=== PATIENT | male | born 1970 | race Caucasian/White ===

== ENCOUNTER 2018-10-06 03:15 | Emergency (ER) | payer OTHER, SELFPAY ==
[2018-10-06 03:18] VITALS: BP 167/98; PULSE 95; RESP 18; TEMP 37.1; O2SAT 95; BMI 34.9
[2018-10-06] MEDS: oxyCODONE 5 MG Tablet 10 MG PO (03:30)
--- NOTE | 2018-10-06 03:39 | RAD_ITS ---
STUDY: X-RAY - LEFT SHOULDER REASON FOR EXAM: Male, 48 years old. Left shoulder pain TECHNIQUE: 5 view(s) of the shoulder. COMPARISON: None. 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 There is hypertrophic osteoarthrosis of the acromioclavicular joint with inferior osseous spur formation. Normal acromion. Normal humeral head and visualized proximal humerus. The soft tissue structures are unremarkable. Normal visualized pulmonary apex. 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 Electronically Signed: Misael Ortiz MD at 4:02 EST Tel , Service support ,
--- NOTE | 2018-10-06 04:21 | ED.VISSUMM ---
- ER Visit Summary Date of Service: 10/06/18 Chief Complaint: Left shoulder pain History of Present Illness: The patient is a 48 M presenting for evaluation secondary to left shoulder pain. 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 Patient reports that over the course of the last 1-2 days he has had a onset of worsening left shoulder pain. 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 He denies that there was specific injury associated with this, but states that the pain has been progressively getting worse. Pain is worse with palpation and movement and has been nonrelenting despite massage and taking Excedrin. He denies any fevers night sweats or unintended weight loss. He denies any injections, recent surgeries, or history of IV drug abuse. Review of systems otherwise negative. Physical Examination: Vital signs are notable for mild hypertension 167/98 patient's afebrile. Well-nourished male visibly uncomfortable but otherwise not physiologic distress. Left upper extremity exam shows diffuse tenderness to palpation around the entirety of the patient's shoulder joint without specific localization. There is no joint effusion noted, no overlying erythema or warmth to palpation. Patient has very limited range of motion secondary to pain. Normal distal sensation normal distal pulses. Normal range of motion of the elbow wrist and hand. Test Results: Left shoulder x-ray shows severe degenerative arthrosis of the shoulder Emergency Department Course and Treatment: Patient presented with left shoulder pain. Patient was given oxycodone for pain in the emergency department. X-rays obtained showed severe degeneration of the glenohumeral joint. Patient does not have fevers, does not have risk factors for infectious arthritis I do not believe that arthrocentesis is indicated. I did offer the patient a joint injection, and he declined. Patient's degenerative joint of his shoulder is bad enough that I do believe that ultimately it will require operative repair. Patient had his right shoulder performed by Dr. Oneil Steel in the past, he wishes to follow-up with him for further orthopedic workup and treatment. Patient will be sent home with Naprosyn to be taken regularly and Percocet to be taken for breakthrough pain. Disposition: Discharge Impression: 1. Severe left shoulder arthrosis This note was generated with [employer] dictation software. It may contain incorrect words, spelling, and punctuation that were not noted in review of the chart prior to signing ED Disposition - Plan for ED Patient: Disposition: Home or Assisted Living Diagnosis: Arthrosis of left shoulder Instructions: ED Shoulder Pain [facility] Prescriptions: Oxycodone HCl/Acetaminophen [Percocet 5/325] 1 tab PO Q6H PRN PRN 3 Days #12 tab PRN Reason: Pain Naproxen [Naprosyn] 500 mg PO BID PRN #20 tab Referrals: Oneil Steel MD [STAFF PHYSICIAN] - As soon as possible
--- NOTE | 2018-10-06 04:25 | ED.DCSUM_ITS ---
- ER Visit Summary Date of Service: 10/06/18 Chief Complaint: Left shoulder pain History of Present Illness: The patient is a 48 M presenting for evaluation secondary to left shoulder pain. 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 Patient reports that over the course of the last 1-2 days he has had a onset of worsening left shoulder pain. 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 He denies that there was specific injury associated with this, but states that the pain has been prog ressively getting worse. Pain is worse with palpation and movement and has been nonrelenting despite massage and taking Excedrin. He denies any fevers night sweats or unintended weight loss. He denies any injections, recent surgeries, or history of IV drug abuse. Review of systems otherwise negative. Physical Examination: Vital signs are notable for mild hypertension 167/98 patient's afebrile. Well-nourished male visibly uncomfortable but otherwise not physiologic distress. Left upper extremity exam shows diffuse tenderness to palpation around the entirety of the patient's shoulder joint without specific localization. There is no joint effusion noted, no overlying erythema or warmth to palpation. Patient has very limited range of motion secondary to pain. Nor mal distal sensation normal distal pulses. Normal range of motion of the elbow wrist and hand. Test Results: Left shoulder x-ray shows severe degenerative arthrosis of the shoulder Emergency Department Course and Treatment: Patient presented with left shoulder pain. Patient was given oxycodone for pain in the emergency department. X-rays obtained showed severe degeneration of the glenohumeral joint. Patient does not have fevers, does not have risk factors for infectious arthritis I do not believe that arthrocentesis is indicated. I did offer the patient a joint injection, and he declined. Patient's degenerative joint of his shoulder is bad enough that I do believe that ultimately it will require operative repair. Patient had his right shoulder performed by Dr. Oneil Steel in the past, he wishes to follow-up with him for further orthopedic workup and treatment. Patient will be sent home with Naprosyn to be taken regularly and Percocet to be taken for breakthrough pain. Disposition: Discharge Impression: 1. Severe left shoulder arthrosis This note was generated with [employer] dictation software. It may contain incorrect words, spelling, and punctuation that were not noted in review of the chart prior to signing ED Disposition - Plan for ED Patient: Disposition: Home or Assisted Living Diagnosis: Arthrosis of left shoulder Instructions: ED Shoulder Pain [facility] Prescriptions: Oxycodone HCl/Acetaminophen [Percocet 5/325] 1 tab PO Q6H PRN PRN 3 Days #12 tab PRN Reason: Pain Naproxen [Naprosyn] 500 mg PO BID PRN #20 tab Referrals: Oneil Steel MD [STAFF PHYSICIAN] - As soon as possible
[2018-10-06 04:34] VITALS: RESP 16
== END 2018-10-06 04:35 | disposition home or self-care (01) ==
PROVIDERS: Emergency Provider Emergency Medicine
DX: M19.012 Primary osteoarthritis, left shoulder (principal)
CPT/HCPCS: 73030; 99283

== ENCOUNTER 2018-12-16 18:43 | Emergency (ER) | payer OTHER, SELFPAY ==
[2018-12-16 18:44] VITALS: BP 146/99; PULSE 131; RESP 20; TEMP 36.8; O2SAT 98; BMI 34.7
--- NOTE | 2018-12-16 18:53 | EKG12_ITS ---
Test Reason : CP Blood Pressure : / mmHG Vent. Rate : 148 BPM Atrial Rate : 148 BPM P-R Int : 130 ms QRS Dur : 096 ms QT Int : 266 ms P-R-T Axes : 049 025 -21 degrees QTc Int : 417 ms Sinus tachycardia Septal infarct , age undetermined Abnormal ECG Confirmed by KHADAR DEXTER, JONATHAN ([id number]), proposal editor SHEREEN ELISE ([id number]) on 12/20/2018 9:00:15 AM Referred By: KELLEE Confirmed By:JONATHAN RUBALCAVA MD
[2018-12-16] MEDS: LORazepam 2 MG/ML Syringe IV ×2 (19:04→20:32)
[2018-12-16 19:46] VITALS: BP 129/69; PULSE 115; RESP 18; O2SAT 96
[2018-12-16 20:23] VITALS: BP 119/79; PULSE 111; RESP 18; O2SAT 98
[2018-12-16 20:43] LABS: Absolute Lymphocyte Count 3.44 X10^3/ul (0.83-4.51); Absolute Neutrophil Count 5.1 X10^3/uL (2.0-7.7); Basophil# 0.05 X10^3/uL; Basophil% 0.5 % (0-1); Eosinophil# 0.11 X10^3/uL; Eosinophils% 1.2 % (0-5); Hematocrit 46.9 % (40-54); Hemoglobin 16.4 g/dl (13.0-16.5); Lymphocyte # 3.44 X10^3/ul (4.0); Lymphocyte % 36.5 % (19-41); Mean Corpuscular Hgb 30.5 pg (27.0-32.0); Mean Corpuscular Volume 87.2 fL (80-94); Mean Platelet Vol. 9.9 fl (6.2-12.0); Monocyte# 0.68 X10^3/uL; Monocyte% 7.2 % (0-10); Neutrophil # 5.11 X10^3/uL (2.7-7.7); Neutrophil % 54.3 % (47-70); POSITIVE COUNT NO; POSITIVE DIFFERENTIAL NO; POSITIVE MORPHOLOGY NO; Platelet Count 259 K/mm3 (150-450); RBC Distribution Width CV 12.6 % (11.6-14.6); RBC Distribution Width SD 40.1 fl (35.1-43.9); Red Blood Count 5.38 M/mm3 (4.6-6.2); White Blood Count 9.4 K/mm3 (4.4-11.0)
[2018-12-16 20:48] LABS: Anion Gap 9 (5-15); BUN 15 mg/dL (7-18); BUN/Creat Ratio 10.6 RATIO (10-20); Calcium,Total 8.8 mg/dL (8.5-10.1); Chloride 105 mmol/L (98-107); Creatinine, Serum 1.41 mg/dL (0.70-1.30); EST Glomerular Filtration Rate 57 mL/min (>60); Est Glom Filt Rate - Afr Amer 69 mL/min (>60); Estimated Creatinine Clearance 73.19 ml/min; Glucose 137 mg/dL (74-106); Sodium Level 141 mmol/L (136-145)
--- NOTE | 2018-12-16 20:54 | ED.VIS.GEN ---
History of Present Illness Chief Complaint: Chest Pain Informant: Patient Onset: Today Context: Sudden Onset Timing: Continuous Quality: Rapid heart rate Location: Chest Current Severity: Moderate Maximum Severity: Moderate Worsened by: Patient smoked dab 1 hour prior to onset. Relieved by: Nothing Associated Symptoms: Palpitations and feeling anxious Narrative: Patient is a 48-year-old male who has history of H fibrillation. He smoked today which apparently is a form of marijuana. He states 1 hour after smoking dab he developed rapid heartbeat. He denies headache. Denies visual, ocular auditory symptoms. He denies shortness of breath. He denies pleuritic pain. Denies upper or lower cavity pain. He denies GI symptoms. He is on no anticoagulant. Prior similar symptoms: No Recent Illness/Hospitalization: No - Past Medical History (1) No significant past medical history Status: Acute Past Medical History - Allergies and Home Meds Allergies/Adverse Reactions: Allergies No Known Allergies Allergy (Verified 10/06/18 03:17) Primary Care Physician: Care Physician,No Primary [Primary Care Provider] - Past Medical History: None Surgical History: noncontributory Lives: Spouse/ Significant Other Smoking Status: Former smoker Drugs: - - Patient admitted use of dab and anabolic steroids Review of Systems General: Denies: Chills, Fever, Malaise, Subjective, Sweats Eyes: Denies: Visual changes - bilaterally, Blurred Vision - bilaterally ENT: Denies: Bilateral ear pain, Rhinorrhea, Sore throat Cardiovascular: Reports: Chest pain, Palpitations Respiratory: Reports: Dyspnea. Denies: Cough, Sputum, Dyspnea on exertion, Orthopnea, Paroxysmal nocturnal dyspnea Musculoskeletal: Denies: Myalgias, Arthralgias, Neck pain, Back pain, Extremity Pain Neurological: Denies: Headache, Weakness, Parasthesia, Numbness Hematologic: Denies: Easy bruising, Easy bleeding Allergy: Denies: Uticaria, Swelling of the mouth Physical Exam Vital Signs/Narrative: Vital Signs Temp Pulse Resp BP Pulse Ox 12/16/18 20:23 111 H 18 119/79 98 12/16/18 19:46 115 H 18 129/69 H 96 12/16/18 18:44 98.2 F 131 H 20 H 146/99 H 98 Inital Vital Signs reviewed: Yes General: Well nourished, Well developed, No Acute Distress Head: Normocephalic, Atraumatic Eyes: Perrl, EOMI. Negative for: Pale conjunctiva, Scleral icterus, - ENT: Moist mucous membranes, No rhinorrhea, TM's clear Neck: Supple, Nontender, No lymphadenopathy, No JVD Cardiovascular: Regular rate, Regular rhythm, No murmurs, Normal S1, Normal S2, Tachycardia Respiratory: No distress, CTA bilaterally, Chest nontender Abdomen: Soft, Nontender, Nondistended, Normal bowel sounds Back: Nontender, Normal Inspection Extremities: Nontender, No edema, - - There is no asymmetry, swelling, discoloration, leg vein distention, palpable cords or tenderness along the distribution of the deep venous system. Skin: Normal color, No rash Neurological: Alert, Oriented x3, Cranial nerves II-XII grossly intact, Normal Strength, Normal Sensation, Normal DTR Psychological: Normal affect, Normal Mood Diagnostic/Tx/Re-eval Laboratory Results 12/16/18 12/16/18 12/16/18 18:41 18:41 20:54 WBC 9.4 RBC 5.38 Hgb 16.4 Hct 46.9 MCV 87.2 MCH 30.5 MCHC 35.0 RDW 12.6 RDW Differential 40.1 Plt Count 259 MPV 9.9 Immature Gran % (Auto) 0.300 Neut % (Auto) 54.3 Lymph % (Auto) 36.5 [place] % (Auto) 7.2 Eos % (Auto) 1.2 Baso % (Auto) 0.5 Absolute Neuts (auto) 5.1 Absolute Lymphs (auto) 3.44 Total Counted Not Reportable Sodium 141 Potassium 4.0 Chloride 105 Carbon Dioxide 27.0 Anion Gap 9 BUN 15 Creatinine 1.41 H Estim Creat Clear Calc 73.19 Est GFR (MDRD) Af Amer 69 Est GFR (MDRD) Non-Af 57 L BUN/Creatinine Ratio 10.6 Glucose 137 H Calcium 8.8 Urine Opiates Screen NEGATIVE Urine Methadone Screen NEGATIVE Ur Barbiturates Screen NEGATIVE Ur Phencyclidine Scrn NEGATIVE Ur Amphetamines Screen NEGATIVE U Methamphetamin-MDMA NEGATIVE U Benzodiazepines Scrn NEGATIVE Urine Cocaine Screen NEGATIVE U Cannabinoids Screen POSITIVE H Ur Drug Screen Comment - Rhythm Strip Rhythm Strip: Sinus Rhythm Rate: 130 Ectopy: None - EKG Initial EKG Interpretation: Sinus Tachycardia - Ventricular rate is 148. MD interval, QT duration and axis are normal. QRS duration is 96 ms. There is decreased anterior force. There is no acute ischemic changes noted. - Medical Decision Making Since patient is tachycardic after smoking dab he was administered 2 mg Ativan. I was informed by sniffing another he became agitated and having hallucinations. Blood work was added. A urine tox screen was added as well. He received an additional 2 mg of Ativan. Patient was reassessed at 2200. He is lying comfortably on the examination cart. He is no longer tachycardic. He states he feels markedly better after the second dose of Ativan. He will be discharged home. ED Disposition - Plan for ED Patient: Disposition: Home or Assisted Living Diagnosis: Sinus tachycardia by electrocardiogram, Illicit drug use, Paranoia Instructions: ED Drug Abuse General Referrals: Care Physician,No Primary [Primary Care Provider] - Vaibhav Cruz MD [STAFF PHYSICIAN] - As Needed Additional Instructions: Since she do not have a primary care physician you were referred to Dr. Vaibhav Cruz for follow-up
[2018-12-16 21:27] LABS: Amphetamine Urine VISTA NEGATIVE (<1000 ng/mL); Barbiturate Urine VISTA NEGATIVE (< 200 ng/mL); Benzodiazepine Urine VISTA NEGATIVE (< 200 ng/mL); Cocaine Urine VISTA NEGATIVE (< 300 ng/mL); Ecstacy Urine VISTA NEGATIVE (< 500 ng/mL); Methadone Urine VISTA NEGATIVE (< 300 ng/mL); PCP Urine VISTA NEGATIVE (< 25 ng/mL); THC Urine VISTA POSITIVE (< 50 ng/mL); Vista UDS pH Range 5
[2018-12-16 22:31] VITALS: BP 159/98; PULSE 112; RESP 16; O2SAT 98
== END 2018-12-16 22:32 | disposition home or self-care (01) ==
PROVIDERS: Emergency Provider Emergency Medicine
DX: R00.0 Tachycardia, unspecified (principal); F19.10 Other psychoactive substance abuse, uncomplicated; F22 Delusional disorders; Z87.891 Personal history of nicotine dependence
CPT/HCPCS: 80048; 80307; 85025; 93005; 96374; 96376; 99284; A4216

== ENCOUNTER 2019-03-21 19:24 | Emergency (ER) | payer OTHER, SELFPAY ==
[2019-03-21 19:28] VITALS: BP 122/83; PULSE 89; RESP 16; TEMP 36.9; O2SAT 92; BMI 34.9
--- NOTE | 2019-03-21 19:52 | CT_ITS ---
STUDY: CT CERVICAL SPINE WITHOUT CONTRAST REASON FOR EXAM: Male, 49 years old. Trauma RADIATION DOSAGE (If Supplied By Facility): CTDIvol = ( 25.94 ) mGy, DLP = ( 607.50 ) mGycm TECHNIQUE: High resolution transaxial imaging was performed without contrast material. Sagittal and coronal images were reconstructed. Individualized dose optimization techniques were used for this CT. COMPARISON: None FINDINGS: Normal craniovertebral junction. Normal anterior atlantoaxial articulation. Normal odontoid process. Normal cervical lordosis. Normal vertebral bodies and posterior osseous elements. C2-3: Normal endplates. Normal disc height and tiny right paracentral disc protrusion. Normal central canal and intervertebral neuroforamina. C3-4: Mild endplate spurring.. Normal disc height and tiny right paracentral disc protrusion. Mild narrowing of the central canal. Mild left neuroforaminal stenosis and moderate to severe narrowing on the right secondary to bony hypertrophy C4-5: Mild endplate spurring.. Normal disc height and morphology. Normal central canal and intervertebral neuroforamina. C5-6: Narrowed disc space and minor endplate spurring. No focal disc protrusion.. Normal central canal and intervertebral neuroforamina. C6-7: Normal endplates. Normal disc height and morphology. Normal central canal and intervertebral neuroforamina. C7-T1: Normal endplates. Normal disc height and morphology. Normal central canal and intervertebral neuroforamina. Normal visualized soft tissue structures. CT/Spine Cervical without Contras IMPRESSION: No evidence for acute fracture or subluxation Mild spondylosis most pronounced at C3-4.. Other findings as above Electronically Signed: David Jimenez MD at 20:57 EDT , Service support ,
--- NOTE | 2019-03-21 19:52 | EKG12_ITS ---
Test Reason : SYNCOPE Blood Pressure : / mmHG Vent. Rate : 086 BPM Atrial Rate : 086 BPM P-R Int : 152 ms QRS Dur : 100 ms QT Int : 370 ms P-R-T Axes : 040 013 005 degrees QTc Int : 442 ms Normal sinus rhythm Normal ECG Confirmed by KHADAR DEXTER, JONATHAN ([id number]), index editor NORMAN RHOADES ([id number]) on 03/26/2019 12:17:42 PM Referred By: ALEXANDRU Confirmed By:JONATHAN RUBALCAVA MD
--- NOTE | 2019-03-21 19:52 | CT_ITS ---
STUDY: CT BRAIN WITHOUT CONTRAST REASON FOR EXAM: Male, 49 years old. Syncope RADIATION DOSAGE (If Supplied By Facility): CTDIvol = ( 44.99 ) mGy, DLP = ( 812.98 ) mGycm TECHNIQUE: Transaxial CT imaging of the brain was performed without administration of intravenous contrast material. Individualized dose optimization techniques were used for this CT. COMPARISON: No relevant priors. FINDINGS: Normal soft tissue structures. Normal calvarium. Normal size ventricles and extra-axial spaces for the patient's age. Normal white matter tracts of the cerebral hemispheres. Normal basal ganglia and thalami. Normal brainstem. Normal cerebellum. There is a very small hyperattenuated density in the inferior right frontal lobe best visualized on axial images 22 and 23 of axial imaging sequence 2. suggesting small hemorrhagic contusion.. There are no findings of an acute ischemic infarction. Minor mucosal thickening in left ethmoid sinus Small mucous retention cyst in right maxillary sinus CT/Brain/Head without Contrast IMPRESSION: Question small hemorrhagic contusion in the inferior right frontal lobe. Recommend clinical correlation and follow-up Electronically Signed: David Jimenez MD at 20:53 EDT , Service support ,
--- NOTE | 2019-03-21 19:55 | ED.VISSUMM ---
- ER Visit Summary Date of Service: 03/21/19 Chief Complaint: Syncope History of Present Illness: The patient is a 49 M who presents after a syncopal episode. This happened suddenly when he was at work. He was walking. He felt hot and lightheaded. He said he was drinking plenty of fluids today. He woke up on the floor. No seizure or shaking activity. No history of seizures or shaking. He had a history of A. fib in the past after smoking drugs. He required synchronized cardioversion. He did not feel that way today. He denies any substance use today. He sustained a laceration to the back of his head. He complains of head and neck pain. Denies any other pain. Denies any history of other heart problems, PE, aortic disease, bleeding, abdominal pain, GI symptoms. Denies any focal weakness or numbness. Tetanus is up-to-date. Physical Examination: Afebrile and vital signs unremarkable. Head shows a 5 cm occipital laceration, linear, full-thickness. Neck is diffusely tender. Heart regular. Lungs clear. Abdomen soft. Extremities atraumatic. Good strength and sensation. Good pulses. Test Results: EKG, labs, chest x-ray, CT brain, CT C-spine pending. Emergency Department Course and Treatment: Patient was monitored. Treated with fentanyl for pain. EKG showed sinus rhythm at a rate of 86. CBC, BMP, troponin unremarkable. Imaging showed left thyromegaly, mild spondylosis C3 on 4, and a questionable inferior right frontal lobe hemorrhagic contusion. Patient will need monitoring at a trauma center. I contacted Dr. Etienne who accepted the patient to [facility]. Ambulance was 5 minutes away. I did not want to delay transport, so his laceration was not repaired at this facility. Treatment Plan: As above Disposition: Transfer Impression: 1. Syncope 2. Right frontal lobe hemorrhagic contusion 3. Left thyromegaly 4. Scalp laceration This note was generated with [employer] dictation software. It may contain incorrect words, spelling, and punctuation that were not noted in review of the chart prior to signing ED Disposition - Plan for ED Patient: Referrals: Care Physician,No Primary [Primary Care Provider] -
--- NOTE | 2019-03-21 20:10 | RAD_ITS ---
STUDY: X-RAY CHEST REASON FOR EXAM: Male, 49 years old. Syncope TECHNIQUE: AP COMPARISON: None. FINDINGS: Diminished inspiratory effort is seen however the lungs are clear There is no demonstrated pleural abnormality. Normal size heart. Normal mediastinum and ganesh. Normal visualized pulmonary arteries. Normal visualized aortic arch and descending thoracic aorta. Dorsal spine demonstrates moderate spondylosis. Normal visualized ribs, clavicles, and shoulders. Tracheal deviation towards the right raising question of left thyromegaly. There is no demonstrated abnormality of the visualized soft tissue structures of the upper abdomen. RAD/Chest 1 View (Portable) IMPRESSION: No acute cardiopulmonary pathology. Cannot exclude left thyromegaly. Clinical correlation recommended Electronically Signed: David Jimenez MD at 20:24 EDT , Service support ,
[2019-03-21] MEDS: 0.9% Normal Saline 1,000 ML 1000 ML IV (20:25)
[2019-03-21] MEDS: fentaNYL 100 MCG/2 ML Ampul 50 MCG IV (20:25)
[2019-03-21 20:32] LABS: Absolute Lymphocyte Count 1.99 X10^3/uL (0.83-4.51); Absolute Neutrophil Count 5.7 X10^3/uL (2.0-7.7); Basophil# 0.06 X10^3/uL; Basophil% 0.7 % (0-1); Eosinophil# 0.05 X10^3/uL; Eosinophils% 0.6 % (0-5); Hematocrit 43.1 % (40-54); Hemoglobin 15.3 g/dL (13.0-16.5); Lymphocyte # 1.99 X10^3/ul (4.0); Lymphocyte % 23.5 % (19-41); Mean Corp Hgb Conc 35.5 g/dL (32-36); Mean Corpuscular Hgb 30.6 pg (27.0-32.0); Mean Corpuscular Volume 86.2 fL (80-94); Mean Platelet Vol. 9.3 fl (6.2-12.0); Monocyte# 0.66 X10^3/uL; Monocyte% 7.8 % (0-10); NRBC Flagged by Analyzer 0 % (0-5); Neutrophil # 5.68 X10^3/uL (2.7-7.7); Neutrophil % 66.9 % (47-70); Platelet Count 267 K/mm3 (150-450); RBC Distribution Width CV 12.4 % (11.6-14.6); RBC Distribution Width SD 38.7 fl (35.1-43.9); White Blood Count 8.5 K/mm3 (4.4-11.0)
[2019-03-21 20:50] LABS: Anion Gap 12 (5-15); BUN 25 mg/dL (7-18); BUN/Creat Ratio 18.2 RATIO (10-20); Calcium,Total 8.9 mg/dL (8.5-10.1); Chloride 105 mmol/L (98-107); Creatinine, Serum 1.37 mg/dL (0.70-1.30); EST Glomerular Filtration Rate 59 mL/min (>60); Est Glom Filt Rate - Afr Amer 71 mL/min (>60); Estimated Creatinine Clearance 74.52 ml/min; Glucose 101 mg/dL (74-106); Potassium 3.8 mmol/L (3.5-5.1); Sodium Level 140 mmol/L (136-145)
[2019-03-21 21:00] VITALS: BP 134/87; BP 143/94; BP 156/119; PULSE 106; PULSE 87; PULSE 90
[2019-03-21] MEDS: Morphine 4 MG/ML Syringe IV (21:16)
[2019-03-21 21:53] VITALS: BP 160/100; PULSE 84; RESP 12; O2SAT 100
[2019-03-21 21:55] LABS: International Normalized Ratio 1.1; Prothrombin Time (Protime)PT. 13.6 SECONDS (11.7-14.9)
[2019-03-21 21:56] LABS: Partial Thromboplast Time 26.4 Seconds (24.1-36.2)
[2019-03-21 22:29] VITALS: BP 160/100; PULSE 88; RESP 15; TEMP 36.1; O2SAT 95
== END 2019-03-21 22:25 | disposition short-term general hospital (02) ==
LOC: ED 19:59
PROVIDERS: Emergency Provider Emergency Medicine
DX: R55 Syncope and collapse (principal); S01.01XA Laceration without foreign body of scalp, initial encounter; W18.30XA Fall on same level, unspecified, initial encounter; Y93.01 Activity, walking, marching and hiking; Y92.89 Other specified places as the place of occurrence of the external cause; Y99.0 Civilian activity done for income or pay; E01.0 Iodine-deficiency related diffuse (endemic) goiter; M47.812 Spondylosis without myelopathy or radiculopathy, cervical region; I48.91 Unspecified atrial fibrillation; Z87.891 Personal history of nicotine dependence
CPT/HCPCS: 70450; 71045; 72125; 80048; 84484; 85025; 85610; 85730; 93005; 96361; 96374; 96375; 99285; J7030; A4216

== ENCOUNTER 2019-03-26 12:13 | Emergency (ER) | payer OTHER, SELFPAY ==
[2019-03-26 12:14] VITALS: BP 174/103; PULSE 68; RESP 16; TEMP 36.7; O2SAT 97; BMI 34.2
--- NOTE | 2019-03-26 12:20 | CT_ITS ---
STUDY: CT BRAIN WITHOUT CONTRAST REASON FOR EXAM: Male, 49 years old. Dizziness, headache RADIATION DOSAGE (If Supplied By Facility): CTDIvol = ( 44.99 ) mGy, DLP = ( 846.73 ) mGycm TECHNIQUE: Transaxial CT imaging of the brain was performed without administration of intravenous contrast material. Individualized dose optimization techniques were used for this CT. COMPARISON: No relevant priors. FINDINGS: Left posterior scalp laceration without skull fracture. Normal size ventricles and extra-axial spaces for the patient's age. Normal white matter tracts of the cerebral hemispheres. Normal basal ganglia and thalami. Normal brainstem. Normal cerebellum. There is no intracranial hemorrhage. There are no findings of an acute ischemic infarction. Normal visualized paranasal sinuses. CT/Brain/Head without Contrast IMPRESSION: No acute intracranial abnormalities Electronically Signed: Wally Eubanks MD at 12:43 EDT , Service support ,
--- NOTE | 2019-03-26 12:22 | ED.DCSUM_ITS ---
History of Present Illness Chief Complaint: Head Injury Narrative: 49-year-old male presents with headache. He suffered a head injury last week at work. He was evaluated here and transferred to [facility] for intracranial bleed. He was evaluated by neurosurgery and observed overnight. He was discharged home when his repeat CT was unchanged. He has been having headaches and nausea since then. He attempted to return to work today and his headache became much worse and he had nausea so he is concerned that the bleeding could have expanded. He denies any new injury or other complaints. Current severity is mild. No relieving or exacerbating factors. Past Medical History - Allergies and Home Meds Allergies/Adverse Reactions: Allergies tramadol Allergy (Verified 03/26/19 12:20) Hives Primary Care Physician: Care Physician,No Primary [Primary Care Provider] - Prior records reviewed: Yes Surgical History: noncontributory Smoking Status: Never smoker Review of Systems General: Denies: Chills, Fever, Sweats Eyes: Denies: Visual changes - bilaterally, Diplopia ENT: Denies: Rhinorrhea, Sore throat Cardiovascular: Denies: Chest pain, Palpitations Respiratory: Denies: Dyspnea, Cough, Dyspnea on exertion Gastrointestinal: Reports: Nausea. Denies: Abdominal pain, Vomiting, Diarrhea, Melena, Hematochezia Genitourinary: Denies: Dysuria, Hematuria, Frequency Musculoskeletal: Denies: Back pain, Extremity Pain Skin: Denies: Rash, Wounds Neurological: Reports: Headache. Denies: Weakness, Parasthesia, Numbness Psych: Denies: Anxiety Hematologic: Denies: Easy bruising, Easy bleeding Physical Exam Vital Signs/Narrative: Vital Signs Temp Pulse Resp BP Pulse Ox 03/26/19 12:14 98.1 F 68 16 174/103 H 97 General: Well nourished, Well developed, No Acute Distress Head: Normocephalic, Atraumatic Eyes: Perrl, EOMI ENT: Moist mucous membranes, No rhinorrhea Neck: Supple, Nontender Cardiovascular: Regular rate, Regular rhythm, No murmurs Respiratory: No distress, CTA bilaterally, Chest nontender Abdomen: Soft, Nontender, Nondistended, Normal bowel sounds Back: Nontender, Normal Inspection Extremities: Nontender, No edema Skin: Normal color, No rash, - - 3 shen in his posterior scalp laceration. Intact. No evidence of infection. Neurological: Alert, Oriented x3, Cranial nerves II-XII grossly intact, Normal Strength, Normal Sensation Psychological: Normal affect, Normal Mood Diagnostic/Tx/Re-eval - Medical Decision Making His repeat CT is negative. Pain resolved with 1 dose of pain medication here. He looks well. I feel he can safely be discharged. He did not file Worker's Comp. apparently on his initial visit and he has to file it today. I filled out a Freud for him and [facility] ED Disposition - Plan for ED Patient: Disposition: Home or Assisted Living Diagnosis: Concussion with loss of consciousness <= 30 min Instructions: CONCUSSION, No Wake Up [facility]] - As soon as possible
[2019-03-26] MEDS: oxyCODONE 5 MG Tablet PO (12:43)
[2019-03-26 14:10] VITALS: BP 124/91; PULSE 62; RESP 16
== END 2019-03-26 14:10 | disposition home or self-care (01) ==
PROVIDERS: Emergency Provider Emergency Medicine
DX: S06.0X1D Concussion with loss of consciousness of 30 minutes or less, subsequent encounter (principal); X58.XXXD Exposure to other specified factors, subsequent encounter; Z88.8 Allergy status to other drugs, medicaments and biological substances
CPT/HCPCS: 70450; 99283; A4216

== ENCOUNTER 2019-09-30 03:54 | Emergency (ER) | payer MEDICAID, SELFPAY ==
[2019-09-30 03:54] VITALS: BP 154/91; PULSE 90; RESP 21; TEMP 36.8; O2SAT 94; BMI 33.0
--- NOTE | 2019-09-30 04:06 | EKG12_ITS ---
Test Reason : CP Blood Pressure : / mmHG Vent. Rate : 092 BPM Atrial Rate : 092 BPM P-R Int : 150 ms QRS Dur : 100 ms QT Int : 362 ms P-R-T Axes : 061 029 -10 degrees QTc Int : 447 ms Sinus rhythm with occasional Premature ventricular complexes Otherwise normal ECG Confirmed by KHADAR DEXTER, JONATHAN ([id number]), sound editor NORMAN RHOADES ([id number]) on 10/01/2019 12:32:27 PM Referred By: David Lewis Confirmed By:JONATHAN RUBALCAVA MD
[2019-09-30 04:09] VITALS: O2SAT 94
--- NOTE | 2019-09-30 04:09 | ED.DCSUM_ITS ---
- ER Visit Summary Date of Service: 09/30/19 Chief Complaint: Chest pain History of Present Illness: The patient is a 49 M who presents with chest pain that began suddenly tonight. Patient describes the pain as a heaviness but sharp. Patient states pain is over the left chest. Patient states nothing make s it better or worse. Patient admits to some shortness of breath and palpitations with the pain. Patient also admits to some lightheadedness. Patient denies any nausea or vomiting. Patient denies any diaphoresis. Patient is a recovering alcoholic and went on a drinking binge yesterday. Patient denies any cardiac or PE risk factors. Physical Examination: Vital signs are stable. Patient is afebrile. Patient is in no acute distress. Oral mucosa is pink and moist. Neck is supple. Trachea is midline. There is no JVD noted. Heart was regular rate and rhythm. Lungs are clear and equal bilaterally. There is mild reproducible tenderness over the left anterior chest wall. Abdomen is soft. Bowel sounds are normal. There is no tenderness. There is no rebound or guarding noted. Skin is warm dry. Cranial nerves II through XII are intact. There are no focal motor or sensory deficits noted. Extremities are intact. There is no calf tenderness or edema. Test Results: EKG shows normal sinus rhythm with occasional PVC with a rate of 92. There are no acute ST or T wave changes. CBC, basic metabolic profile, troponin were obtained were all within normal limits. Portable chest x-ray was obtained. There is no acute cardiopulmonary process. This was interpreted by the radiologist and reviewed by myself. Emergency Department Course and Treatment: Patient was given aspirin here. Patient was also given a dose of Ativan here. Patient felt better on reevaluation. Patient was instructed to follow-up with his primary care physician for further evaluation and management of his chest pain and anxiety. Patient understood and was agreeable with the plan. All questions were answered. Disposition: Discharge home Impression: Chest pain This note was generated with [employer] dictation software. It may contain incorrect words, spelling, and punctuation that were not noted in review of the chart prior to signing ED Disposition - Plan for ED Patient: Disposition: Home or Assisted Living Diagnosis: Chest pain Instructions: CHEST PAIN, Uncertain Cause Referrals: David Lewis MD [Primary Care Provider] - 5-7 Days
--- NOTE | 2019-09-30 04:10 | RAD_ITS ---
STUDY: X-RAY CHEST REASON FOR EXAM: Male, 49 years old with chest pain and palpitations. TECHNIQUE: Single AP portable view of the chest. COMPARISON: March 21, 2019. FINDINGS: Cardiac monitoring leads are present. The lungs are hyperexpanded with perihilar interstitial thickening. There is no demonstrated pleural abnormality. Normal size heart. Normal mediastinum and ganesh. There is prominence of the pulmonary hilar arteries without peripheral pulmonary vascular congestion. There is atherosclerotic calcification of the aortic arch with tortuosity. There are diffuse degenerative changes of the visualized thoracic spine. The patient appears to have partial right-sided clavicular resection. There are degenerative changes of the left shoulder. There is no demonstrated abnormality of the visualized soft tissue structures of the upper abdomen. RAD/Chest 1 View (Portable) IMPRESSION: No radiographic evidence of acute cardiopulmonary disease. Electronically Signed: Carmen Steel MD at 5:20 EST , Service support ,
[2019-09-30 04:17] LABS: Absolute Neutrophil Count 3.4 X10^3/uL (2.0-7.7); Basophil# 0.04 X10^3/uL; Basophil% 0.7 % (0-1); Eosinophil# 0.05 X10^3/uL; Eosinophils% 0.8 % (0-5); Hematocrit 43.9 % (40-54); Hemoglobin 14.9 g/dL (13.0-16.5); Lymphocyte % 32.7 % (19-41); Mean Corp Hgb Conc 33.9 g/dL (32-36); Mean Corpuscular Hgb 29.9 pg (27.0-32.0); Mean Platelet Vol. 9.2 fl (6.2-12.0); Monocyte# 0.64 X10^3/uL; Monocyte% 10.5 % (0-10); NRBC Flagged by Analyzer 0 % (0-5); Neutrophil # 3.36 X10^3/uL (2.7-7.7); Platelet Count 247 K/mm3 (150-450); RBC Distribution Width CV 12.2 % (11.6-14.6); Red Blood Count 4.99 M/mm3 (4.6-6.2); White Blood Count 6.1 K/mm3 (4.4-11.0)
[2019-09-30] MEDS: Aspirin 81 MG TAB.CHEW 324 MG PO (04:21)
[2019-09-30 04:39] LABS: Anion Gap 3 (5-15); BUN 14 mg/dL (7-18); BUN/Creat Ratio 13.5 RATIO (10-20); Calcium,Total 8.9 mg/dL (8.5-10.1); Chloride 110 mmol/L (98-107); Creatinine, Serum 1.04 mg/dL (0.70-1.30); EST Glomerular Filtration Rate 81 mL/min (>60); Est Glom Filt Rate - Afr Amer 98 mL/min (>60); Estimated Creatinine Clearance 98.17 ml/min; Glucose 92 mg/dL (74-106); Sodium Level 143 mmol/L (136-145)
[2019-09-30] MEDS: LORazepam 2 MG/ML Syringe 0.5 MG IV (04:45)
[2019-09-30 05:34] VITALS: BP 154/80; PULSE 80; RESP 16; O2SAT 94
== END 2019-09-30 05:34 | disposition home or self-care (01) ==
PROVIDERS: Emergency Provider Emergency Medicine; PCP Family Medicine; Referring Provider Family Medicine
DX: R07.9 Chest pain, unspecified (principal); F10.21 Alcohol dependence, in remission; R06.00 Dyspnea, unspecified; R51 Headache; I48.91 Unspecified atrial fibrillation; Y90.9 Presence of alcohol in blood, level not specified
CPT/HCPCS: 71045; 80048; 84484; 85025; 93005; 96374; 99285; A4216

== ENCOUNTER 2020-01-28 10:55 | Emergency (ER) | payer MEDICAID, SELFPAY ==
[2020-01-28 10:57] VITALS: BP 153/109; PULSE 78; RESP 12; TEMP 35.3; O2SAT 96; BMI 34.8
--- NOTE | 2020-01-28 11:09 | ED.VIS.GEN ---
History of Present Illness Chief Complaint: Upper Extremity Injury Informant: Patient Onset: Today Current Severity: Moderate Maximum Severity: Severe Narrative: Patient presents with right shoulder pain. He was holding weights braced across his chest and doing squats. He had sudden right shoulder pain and felt a pop. He is right-hand dominant. He reports some intermittent tingling in his right hand. He has had prior right shoulder surgery 20 years ago. Past Medical History - Allergies and Home Meds Allergies/Adverse Reactions: Allergies No Known Allergies Allergy (Verified 01/28/20 10:57) Primary Care Physician: David Lewis MD [Primary Care Provider] - Past Medical History: None Surgical History: noncontributory, - - Right shoulder repair 20 years ago Lives: Spouse/ Significant Other Smoking Status: Former smoker Review of Systems General: Denies: Chills, Fever Eyes: Denies: Visual changes - bilaterally ENT: Denies: Bilateral ear pain Cardiovascular: Denies: Chest pain Respiratory: Denies: Dyspnea, Cough Gastrointestinal: Denies: Abdominal pain Musculoskeletal: Reports: Extremity Pain Skin: Denies: Rash, Wounds Neurological: Reports: Parasthesia Hematologic: Denies: Easy bruising, Easy bleeding Allergy: Denies: Uticaria Physical Exam Vital Signs/Narrative: Vital Signs Temp Pulse Resp BP Pulse Ox 01/28/20 10:57 95.6 F L 78 12 153/109 H 96 Inital Vital Signs reviewed: Yes General: Well nourished, Well developed Head: Normocephalic ENT: Moist mucous membranes Neck: Supple Cardiovascular: Regular rate, Regular rhythm Respiratory: No distress, CTA bilaterally Abdomen: Soft, Nontender Extremities: - - Diffuse tenderness throughout the right shoulder and proximal humerus. Limited range of motion secondary to pain. Strong distal pulses. Neurological: Alert, Oriented x3 Psychological: Normal affect Diagnostic/Tx/Re-eval Right shoulder x-rays per my review reveal no acute bony abnormality. - Medical Decision Making Patient was given [place] for pain. Patient's x-ray is still not formally read by radiology. We have waited an hour and a half and it has been assigned to 3 different radiologist with no read. I discussed what my interpretation is with the patient. He will be treated with a sling and pain medication. He will follow-up with orthopedics if not improving. I will continue to check for the final read on x-ray and if any significant abnormalities are noted he will be called. He is comfortable with this plan. ED Disposition - Plan for ED Patient: Disposition: Home or Assisted Living Diagnosis: Sprain of right shoulder Instructions: ED Shoulder Sprain Prescriptions: Hydrocodone Bitart/Apap 5-325 [[place] 5MG-325MG] 1 tablet PO Q6H PRN PRN 3 Days #10 tablet PRN Reason: Pain Transmission Status: Sent to [facility] Referrals: Oneil Steel MD [STAFF PHYSICIAN] - 5-7 Days
[2020-01-28] MEDS: HYDROcodone Bitartrate/Apap 5/325 Tablet PO (11:12)
--- NOTE | 2020-01-28 11:34 | RAD_ITS ---
STUDY: X-RAY - RIGHT SHOULDER REASON FOR EXAM: Male, 49 years old. Pain. Trauma. TECHNIQUE: 4 view(s) of the shoulder. COMPARISON: None. FINDINGS: There is no evidence of fracture or dislocation. There are advanced degenerative changes noted. There are no radiodense foreign bodies. RAD/Shoulder min 2 Views IMPRESSION: No fracture or dislocation in the right shoulder. Advanced degenerative change. Electronically Signed: Elijah Brooke, at 13:55 EDT Tel , Service support ,
[2020-01-28 13:34] VITALS: BP 148/99; PULSE 90; RESP 14; O2SAT 99
== END 2020-01-28 13:38 | disposition home or self-care (01) ==
PROVIDERS: Emergency Provider Emergency Medicine; PCP Family Medicine
DX: S43.401A Unspecified sprain of right shoulder joint, initial encounter (principal); X50.3XXA Overexertion from repetitive movements, initial encounter; Y93.B3 Activity, free weights; Y92.9 Unspecified place or not applicable; Y99.9 Unspecified external cause status; Z87.891 Personal history of nicotine dependence
CPT/HCPCS: 73030; 99283

== ENCOUNTER 2021-01-11 19:54 | Emergency (ER) | payer MEDICAID, SELFPAY ==
[2021-01-11 19:55] VITALS: BP 128/83; PULSE 79; RESP 15; TEMP 36.6; O2SAT 98; BMI 35.2
--- NOTE | 2021-01-11 20:23 | EX.ED.DYSGE1 ---
HPI History of Present Illness Chief Complaint: Rash Informant: patient Narrative Narrative: 50-year-old male presenting with rash. Patient states he was unaware of the rash until his noticed it today. He is not sure how long he has had the rash. He denies itching or pain. He has rash to both armpits. He also noticed a wound on his right upper thigh 5 days ago. He has tried to squeeze it but has had no pus drainage. Denies fever. Denies other complaints. PFSH PFS Medical History Former smoker Meniscus degeneration Home Medications clindamycin HCl 300 mg PO 4X/DAY #80 capsule 01/11/21 [Rx Last Taken Unknown] Allergy/AdvReac Type Severity Reaction Status Date / Time No Known Allergies Allergy Verified 01/11/21 19:55 Social History Smoking Status: Former smoker ROS ROS ED Constitutional Constitutional ED: Denies fever(s) Eyes Eyes: Denies change in vision ENT ENT ED: Denies rhinorrhea or sore throat Cardiovascular Cardiovascular: Denies chest pain or palpitations Respiratory/Chest Respiratory/Chest: Denies cough or dyspnea Gastrointestinal Gastrointestinal: Denies abdominal pain, diarrhea, nausea or vomiting Genitourinary Genitourinary ED: Denies dysuria Musculoskeletal Musculoskeletal: Denies myalgias Integumentary Reports rash Neurologic Neurologic: Denies headache(s) EXAM Physical Exam Const Vital Signs: 01/11/21 19:55 Temperature 97.8 F Temperature Source Temporal Pulse Rate 79 Respiratory Rate 15 Blood Pressure 128/83 H Blood Pressure Mean 98 Pulse Ox 98 Oxygen Delivery Method Room Air Positive well nourished and well developed General Appearance ED: well developed HEENT Reports normocephalic and head/scalp atraumatic Eyes PERRL and EOMs intact bilaterally Neck supple General: Negative for tenderness Chest Wall inspection of chest normal Resp normal respiratory effort and clear to auscultation bilaterally Cardio regular rate and regular rhythm no CVA tenderness Extremity normal to inspection Neuro oriented x3 Sensorium / Orientation: alert Psych mental status grossly normal Skin Skin Narrative: Rash bilateral axilla consistent with folliculitis. No fluctuance. 2cm lesion right upper thigh with no drainage or fluctuance. No surrounding erythema. MDM MDM MDM Narrative Medical decision making narrative: Patient was given clindamycin and a prescription for clindamycin. He is advised to follow-up with his primary care physician. Advised return to ED for worsening complaints. Discharge Plan Triage Chief Complaint: Rash ED Provider: Lizzeth Griffin Dx/Rx/DC Orders Clinical Impression: Folliculitis Instructions: ED Folliculitis Prescriptions: New clindamycin HCl 150 MG capsule 300 mg PO 4X/DAY Qty: 80 RF: 0 Primary Care Provider: David Lewis Referrals: David Lewis MD [Primary Care Provider] - Disposition Disposition: Home, self care
[2021-01-11] MEDS: Clindamycin HCl 150 MG Capsule 300 MG PO (20:46)
[2021-01-11 20:49] VITALS: BP 120/72; PULSE 88; RESP 15; O2SAT 98
== END 2021-01-11 20:50 | disposition home or self-care (01) ==
LOC: ED 20:38
PROVIDERS: Emergency Provider Emergency Medicine; PCP Family Medicine
DX: L73.9 Follicular disorder, unspecified (principal); Z87.891 Personal history of nicotine dependence
CPT/HCPCS: 99282

== ENCOUNTER 2021-01-14 23:45 | Emergency (ER) | payer MEDICAID, SELFPAY ==
[2021-01-14 23:45] VITALS: BP 144/86; PULSE 72; RESP 16; TEMP 36.4; O2SAT 95; BMI 34.2
--- NOTE | 2021-01-15 00:18 | EX.ED.DYSGE1 ---
HPI History of Present Illness Chief Complaint: Rash Informant: patient Onset/Context/Timing Onset: Days Quality: Red spots with small blisters and ulcers Location: Bilateral inguinal area and bilateral axillae Current Severity: Mild Associated Symptoms Associated Symptoms: none Narrative Narrative: Patient has been taking clindamycin with no improvement. No other associated symptoms. Prior similar symptoms: No PFSH PFSH Medical History Former smoker Meniscus degeneration no medical history Home Medications clindamycin HCl 300 mg PO 4X/DAY #80 capsule 01/11/21 [Rx Last Taken Unknown] Allergy/AdvReac Type Severity Reaction Status Date / Time No Known Allergies Allergy Verified 01/14/21 23:47 Social History Smoking Status: Former smoker ROS ROS ED Constitutional Constitutional ED: Denies chills or fever(s) Eyes Eyes: Denies change in vision ENT ENT ED: Denies ear pain Cardiovascular Cardiovascular: Denies chest pain Respiratory/Chest Respiratory/Chest: Denies dyspnea Gastrointestinal Gastrointestinal: Denies abdominal pain Genitourinary Genitourinary ED: Denies dysuria Musculoskeletal Musculoskeletal: Denies myalgias Integumentary Reports rash; Denies abscess or Abrasions Neurologic Neurologic: Denies headache(s) Psychiatric Psychiatric: Denies depression Endocrine Endocrinology: Denies polyuria Allergic/Immunologic Allergic/Immunologic ED: Denies urticaria EXAM Physical Exam Narrative Exam Narrative: Vital signs reviewed. Alert and oriented. No acute distress. Sitting and moving comfortably. No respiratory distress. Heart regular rate. Skin exam shows a follicular pattern of erythematous, blanching spots to his bilateral axillae and bilateral inguinal region. There are some small areas of ulceration. Eyes and mucous membranes unremarkable. Const Vital Signs: 01/14/21 23:45 01/15/21 00:26 Temperature 97.6 F L Temperature Source Temporal Pulse Rate 72 72 Respiratory Rate 16 16 Blood Pressure 144/86 H 144/86 H Blood Pressure Mean 105 Pulse Ox 95 95 Oxygen Delivery Method Room Air MDM MDM MDM Narrative Medical decision making narrative: Patient has what appears to be a folliculitis. There is no sign of cellulitis. I believe the clindamycin will help prevent cellulitis. Patient was given instructions on topical care to help these heal. No shaving. No harsh soaps or detergents or chemicals. Keep the area clean and dry. Return for any new or worsening issues. Discharge Plan Triage Chief Complaint: Rash ED Provider: Ortega Kumar Dx/Rx/DC Orders Clinical Impression: Folliculitis Instructions: ED Folliculitis Prescriptions: No Action clindamycin HCl 150 MG capsule 300 mg PO 4X/DAY Qty: 80 RF: 0 Primary Care Provider: David Lewis Referrals: David Lewis MD [Primary Care Provider] - 3-5 Days Disposition Disposition: Home, self care Discharge Date/Time: 01/15/21 00:27
[2021-01-15 00:26] VITALS: BP 144/86; PULSE 72; RESP 16; O2SAT 95
== END 2021-01-15 00:27 | disposition home or self-care (01) ==
PROVIDERS: Emergency Provider Emergency Medicine; PCP Family Medicine
DX: L73.9 Follicular disorder, unspecified (principal); Z87.891 Personal history of nicotine dependence
CPT/HCPCS: 99282

== ENCOUNTER 2021-04-25 18:30 | Emergency (ER) | payer OTHER, MEDICAID, SELFPAY ==
[2021-04-25 18:31] VITALS: BP 163/96; PULSE 84; RESP 18; TEMP 36.4; O2SAT 96; BMI 33.3
--- NOTE | 2021-04-25 19:24 | EX.ED.DYSGE1 ---
HPI History of Present Illness Chief Complaint: Allergic Reaction Informant: patient Onset/Context/Timing Onset: Days Context: Gradual Onset Timing: Continuous Quality: Hives Location: Bilateral shoulder/chest area Worsened by: Nothing Relieved by: Nothing Narrative Narrative: Patient presents with hives over his chest and shoulder areas bilaterally. Patient states he was stung 1 week ago by bees. Patient states that the areas where he was stung have not developed hives over the last couple days. Patient states the areas are pruritic. Patient denies any discharge or drainage. Patient denies any fevers or chills. Patient denies any shortness of breath. Patient denies any other urticaria. Patient denies any difficulty swallowing. [facility] Medical History Former smoker Meniscus degeneration Home Medications clindamycin HCl 300 mg PO 4X/DAY #80 capsule 01/11/21 [Rx Last Taken Unknown] hydrocortisone 1 applic TOPICAL BID PRN #20 g 04/25/21 [Rx Last Taken Unknown] Allergy/AdvReac Type Severity Reaction Status Date / Time No Known Allergies Allergy Verified 04/25/21 18:31 Social History Smoking Status: Former smoker ROS ROS ED Constitutional Constitutional ED: Denies chills or fever(s) Eyes Eyes: Denies blurry vision or change in vision ENT ENT ED: Denies rhinorrhea or sore throat Cardiovascular Cardiovascular: Denies chest pain or palpitations Respiratory/Chest Respiratory/Chest: Denies cough or dyspnea Gastrointestinal Gastrointestinal: Denies nausea or vomiting Genitourinary Genitourinary ED: Denies dysuria or hematuria Musculoskeletal Musculoskeletal: Denies back pain or neck pain Integumentary Denies abscess or rash Neurologic Neurologic: Denies headache(s) or weakness Allergic/Immunologic Allergic/Immunologic ED: Reports urticaria; Denies mouth swelling EXAM Physical Exam Const Vital Signs: 04/25/21 18:31 Temperature 97.6 F L Temperature Source Temporal Pulse Rate 84 Respiratory Rate 18 Blood Pressure 163/96 H Blood Pressure Mean 118 Pulse Ox 96 Oxygen Delivery Method Room Air Positive well nourished and well developed General Appearance ED: well developed HEENT Reports moist mucous membranes HEENT Narrative: Oral pharynx is clear. Airway is patent. Neck supple and no JVD Resp normal respiratory effort and clear to auscultation bilaterally Cardio regular rate and regular rhythm GI normal to inspection, nondistended, normoactive bowel sounds and non-tender Palpation: soft Neuro oriented x3, CN's II-XII intact bilaterally and no sensory deficits noted Sensorium / Orientation: alert Motor Exam: strength 5/5 throughout Psych mental status grossly normal MDM MDM MDM Narrative Medical decision making narrative: This appears to be a delayed local reaction to the bee stings. Patient was given a prescription for hydrocortisone cream. Patient was instructed to follow-up with his primary care physician in 5 to 7 days. Patient understood and was agreeable with the plan. All questions were answered. Discharge Plan Triage Chief Complaint: Allergic Reaction ED Provider: Devin Rodriguez Dx/Rx/DC Orders Clinical Impression: Local reaction to hymenoptera sting Instructions: ED Insect Sting, Local Reaction Prescriptions: New hydrocortisone 2.5 % cream 1 applic topical BID PRN (Reason: rash) Qty: 20 RF: 0 No Action clindamycin HCl 150 MG capsule 300 mg PO 4X/DAY Qty: 80 RF: 0 Primary Care Provider: David Lewis Referrals: David Lewis MD [Primary Care Provider] - 5-7 Days Disposition Disposition: Home, Self Care
== END 2021-04-25 19:45 | disposition home or self-care (01) ==
PROVIDERS: Emergency Provider Emergency Medicine; PCP Family Medicine
DX: T78.40XA Allergy, unspecified, initial encounter (principal); Z87.891 Personal history of nicotine dependence
CPT/HCPCS: 99282

== ENCOUNTER 2021-06-05 18:43 | Emergency (ER) | payer OTHER, MEDICAID, SELFPAY ==
[2021-06-05 18:45] VITALS: BP 125/84; PULSE 84; RESP 16; TEMP 36.3; O2SAT 97; BMI 32.8
--- NOTE | 2021-06-05 20:13 | EX.ED.DYSGE1 ---
HPI History of Present Illness Chief Complaint: Allergic Reaction Informant: patient and spouse/S.O. Onset/Context/Timing Onset: Today Context: Sudden Onset Timing: Continuous Current Severity: Mild Maximum Severity: Mild Narrative Narrative: Bee sting dorsum of left hand today. Mild swelling. No other symptoms. This occurred this morning. He denies any trouble breathing nor any swelling of the lips or tongue. Prior similar symptoms: Yes Recent Illness/Hospitalization: No PFSH PFSH Medical History Former smoker Meniscus degeneration Home Medications NK 06/05/21 [History Last Taken Unknown] Allergy/AdvReac Type Severity Reaction Status Date / Time No Known Allergies Allergy Verified 06/05/21 18:44 Social History Smoking Status: Former smoker ROS ROS ED ROS Narrative Local swelling dorsum of left hand only. Review of Systems ROS Unobtainable: Denies due to encephalopathy Constitutional Constitutional ED: Denies chills or fever(s) Eyes Eyes: Denies change in vision ENT ENT ED: Denies ear pain Cardiovascular Cardiovascular: Denies chest pain Respiratory/Chest Respiratory/Chest: Denies cough or dyspnea Gastrointestinal Gastrointestinal: Denies abdominal pain or nausea Genitourinary Genitourinary ED: Denies dysuria Musculoskeletal Musculoskeletal: Denies myalgias Neurologic Neurologic: Denies headache(s) Psychiatric Psychiatric: Denies depression Endocrine Endocrinology: Denies polyuria Allergic/Immunologic Allergic/Immunologic ED: Denies urticaria EXAM Physical Exam Narrative Exam Narrative: 51-year-old male no acute distress vital signs stable afebrile. Dorsum of his left hand mildly swollen. He had a ring on his ring finger which he easily removed. There is no signs of infection. No lymphangitic streaking. Otherwise exam normal. Const Vital Signs: 06/05/21 18:45 Temperature 97.3 F L Temperature Source Temporal Pulse Rate 84 Respiratory Rate 16 Blood Pressure 125/84 H Blood Pressure Mean 97 Pulse Ox 97 Oxygen Delivery Method Room Air Positive well nourished and well developed; Negative for obese, cachectic, contractures or unkempt General Appearance ED: well developed and NAD; Negative for unkempt, cachectic or contractures Nutritional Appearance: Negative for cachectic or obese HEENT Reports moist mucous membranes Negative for trauma or tenderness Eyes PERRL and EOMs intact bilaterally Neck no lymphadenopathy and supple Chest Wall inspection of chest normal and palpation of chest normal Resp normal respiratory effort and clear to auscultation bilaterally Cardio regular rate, regular rhythm, S1 normal heart sound, S2 normal heart sound and no murmurs GI normal to inspection, nondistended, normoactive bowel sounds, non-tender and non-distended Auscultation: normoactive bowel sounds Palpation: soft Extremity Extremity Narrative: Dorsum left hand mildly swollen. Full range of motion. No cellulitis. No lymphangitic streaking. No stinger at this time. Neurovascularly intact. General Extremety ED: Yes edema General Extremity: edema Neuro oriented x3 and CN's II-XII intact bilaterally Sensorium / Orientation: alert; Negative for orientation impaired, lethargic or stuporous Motor Exam: strength 5/5 throughout Psych mental status grossly normal Appearance: Negative for unkempt Skin No no rashes or lesions noted and no wounds Skin Narrative: Localized allergic reaction dorsum left. Rashes: rashes noted MDM MDM MDM Narrative Medical decision making narrative: Patient with swelling on dorsum of the left hand secondary to bee sting earlier today. Will be discharged home. Motrin here. Ice and elevate. Motrin Benadryl as needed. Follow-up if not improving or return. Discharge Plan Triage Chief Complaint: Allergic Reaction ED Provider: Jj Negrete Dx/Rx/DC Orders Clinical Impression: Local reaction to hymenoptera sting Instructions: ED Insect Sting, Local Reaction Prescriptions: No Action NK RF: 0 Primary Care Provider: David Lewis Referrals: David Lewis MD [Primary Care Provider] - 1 Week if not improving Activity Restrictions/Additional Instructions: Very important ice and elevate your left hand to decrease pain and swelling. Motrin to decrease pain and swelling. Benadryl also for allergic reaction. This should progressively improve as long as you are icing and elevating it over the next several days. Follow-up if not. Disposition Disposition: Home, Self Care
[2021-06-05] MEDS: Ibuprofen 600 MG Tablet PO (20:23)
== END 2021-06-05 20:25 | disposition home or self-care (01) ==
LOC: ED 20:21
PROVIDERS: Emergency Provider Emergency Medicine; PCP Family Medicine
DX: T78.40XA Allergy, unspecified, initial encounter (principal); Z87.891 Personal history of nicotine dependence
CPT/HCPCS: 99283

== ENCOUNTER 2021-06-18 07:31 | Emergency (ER) | payer OTHER, MEDICAID, SELFPAY ==
[2021-06-18 07:32] VITALS: BP 153/90; PULSE 78; RESP 16; TEMP 36.7; O2SAT 96; BMI 33.0
--- NOTE | 2021-06-18 07:41 | ED.RN ---
Pt. was doing squats this moring at gym and knee gave out. Hx. of meniscus repair and fx. femur.
--- NOTE | 2021-06-18 07:51 | EDS_ITS ---
HPI History of Present Illness Chief Complaint: Lower Extremity Injury Narrative Narrative: Patient presents complaining of left knee pain he indicates he has been having clicking in the left knee for months with movement today he was lifting weights squatting when he felt pain in the left knee prior surgery related to microfracture of the proximal femur meniscus repair by [place] orthopedic physician no direct trauma no other complaints nonvaccinated from Covid tested recently negative no other complaints PFS PFS Medical History (Updated 06/18/21 @ 09:[address] Shaista Thorne MD) Former smoker Meniscus degeneration Home Medications hydrocodone-acetaminophen 1 tab PO Q4H PRN PRN 3 Days #10 tablet 06/18/21 [Rx Last Taken Unknown] naproxen [Naprosyn] 500 mg PO BID #20 tab 06/18/21 [Rx Last Taken Unknown] Allergy/AdvReac Type Severity Reaction Status Date / Time No Known Allergies Allergy Verified 06/18/21 07:34 Social History Smoking Status: Former smoker ROS ROS ED Constitutional Constitutional ED: Reports subjective, sweats and other; Denies chills, fever(s) or weight loss Eyes Eyes: Denies blurry vision or change in vision ENT ENT ED: Denies ear pain Cardiovascular Cardiovascular: Denies chest pain or palpitations Respiratory/Chest Respiratory/Chest: Denies dyspnea Gastrointestinal Gastrointestinal: Denies abdominal pain, nausea or vomiting Genitourinary Genitourinary ED: Denies dysuria or hematuria Musculoskeletal Musculoskeletal: Reports other Details: Left knee pain while lifting weights history of clicking in that knee for months history of prior surgery years ago ; Denies arthralgias or myalgias Integumentary Reports rash; Denies abscess Neurologic Neurologic: Denies weakness Psychiatric Psychiatric: Denies anxiety or depression Endocrine Endocrinology: Denies polydipsia or polyuria Allergic/Immunologic Allergic/Immunologic ED: Denies urticaria EXAM Physical Exam Const Vital Signs: 06/18/21 07:32 Temperature 98.0 F Temperature Source Temporal Pulse Rate 78 Respiratory Rate 16 Blood Pressure 153/90 H Blood Pressure Mean 111 Pulse Ox 96 Oxygen Delivery Method Room Air Positive well developed General Appearance ED: well developed HEENT Reports normocephalic Negative for trauma Eyes EOMs intact bilaterally Neck supple Chest Wall inspection of chest normal Resp normal respiratory effort GI non-tender and non-distended Back/Spine Back/Spine Narrative: unremarkable Extremity Extremity Narrative: Left knee there is diffuse generalized pain there is no instability patella is in good position decreased range of motion to flexion extension tib-fib ankle foot unremarkable neurovascular function normal the rest of the joints and his exam unremarkable Neuro oriented x3 and CN's II-XII intact bilaterally Sensorium / Orientation: alert Psych mental status grossly normal Skin no rashes or lesions noted MDM MDM MDM Narrative Medical decision making narrative: Given all of the above his prior history of requiring surgery for that knee the mechanism the clicking the discomfort certainly the possibility of bony versus soft tissue versus internal derangement the knee x-rays obtained Toradol for pain X-ray was obtained and shows DJD nothing acute explained above the patient explained the concept of chronic condition related to prior injury and surgery with an acute process resulting internal derangement of the knee he has a knee sleeve that he can wear crutches Naprosyn Gardner as a rescue medicine to follow- up with his orthopedic surgeons and return for change in symptoms Radiography Diagnostic Testing: Clinical Impression(s) from Imaging Studies Knee X-Ray 06/18/21 08:00 IMPRESSION: Degenerative arthrosis. Electronically Signed: Juan Willis MD at 8:24 EDT , Service support , Discharge Plan Triage Chief Complaint: Lower Extremity Injury ED Provider: Shaista Thorne Dx/Rx/DC Orders Instructions: ED Knee Pain of Uncertain Cause Prescriptions: New naproxen [Naprosyn] 500 mg tablet 500 mg PO BID Qty: 20 RF: 0 hydrocodone-acetaminophen 5-325 mg tablet 1 tab PO Q4H PRN PRN (Reason: Pain) 3 Days Qty: 10 RF: 0 Primary Care Provider: David Lewis Referrals: David Lewis MD [Primary Care Provider] -
[2021-06-18] MEDS: Ketorolac 60 MG/2 ML Vial IM (07:54)
--- NOTE | 2021-06-18 08:00 | RAD_ITS ---
STUDY: X-RAY - LEFT KNEE REASON FOR EXAM: Male, 51 years old. Pain TECHNIQUE: 2 view(s) of the knee. COMPARISON: Comparison is made with prior study dated 01/02/2013. FINDINGS: Degenerative spur formation along the medial femoral condyle. Degenerative spur formation along the medial tibial plateau. Normal proximal tibiofibular articulation. There is severe degenerative arthrosis of the medial femorotibial compartment with severe joint space narrowing. Normal lateral femorotibial compartment. There is severe degenerative arthrosis of the patellofemoral articulation. The soft tissue structures are unremarkable. RAD/Knee 1 or 2 Views IMPRESSION: Degenerative arthrosis. Electronically Signed: Juan Willis MD at 8:24 EDT , Service support ,
[2021-06-18 09:23] VITALS: RESP 14
== END 2021-06-18 09:24 | disposition home or self-care (01) ==
PROVIDERS: Emergency Provider Emergency Medicine; PCP Family Medicine
DX: S89.92XA Unspecified injury of left lower leg, initial encounter (principal); X50.0XXA Overexertion from strenuous movement or load, initial encounter; Y93.B3 Activity, free weights; Y92.89 Other specified places as the place of occurrence of the external cause; Y99.8 Other external cause status; M17.12 Unilateral primary osteoarthritis, left knee; Z87.891 Personal history of nicotine dependence
CPT/HCPCS: 73560; 96372; 99283

== ENCOUNTER → 2021-07-14 10:18 | Outpatient (CLI) | payer OTHER, MEDICAID, SELFPAY ==
--- NOTE | 2021-07-14 10:35 | MRI_ITS ---
STUDY: MRI LEFT KNEE REASON FOR EXAM: Lateral left knee pain for 3 months, pinching and catching, medial meniscal surgery in 2012. TECHNIQUE: Standardized fat and water weighted pulse sequences were obtained in all 3 orthogonal planes. COMPARISON: Radiographs 06/18/2021 and MRI images 01/10/2013. FINDINGS: There is a partial medial meniscectomy. There is a horizontal band of signal in the posterior horn of the medial meniscus extending to the inferior articular surface/free margin tracking fluid (T2 sagittal images 7-10) consistent with recurrent medial meniscal tear. There is arthrosis of the medial femorotibial compartment with marginal osteophytes and chondral loss (T2 sagittal image 8). There is subchondral bone edema of the medial femoral condyle and tibial plateau (T2 sagittal images 7, 8), a stress phenomenon. Normal medial collateral ligamentous complex (MCL). Normal distal semimembranosus, gracilis and semitendinosus tendons. Normal lateral meniscus. Normal hyaline cartilage of the lateral femorotibial compartment. There are marginal osteophytes of the lateral femorotibial compartment. Normal lateral femoral condyle and tibial plateau. Normal proximal tibiofibular articulation. Normal lateral collateral (fibular) ligament. Normal popliteus tendon. Normal biceps femoris tendon. Normal anterior cruciate ligament (ACL). Normal posterior cruciate ligament (PCL). Normal congruent patellofemoral articulation. There is arthrosis of the patellofemoral compartment with marginal osteophytes and chondral thinning (T2 sagittal image 17). Normal medial and lateral patellar retinaculum. Normal visualized quadriceps tendon. Normal patellar tendon. There is mild postoperative scarring in Hoffa''s fat pad. There is a minimal volume of fluid in the knee joint. There is mild edema in the anterior subcutis adipose space. There is mild cystic change of the proximal tibia at the insertion site of the posterior cruciate ligament. MRI/Lower Ext Joint Only (Routine) IMPRESSION: Partial medial meniscectomy with recurrent medial meniscal tear. Arthrosis of the medial femorotibial and patellofemoral compartments. Electronically Signed: Stephon Sevilla MD at 12:28 EST Tel , Service support ,
== END ==
PROVIDERS: PCP Family Medicine; Referring Provider Physician Assistant; Visit Provider Physician Assistant
DX: M23.92 Unspecified internal derangement of left knee (principal); S89.92XA Unspecified injury of left lower leg, initial encounter
CPT/HCPCS: 73721

== ENCOUNTER 2022-06-26 21:44 | Emergency (ER) | payer MEDICAID, SELFPAY ==
[2022-06-26 21:44] VITALS: BP 152/87; PULSE 82; RESP 18; TEMP 36.6; O2SAT 87; BMI 32.4
--- NOTE | 2022-06-26 21:45 | EKG12_ITS ---
Test Reason : CP Blood Pressure : / mmHG Vent. Rate : 077 BPM Atrial Rate : 077 BPM P-R Int : 156 ms QRS Dur : 104 ms QT Int : 384 ms P-R-T Axes : 046 017 001 degrees QTc Int : 434 ms Normal sinus rhythm Septal infarct , age undetermined Abnormal ECG Confirmed by KHADAR DEXTER, JONATHAN ([id number]), associate entertainment editor TREVON JENKINS ([id number]) on 06/28/2022 9:48:56 AM Referred By: TL Confirmed By:JONATHAN RUBALCAVA MD
--- NOTE | 2022-06-26 22:18 | EX.ED.DYSGE1 ---
HPI History of Present Illness Chief Complaint: Chest Pain Narrative Narrative: Patient is a 52-year-old male with past medical history of osteoarthritis and vaping/smoking. He states over the past 3 days he has noticed that when he rests at night he has left-sided chest discomfort. He states that there is no nausea vomiting shortness of breath or diaphoresis associated with this. He states that the pain is not severe enough where he cannot fall asleep. He states that during the day if he goes to the gym or even did yard work today there is no chest pain noted during this time. He states however that as he has had the discomfort 3 nights in a row with tonight being the most severe in nature he presents for evaluation [facility] Medical History Former smoker Meniscus degeneration Home Medications methocarbamol 500 mg tablet 1,000 mg PO 4X/DAY PRN PRN muscle pain / spasm #56 tabs 06/27/22 [Rx Last Taken Unknown] Allergy/AdvReac Type Severity Reaction Status Date / Time No Known Allergies Allergy Verified 06/26/22 21:47 Family History Other No family history of disorders Social History household members: spouse housing: house Smoking Status: Former smoker what type of physical activity do you participate in: weight training frequency: daily do you feel safe at home: Yes ROS ROS ED Constitutional Constitutional ED: Denies chills or fever(s) ENT ENT ED: Denies sore throat Cardiovascular Cardiovascular: Reports chest pain; Denies palpitations or racing heartbeat Respiratory/Chest Respiratory/Chest: Denies cough or dyspnea Gastrointestinal Gastrointestinal: Denies abdominal pain, diarrhea, nausea or vomiting Genitourinary Genitourinary ED: Denies dysuria Musculoskeletal Musculoskeletal: Denies back pain or myalgias Integumentary Denies rash Neurologic Neurologic: Denies headache(s) Hematologic/Lymphatic Hematologic/Lymphatic: Denies easy bleeding or easy bruising EXAM Physical Exam Const Vital Signs: 06/26/22 21:44 06/26/22 21:48 06/26/22 22:44 Temperature 98 F Temperature Source Oral Pulse Rate 82 85 Respiratory Rate 18 16 Respiratory Effort Normal Blood Pressure 152/87 H 137/85 H Blood Pressure Mean 108 102 Pulse Ox 87 98 Oxygen Delivery Method Room Air Room Air 06/26/22 23:00 06/27/22 00:00 Temperature Temperature Source Pulse Rate 84 64 Respiratory Rate 19 H 18 Respiratory Effort Blood Pressure 130/80 H Blood Pressure Mean 96 Pulse Ox 97 98 Oxygen Delivery Method Room Air Room Air Positive well nourished and well developed General Appearance ED: well developed Eyes PERRL and EOMs intact bilaterally Neck supple Chest Wall Chest Narrative: There is reproducible left anterior chest wall pain on palpation in the intercostal space of ribs 4-6 the patient states is the same pain he has been experiencing. No bony deformity or crepitance noted Resp normal respiratory effort and clear to auscultation bilaterally Cardio regular rate and regular rhythm Rate: other Other Details: Radial pulses are plus 2 out of 4 bilaterally are equal and symmetric Carotid pulses are equal and symmetric as well GI normal to inspection, nondistended, normoactive bowel sounds, non-tender and non-distended GI Narrative: No voluntary guarding or rigidity no pulsatile mass Auscultation: normoactive bowel sounds Palpation: soft Extremity normal to inspection Extremity Narrative: No asymmetric edema no pitting edema negative Homans' sign bilaterally Neuro oriented x3, CN's II-XII intact bilaterally and no sensory deficits noted Sensorium / Orientation: alert Psych mental status grossly normal Skin no rashes or lesions noted MDM MDM MDM Narrative Medical decision making narrative: Patient presented to the ER and in no acute distress and he is low risk for acute coronary syndrome. However because of his recurrent chest discomfort a basic cardiac work-up was obtained. EKG is sinus rhythm and his initial and delta troponin are normal at 6. There was reproducible chest pain on exam and he was given Toradol and Norflex and reported resolution of his pain. Therefore at this time as he is low risk for cardiovascular disease and has had no elevation to his troponins he is otherwise safe for discharge Lab Data Attestation: I reviewed the patient's lab results. Labs: Laboratory Results - last 24 hr 06/26/22 06/26/22 06/26/22 21:53 21:53 23:46 WBC 7.6 RBC 4.82 Hgb 14.3 Hct 42.3 MCV 87.8 MCH 29.7 MCHC 33.8 RDW Std Deviation 39.8 RDW Coeff of Christiane 12.4 Plt Count 240 MPV 9.9 Immature Gran % (Auto) 0.400 Neut % (Auto) 61.1 Lymph % (Auto) 25.8 [place] % (Auto) 10.1 H Eos % (Auto) 1.8 Baso % (Auto) 0.8 Absolute Neuts (auto) 4.6 Absolute Lymphs (auto) 1.96 Nucleated RBC % 0 Sodium 144 Potassium 3.8 Chloride 108 H Carbon Dioxide 30.0 Anion Gap 6 BUN 31 H Creatinine 1.24 Estim Creat Clear Calc 77.36 Est GFR (MDRD) Af Amer 79 Est GFR (MDRD) Non-Af 65 BUN/Creatinine Ratio 25.0 H Glucose 96 Calcium 9.3 Magnesium 2.3 Troponin I High Sens 6 6 Radiography Diagnostic Testing: Clinical Impression(s) from Imaging Studies Chest X-Ray 06/26/22 22:33 IMPRESSION: 1. No radiographic evidence of acute cardiopulmonary disease. 2. Chronic osseous findings as above. Electronically Signed: Drake Howell DO at 23:03 EDT , 2 view chest x-ray as interpreted by the emergency medicine physician reveals no acute infiltrate pneumothorax or pleural effusion Discharge Plan Triage Chief Complaint: Chest Pain ED Provider: Noman Hernandez Dx/Rx/DC Orders Clinical Impression: Acute nonspecific chest pain with low risk of coronary artery disease, Osteoarthritis of left knee Instructions: ED Chest Pain, Noncardiac Prescriptions: New methocarbamol 500 mg tablet 1,000 mg PO 4X/DAY PRN PRN (Reason: muscle pain / spasm) Qty: 56 0RF Primary Care Provider: David Lewis Referrals: David Lewis MD [Primary Care Provider] - Activity Restrictions/Additional Instructions: Your work-up today did not show any obvious signs of cardiac dysfunction/disease as a cause of your chest pain. It does appear to be more musculoskeletal in nature and therefore try the prescribed muscle relaxers to see if this helps control symptoms. If you have any further concerns please return for repeat evaluation Disposition Disposition: Home, Self Care
[2022-06-26 22:19] LABS: Absolute Lymphocyte Count 1.96 X10^3/uL (0.83-4.51); Absolute Neutrophil Count 4.6 X10^3/uL (2.0-7.7); Basophil# 0.06 X10^3/uL; Basophil% 0.8 % (0-1); Eosinophil# 0.14 X10^3/uL; Eosinophils% 1.8 % (0-5); Hematocrit 42.3 % (40-54); Hemoglobin 14.3 g/dL (13.0-16.5); Lymphocyte # 1.96 X10^3/ul (0.83-4.51); Lymphocyte % 25.8 % (19-41); Mean Corp Hgb Conc 33.8 g/dL (32-36); Mean Corpuscular Hgb 29.7 pg (27.0-32.0); Mean Corpuscular Volume 87.8 fL (80-94); Mean Platelet Vol. 9.9 fl (6.2-12.0); Monocyte# 0.77 X10^3/uL; Monocyte% 10.1 % (0-10); NRBC Flagged by Analyzer 0 % (0-5); Neutrophil # 4.63 X10^3/uL (2.7-7.7); Neutrophil % 61.1 % (47-70); Platelet Count 240 K/mm3 (150-450); RBC Distribution Width CV 12.4 % (11.6-14.6); RBC Distribution Width SD 39.8 fl (35.1-43.9); Red Blood Count 4.82 M/mm3 (4.6-6.2); White Blood Count 7.6 K/mm3 (4.4-11.0)
[2022-06-26] MEDS: Aspirin 325 MG Tablet PO (22:23)
--- NOTE | 2022-06-26 22:33 | RAD_ITS ---
INDICATION: chest pain EXAMINATION/TECHNIQUE: X-RAY - XR Chest 2 Views COMPARISON: 09/30/2019 chest x-ray FINDINGS: LINES/DEVICES: None. LUNGS: Symmetric normal lung volumes. No airspace opacity or abnormal interstitial pattern. No nodule or mass. No pleural effusion or pneumothorax. MEDIASTINUM AND CARDIOVASCULAR STRUCTURES: Normal size and contour of the cardiomediastinal silhouette. No evidence of pulmonary vascular congestion. BONES AND SOFT TISSUES: Widening right acromioclavicular joint likely postsurgical based on appearance. Advanced degenerative changes bilateral glenohumeral joints. Multilevel degenerative endplate changes thoracic spine. No fracture or vertebral body height loss exemplified. RAD/Chest PA and Lateral IMPRESSION: 1. No radiographic evidence of acute cardiopulmonary disease. 2. Chronic osseous findings as above. Electronically Signed: Drake Howell DO at 23:03 EDT ,
[2022-06-26 22:36] LABS: Anion Gap 6 (5-15); BUN 31 mg/dL (7-18); Calcium,Total 9.3 mg/dL (8.5-10.1); Chloride 108 mmol/L (98-107); Creatinine, Serum 1.24 mg/dL (0.70-1.30); EST Glomerular Filtration Rate 65 mL/min (>60); Est Glom Filt Rate - Afr Amer 79 mL/min (>60); Estimated Creatinine Clearance 77.36 ml/min; Glucose 96 mg/dL (74-106); Magnesium 2.3 mg/dL (1.6-2.6); Potassium 3.8 mmol/L (3.5-5.1); Sodium Level 144 mmol/L (136-145); Troponin-I HS 6 pg/mL (3.0-78.0)
[2022-06-26 22:44] VITALS: BP 137/85; PULSE 85; RESP 16; O2SAT 98
[2022-06-26 23:00] VITALS: BP 130/80; PULSE 84; RESP 19; O2SAT 97
[2022-06-26] MEDS: Ketorolac 30 MG/ML Syringe IV (23:11)
[2022-06-26] MEDS: Orphenadrine 60 MG/2 ML Ampul IV (23:11)
[2022-06-27] VITALS: PULSE 64; RESP 18; O2SAT 98
[2022-06-27 00:32] LABS: Troponin-I HS 6 pg/mL (3.0-78.0)
[2022-06-27 01:08] VITALS: BP 122/74; PULSE 74; RESP 17; O2SAT 97
== END 2022-06-27 01:09 | disposition home or self-care (01) ==
PROVIDERS: Emergency Provider Emergency Medicine; PCP Family Medicine; Visit Provider Emergency Medicine
DX: R07.9 Chest pain, unspecified (principal); Z87.891 Personal history of nicotine dependence; M17.12 Unilateral primary osteoarthritis, left knee
CPT/HCPCS: 71046; 80048; 83735; 84484; 85025; 93005; 96374; 96375; 99284; A4216

== ENCOUNTER 2022-08-23 17:26 | Emergency (ER) | payer MEDICAID, SELFPAY ==
[2022-08-23 17:26] VITALS: BP 156/86; PULSE 82; RESP 16; TEMP 36.6; O2SAT 98; BMI 28.3
--- NOTE | 2022-08-23 17:37 | EKG12_ITS ---
Test Reason : CP Blood Pressure : / mmHG Vent. Rate : 068 BPM Atrial Rate : 068 BPM P-R Int : 158 ms QRS Dur : 100 ms QT Int : 380 ms P-R-T Axes : 057 020 009 degrees QTc Int : 404 ms Normal sinus rhythm Septal infarct , age undetermined Abnormal ECG Confirmed by PARVIZ DEXTER, SANTHOSH ([id number]), editor city TREVON JENKINS ([id number]) on 08/25/2022 10:16:25 AM Referred By: SHEN Confirmed By:SANTHOSH JJ MD
[2022-08-23 17:39] VITALS: BP 140/71; PULSE 72; RESP 15; O2SAT 98
--- NOTE | 2022-08-23 17:50 | RAD_ITS ---
STUDY: X-RAY CHEST REASON FOR EXAM: Male, 52 years old. chest pain TECHNIQUE: XR Chest 1 View COMPARISON: 06.26.22 FINDINGS: Normal visualized aortic arch and descending thoracic aorta. Normal visualized thoracic spine. Normal visualized ribs, clavicles, and shoulders. There is no demonstrated pleural abnormality. Normal size heart. Normal mediastinum and ganesh. Normal visualized pulmonary arteries. There is no demonstrated abnormality of the visualized soft tissue structures of the upper abdomen. RAD/Chest 1 View (Portable) IMPRESSION: There are no acute findings. Electronically Signed: Román Galvan MD at 18:22 EST ,
--- NOTE | 2022-08-23 17:52 | EDS_ITS ---
HPI <JORGE Townsend - Last Filed: 08/23/22 19:20> History of Present Illness Chief Complaint: Chest Pain Narrative Narrative: Patient presents with chest pain and palpitations that he has had for the past few nights. Patient states that while laying in bed he can feel his heart racing at times and it will flutter for a few seconds. He has noticed this the past 3-4 nights. He states last night he felt those same symptoms and then began to have tightness and a sharp pain on the left side of his chest that radiated down to his left arm and into his neck and head. He began to feel a little lightheaded at that time. The symptoms did resolve last night. He states he decided to come in today because he has a history of A. fib and he states that this feels exactly like that to him. He is not currently having chest pain. He states he had A. fib 5 years ago and was ultimately cardioverted and did not have an issue with that again. He is not on any medications for A. fib. He states the A. fib was a result of taking steroids for bodybuilding. He states he does drink 200 to 500 mg of caffeine daily. He denies a history of AL and any family history of AL. He denies HTN and hyperlipidemia. PFS <JORGE Townsend - Last Filed: 08/23/22 19:20> [facility] Medical History (Updated 08/23/22 @ 18:57 by JORGE Townsend) FH: total knee replacement Former smoker Meniscus degeneration Allergy/AdvReac Type Severity Reaction Status Date / Time No Known Allergies Allergy Verified 08/23/22 17:27 Family History Other No family history of disorders Surgical History (Updated 08/23/22 @ 17:39 by Jamila Mckoy) History of hernia repair History of shoulder surgery Social History household members: spouse housing: house Smoking Status: Former smoker what type of physical activity do you participate in: weight training frequency: daily do you feel safe at home: Yes ROS <JORGE Townsend - Last Filed: 08/23/22 19:20> ROS ED Constitutional Constitutional ED: Denies chills, fever(s) or sweats Eyes Eyes: Denies blurry vision, change in vision or diplopia ENT ENT ED: Denies rhinorrhea or sore throat Cardiovascular Cardiovascular: Reports chest pain, palpitations and racing heartbeat Respiratory/Chest Respiratory/Chest: Denies cough, dyspnea or dyspnea on exertion Gastrointestinal Gastrointestinal: Denies abdominal pain, nausea or vomiting Genitourinary Genitourinary ED: Denies dysuria, hematuria or urinary frequency Musculoskeletal Musculoskeletal: Denies back pain or neck pain Integumentary Denies abscess, Abrasions or rash Neurologic Neurologic: Denies headache(s), paresthesias or weakness Psychiatric Psychiatric: Denies anxiety, depression or suicidal ideation EXAM <JORGE Townsend - Last Filed: 08/23/22 19:20> Physical Exam Const Vital Signs: 08/23/22 17:26 08/23/22 17:39 08/23/22 17:39 Temperature 98 F Temperature Source Temporal Pulse Rate 82 72 Respiratory Rate 16 15 Respiratory Effort Normal Blood Pressure 156/86 H 140/71 H Blood Pressure Mean 109 94 Pulse Ox 98 98 Oxygen Delivery Method Room Air 08/23/22 17:38 08/23/22 18:38 08/23/22 19:04 Temperature Temperature Source Pulse Rate 65 63 Respiratory Rate 18 14 Respiratory Effort Blood Pressure 134/84 H 138/79 H Blood Pressure Mean 100 98 Pulse Ox 97 99 Oxygen Delivery Method Room Air 08/23/22 19:13 Temperature Temperature Source Pulse Rate 64 Respiratory Rate 16 Respiratory Effort Blood Pressure 128/79 H Blood Pressure Mean Pulse Ox 98 Oxygen Delivery Method Positive well nourished and well developed General Appearance ED: well developed and NAD HEENT Reports moist mucous membranes normocephalic and atraumatic Eyes PERRL and EOMs intact bilaterally Neck no lymphadenopathy and supple Chest Wall inspection of chest normal and palpation of chest normal Chest: Negative for tenderness Resp normal respiratory effort and clear to auscultation bilaterally Cardio regular rate, regular rhythm and no murmurs GI soft to palpation, non-tender, non-distended and no masses Extremity General Extremety ED: Negative for edema General Extremity: Negative for edema Neuro oriented x3, CN's II-XII intact bilaterally, no sensory deficits noted and gait normal Sensorium / Orientation: awake and alert Motor Exam: strength 5/5 throughout Psych mental status grossly normal Skin no rashes or lesions noted and no wounds <Dr. Jessika Chung MD - Last Filed: 08/23/22 22:46> Physical Exam Const Vital Signs: 08/23/22 17:26 08/23/22 17:39 08/23/22 17:39 Temperature 98 F Temperature Source Temporal Pulse Rate 82 72 Respiratory Rate 16 15 Respiratory Effort Normal Blood Pressure 156/86 H 140/71 H Blood Pressure Mean 109 94 Pulse Ox 98 98 Oxygen Delivery Method Room Air 08/23/22 17:38 08/23/22 18:38 08/23/22 19:04 Temperature Temperature Source Pulse Rate 65 63 Respiratory Rate 18 14 Respiratory Effort Blood Pressure 134/84 H 138/79 H Blood Pressure Mean 100 98 Pulse Ox 97 99 Oxygen Delivery Method Room Air 08/23/22 19:13 Temperature Temperature Source Pulse Rate 64 Respiratory Rate 16 Respiratory Effort Blood Pressure 128/79 H Blood Pressure Mean Pulse Ox 98 Oxygen Delivery Method MDM <JORGE Townsend - Last Filed: 08/23/22 19:20> MDM MDM Narrative Medical decision making narrative: We were unable to detect any irregular rhythm here in the ED. He is not having any chest pain here in the ED. He is nontoxic-appearing and in no acute distress. His vital signs have remained stable. Patient has been advised to follow-up with PCP for a cardiac stress test and Holter monitor. Patient is agreeable with plan. He has also been told to start a daily baby aspirin. I am comfortable with patient discharging home and following up with PCP on this. He has been given return instructions. Lab Data Attestation: I reviewed the patient's lab results. Lab results narrative: CBC unremarkable. Anion gap 3, BUN 24, troponin 6. Labs: Laboratory Results - last 24 hr 08/23/22 08/23/22 17:40 17:40 WBC 8.8 RBC 4.76 Hgb 14.5 Hct 42.7 MCV 89.7 MCH 30.5 MCHC 34.0 RDW Std Deviation 41.5 RDW Coeff of Christiane 12.7 Plt Count 261 MPV 9.4 Immature Gran % (Auto) 0.500 Neut % (Auto) 65.2 Lymph % (Auto) 25.9 [place] % (Auto) 7.6 Eos % (Auto) 0.3 Baso % (Auto) 0.5 Absolute Neuts (auto) 5.8 Absolute Lymphs (auto) 2.29 Nucleated RBC % 0 Sodium 140 Potassium 3.7 Chloride 105 Carbon Dioxide 32.0 Anion Gap 3 L BUN 24 H Creatinine 1.21 Estim Creat Clear Calc 81.62 Est GFR (MDRD) Af Amer 81 Est GFR (MDRD) Non-Af 67 BUN/Creatinine Ratio 19.8 Glucose 93 Calcium 8.8 Troponin I High Sens 6 Radiography Diagnostic Testing: Clinical Impression(s) from Imaging Studies Chest X-Ray 08/23/22 17:50 IMPRESSION: There are no acute findings. Electronically Signed: Román Galvan MD at 18:22 EST , Chest x-ray has been reviewed and I agree with radiologist impressions. This has also been reviewed by attending ED physician. EKG Initial EKG: Comments: 68 bpm. Normal sinus rhythm. No ST elevation. Septal infarct, age undetermined. Previous EKG has been reviewed from 06/26/22 and it is unc hanged also showing septal infarct, age undetermined. This EKG has also been reviewed by attending ED physician. <Dr. Jessika Chung MD - Last Filed: 08/23/22 22:46> [facility] Lab Data Labs: Laboratory Results - last 24 hr 08/23/22 08/23/22 17:40 17:40 WBC 8.8 RBC 4.76 Hgb 14.5 Hct 42.7 MCV 89.7 MCH 30.5 MCHC 34.0 RDW Std Deviation 41.5 RDW Coeff of Christiane 12.7 Plt Count 261 MPV 9.4 Immature Gran % (Auto) 0.500 Neut % (Auto) 65.2 Lymph % (Auto) 25.9 [place] % (Auto) 7.6 Eos % (Auto) 0.3 Baso % (Auto) 0.5 Absolute Neuts (auto) 5.8 Absolute Lymphs (auto) 2.29 Nucleated RBC % 0 Sodium 140 Potassium 3.7 Chloride 105 Carbon Dioxide 32.0 Anion Gap 3 L BUN 24 H Creatinine 1.21 Estim Creat Clear Calc 81.62 Est GFR (MDRD) Af Amer 81 Est GFR (MDRD) Non-Af 67 BUN/Creatinine Ratio 19.8 Glucose 93 Calcium 8.8 Troponin I High Sens 6 Radiography Diagnostic Testing: Clinical Impression(s) from Imaging Studies Chest X-Ray 08/23/22 17:50 IMPRESSION: There are no acute findings. Electronically Signed: Román Galvan MD at 18:22 EST Reading Location ID and State: [facility] / [place] , Service support , Treatment and Re-Evaluation Narrative: Patient seen and evaluated with MART. I personally interviewed and examined the patient. I was involved in all aspects of patient's orders, interpretation of results, and treatment. Patient presents after having episode of chest beating hard and some chest pressure earlier today and last evening. He states last night he had episode where his heart was pounding hard. He did not feel it was skipping beats. After some deep breathing symptoms seem to subside. This afternoon as he was finishing work he noted that his heart was beating slightly fast and had some slight chest pressure. He has a history of atrial fibrillation that was cardioverted several years ago. It was felt that this was secondary to steroid use and he has avoided that. He has not had any further episodes of arrhythmia. Patient sitting upright in bed no acute distress. Head and neck examination unremarkable. Heart is regular rate and rhythm. No murmurs appreciated. Lung sounds are clear. Abdomen is soft and nontender. Neuro exam normal. Patient was placed on chiropractic assistant. I reviewed the alarms and there was no evidence of arrhythmia noted while here. EKG is sinus rhythm with no acute ischemia. Portable chest x-ray per my interpretation reveals no focal i nfiltrate or acute finding. Radiology interpretation is also reviewed. CBC and chemistry studies are unremarkable with a troponin of 6. At this time patient will be discharged home. I did encourage him to return if he has recurrent chest pain as I would like to be able to evaluate him while he is having an episode. I also encouraged him to follow with his primary care physician for potential outpatient stress test if this keeps occurring. If he continues to have episodes of what he feels is an irregular heartbeat, I encouraged him to follow-up with his primary care doctor for a Holter monitor. He voices understanding and agreement. Discharge Plan Triage Chief Complaint: Chest Pain ED Midlevel Provider: Patria Shoemaker ED Provider: Jessika Chung Dx/Rx/DC Orders Clinical Impression: Chest pain, Heart palpitations Instructions: ED Chest Pain, Uncertain Cause Primary Care Provider: David Lewis Referrals: David Lewis MD [Primary Care Provider] - 3-5 Days Activity Restrictions/Additional Instructions: Please follow-up with PCP. You may need a Holter monitor to detect the palpitations you are experiencing. You may also need a stress test to further investigate the chest pain. Please return if symptoms come back. Begin taking a baby aspirin daily. Disposition Disposition: Home, Self Care Discharge Date/Time: 08/23/22 19:13
[2022-08-23 18:10] LABS: Anion Gap 3 (5-15); BUN 24 mg/dL (7-18); BUN/Creat Ratio 19.8 RATIO (10-20); Calcium,Total 8.8 mg/dL (8.5-10.1); Chloride 105 mmol/L (98-107); Creatinine, Serum 1.21 mg/dL (0.70-1.30); EST Glomerular Filtration Rate 67 mL/min (>60); Est Glom Filt Rate - Afr Amer 81 mL/min (>60); Estimated Creatinine Clearance 81.62 ml/min; Glucose 93 mg/dL (74-106); Potassium 3.7 mmol/L (3.5-5.1); Sodium Level 140 mmol/L (136-145); Troponin-I HS 6 pg/mL (3.0-78.0)
[2022-08-23 18:13] LABS: Absolute Lymphocyte Count 2.29 X10^3/uL (0.83-4.51); Absolute Neutrophil Count 5.8 X10^3/uL (2.0-7.7); Basophil# 0.04 X10^3/uL; Basophil% 0.5 % (0-1); Eosinophil# 0.03 X10^3/uL; Eosinophils% 0.3 % (0-5); Hematocrit 42.7 % (40-54); Hemoglobin 14.5 g/dL (13.0-16.5); Lymphocyte # 2.29 X10^3/ul (0.83-4.51); Lymphocyte % 25.9 % (19-41); Mean Corpuscular Hgb 30.5 pg (27.0-32.0); Mean Corpuscular Volume 89.7 fL (80-94); Mean Platelet Vol. 9.4 fl (6.2-12.0); Monocyte# 0.67 X10^3/uL; Monocyte% 7.6 % (0-10); NRBC Flagged by Analyzer 0 % (0-5); Neutrophil # 5.76 X10^3/uL (2.7-7.7); Neutrophil % 65.2 % (47-70); Platelet Count 261 K/mm3 (150-450); RBC Distribution Width CV 12.7 % (11.6-14.6); RBC Distribution Width SD 41.5 fl (35.1-43.9); Red Blood Count 4.76 M/mm3 (4.6-6.2); White Blood Count 8.8 K/mm3 (4.4-11.0)
[2022-08-23 18:38] VITALS: BP 134/84; PULSE 65; RESP 18; O2SAT 97
[2022-08-23 19:04] VITALS: BP 138/79; PULSE 63; RESP 14; O2SAT 99
[2022-08-23 19:13] VITALS: BP 128/79; PULSE 64; RESP 16; O2SAT 98
== END 2022-08-23 19:13 | disposition home or self-care (01) ==
PROVIDERS: Emergency Provider Emergency Medicine; PCP Family Medicine; Visit Provider Emergency Medicine
DX: R07.9 Chest pain, unspecified (principal); I48.91 Unspecified atrial fibrillation; R00.2 Palpitations; Z87.891 Personal history of nicotine dependence
CPT/HCPCS: 71045; 80048; 84484; 85025; 93005; 99284; A4216

== ENCOUNTER 2022-09-06 23:07 | Emergency (ER) | payer MEDICAID, SELFPAY ==
[2022-09-06 23:08] VITALS: BP 152/83; PULSE 82; RESP 16; TEMP 36.8; O2SAT 99; BMI 33.0
--- NOTE | 2022-09-06 23:35 | EKG12_ITS ---
Test Reason : PALPATAIONS Blood Pressure : / mmHG Vent. Rate : 078 BPM Atrial Rate : 078 BPM P-R Int : 164 ms QRS Dur : 100 ms QT Int : 376 ms P-R-T Axes : 057 031 014 degrees QTc Int : 428 ms Normal sinus rhythm Normal ECG Confirmed by PARVIZ DEXTER, SANTHOSH ([id number]), managing editor TREVON JENKINS ([id number]) on 09/08/2022 9:50:27 AM Referred By: Confirmed By:SANTHOSH JJ MD
--- NOTE | 2022-09-07 | RAD_ITS ---
STUDY: X-RAY CHEST REASON FOR EXAM: Male, 52 years old. chest pain TECHNIQUE: Single AP portable view of the chest. COMPARISON: None. FINDINGS: Ill-defined subpleural groundglass opacities are seen in the left lower lobe suggesting early pneumonia. Normal size heart. Normal mediastinum and ganesh. Normal visualized pulmonary arteries. Normal visualized aortic arch and descending thoracic aorta. Normal visualized thoracic spine. Normal visualized ribs, clavicles, and shoulders. There is no demonstrated abnormality of the visualized soft tissue structures of the upper abdomen. RAD/Chest 1 View (Portable) IMPRESSION: Possible early pneumonia in the left lower lobe. Electronically Signed: Misael Ortiz MD at 1:14 EST ,
[2022-09-07 00:14] LABS: Absolute Lymphocyte Count 1.78 X10^3/uL (0.83-4.51); Absolute Neutrophil Count 4.9 X10^3/uL (2.0-7.7); Basophil# 0.04 X10^3/uL; Basophil% 0.5 % (0-1); Eosinophil# 0.13 X10^3/uL; Eosinophils% 1.7 % (0-5); Hematocrit 40.4 % (40-54); Hemoglobin 13.6 g/dL (13.0-16.5); Lymphocyte # 1.78 X10^3/ul (0.83-4.51); Lymphocyte % 23.9 % (19-41); Mean Corp Hgb Conc 33.7 g/dL (32-36); Mean Platelet Vol. 9.4 fl (6.2-12.0); NRBC Flagged by Analyzer 0 % (0-5); Neutrophil # 4.87 X10^3/uL (2.7-7.7); Neutrophil % 65.4 % (47-70); Platelet Count 243 K/mm3 (150-450); RBC Distribution Width CV 12.5 % (11.6-14.6); RBC Distribution Width SD 41.1 fl (35.1-43.9); Red Blood Count 4.54 M/mm3 (4.6-6.2); White Blood Count 7.5 K/mm3 (4.4-11.0)
[2022-09-07 00:16] VITALS: BP 132/82; PULSE 82; RESP 14; O2SAT 93
[2022-09-07 00:33] LABS: Anion Gap 6 (5-15); BUN 32 mg/dL (7-18); BUN/Creat Ratio 30.2 RATIO (10-20); Calcium,Total 8.9 mg/dL (8.5-10.1); Chloride 109 mmol/L (98-107); Creatinine, Serum 1.06 mg/dL (0.70-1.30); EST Glomerular Filtration Rate 78 mL/min (>60); Est Glom Filt Rate - Afr Amer 95 mL/min (>60); Estimated Creatinine Clearance 93.17 ml/min; Glucose 135 mg/dL (74-106); Potassium 3.8 mmol/L (3.5-5.1); Sodium Level 142 mmol/L (136-145); Troponin-I HS (w/2H Reflex) 7 pg/mL (3.0-78.0)
[2022-09-07 01:13] VITALS: BP 131/82; PULSE 73; RESP 14; O2SAT 93
--- NOTE | 2022-09-07 01:39 | ED.VIS.CHEST ---
HPI History of Present Illness Chief Complaint: Palpitations Detail of Chief Complaint: History of A. fib. Informant: patient Onset/Context/Timing Onset: Today and Hours Activity at onset: sudden Timing: Continuous Narrative Narrative: 52-year-old male history of A. fib in 2016 from which she was cardioverted. That was in [place]. He has had no recurrence. He was taken off his medication because it was felt it was not necessary at that time. Says he thinks he went back in A. fib today. And accelerated heart rate at home that awoke him from sleep. Really no chest pain or shortness of breath. No nausea, vomiting or diarrhea. No recent illness. No leg pain or swelling. Prior Similar Symptoms: Yes Recent Illness/Hospitalization: No PE Risk Factors: Negative for Recent Travel/Surgery, Recent Immobilization, Prior DVT or PE, Cancer or OCP + Smoking + >/=35 TAD Risk Factors: Negative for Marfan's Syndrome PFSH PFSH Medical History FH: total knee replacement Former smoker Meniscus degeneration Allergy/AdvReac Type Severity Reaction Status Date / Time No Known Allergies Allergy Verified 09/06/22 23:09 Family History Other No family history of disorders Surgical History History of hernia repair History of shoulder surgery Social History household members: spouse housing: house Smoking Status: Former smoker what type of physical activity do you participate in: weight training frequency: daily do you feel safe at home: Yes ROS ROS ED ROS Narrative Palpitations. Review of Systems ROS Unobtainable: Denies due to encephalopathy Constitutional Constitutional ED: Denies chills or fever(s) Eyes Eyes: Denies none or blurry vision ENT ENT ED: Denies ear pain or rhinorrhea Cardiovascular Cardiovascular: Reports as per HPI, palpitations and racing heartbeat; Denies chest pain Respiratory/Chest Respiratory/Chest: Denies cough or dyspnea Gastrointestinal Gastrointestinal: Denies abdominal pain, constipation, diarrhea, melena or nausea Genitourinary Genitourinary ED: Denies dysuria or hematuria Musculoskeletal Musculoskeletal: Denies arthralgias Integumentary Denies abscess or Abrasions Neurologic Neurologic: Denies headache(s) Psychiatric Psychiatric: Denies anxiety or depression Endocrine Endocrinology: Denies cold intolerance Hematologic/Lymphatic Hematologic/Lymphatic: Denies easy bleeding or easy bruising Allergic/Immunologic Allergic/Immunologic ED: Denies mouth swelling or tongue swelling EXAM Physical Exam Narrative Exam Narrative: 52-year-old male no acute distress vital signs stable afebrile. Heart rate 80. Appears regular. H EENT exam unremarkable. Neck nontender. Lungs clear to auscultation bilaterally. Heart regular rate and rhythm rate about 80 no murmur. Abdomen soft nontender. Moving all 4 extremities. Calves are nontender without edema or cords. Neurologically he is awake and alert with no focal motor deficits. Const Vital Signs: 09/06/22 23:08 09/06/22 23:49 09/07/22 00:12 Temperature 98.2 F Temperature Source Temporal Pulse Rate 82 Respiratory Rate 16 Respiratory Effort Normal Blood Pressure 152/83 H Blood Pressure Mean 106 Pulse Ox 99 Oxygen Delivery Method Room Air Room Air 09/07/22 00:16 09/07/22 01:13 Temperature Temperature Source Pulse Rate 82 73 Respiratory Rate 14 14 Respiratory Effort Blood Pressure 132/82 H 131/82 H Blood Pressure Mean 98 98 Pulse Ox 93 93 Oxygen Delivery Method Room Air Room Air Positive well nourished and well developed; Negative for cachectic, contractures or unkempt General Appearance ED: well developed and NAD; Negative for unkempt, cachectic, contractures or pallor Nutritional Appearance: Negative for cachectic HEENT Reports moist mucous membranes; Denies dry mucous membranes normocephalic and atraumatic; Negative for trauma or tenderness Mouth ED: No dry mucous membranes Mouth: No dry mucous membranes Eyes PERRL and EOMs intact bilaterally General Eye ED: Negative for pale conjunctiva or scleral icterus Neck no lymphadenopathy, supple and no JVD General: Negative for tenderness Chest Wall inspection of chest normal and palpation of chest normal Chest: Negative for tenderness Resp normal respiratory effort and clear to auscultation bilaterally Effort and Inspection: Negative for respiratory distress Auscultation: Negative for rales, rhonchi or wheezes Cardio regular rate, regular rhythm, S1 normal heart sound, S2 normal heart sound and no murmurs Rate: Negative for bradycardia or tachycardic Rhythm: Negative for abnormal rhythm Peripheral Pulses: pulses 2+ throughout GI normal to inspection, nondistended, normoactive bowel sounds, soft to palpation, non-tender, non-distended and no masses Back/Spine no CVA tenderness and no thoracic nor lumbar tenderness General Back: Negative for CVA tenderness Cervical Spine: Negative for cervical spine tenderness Extremity normal to inspection General Extremety ED: Negative for edema, pulses abnormal or tenderness General Extremity: Negative for edema or pulses abnormal Neuro oriented x3 and CN's II-XII intact bilaterally Sensorium / Orientation: awake, alert, oriented to person, oriented to place and oriented to time; Negative for confused, lethargic or stuporous Motor Exam: strength 5/5 throughout Psych mental status grossly normal Appearance: Negative for unkempt Attitude: No agitated Mood & Affect: Negative for depressed, anxious or tearful Skin no rashes or lesions noted and no wounds General Skin Exam: Negative for jaundice or pallor Rashes: No rashes noted Trauma: Negative for abrasion or laceration MDM MDM MDM Narrative Medical decision making narrative: 52-year-old male history of A. fib may or may not have been in A. fib at home tonight but on EKG now on exam he is a sinus rhythm. He will undergo a cardiac work-up. If he remains in normal rhythm he will be discharged to home. Repeat exam patient doing well at 1:46 AM patient is doing well. Sinus rhythm rate 83. Blood pressure 124/80. Clinically looks and feels well. He and I discussed all his test results. He is comfortable being discharged home and follow-up with his primary care provider. Lab Data Attestation: I reviewed the patient's lab results. Lab results narrative: CBC unremarkable white count 7.5. Thank you H&H 13.6 and 40. Chemistries unremarkable gap is 6. BUN 32 creatinine 1. Glucose 135. Troponin 7. Chest x-ray unremarkable. Labs: Laboratory Results - last 24 hr 09/07/22 09/07/22 00:02 00:02 WBC 7.5 RBC 4.54 L Hgb 13.6 Hct 40.4 MCV 89.0 MCH 30.0 MCHC 33.7 RDW Std Deviation 41.1 RDW Coeff of Christiane 12.5 Plt Count 243 MPV 9.4 Immature Gran % (Auto) 0.500 Neut % (Auto) 65.4 Lymph % (Auto) 23.9 [place] % (Auto) 8.0 Eos % (Auto) 1.7 Baso % (Auto) 0.5 Absolute Neuts (auto) 4.9 Absolute Lymphs (auto) 1.78 Nucleated RBC % 0 Sodium 142 Potassium 3.8 Chloride 109 H Carbon Dioxide 27.0 Anion Gap 6 BUN 32 H Creatinine 1.06 Estim Creat Clear Calc 93.17 Est GFR (MDRD) Af Amer 95 Est GFR (MDRD) Non-Af 78 BUN/Creatinine Ratio 30.2 H Glucose 135 H Calcium 8.9 Troponin I High Sens 7 Radiography Chest X-Ray - ED: 1 View, Read by ED Physician, Read by Radiologist, Heart, Lungs, Mediastinum, Bony Structures, No Acute Disease and Chronic Changes Diagnostic Testing: Clinical Impression(s) from Imaging Studies Chest X-Ray 09/07/22 00:00 IMPRESSION: Possible early pneumonia in the left lower lobe. Electronically Signed: Misael Ortiz MD at 1:14 EST Reading Location ID and State: [facility] / [place] Tel , Service support , Chest x-ray, portable, single view interpreted by myself and the radiologist shows no acute abnormality. Radiologist was concerned for possible infiltrate I see what he means but clinically and historically there is no history of or signs of pneumonia. I do not think this is pneumonia. Rhythm Strip Rhythm Strip: Sinus Rhythm Rate: 78 Ectopy: None EKG Initial EKG: Attestation: I personally reviewed and interpreted this EKG as follows: Interpretation: Sinus Rhythm and No Acute Injury Pattern Comments: Normal sinus rhythm rate of 78 no acute signs of RI or ischemia. No A. fib. Unchanged from prior EKG from August 23 about 2 weeks ago. Prior: Unchanged Discharge Plan Triage Chief Complaint: Palpitations ED Provider: Jj Negrete Dx/Rx/DC Orders Clinical Impression: Palpitations, History of atrial fibrillation Instructions: ED Palpitations Primary Care Provider: David Lewis Referrals: David Lewis MD [Primary Care Provider] - 1 Week Activity Restrictions/Additional Instructions: Follow-up with your primary care provider. If need be they can put you on a cardiac cath lab manager. Tonight there is no signs of A. fib. Your EKG, chest x-ray and labs are all look good. Disposition Disposition: Home, Self Care
[2022-09-07 01:53] VITALS: BP 124/80
[2022-09-07 02:11] LABS: Reflex Troponin-HS? (from REC) Y
== END 2022-09-07 01:54 | disposition home or self-care (01) ==
PROVIDERS: Emergency Provider Emergency Medicine; PCP Family Medicine; Visit Provider Emergency Medicine
DX: R00.2 Palpitations (principal); I48.91 Unspecified atrial fibrillation; Z87.891 Personal history of nicotine dependence
CPT/HCPCS: 71045; 80048; 84484; 85025; 93005; 99284; A4216

== ENCOUNTER 2022-11-01 16:19 | Outpatient (RCR) | payer MEDICAID, SELFPAY ==
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
--- NOTE | 2023-03-17 16:58 | HP.PT.NRP ---
Patient Information Patient Information: NAZARIO PANDEY II was seen in my office for initial evaluation on 11/01/22. The following Plan of Care was established for this patient: POC Established Initial Frequency: 2x /Week Initial Duration: 4 Weeks Anticipated Interventions Patient/Client Instruction: Educate patient on: Benefits of Fitness Program Therapeutic Exercise to Include: Strength training, Power training, Balance training, Coordination, Agility training, Body mechanics, Postural training, Flexibilty training, Gait and locomotor training, Neuromotor development, In an aquatic setting, Dynamic Lumbar Stabilization and Scapular Strength/Stabilization For the Purpose of:: To improve muscle performance and motor function Last Seen Last Seen: This patient was last seen in our office . Pertinent comments regarding their Physical therapy will appear below: Discharge this chart- new chart open At this point I will be discontinuing this patient from physical therapy. I would be happy to see this patient again in the future if found appropriate by the physician. Thank you! Rowena Hobson, DPT Balance/Gait/Functional tests Balance/Special Test Scores Lower Extremity Functional Score: 20
== END 2022-11-01 19:00 | disposition home or self-care (01) ==
LOC: PT 16:19
PROVIDERS: PCP Family Medicine; Referring Provider Orthopaedic Surgery; Visit Provider Orthopaedic Surgery
DX: M17.12 Unilateral primary osteoarthritis, left knee (principal)
CPT/HCPCS: 97162

== ENCOUNTER → 2022-11-29 | Outpatient (CLI) | payer MEDICAID, SELFPAY ==
--- NOTE | 2022-11-29 15:55 | CT_ITS ---
EXAM: CT LEFT LOWER EXTREMITY WITHOUT INTRAVENOUS CONTRAST CLINICAL INDICATION: templating for left TKA TECHNIQUE: Helically acquired images were obtained of the left lower extremity without intravenous contrast. 2-D reformats were performed by the technologist. CTDIvol = ( 20.74 ) mGy, DLP = ( 2723.85 ) mGycm This CT exam was performed using one or more of the following dose reduction techniques: automated exposure control, adjustment of the mA and/or kV according to patient size, and/or use of iterative reconstruction technique. This report was created using [employer] report [employer] technology. COMPARISON: None. FINDINGS: BONES/JOINTS: Moderate to severe tricompartmental osteoarthrosis of the knee. Moderate osteoarthrosis of the left hip joint. Moderate suprapatellar joint effusion. Prominent posterior calcaneal enthesophyte. No acute or healing fracture or malalignment. No unusual lytic or sclerotic lesions of bone. No significant tibiotalar joint effusion. SOFT TISSUES: Unremarkable. No soft tissue swelling or gas. No radiopaque foreign body. CT/Extremity Lower without Contra IMPRESSION: Preoperative planning study with note of moderate to severe tricompartmental osteoarthrosis of the knee. Electronically Signed: Noman Kang MD at 1:44 EDT ,
== END | disposition home or self-care (01) ==
PROVIDERS: PCP Family Medicine; Referring Provider Orthopaedic Surgery; Visit Provider Orthopaedic Surgery
DX: M17.12 Unilateral primary osteoarthritis, left knee (principal)
CPT/HCPCS: 73700

== ENCOUNTER 2023-01-11 05:29 | Day surgery (SDC) | payer MEDICAID, SELFPAY ==
[2023-01-05 16:14] LABS: Absolute Lymphocyte Count 1.44 X10^3/uL (0.83-4.51); Absolute Neutrophil Count 4.6 X10^3/uL (2.0-7.7); Basophil# 0.04 X10^3/uL; Basophil% 0.6 % (0-1); Eosinophil# 0.02 X10^3/uL; Eosinophils% 0.3 % (0-5); Hematocrit 46.1 % (40-54); Hemoglobin 15.7 g/dL (13.0-16.5); Lymphocyte # 1.44 X10^3/ul (0.83-4.51); Lymphocyte % 21.8 % (19-41); Mean Corp Hgb Conc 34.1 g/dL (32-36); Mean Corpuscular Hgb 29.6 pg (27.0-32.0); Mean Corpuscular Volume 86.8 fL (80-94); Mean Platelet Vol. 9.8 fl (6.2-12.0); Monocyte% 7.6 % (0-10); NRBC Flagged by Analyzer 0 % (0-5); Neutrophil # 4.59 X10^3/uL (2.7-7.7); Neutrophil % 69.2 % (47-70); Platelet Count 287 K/mm3 (150-450); RBC Distribution Width CV 12.1 % (11.6-14.6); RBC Distribution Width SD 38.8 fl (35.1-43.9); Red Blood Count 5.31 M/mm3 (4.6-6.2); White Blood Count 6.6 K/mm3 (4.4-11.0)
[2023-01-05 16:33] LABS: Magnesium 2.1 mg/dL (1.6-2.6)
[2023-01-05 16:51] LABS: International Normalized Ratio 1.2; Prothrombin Time (Protime)PT. 14.8 SECONDS (11.7-14.9)
[2023-01-05 16:52] LABS: Partial Thromboplast Time 33.6 Seconds (24.1-36.2)
[2023-01-05 16:55] LABS: Hemoglobin A1c 5.1 % (3.8-5.6)
[2023-01-05 19:01] LABS: Anion Gap 12 (5-15); BUN 19 mg/dL (7-18); BUN/Creat Ratio 16.2 RATIO (10-20); Calcium,Total 9.8 mg/dL (8.5-10.1); Chloride 103 mmol/L (98-107); Creatinine, Serum 1.17 mg/dL (0.70-1.30); EST Glomerular Filtration Rate 70 mL/min (>60); Est Glom Filt Rate - Afr Amer 84 mL/min (>60); Glucose 103 mg/dL (74-106); Potassium 4.3 mmol/L (3.5-5.1); Sodium Level 142 mmol/L (136-145)
[2023-01-07 05:07] LABS: Fructosamine 275 umol/L (0-285)
[2023-01-11] VITALS (9 sets, daily range): BP systolic 137–165; BP diastolic 67–91; PULSE 57–85; RESP 16–18; TEMP 36.4–36.8; O2SAT 97–100; BMI 32.8
[2023-01-11] MEDS: Lactated Ringers 1,000 ML 125 ML IV ×2 (06:08→11:45)
[2023-01-11] MEDS: Magnesium 1 GM over 15 mins IV (06:08)
[2023-01-11] MEDS: Scopolamine 1mg/72hr Patch 1 PATCH TD (06:09)
[2023-01-11] MEDS: Gabapentin 600 MG Tablet PO (06:09)
[2023-01-11] MEDS: Celecoxib 200 MG Capsule 400 MG PO (06:10)
[2023-01-11] MEDS: Acetaminophen 500 MG Tablet 1000 MG PO ×2 (06:10→14:13)
[2023-01-11 06:45] LABS: Bedside Glucose 89 mg/dL (74-106)
--- NOTE | 2023-01-11 07:21 | HP.PCM_ITS ---
History and Physical Date of Admission: 01/11/23 [facility] [place] [address] OFFICE VISIT Date of Service:? 12/29/22 MR#: [id number] Acct: [id number] Name:DOUG ROSE II Rep #: [id number] : 1970 ? ? Provider: Dr. Nils Gutiérrez, DO Age/Sex:? 52/M ? ? Location: [facility] [place] Status: Signed Intake Vital Signs ? 09/06/2322:08 Height 6 ft 1 in Intake Visit Reasons:?LEFT KNEE Chief Complaint: left knee Accompanied by: Self Is patient in pain?: Yes Allergies No Known Allergies Allergy (Verified 09/15/22 15:21) Medications NK? 09/15/22 [History Confirmed 12/29/22] PFSH Medical History? FH: total knee replacement Former smoker Meniscus degeneration Surgical History? History of hernia repair History of shoulder surgery Family History? Other No family history of disorders Social History? household members:? spouse housing:? house Smoking Status:? Former smoker what type of physical activity do you participate in:? weight training frequency:? daily do you feel safe at home:? Yes HPI LEFT KNEE Details: Parts of this documentation were recorded by a scribe, this documentation accurately reflects the service provided and the decisions made by me, Dr. Nils Gutiérrez, DO 12/29/22 0995. DOUG PANDEY is a 52 year old M here today for his preoperative appointment for his left total knee arthroplasty.? He is doing about the same and continues to suffer with chronic severe left knee pain.? He was denied for iovera. Ortho Exam General General: Yes no acute distress Neurologic: Yes alert and Yes oriented x3 Psychologic: Yes reasonable and appropriate Right Knee Patella Translation: 1 Left Knee Skin/Wound: Yes CDI, No ecchymosis, No erythema and No swelling Homans Sign: No Knee ROM: No ROM-Extension -20 to 0 (lacking 12) and No ROM-Flexion 0-140 (68) Examination: Yes Lat jt line tenderness, Yes Crepitus and No Illiotibial band tenderness Stability: NML: Anterior Drawer, NML: Posterior Drawer, NML: Valgus 0, NML: Valgus 30, NML: Varus 0 and NML: Varus 30 Patella Translation: 1 Head: Normocephalic Atraumatic Chest: symmetrical rise, non-labored breathing, no audible wheeze Abdomen: no guarding, non-rigid Supplemental Info 09/15/2022 x-ray left knee: Advanced knee arthrosis medial compartment femoral, moderate patellofemoral 07/14/2021 MRI left knee: Status post partial medial meniscectomy there is a horizontal band of signal in the posterior horn of the medial meniscus consisten t with recurrent medial meniscus tear there is arthrosis of the medial compartment with significant chondral loss, lateral compartment does have marginal osteophytes, patellofemoral compartment with arthrosis marginal osteophytes and chondral thinning mild edema in the anterior adipose subcutaneous tissue with cystic change in the proximal tibia 06/18/2021 x-ray left knee 2 views only AP lateral Moderately severe medial joint space narrowing with osteophytes osteophytes in the lateral and patellofemoral compartment Coding Level of Care Code Off vis,est,level 3 Diagnoses Osteoarthritis of left knee? M17.12 Assessment and Plan Assessment and Plan (1) Osteoarthritis of left knee: ?Status:?Acute Plan Patient edcuated that he does have OA of the left knee and he does have pain and stiffness from this. Encouraged to work on ROM as much as possible prior to surgery. He has tried conservative care and is ready to have his knee replacement Risks, benefits and alternatives of surgery reviewed including but not limited t o bleeding, infection, nerve, artery and/or tissue damage, fracture, VTE, mechanical feel of the knee, continued pain, stiffness and expected post- operative course. Doug has been using kratom and is instructed to wean off of it as soon as possible and he should not take this postoperatively in conjunction with his pain medication. Follow up 2 weeks postop or sooner if pain, swelling, numbness or associated symptoms, or concerns develop.? All questions answered. Patient in agreement of plan. 12/29/22 1556 <Electronically signed by Nils Gutiérrez DO> Date Nils Gutiérrez DO Cosigner Signature: Date (if applicable) ? CC: ? ~I have examined the patient and the H&P has been reviewed. There are no clinical changes since date of exam.
--- NOTE | 2023-01-11 07:30 | KNEE_PTH ---
PATIENT: NAZARIO PANDEY II [place] [facility] [place][id number] AGE/SX: 52/M ROOM: RE01/11/[address]: Dr. Nils Gutiérrez DO : 1970 BED: DIS: 01/11/2023 SPEC #: [id number] RECD: 01/11/23 13:17 STATUS: JONELLE REQ #: [id number] JOHN: 01/11/23 07:[address]: Nils Gutiérrez DEPT: SURGICAL PATHOLOGY RECD BY: Roxanne Rangel ENTERED: 01/11/23 13:48 SP TYPE: TOTAL KNEE OTHR DR: Dr. David Lewis MD Tissues: Knee, NOS Procedures: Decalcification bone/plaque Surgery Specimen Level IV HEADER OPERATION: ERAS, total knee replacement robotic arm assist PRE-OP DIAGNOSIS: Osteoarthritis of left knee TISSUE SUBMITTED: Debrided bone and tissue left knee MICROSCOPIC DIAGNOSIS Bone and tissue, left knee, total knee replacement/resection: Pieces of bone with degenerative osteoarthritic changes. Fibroadipose tissue, fibroconnective tissue, reactive synovial tissue with chronic inflammation. MECHE:amna 01/14/2023 MICROSCOPIC DESCRIPTION Slides are reviewed. GROSS DESCRIPTION Received is one container designated debrided tissue and bone knee. The specimen consists of multiple fragments of mauricio-yellow bone measuring in aggregate 12.0 x 11.0 x 4.0 cm. Also in the specimen container are multiple fragments of yellow-white soft tissue measuring in aggregate 7.0 x 6.0 x 3.0 cm. A number of bony fragments contain articular surfaces consistent with tibial plateau and femoral condyle and displaying prominent osteophyte formation, eburnation and bone erosion. Certified Nurse Practitioner sections are submitted in two cassettes as follows: 1 - soft tissue, 2 - bone after decalcification. / MECHE:amna 01/11/2023 TC:5 CPT: 18215, 52795
[2023-01-11] MEDS: Cefazolin 2 GM in 0.9% Normal Saline 100 ML IV (07:44)
[2023-01-11] MEDS: TXA 1000mg in NS100 100ml (IVPB at Incision) 660 MG IV (07:44)
[2023-01-11] MEDS: dexAMETHasone 10 MG/ML Vial IV (08:05)
[2023-01-11] MEDS: TXA 1000mg in NS100 100ml (IVPB at Closure) 660 MG IV (08:28)
[2023-01-11] MEDS: Epinephrine (1 mg/ml) 1 MG/ML VIAL (09:52)
[2023-01-11] MEDS: Bupivacaine Mpf 0.5% 30 ML VIAL (09:52)
[2023-01-11] MEDS: 0.9% Normal Saline (Pres. free 10 ML Vial (09:52)
[2023-01-11] MEDS: dexAMETHasone 4 MG/ML Vial (09:52)
--- NOTE | 2023-01-11 10:40 | OP.PCM_ITS ---
Operative Report Date of Procedure: 01/11/23 Preoperative diagnosis: Left knee DJD with flexion contracture 15 degrees varus deformity Postoperative diagnosis: Same Procedure: Left total knee arthroplasty CT guided Robotic Assisted Implant: Kassy triathlon press fit, femoral component size 7, tibial baseplate size 8, asymmetric patella size 40, polyethylene X3 size 9 CS Anesthesia: Spinal with adductor canal block Tourniquet time: 12 minutes at 300 mmHg Complications: None Condition: Stable to PACU Estimated blood loss: 250 cc Indication for procedure: This is a 52-year-old male with long standing degenerative joint disease of the knee who has failed conservative treatment and wished to proceed with elective total knee arthroplasty. He did have a 15 degree flexion contracture measured intraoperatively with the [employer] robotics and a 6 degree varus deformity, risk benefits and alternatives were reviewed including; risk of bleeding, infection, nerve artery and tissue damage, continued pain, postoperative stiffness, venous thromboembolism, need for postoperative rehabilitation, mechanical feel to the knee, and expected postoperative course. The pre- operative CT and templating was performed with component sizing. Procedure: The patient was met in the preoperative holding area. The operative extremity was identified by both patient and physician and was marked. Patient was met by anesthesia. An adductor canal block was placed by anesthesia postoperatively the patient was brought back to the operating room on a wheeled cart and transferred to the operating table in the supine position. Anesthesia was started. A well-padded tourniquet was placed on the operative extremity. The patient was prepped and draped in the usual sterile fashion. A timeout was called to ensure the proper patient procedure and extremity were being contemplated. An esmarch was used to exsanguinate the extremity. The tylor rniquet was inflated. A 10 blade scalpel was used to make a midline incision down through the skin and subcutaneous tissue. Skin retractors placed. Bovie and Aquamantis were used to perform meticulous hemostasis. full-thickness flaps were elevated medial and lateral along the joint capsule. A deep blade scalpel was used to perform a medial parapatellar arthrotomy. The knee was brought to full extension. A bovie was used to release the soft tissues off the most proximal aspect of the medial tibial plateau, a three-quarter inch curved osteotome was also used in this process. The infrapatellar fat pad was excised. The suprapatellar fat pad was excised partially anteriorolateraly and portion the anterioromedial pad was elevated from the femur. At this point our intra- articular femoral array was placed at a 45 degree angle proximal and posterior to the medial epicondyle. femoral checkpoint was placed at this time. Our tibial array was placed greater than 1 hands breath below the incision at a 20 degree angle stab incisions were made with a 15 blade scalpel and pins were placed and attached to the tibial array , tibial checkpoint was placed in the proximal tibial metaphysis. Tourniquet was let down. At this point registration duke were taken throughout the knee . Once the knee was registered we then tensioned the medial and lateral ligaments in extension and 90 degrees of flexion. We then used these numbers to adjust our components within parameters to balance the knee in both flexion and extension once this was done on our monitor we then proceeded with using the robotic arm to make our tibial plateau cut, anterior and posterior chamfer and distal femur cuts. we removed the cut fragments with the use of a bovie and Td, we did use a lamina commercial light fixture assembler to insure we visualized and removed all posterior osteophytes and at this time also used the Aquamantis on the posterior joint capsule. we then trialed and achieved the desired plan with a well-balanced knee. we used the green probe to kenyon the corresponding tibial rotation based on our CT template. Lug holes were drilled in the femur the tibia preparation was completed with the appropriate sized base plate pinned based on previous rotation kenyon. An appropriate sized fin punch was used on the tibia and 4 corner drill was used for the press fit component and the patella was prepared by first using a caliper to ensure sufficient bone stock and a patellar reamer to remove the desired amount of bone. lug holes drilled for an asymmetric poly. We then brought the knee through range of motion with excellent patellar tracking. We thoroughly irrigated the knee. Trial components were removed a posterior capsular injection was preformed with our standard cocktail. In addition the aqua Mantis was also used to aid in hemostasis. Betadine rinse was allowed to sit and washed out completely. Components were press-fit into place. Aricept rinse was then used followed by several more liters of irrigation after it was allowed to sit. The joint capsule was closed with #1 Ethibond [id number] followed by Vicryl in the subcutaneous tissues with shen in the skin. Arrays and checkpoints were removed prior to closure all counts were correct stab incisions were closed with a staple standard dressing in the form of Mepilex AG for the main incision and a small Mepilex over the pin holes. Thigh-high ISABEL hose applied over top of dressing. Patient tolerated the procedure well and was directed to PACU in stable condition . There were no intraoperative complications.
--- NOTE | 2023-01-11 10:42 | DCINST_ITS ---
Discharge Instructions Diet Discharge Diet: No restrictions Dressing / Incision Call your doctor if you observe: Shortness of breath and Chest pain Additional Dressing/Incision Instructions:: Ice and elevate lower extremities 2 weeks while not ambulating. Ambulation is encouraged. Weight bearing as tolerated. Use assistive devise for stability. Encourage FULL knee extension and flexion 1 time EVERY time you get up and down and MULTIPLE times per day. Do not perform resistant exercises, focus on range of motion. no showering 72 hours after surgery. Begin showering postop day #3. Remove the dressing prior to shower and gently wash with warm water and antibacterial soap then pat dry and place abdominal pad (or plain gauze) and ISABEL hose over top. This is to be done daily. Do not submerge for 3 weeks. If not showering daily after the init ial 72 hours then you must clean incision and change dressing daily. Do not allow animals near the incision area. Keep clean. Follow anti-coagulation recommendations as prescribed. Do not take any NSAIDs while on blood thinner. Do not take any additional narcotic pain medication other than what was prescribed on your surgery day without discussing with physician. Narcotic medication can be addictive. Do not drink alcohol while taking narcotics. Supplement narcotic prescription with acetaminophen 1000 mg 4 times a day. Start physical therapy. If you are not currently scheduled for physical therapy or you are unsure of appointment time please call office [facility] to arrange. Call Dr. Gutiérrez with any concerns. Follow Up Care Please Follow Up With: Nils Gutiérrez DO When: 2 weeks Test Results: Test results from this visit will be discussed in further detail at your follow- up appointment, if applicable. Discharge Plan Admission Primary Reason for Your Visit: Left total knee arthroplasty Attending Provider: Nils Gutiérrez Primary Care Provider: David Lewis Discharge Orders/Prescriptions Prescriptions: New acetaminophen [acetaminophen] 500 mg tablet 1,000 mg PO Q6H PRN Qty: 100 0RF cephalexin [cephalexin] 500 mg capsule 1,000 mg PO Q8 Qty: 4 0RF Rx Instructions: take 2 tabs at 9:00 pm and 2 tabs after 5 am when you wake up Eliquis 2.5 mg tablet 2.5 mg PO BID Qty: 30 0RF Rx Instructions: Begin morning after surgery. oxycodone 5 mg tablet 5 - 10 mg PO Q4H PRN (Reason: pain) 7 Days Qty: 60 0RF Rx Instructions: Only take what is needed. Narcotic pain medication can be addictive. Continued Nucynta ER 100 mg Tablet Extended Release 12 Hr 100 mg PO BID Discontinued aspirin [Aspir-81] 81 mg Tablet,Delayed Release (Dr/Ec) 81 mg PO DAILY Cranium 1 tab PO/SL DAILY Referrals / Follow Up: David Lewis MD [Primary Care Provider] - Disposition Disposition (needs filled in before D/C Order can be placed): Home, Self Care
[2023-01-11] MEDS: Ketorolac 30 MG/ML Syringe IV (11:24)
--- NOTE | 2023-01-11 11:25 | RAD_ITS ---
STUDY: X-RAY - LEFT KNEE REASON FOR EXAM: Male, 52 years old. Post op -- in PACU TECHNIQUE: 2 view(s) of the knee. COMPARISON: Comparison is made with prior study dated December 15, 2022. FINDINGS: Normal visualized distal femur. Normal visualized proximal tibia and fibula. Normal proximal tibiofibular articulation. The patient is status post total knee replacement. There is good alignment. Postoperative soft tissue changes. RAD/Knee 1 or 2 Views IMPRESSION: Status post left total knee replacement. There is good alignment. Postoperative soft tissue changes. Electronically Signed: Juan Willis MD at 14:52 EDT ,
[2023-01-11] MEDS: Cefazolin 1 GM/50 ML BAG IV (12:55)
[2023-01-11] MEDS: oxyCODONE 5 MG Tablet PO (13:16)
[2023-01-11] MEDS: Ondansetron 4 MG/2 ML Vial IV (13:16)
== END 2023-01-11 15:50 | disposition home or self-care (01) ==
LOC: SDC 05:30 → AC 05:30
PROVIDERS: Anesthesiology; PCP Family Medicine; Referring Provider Orthopaedic Surgery; Visit Provider Orthopaedic Surgery
PROC: 0SRD0JZ Replacement of Left Knee Joint with Synthetic Substitute, Open Approach (ICD-10-PCS; CPT 27447; principal; 2023-01-11 07:00)
DX: M17.12 Unilateral primary osteoarthritis, left knee (principal); Z87.891 Personal history of nicotine dependence
CPT/HCPCS: 27447; 01402; 36415; 73560; 80048; 82962; 82985; 83036; 83735; 85025; 85610; 85730; 86850; 86900; 86901; 87081; 88305; 88311; 97162; C1776; J7120; J2405; J3475; J3490

== ENCOUNTER → 2023-01-26 | Outpatient (CLI) | payer MEDICAID, SELFPAY ==
[2023-01-26 13:12] LABS: Amphetamine Urine VISTA NEGATIVE (<1000 ng/mL); Barbiturate Urine VISTA NEGATIVE (< 200 ng/mL); Benzodiazepine Urine VISTA NEGATIVE (< 200 ng/mL); Cocaine Urine VISTA NEGATIVE (< 300 ng/mL); Ecstacy Urine VISTA NEGATIVE (< 500 ng/mL); Methadone Urine VISTA NEGATIVE (< 300 ng/mL); PCP Urine VISTA NEGATIVE (< 25 ng/mL); THC Urine VISTA POSITIVE (< 50 ng/mL); Vista UDS pH Range 5
== END | disposition home or self-care (01) ==
LOC: LAB 11:01
PROVIDERS: PCP Family Medicine; Referring Provider Anesthesiology Pain Medicine; Visit Provider Anesthesiology Pain Medicine
DX: F11.20 Opioid dependence, uncomplicated (principal)
CPT/HCPCS: 80307

== ENCOUNTER 2023-03-09 15:00 | Outpatient (RCR) | payer MEDICAID, SELFPAY ==
--- NOTE | 2023-01-13 11:00 | HP.PTEVAL_ITS ---
Patient's Visit Information NAZARIO PANDEY II is a 52 year old M referred to Physical Therapy by Dr. Nils Gutiérrez DO with a diagnosis of L TKA. Date of Evaluation: 01/13/23 Physical Therapist: Román Bautista, PT, ATC - Visit Plan Frequency: 2-3x /Week Duration: 4-6 Weeks Plan: L LE strengthening, balance and proprio, core strengthening, bike, and HEP - Subjective TKA: 01/11/23. Pt reports he should have had this surgery a long time ago. Pt reports he put this surgery off for a long time and was able to get by just using a brace. Pt reports the pain eventually became so severe he decided to have the surgery. Pt reports he has severe pain still at this time. Pt notes he has sleep difficulty at this time secondary to pain. Pt reports he tries to sleep in bed but its just too uncomfortable. Pt reports tingling and numbness throughout his L LE at this time. Pt has stairs at home but hasnt attempted to use them at this time. Pt reports he has difficulty with car transfers at this time secondary to pain and ROM limitations. 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 8/10 pain at rest, 10/10 at worst. - Pain L TKA Pain Intensity (Out of 10): 8 Pain Intensity Range: 10 - Objective Neuro: B LE sensation is WNL to light touch. Palpation: Pt is sore throughout. Girth at joint line: L knee 45 cm, R knee 43 cm. MMT: L knee 0# throughout. R knee flex= 40, ext= 45 #F. ROM: L knee 0-20-60 degrees, R knee 0-2-117 degrees - Balance/Special Test Scores WOMAC Total Score: 96 WOMAC Percentatge: 0 - Goals Goal 1:: Decrease L knee pain x 50% to aid with sleep Goal Time Frame: 4-6 Weeks Goal 2:: Increase L knee strength x 30#F throughout to aid with RTW without limitation Goal Time Frame: 4-6 Weeks Goal 3:: Increase L knee ROM x 40 degrees to aid with restoring a more normalized gait pattern Goal Time Frame: 4-6 Weeks Goal 4:: I with HEP Goal Time Frame: 4-6 Weeks - Rehabilitation Potential Physical Therapy Diagnosis: L knee pain, weakness, and limited ROM secondary to L TKA Rehabilitation Potential: Good - Anticipated Interventions Patient/Client Instruction: Educate patient on: Condition, Plan of Care For the Purpose of:: To improve self management Therapeutic Exercise to Include: Strength training, Endurance training, Balance training, Flexibilty training, Gait and locomotor training, Passive ROM, Active ROM, Dynamic Lumbar Stabilization For the Purpose of:: To decrease pain, To increase ROM, To improve muscle performance and motor function Cryotherapy (ice pack, ice massage): Yes For the Purpose of:: To decrease pain Thank you for the opportunity to evaluate your patient. For Medicare and Medicare HMO plans, please review the plan of care and approve it. It will need to be FAXED BACK to us at [phone] for Medicare purposes. For Medicare only, by signing this I certify the plan of care. Please let me know if there are questions or concerns regarding this plan of care. Physician Signature: Date:
--- NOTE | 2023-05-24 09:04 | HP.PT.NRP ---
Patient Information Patient Information: NAZARIO PANDEY II was seen in my office for initial evaluation on 01/13/23. The following Plan of Care was established for this patient: POC Established Initial Frequency: 2-3x /Week Initial Duration: 4-6 Weeks Anticipated Interventions Patient/Client Instruction: Educate patient on: Condition and Plan of Care For the Purpose of:: To improve self management Therapeutic Exercise to Include: Strength training, Endurance training, Balance training, Flexibilty training, Gait and locomotor training, Passive ROM, Active ROM and Dynamic Lumbar Stabilization For the Purpose of:: To decrease pain, To increase ROM and To improve muscle performance and motor function Cryotherapy (ice pack, ice massage): Yes For the Purpose of:: To decrease pain Last Seen Last Seen: This patient was last seen in our office . Pertinent comments regarding their Physical therapy will appear below: Patient has not attended PT in over 30 days appropriate to be d/c. At this point I will be discontinuing this patient from physical therapy. I would be happy to see this patient again in the future if found appropriate by the physician. Thank you! Rowena Hobson DPT Balance/Gait/Functional tests Balance/Special Test Scores WOMAC Total Score: 96 WOMAC Percentage: 0
== END 2023-03-09 19:00 | disposition home or self-care (01) ==
LOC: PT 15:00
PROVIDERS: PCP Family Medicine; Referring Provider Orthopaedic Surgery; Visit Provider Orthopaedic Surgery
DX: Z47.1 Aftercare following joint replacement surgery (principal); Z96.652 Presence of left artificial knee joint; M17.12 Unilateral primary osteoarthritis, left knee
CPT/HCPCS: 97110; 97113; 97140; 97161

== ENCOUNTER 2023-06-09 07:15 | Emergency (ER) | payer MEDICAID, SELFPAY ==
[2023-06-09 07:16] VITALS: BP 159/9; PULSE 74; RESP 14; TEMP 36.4; O2SAT 96; BMI 30.5
--- NOTE | 2023-06-09 07:20 | EX.ED.DYSGE1 ---
HPI History of Present Illness Chief Complaint: Anxiety [facility] Medical History Arthritis [facility] Cardiology follow-up encounter Difficulty swallowing FH: total knee replacement History of atrial fibrillation History of cardioversion History of echocardiogram History of pain when walking Hypertension Injury of head and neck Marijuana use Meniscus degeneration Restless legs Substance abuse Vapes nicotine containing substance Wears glasses Home Medications acetaminophen 500 mg tablet 1,000 mg (2 x 500 mg) PO Q6H PRN #100 tabs 01/11/23 [Rx Last Taken Unknown] ibuprofen 600 mg tablet 600 mg PO Q8H PRN 03/04/23 [History Last Taken Unknown] hydroxyzine pamoate 50 mg capsule (Vistaril) 50 mg PO TID PRN anxiety #21 caps 06/09/23 [Rx Last Taken Unknown] Allergy/AdvReac Type Severity Reaction Status Date / Time No Known Allergies Allergy Verified 06/09/23 07:16 Family History Other No family history of disorders Surgical History History of hernia repair History of shoulder surgery Hx of left knee surgery Social History household members: spouse housing: house Smoking Status: Current every day smoker tobacco type: cigarettes and e-cigarettes what type of physical activity do you participate in: weight training frequency: daily do you feel safe at home: Yes EXAM Physical Exam Const Vital Signs: 06/09/23 07:16 Temperature 97.5 F L Temperature Source Temporal Pulse Rate 74 Respiratory Rate 14 Blood Pressure 159/9 H Blood Pressure Mean 59 Pulse Ox 96 Oxygen Delivery Method Room Air MDM MDM MDM Narrative Medical decision making narrative: HISTORY OF PRESENT ILLNESS: 53-year-old male here with concern for anxiety. The patient states for the last 6 to 8 weeks he has been having issues with intermittent anxiety that he describes as panic attacks. States he experiences feeling of needing to get out of his body. States he feels a feeling of impending doom. States his last for several minutes. States then resolved slowly. Notes drinking espresso but denies any other stimulant use. Denies drug use such as cocaine or methamphetamine. States he has a history of alcohol abuse. States he is in treatment and is currently sober. He denies any suicidal ideation, homicidal nation, auditory visual hallucinations. Denies any chest pain, shortness of breath or recent head trauma. REVIEW OF SYSTEMS: Pertinent positives: Anxiety Pertinent negatives: SI, HI, auditory visual hallucinations PHYSICAL EXAM: Nursing triage notes reviewed, Vital signs reviewed Constitutional: please see mdm HENT: MMM Eyes: Pupils equal round and reactive to light, Extraocular muscles intact, no proptosis Neck: No stridor, no JVD, full neck ROM Lungs: No increased work of breathing, no conversational dyspnea, no accessory muscle use, no nasal flaring. No respiratory distress noted. Heart: Regular rate and rhythm, No murmurs, No rubs and No gallops, 2+ distal pulses (radial, femoral, posterior tibial) in all extremities Extremities: No edema Neuro: alert, oriented x3, normal speech, no facial drooping, moves all 4 extremities Skin: No rash or lesions noted Psych: Normal affect, goal-directed thought process, MEDICAL DECISION MAKING: Chief Complaint: Anxiety External records reviewed: Prior ED visit reviewed: Seen in ED in September 2022 for concern for palpitations. Work-up at this time was unremarkable f Factors affecting care: History of A-fib Social determinants of health: Weight lifting History obtained from others: none Consults: none [facility] Narrative: Patient was hemodynamically stable, afebrile, nontoxic-appearing. Patient was not acutely panicked or anxious. He was requesting medicines to take and lieu of following up with a psychiatrist in the next 4 weeks or so. I offered Atarax. He denies any SI, HI or auditory or visual hallucinations. No indication for emergent psychiatric intervention at this time. Patient was given instructions to decrease stimulant use including caffeine. He was instructed to use meditation, journaling, music therapy, art therapy for non pharmacologic interventions. Atarax prescribe for non-narcotic medication treatment. The patient and/or family, caregivers express understanding. The patient and/or family, caregivers agrees with the plan. Shared decision making: I will have a discussion with the patient and or visitors regarding risk/benefits of further testing or admission. They will be made aware of of the risk/benefits inherent in this decision they will be given the opportunity to voice understanding. Total critical care time today provided was at least 0 minutes. This excludes separately billable procedures. Critical care time (if documented) is secondary to the patient having high probability of clinically significant/life threatening deterioration in the patient's condition which required my urgent intervention. Impression: 1. Anxiety 2. History of EtOH abuse Dispo: discharge Discharge Plan Triage Chief Complaint: Anxiety ED Provider: Norm Ochoa Dx/Rx/DC Orders Instructions: ED Panic Attack Prescriptions: New hydroxyzine pamoate [Vistaril] 50 mg capsule 50 mg PO TID PRN (Reason: anxiety) Qty: 21 0RF No Action ibuprofen 600 mg tablet 600 mg PO Q8H PRN acetaminophen [acetaminophen] 500 mg tablet 1,000 mg PO Q6H PRN Qty: 100 0RF Stand Alone Forms: ED Work / School Excuse Primary Care Provider: David Lewis Referrals: David Lewis MD [Primary Care Provider] - Activity Restrictions/Additional Instructions: Thank you for trusting us with your care today! Please take Tylenol (2 pills, 650 mg), ibuprofen (2 pills, 400 mg) every 6 hours as needed for pain and fever control. Please practice art therapy, music therapy, journaling, mediation. Please take Atarax as needed for anxiety. Please decreased stimulant or other outside psychoactive substance use. Please return to the emergency department if your symptoms change or worsen. Please follow with your primary care physician for further outpatient evaluation and management. Disposition Disposition: Home, Self Care Discharge Date/Time: 06/09/23 08:23
== END 2023-06-09 08:23 | disposition home or self-care (01) ==
PROVIDERS: Emergency Provider Emergency Medicine; PCP Family Medicine; Visit Provider Emergency Medicine
DX: F41.9 Anxiety disorder, unspecified (principal); I10 Essential (primary) hypertension; F17.210 Nicotine dependence, cigarettes, uncomplicated
CPT/HCPCS: 99282

== ENCOUNTER → 2023-10-05 | Outpatient (CLI) | payer MEDICAID, SELFPAY ==
--- NOTE | 2023-10-05 17:53 | CT_ITS ---
CT RIGHT LOWER EXTREMITY WITH 3-D IMAGING CLINICAL INDICATION: Templating for right TKA TECHNIQUE: Axial CT images of the right lower extremity (including right hip, right knee, and right ankle) was performed without IV contrast material. Coronal and sagittal reformats were provided. RADIATION DOSAGE (If Supplied By Facility): CTDIvol = ( 18.78 ) mGy, DLP = ( 1225.50 ) mGycm COMPARISON: Right knee radiographs dated 04/15/2023. FINDINGS: Bones: There is mild degenerative arthrosis of the right hip joint with subchondral cyst formation in the superolateral aspect of the right acetabulum. There is tricompartment degenerative arthrosis, with joint space narrowing and marginal osteophyte formation, most pronounced in the medial femorotibial compartment. There is a tiny posterior calcaneal tuberosity spur. Osseous structures are intact without evidence of fracture or dislocation. No lytic or blastic osseous masses. Soft Tissues: There is a small right knee joint effusion. The deep soft tissue structures are unremarkable. There are mild atherosclerotic calcifications. The superficial soft tissues are unremarkable without evidence of edema, hematoma, or foreign body. CT/Extremity Lower without Contra IMPRESSION: Tricompartment degenerative arthrosis, most pronounced in the medial femorotibial compartment. Small right knee joint effusion. Electronically Signed: Andre Etienne MD at 9:30 EST Reading Location ID and State: [address] [place] [address] , Service support ,
--- OUTSIDE RECORDS SUMMARY | 2023-10-05 18:07 | XMS RPT_ITS | CCD ---
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 for Bipolar disorder on 05/24 and recommended f/u with psychiatry for symptoms. He supposedly had appointment with psychiatry and counseling with Ruthy Vang in about 2 weeks at that time. Today, patient states that he missed his appointment with psychiatry and has not rescheduled a follow up. Has been taking the atarax at night for panic symtpoms which is working well for him. Requesting refill today. Denies SI/HI. Past medical history, appointments, medications, allergies reviewed. Previous Medical History PAST MEDICAL HISTORY Diagnosis Date Atrial fibrillation (HCC) single episode of a fib while living in [place]. s/p cardioversion Bipolar disorder (HCC) Eczema [employer] History of alcohol abuse History of COVID-19 History of marijuana use History of tobacco use Hyperlipidemia Hypertension Primary osteoarthritis of left knee PTSD (post-traumatic stress disorder) RLS (restless legs syndrome) Syncope 03/2019 Previous Surgical History PAST SURGICAL HISTORY Procedure Laterality Date CARDIOVERSION 2017 a fib PAST SURGICAL HISTORY OF 01/2013 Left knee repair PAST SURGICAL HISTORY OF 1999 Right Shoulder PAST SURGICAL HISTORY OF 1995 Hernia repair Family History FAMILY HISTORY Problem Relation Age of Onset No Known Problems Sister Alcohol/Drug Brother No Known Problems Maternal Grandmother No Known Problems Maternal Grandfather No Known Problems Paternal Grandmother No Known Problems Paternal Grandfather No Known Problems Son No Known Problems Son No Known Problems Son Patient Allergies ALLERGIES Allergen Reactions Seroquel [Quetiapin* Intolerance drowsiness Tramadol Hives, Other: See Comments Didn't feel well Current Medications Current Outpatient Medications on File Prior to Visit Medication Sig whey protein conc-amino acid 24 gram-120 kcal/30 gram powd Take 30 g by mouth twice daily. Patient takes whey protein shakes 2 times daily aspirin 81 mg chewable tablet Take 81 mg by mouth. cyanocobalamin (VITAMIN B-12) 100 mcg tab Take 500 mcg by mouth once daily. Zinc 50 mg tab Take 50 mg by mouth once daily. cholecalciferol (VITAMIN D3) 5,000 unit tab Take 5,000 Units by mouth once daily. creatine, bulk, 100 % powd 5 g. therapeutic multivitamin tablet Take 1 tablet by mouth once daily. rOPINIRole (REQUIP) 0.25 mg tablet Take 1 tablet by mouth at bedtime as needed. (Patient not taking: Reported on 05/24/2023) Current Facility-Administered Medications on File Prior to Visit Medication perflutren lipid microspheres 1.3 mL in NaCl (PF) 0.9% 10 mL injection (DEFINITY) sodium chloride 0.9 % (flush) 10 mL (BD POSIFLUSH) Social History Social History Tobacco Use Smoking status: Former Packs/day: 0.50 Years: 10.00 Additional pack years: 0.00 Total pack years: 5.00 Types: Cigarettes Quit date: 05/13/2014 Years since quittin.1 Smokeless tobacco: Former Types: Chew Vaping Use Vaping Use: Some days Substances: Nicotine, 5 mg Devices: Pre-filled or refillable cartridge Substance Use Topics Alcohol use: Not Currently Alcohol/week: 30.0 standard drinks of alcohol Types: 12 Cans of Beer (12oz) per week Drug use: Not Currently Types: Marijuana Review of Symptoms REVIEW OF SYSTEMS See HPI EXAM: BP 114/76 Pulse 74 Resp 16 Wt 104.8 kg (231 lb) SpO2 95% BMI 30.48 kg/m? General Appearance: Well appearing, alert, in no acute distress, well-hydrated, well nourished.. PSYCH: Posture and motor behavior: normal posture and motor behavior Dress, grooming, personal hygiene: normal dress and grooming Facial expression: smiling Speech: normal speech Mood: anxious Coherency and relevance of thought: normal thought processes Memory: normal memory Health Maintenance List Hepatitis B Vaccine(1 of 3 - 3-dose series) due on 1971 Covid-19 Vaccine(1) Never done Colorectal Cancer Screening Never done Shingrix Vaccine(1 of 2) Never done Influenza Vaccine(1) Never done Annual PCP Team Chronic Disease Visit due on 05/24/2024 BP Controlled (<130/80) due on 05/24/2024 Diabetes Screening due on 03/03/2026 Lipid Screening due on 02/17/2027 DTaP,Tdap,Td Vaccine(2 - Td or Tdap) due on 02/13/2032 Depression Assessment Completed Hepatitis C Screening Discontinued HIV Screening Discontinued ASSESSMENT/PLAN: 1. KERI (generalized anxiety disorder) - ICD9: 300.02, ICD10: F41.1 (primary diag (more content not included)... [facility] 07-01-2023 History of Presen t illness Narrative Chief Complaint Patient presents with: ER F/U Refill Request HPI Nazario Suazo II is a 53 year old male who presents here today for Above Complaints.. Patient evaluated at [facility] ED on 06/09 with worsening symptoms for about 6-8 weeks prior. Given rx for atarax 50 mg and advised to keep f/u with his psychiatrist in 4 weeks. I evaluated him for Bipolar disorder on 05/24 and recommended f/u with psychiatry for symptoms. He supposedly had appointment with psychiatry and counseling with Ruthy Vang in about 2 weeks at that time. Today, patient states that he missed his appointment with psychiatry and has not rescheduled a follow up. Has been taking the atarax at night for panic symtpoms which is working well for him. Requesting refill today. Denies SI/HI. Past medical history, appointments, medications, allergies reviewed. Previous Medical History PAST MEDICAL HISTORY Diagnosis Date Atrial fibrillation (HCC) single episode of a fib while living in [place]. s/p cardioversion Bipolar disorder (HCC) Eczema [employer] History of alcohol abuse History of COVID-19 History of marijuana use History of tobacco use Hyperlipidemia Hypertension Primary osteoarthritis of left knee PTSD (post-traumatic stress disorder) RLS (restless legs syndrome) Syncope 03/2019 Previous Surgical History PAST SURGICAL HISTORY Procedure Laterality Date CARDIOVERSION 2016 a fib PAST SURGICAL HISTORY OF 01/2013 Left knee repair PAST SURGICAL HISTORY OF 1999 Right Shoulder PAST SURGICAL HISTORY OF 1995 Hernia repair Family History FAMILY HISTORY Problem Relation Age of Onset No Known Problems Sister Alcohol/Drug Brother No Known Problems Maternal Grandmother No Known Problems Maternal Grandfather No Known Problems Paternal Grandmother No Known Problems Paternal Grandfather No Known Problems Son No Known Problems Son No Known Problems Son Patient Allergies ALLERGIES Allergen Reactions Seroquel [Quetiapin* Intolerance drowsiness Tramadol Hives, Other: See Comments Didn't feel well Current Medications Current Outpatient Medications on File Prior to Visit Medication Sig whey protein conc-amino acid 24 gram-120 kcal/30 gram powd Take 30 g by mouth twice daily. Patient takes whey protein shakes 2 times daily aspirin 81 mg chewable tablet Take 81 mg by mouth. cyanocobalamin (VITAMIN B-12) 100 mcg tab Take 500 mcg by mouth once daily. Zinc 50 mg tab Take 50 mg by mouth once daily. cholecalciferol (VITAMIN D3) 5,000 unit tab Take 5,000 Units by mouth once daily. creatine, bulk, 100 % powd 5 g. therapeutic multivitamin tablet Take 1 tablet by mouth once daily. rOPINIRole (REQUIP) 0.25 mg tablet Take 1 tablet by mouth at bedtime as needed. (Patient not taking: Reported on 05/24/2023) Current Facility-Administered Medications on File Prior to Visit Medication perflutren lipid microspheres 1.3 mL in NaCl (PF) 0.9% 10 mL injection (DEFINITY) sodium chloride 0.9 % (flush) 10 mL (BD POSIFLUSH) Social History Social History Tobacco Use Smoking status: Former Packs/day: 0.50 Years: 10.00 Additional pack years: 0.00 Total pack years: 5.00 Types: Cigarettes Quit date: 05/13/2014 Years since quittin.1 Smokeless tobacco: Former Types: Chew Vaping Use Vaping Use: Some days Substances: Nicotine, 5 mg Devices: Pre-filled or refillable cartridge Substance Use Topics Alcohol use: Not Currently Alcohol/week: 30.0 standard drinks of alcohol Types: 12 Cans of Beer (12oz) per week Drug use: Not Currently Types: Marijuana Review of Symptoms REVIEW OF SYSTEMS See HPI EXAM: BP 114/76 Pulse 74 Resp 16 Wt 104.8 kg (231 lb) SpO2 95% BMI 30.48 kg/m General Appearance: Well appearing, alert, in no acute distress, well-hydrated, well nourished.. PSYCH: Posture and motor behavior: normal posture and motor behavior Dress, grooming, personal hygiene: normal dress and grooming Facial expression: smiling Speech: normal speech Mood: anxious Coherency and relevance of thought: normal thought processes Memory: normal memory Health Maintenance List Hepatitis B Vaccine(1 of 3 - 3-dose series) due on 1971 Covid-19 Vaccine(1) Never done Colorectal Cancer Screening Never done Shingrix Vaccine(1 of 2) Never done Influenza Vaccine(1) Never done Annual PCP Team Chronic Disease Visit due on 05/24/2024 BP Controlled (<130/80) due on 05/24/2024 Diabetes Screening due on 03/03/2026 Lipid Screening due on 02/17/2027 DTaP,Tdap,Td Vaccine(2 - Td or Tdap) due on 02/13/2032 Depression Assessment Completed Hepatitis C Screening Discontinued HIV Screening Discontinued ASSESSMENT/PLAN: 1. KERI (generalized anxiety disorder) - ICD9: 300.02, ICD10: F41.1 (primary diagnosis) May continue to use vistaril PRN for panic symptoms. Refer back to psychiatry for history of bipolar disorder. Discussed need for mood stabilizer and further workup. Red flags for re-assessment reviewed with patient in detail. - CONSULT TO [facility] 2. Panic disorder - ICD9: 300.01, ICD10: F41.0 See above. - HYDROXYZINE PAMOATE 50 MG CAPSULE - CONSULT TO [facility] 3. Bipolar disorder, current episode mixed, moderate (HCC) - ICD9: 296.62, ICD10: F31.62 See above. Denies SI/HI. Contracted for safety. - CONSULT TO [facility] 4. PTSD (post-traumatic stress disorder) - ICD9: 309.81, ICD10: F43.10 See above. - CONSULT TO [facility] Katerina Lewis MD documented in this encounter [facility] 06-21-2023 Miscellaneous Notes Patient's , Rosa was calling to re-schedule colonoscopy. would like a call back at [phone]. Jewels Hamilton LPN documented in this encounter [facility] 05-24-2023 Note HNO ID: [id number] Author: Katerina Lewis MD Service: ? Author Type: Physician Type: Progress Notes Filed: 05/25/2023 2:40 PM Note Text: Chief Complaint Patient presents with: Weight Problem: concerned with rapid weight loss. Patient has been trying to lose weight. Anxiety: Has upcoming appt with psych. HPI Nazario Suazo II is a 53 year old male who presents here today for Above Complaints.. Patient states that he is here because his is concerned he is losing weight too quickly. He is actively trying to lose weight with intermittent fasting and portion control. Down 2 lbs in 3 months. Has follow up appointment with psychiatry and counseling with Ruthy Vang in about 2 weeks for history of bipolar disorder and uncontrolled anxiety. Symptoms have been worse over the last 4-5 weeks. 05/24/2023 1932 Last Filed Value PHQ-9 Little interest or pleasure in doing things Several days Several days Feeling down, depressed, or hopeless Several days Several days Trouble falling or staying asleep, or sleeping too much Not at all Not at all Feeling tired or having little energy Not at all Not at all Poor appetite or overeating Nearly every day Nearly every day Feeling bad about yourself - or that you are a failure or have let yourself or your family down -- Not at allFeeling bad about yourself - or that you are a failure or have let yourself or your family down. Not at all. Patient-Reported. Data is from another encounter. Last Filed Value Trouble concentrating on things, such as reading the newspaper or watching television Several days Several days Moving or speaking so slowly that other people could have noticed. Or the opposite - being so fidgety or restless that you have been moving around a lot more than usual Not at all Not at all Thoughts that you would be better off , or of hurting yourself in some way Not at all Not at all If you checked off any problems, how difficult have these problems made it for you to do your work, take care of things at home, or get along with other people? -- Very difficultIf you checked off any problems, how difficult have these problems made it for you to do your work, take care of things at home, or get along with other people?. Very difficult. Patient-Reported. Data is from another encounter. Last Filed Value PHQ-9 score -- -- PHQ-9 Score -- 10PHQ-9 Score. 10. Data is from another encounter. Last Filed Value PHQ-2 score 2 2 PHQ-2 Score 2 2 05/24/2023 193 Last Filed Value KERI-7 - over the last 2 weeks... Feeling nervous, anxious, or on edge Several days Several days Not being able to stop or control worrying Several days Several days Worrying too much about different things Several days Several days Trouble relaxing Not at all Not at all Being so restless that it is hard to sit still Nearly Everyday Nearly Everyday Becoming easily annoyed or irritable Nearly Everyday Nearly Everyday Feeling afraid, as if something awful might happen Nearly Everyday Nearly Everyday How difficult to do work, care for home, get along with people Somewhat difficult Somewhat difficult KERI-2 Total Score 2 2 KERI-7 Total Score 12 12 KERI-7 Score 12 12 Past medical history, appointments, medications, allergies reviewed. Previous Medical History PAST MEDICAL HISTORY Diagnosis Date Atrial fibrillation (HCC) single episode of a fib while living in [place]. s/p cardioversion Bipolar disorder (HCC) Eczema [employer] History of alcohol abuse History of COVID-19 History of marijuana use History of tobacco use Hyperlipidemia Hypertension Primary osteoarthritis of left knee PTSD (post-traumatic stress disorder) RLS (restless legs syndrome) Syncope 03/2019 Previous Surgical History PAST SURGICAL HISTORY Procedure Laterality Date CARDIOVERSION 2017 a fib PAST SURGICAL HISTORY OF 01/2013 Left knee repair PAST SURGICAL HISTORY OF 1999 Right Shoulder PAST SURGICAL HISTORY OF 1995 Hernia repair Family History FAMILY HISTORY Problem Relation Age of Onset No Known Problems Sister Alcohol/Drug Brother No Known Problems Maternal Grandmother No Known Problems Maternal Grandfather No Known Problems Paternal Grandmother No Known Problems Paternal Grandfather No Known Problems Son No Known Problems Son No Known Problems Son Patient Allergies ALLERGIES Allergen Reactions Seroquel [Quetiapin* Intolerance drowsiness Tramadol Hives, Other: See Comments Didn't feel well Current Medications Current Outpatient Medications on File Prior to Visit Medication Sig whey protein conc-amino acid 24 gram-120 kcal/30 gram powd Take 30 g by mouth twice daily. Patient takes whey protein shakes 2 times daily aspirin 81 mg chewable tablet Take 81 mg by mouth. cyanocobalamin (VITAMIN B-12) 100 mcg tab Take 500 mcg by mouth once daily. Zinc 50 mg tab Take 50 mg by mouth once daily. cholec (more content not included)... [facility] 05-24-2023 History of Presen t illness Narrative Chief Complaint Patient presents with: Weight Problem: concerned with rapid weight loss. Patient has been trying to lose weight. Anxiety: Has upcoming appt with psych. HPI Nazario Suazo II is a 53 year old male who presents here today for Above Complaints.. Patient states that he is here because his is concerned he is losing weight too quickly. He is actively trying to lose weight with intermittent fasting and portion control. Down 2 lbs in 3 months. Has follow up appointment with psychiatry and counseling with Ruthy Vang in about 2 weeks for history of bipolar disorder and uncontrolled anxiety. Symptoms have been worse over the last 4-5 weeks. 05/24/20231931 Last Filed Value PHQ-9 Little interest or pleasure in doing things Several days Several days Feeling down, depressed, or hopeless Several days Several days Trouble falling or staying asleep, or sleeping too much Not at all Not at all Feeling tired or having little energy Not at all Not at all Poor appetite or overeating Nearly every day Nearly every day Feeling bad about yourself - or that you are a failure or have let yourself or your family down -- Not at allFeeling bad about yourself - or that you are a failure or have let yourself or your family down. Not at all. Patient-Reported. Data is from another encounter. Last Filed Value Trouble concentrating on things, such as reading the newspaper or watching television Several days Several days Moving or speaking so slowly that other people could have noticed. Or the opposite - being so fidgety or restless that you have been moving around a lot more than usual Not at all Not at all Thoughts that you would be better off , or of hurting yourself in some way Not at all Not at all If you checked off any problems, how difficult have these problems made it for you to do your work, take care of things at home, or get along with other people? -- Very difficultIf you checked off any problems, how difficult have these problems made it for you to do your work, take care of things at home, or get along with other people?. Very difficult. Patient-Reported. Data is from another encounter. Last Filed Value PHQ-9 score -- -- PHQ-9 Score -- 10PHQ-9 Score. 10. Data is from another encounter. Last Filed Value PHQ-2 score 2 2 PHQ-2 Score 2 2 05/24/2023 1933 Last Filed Value KERI-7 - over the last 2 weeks... Feeling nervous, anxious, or on edge Several days Several days Not being able to stop or control worrying Several days Several days Worrying too much about different things Several days Several days Trouble relaxing Not at all Not at all Being so restless that it is hard to sit still Nearly Everyday Nearly Everyday Becoming easily annoyed or irritable Nearly Everyday Nearly Everyday Feeling afraid, as if something awful might happen Nearly Everyday Nearly Everyday How difficult to do work, care for home, get along with people Somewhat difficult Somewhat difficult KERI-2 Total Score 2 2 KERI-7 Total Score 12 12 KERI-7 Score 12 12 Past medical history, appointments, medications, allergies reviewed. Previous Medical History PAST MEDICAL HISTORY Diagnosis Date Atrial fibrillation (HCC) single episode of a fib while living in [place]. s/p cardioversion Bipolar disorder (HCC) Eczema [employer] History of alcohol abuse History of COVID-19 History of marijuana use History of tobacco use Hyperlipidemia Hypertension Primary osteoarthritis of left knee PTSD (post-traumatic stress disorder) RLS (restless legs syndrome) Syncope 03/2019 Previous Surgical History PAST SURGICAL HISTORY Procedure Laterality Date CARDIOVERSION 2016 a fib PAST SURGICAL HISTORY OF 01/2013 Left knee repair PAST SURGICAL HISTORY OF 1999 Right Shoulder PAST SURGICAL HISTORY OF 1995 Hernia repair Family History FAMILY HISTORY Problem Relation Age of Onset No Known Problems Sister Alcohol/Drug Brother No Known Problems Maternal Grandmother No Known Problems Maternal Grandfather No Known Problems Paternal Grandmother No Known Problems Paternal Grandfather No Known Problems Son No Known Problems Son No Known Problems Son Patient Allergies ALLERGIES Allergen Reactions Seroquel [Quetiapin* Intolerance drowsiness Tramadol Hives, Other: See Comments Didn't feel well Current Medications Current Outpatient Medications on File Prior to Visit Medication Sig whey protein conc-amino acid 24 gram-120 kcal/30 gram powd Take 30 g by mouth twice daily. Patient takes whey protein shakes 2 times daily aspirin 81 mg chewable tablet Take 81 mg by mouth. cyanocobalamin (VITAMIN B-12) 100 mcg tab Take 500 mcg by mouth once daily. Zinc 50 mg tab Take 50 mg by mouth once daily. cholecalciferol (VITAMIN D3) 5,000 unit tab Take 5,000 Units by mouth once daily. creatine, bulk, 100 % powd 5 g. therapeutic multivitamin tablet Take 1 tablet by mouth once daily. rOPINIRole (REQUIP) 0.25 mg tablet Take 1 tablet by mouth at bedtime as needed. (Patient not taking: Reported on 05/24/2023) vtmstgu-qcdo-kbzuc-oreg-capryl 100 mg-150 mg- 50 mg-150 mg cap Take 500 mg by mouth every morning. (Patient not taking: Reported on 05/24/2023) Current Facility-Administered Medications on File Prior to Visit Medication perflutren lipid microspheres 1.3 mL in NaCl (PF) 0.9% 10 mL injection (DEFINITY) sodium chloride 0.9 % (flush) 10 mL (BD POSIFLUSH) Social History Social History Tobacco Use Smoking status: Former Packs/day: 0.50 Years: 10.00 Additional pack years: 0.00 Total pack years: 5.00 Types: Cigarettes Quit date: 05/13/2014 Years since quittin.0 Smokeless tobacco: Former Types: Chew Vaping Use Vaping Use: Some days Substances: Nicotine, 5 mg Devices: Pre-filled or refillable cartridge Substance Use Topics Alcohol use: Not Currently Alcohol/week: 30.0 standard drinks of alcohol Types: 12 Cans of Beer (12oz) per week Drug use: Not Currently Types: Marijuana Review of Symptoms REVIEW OF SYSTEMS See HPI EXAM: BP 114/74 Pulse (!) 59 Resp 16 Wt 106.1 kg (234 lb) SpO2 96% BMI 30.87 kg/m General Appearance: Well appearing, alert, in no acute distress, well-hydrated, well nourished.. Skin: Skin color, texture, turgor normal, no suspicious rashes or lesions. Lungs: Lungs clear to auscultation. No wheezing, rhonchi, rales.. Heart: RRR without murmur, gallop, or rubs. No ectopy. PSYCH: Posture and motor behavior: normal posture and motor behavior Dress, grooming, personal hygiene: normal dress and grooming Facial expression: good eye contact Speech: normal speech Mood: cheerful Coherency and relevance of thought: normal thought processes Memory: normal memory Health Maintenance List Hepatitis B Vaccine(1 of 3 - 3-dose series) due on 1970 Covid-19 Vaccine(1) Never done Colorectal Cancer Screening Never done Shingrix Vaccine(1 of 2) Never done Influenza Vaccine(1) due on 05/06/2023 Annual PCP Team Chronic Disease Visit due on 02/25/2024 BP Controlled (<130/80) due on 02/25/2024 Diabetes Screening due on 03/03/2026 Lipid Screening due on 02/17/2027 DTaP,Tdap,Td Vaccine(2 - Td or Tdap) due on 02/13/2032 Depression Assessment Completed Hepatitis C Screening Discontinued HIV Screening Discontinued Data reviewed Component Latest Ref Rng & Units 03/03/2023 Protein, Total 6.3 - 8.0 g/dL 6.6 Albumin 3.9 - 4.9 g/dL 4.4 Calcium 8.5 - 10.2 mg/dL 9.4 Bilirubin, Total 0.2 - 1.3 mg/dL 0.3 Alkaline Phosphatase 38 - 113 U/L 66 AST 14 - 40 U/L 35 ALT 10 - 54 U/L 42 Glucose 74 - 99 mg/dL 99 BUN 9 - 24 mg/dL 17 Creatinine 0.73 - 1.22 mg/dL 1.07 Sodium 136 - 144 mmol/L 145 (H) Potassium 3.7 - 5.1 mmol/L 4.9 Chloride 97 - 105 mmol/L 107 (H) CO2 22 - 30 mmol/L 28 Anion Gap 9 - 18 mmol/L 10 eGFR >=60 mL/min/1.73m 84 Iron 41 - 186 ug/dL 54 TIBC 232 - 386 ug/dL 286 Transferrin Saturation 15.0 - 57.0 % 18.9 Ferritin 30.3 - 565.7 ng/mL 148.0 TSH 0.270 - 4.200 mIU/L 1.540 Vitamin D 25 Hydroxy 31.0 - 80.0 ng/mL 48.6 ASSESSMENT/PLAN: 1. Bipolar disorder, current episode mixed, moderate (HCC) - ICD9: 296.62, ICD10: F31.62 (primary diagnosis) Uncontrolled and has follow up with psychiatry in 2 weeks. Discussed that I would not start him on SSRI or SNRI today as it may trigger manic episodes. Needs to see psych for mood stabilizer. Contracted for safety. Red flags for re-assessment reviewed with patient in detail. 2. PTSD (post-traumatic stress disorder) - ICD9: 309.81, ICD10: F43.10 See above. 3. KERI (generalized anxiety disorder) - ICD9: 300.02, ICD10: F41.1 See above. 4. Weight loss - ICD9: 783.21, ICD10: R63.4 Patient intentionally trying to lose weight. Discussed 2 lbs over last 3 months is not rapid weight loss. Discussed healthy diet and exercise for BMI >30. I spent a total of 30 minutes on the date of the service which included preparing to see the patient, [id number] patient care, completing clinical documentation, obtaining and/or reviewing separately obtained history, performing a medically appropriate examination, counseling and educating the patient/family/caregiver, ordering medications, tests, or procedures, and communicating results to the patient/family/caregiver. Katerina Lewis MD documented in this encounter [facility] 03-09-2023 Miscellaneous Notes Patient notified of results. Nunu Fuchs LPN Message left for patient to return call for results or review results via [employer] message. ----- Message from Katerina Lewis MD sent at 03/04/2023 8:03 AM EDT ----- Normal labs. No change to regimen. documented in this encounter [facility] 03-04-2023 Note HNO ID: [id number] Author: IRVIN Mendez Service: ? Author Type: Therapist Type: Progress Notes Filed: 03/04/2023 8:22 AM Note Text: Behavioral Health Social Work Progress Note Patient identified for [facility] from: PCP Reason for referral: [facility] Behavioral Health Resources: Psychiatry med management [facility] encounter type: SendHubhart Message Attempts to Outreach: 3 attempts Referral made: Psychiatry - External, Psychiatry - Internal Psychiatry-Internal referral type: Medication Management Psychiatry-External referral type: Medication Management Reason for external referral: Wait times at [facility] too long, Patient choice Final Disposition: Resources given Patient Discharged?: Yes therapist sent patient [employer] follow up message offering assistance with linkage to behavioral health services. IRVIN Mendez-S March 04, 2023 [facility] 02-25-2023 Miscellaneous Notes Behavioral Health Social Work Progress Note Patient identified for [facility] from: PCP Reason for referral: [facility] Behavioral Health Resources: Psychiatry med management [facility] encounter type: Telephone Encounter Attempts to Outreach: 1 attempt Referral made: Psychiatry - External Psychiatry-External referral type: Medication Management Patient Discharged?: No Phone call placed today that went to [facility]. Left my contact information and brief nature of call. Initial outreach also completed via [employer] sending list of in network providers with insurance. IRVIN Mendez-Fide February 25, 2023 documented in this encounter [facility] 02-24-2023 Note HNO ID: [id number] Author: Katerina Lewis MD Service: ? Author Type: Physician Type: Progress Notes Filed: 02/25/2023 9:00 AM Note Text: Chief Complaint Patient presents with: mental health concerns: Was on ADHD meds at one time restless leg syndrome: Keeping patient awake at night HPI Nazario Suazo II is a 52 year old male who presents here today for Above Complaints.. Patient with history of bipolar disorder who is here today with complaint of trouble focusing for the last 6-12 months. States that he was on ritalin in the past for ADHD. Not following up with counseling or psychiatry at this time. Has not been diagnosed with or treated for anxiety in the past. Denies SI/HI. Cannot tell me when the last time he had a manic episode was. Under more stress in the last 6 months with changing jobs and making less money. 02/24/2023 1604 Last Filed Value KERI-7 - over the last 2 weeks... Feeling nervous, anxious, or on edge Nearly EverydayFeeling nervous, anxious, or on edge. Nearly Everyday. Patient-Reported. Taken on 02/24/23 1604 Nearly EverydayFeeling nervous, anxious, or on edge. Nearly Everyday. Patient-Reported. Last Filed Value Not being able to stop or control worrying Nearly EverydayNot being able to stop or control worrying. Nearly Everyday. Patient-Reported. Taken on 02/24/23 1604 Nearly EverydayNot being able to stop or control worrying. Nearly Everyday. Patient-Reported. Last Filed Value Worrying too much about different things Nearly EverydayWorrying too much about different things. Nearly Everyday. Patient-Reported. Taken on 02/24/23 1604 Nearly EverydayWorrying too much about different things. Nearly Everyday. Patient-Reported. Last Filed Value Trouble relaxing Nearly EverydayTrouble relaxing. Nearly Everyday. Patient-Reported. Taken on 02/24/23 1604 Nearly EverydayTrouble relaxing. Nearly Everyday. Patient-Reported. Last Filed Value Being so restless that it is hard to sit still Nearly EverydayBeing so restless that it is hard to sit still. Nearly Everyday. Patient-Reported. Taken on 02/24/23 1604 Nearly EverydayBeing so restless that it is hard to sit still. Nearly Everyday. Patient-Reported. Last Filed Value Becoming easily annoyed or irritable Several daysBecoming easily annoyed or irritable. Several days. Patient-Reported. Taken on 02/24/23 1604 Several daysBecoming easily annoyed or irritable. Several days. Patient-Reported. Last Filed Value Feeling afraid, as if something awful might happen Not at allFeeling afraid, as if something awful might happen. Not at all. Patient-Reported. Taken on 02/24/23 1604 Not at allFeeling afraid, as if something awful might happen. Not at all. Patient-Reported. Last Filed Value How difficult to do work, care for home, get along with people Extremely difficultHow difficult to do work, care for home, get along with people. Extremely difficult. Patient-Reported. Taken on 02/24/23 1604 Extremely difficultHow difficult to do work, care for home, get along with people. Extremely difficult. Patient-Reported. Last Filed Value KERI-2 Total Score 6 6 KERI-7 Total Score 16 16 KERI-7 Score 16 16 02/24/2023 1600 Last Filed Value PHQ-9 Little interest or pleasure in doing things Several daysLittle interest or pleasure in doing things. Several days. Patient-Reported. Taken on 02/24/23 1600 Several daysLittle interest or pleasure in doing things. Several days. Patient-Reported. Last Filed Value Feeling down, depressed, or hopeless Not at allFeeling down, depressed, or hopeless. Not at all. Patient-Reported. Taken on 02/24/23 1600 Not at allFeeling down, depressed, or hopeless. Not at all. Patient-Reported. Last Filed Value Trouble falling or staying asleep, or sleeping too much More than half the daysTrouble falling or staying asleep, or sleeping too much. More than half the days. Patient-Reported. Taken on 02/24/23 1600 More than half the daysTrouble falling or staying asleep, or sleeping too much. More than half the days. Patient-Reported. Last Filed Value Feeling tired or having little energy Several daysFeeling tired or having little energy. Several days. Patient-Reported. Taken on 02/24/23 1600 Several daysFeeling tired or having little energy. Several days. Patient-Reported. Last Filed Value Poor appetite or overeating Not at allPoor appetite or overeating. Not at all. Patient-Reported. Taken on 02/24/23 1600 Not at allPoor appetite or overeating. Not at all. Patient-Reported. Last Filed Value Feeling bad about yourself - or that you are a failure or have let yourself or your family down Not at allFeeling bad about yourself - or that you are a failure or have let yourself or your family down. Not at all. Patient-Reported. Taken on 02/24/23 1600 Not at allFeeling bad about yourself - or that you are a failure or have let yourself or your family down. Not at all. Patient-Reported. Last Filed Value Troubl (more content not included)... [facility] 02-24-2023 History of Presen t illness Narrative Chief Complaint Patient presents with: mental health concerns: Was on ADHD meds at one time restless leg syndrome: Keeping patient awake at night HPI Nazario Suazo II is a 52 year old male who presents here today for Above Complaints.. Patient with history of bipolar disorder who is here today with complaint of trouble focusing for the last 6-12 months. States that he was on ritalin in the past for ADHD. Not following up with counseling or psychiatry at this time. Has not been diagnosed with or treated for anxiety in the past. Denies SI/HI. Cannot tell me when the last time he had a manic episode was. Under more stress in the last 6 months with changing jobs and making less money. 02/24/2023 1604 Last Filed Value KERI-7 - over the last 2 weeks... Feeling nervous, anxious, or on edge Nearly EverydayFeeling nervous, anxious, or on edge. Nearly Everyday. Patient-Reported. Taken on 02/24/23 1604 Nearly EverydayFeeling nervous, anxious, or on edge. Nearly Everyday. Patient-Reported. Last Filed Value Not being able to stop or control worrying Nearly EverydayNot being able to stop or control worrying. Nearly Everyday. Patient-Reported. Taken on 02/24/23 1604 Nearly EverydayNot being able to stop or control worrying. Nearly Everyday. Patient-Reported. Last Filed Value Worrying too much about different things Nearly EverydayWorrying too much about different things. Nearly Everyday. Patient-Reported. Taken on 02/24/23 1604 Nearly EverydayWorrying too much about different things. Nearly Everyday. Patient-Reported. Last Filed Value Trouble relaxing Nearly EverydayTrouble relaxing. Nearly Everyday. Patient-Reported. Taken on 02/24/23 1604 Nearly EverydayTrouble relaxing. Nearly Everyday. Patient-Reported. Last Filed Value Being so restless that it is hard to sit still Nearly EverydayBeing so restless that it is hard to sit still. Nearly Everyday. Patient-Reported. Taken on 02/24/23 1604 Nearly EverydayBeing so restless that it is hard to sit still. Nearly Everyday. Patient-Reported. Last Filed Value Becoming easily annoyed or irritable Several daysBecoming easily annoyed or irritable. Several days. Patient-Reported. Taken on 02/24/23 1604 Several daysBecoming easily annoyed or irritable. Several days. Patient-Reported. Last Filed Value Feeling afraid, as if something awful might happen Not at allFeeling afraid, as if something awful might happen. Not at all. Patient-Reported. Taken on 02/24/23 1604 Not at allFeeling afraid, as if something awful might happen. Not at all. Patient-Reported. Last Filed Value How difficult to do work, care for home, get along with people Extremely difficultHow difficult to do work, care for home, get along with people. Extremely difficult. Patient-Reported. Taken on 02/24/23 1604 Extremely difficultHow difficult to do work, care for home, get along with people. Extremely difficult. Patient-Reported. Last Filed Value KERI-2 Total Score 6 6 KERI-7 Total Score 16 16 KERI-7 Score 16 16 02/24/2023 1600 Last Filed Value PHQ-9 Little interest or pleasure in doing things Several daysLittle interest or pleasure in doing things. Several days. Patient-Reported. Taken on 02/24/23 1600 Several daysLittle interest or pleasure in doing things. Several days. Patient-Reported. Last Filed Value Feeling down, depressed, or hopeless Not at allFeeling down, depressed, or hopeless. Not at all. Patient-Reported. Taken on 02/24/23 1600 Not at allFeeling down, depressed, or hopeless. Not at all. Patient-Reported. Last Filed Value Trouble falling or staying asleep, or sleeping too much More than half the daysTrouble falling or staying asleep, or sleeping too much. More than half the days. Patient-Reported. Taken on 02/24/23 1600 More than half the daysTrouble falling or staying asleep, or sleeping too much. More than half the days. Patient-Reported. Last Filed Value Feeling tired or having little energy Several daysFeeling tired or having little energy. Several days. Patient-Reported. Taken on 02/24/23 1600 Several daysFeeling tired or having little energy. Several days. Patient-Reported. Last Filed Value Poor appetite or overeating Not at allPoor appetite or overeating. Not at all. Patient-Reported. Taken on 02/24/23 1600 Not at allPoor appetite or overeating. Not at all. Patient-Reported. Last Filed Value Feeling bad about yourself - or that you are a failure or have let yourself or your family down Not at allFeeling bad about yourself - or that you are a failure or have let yourself or your family down. Not at all. Patient-Reported. Taken on 02/24/23 1600 Not at allFeeling bad about yourself - or that you are a failure or have let yourself or your family down. Not at all. Patient-Reported. Last Filed Value Trouble concentrating on things, such as reading the newspaper or watching television Nearly every dayTrouble concentrating on things, such as reading the newspaper or watching television. Nearly every day. Patient-Reported. Taken on 02/24/23 1600 Nearly every dayTrouble concentrating on things, such as reading the newspaper or watching television. Nearly every day. Patient-Reported. Last Filed Value Moving or speaking so slowly that other people could have noticed. Or the opposite - being so fidgety or restless that you have been moving around a lot more than usual Nearly every dayMoving or speaking so slowly that other people could have noticed. Or the opposite - being so fidgety or restless that you have been moving around a lot more than usual. Nearly every day. Patient-Reported. Taken on 02/24/23 1600 Nearly every dayMoving or speaking so slowly that other people could have noticed. Or the opposite - being so fidgety or restless that you have been moving around a lot more than usual. Nearly every day. Patient-Reported. Last Filed Value Thoughts that you would be better off , or of hurting yourself in some way Not at allThoughts that you would be better off , or of hurting yourself in some way. Not at all. Patient-Reported. Taken on 02/24/23 1600 Not at allThoughts that you would be better off , or of hurting yourself in some way. Not at all. Patient-Reported. Last Filed Value If you checked off any problems, how difficult have these problems made it for you to do your work, take care of things at home, or get along with other people? Very difficultIf you checked off any problems, how difficult have these problems made it for you to do your work, take care of things at home, or get along with other people?. Very difficult. Patient-Reported. Taken on 02/24/23 1600 Very difficultIf you checked off any problems, how difficult have these problems made it for you to do your work, take care of things at home, or get along with other people?. Very difficult. Patient-Reported. Last Filed Value PHQ-9 score 10 10 PHQ-9 Score 10 10 PHQ-2 score 1 1 PHQ-2 Score 1 1 Also notes uncontrolled RLS causing trouble sleeping. Occurs during the day and at night. Occasionally improved with walking. Past medical history, appointments, medications, allergies reviewed. Previous Medical History PAST MEDICAL HISTORY Diagnosis Date Atrial fibrillation (HCC) single episode of a fib while living in [place]. s/p cardioversion Bipolar disorder (HCC) Eczema [employer] History of alcohol abuse History of COVID-19 History of marijuana use History of tobacco use Hyperlipidemia Hypertension Primary osteoarthritis of left knee PTSD (post-traumatic stress disorder) RLS (restless legs syndrome) Syncope 03/2019 Previous Surgical History PAST SURGICAL HISTORY Procedure Laterality Date CARDIOVERSION 2016 a fib PAST SURGICAL HISTORY OF 01/2013 Left knee repair PAST SURGICAL HISTORY OF 1999 Right Shoulder PAST SURGICAL HISTORY OF 1995 Hernia repair Family History FAMILY HISTORY Problem Relation Age of Onset No Known Problems Sister Alcohol/Drug Brother No Known Problems Maternal Grandmother No Known Problems Maternal Grandfather No Known Problems Paternal Grandmother No Known Problems Paternal Grandfather No Known Problems Son No Known Problems Son No Known Problems Son Patient Allergies ALLERGIES Allergen Reactions Seroquel [Quetiapin* Intolerance drowsiness Tramadol Hives, Other: See Comments Didn't feel well Current Medications Current Outpatient Medications on File Prior to Visit Medication Sig yrwsljt-tjnf-hmeol-oreg-capryl 100 mg-150 mg- 50 mg-150 mg cap Take 500 mg by mouth every morning. whey protein conc-amino acid 24 gram-120 kcal/30 gram powd Take 30 g by mouth twice daily. Patient takes whey protein shakes 2 times daily aspirin 81 mg chewable tablet Take 81 mg by mouth. cyanocobalamin (VITAMIN B-12) 100 mcg tab Take 500 mcg by mouth once daily. Zinc 50 mg tab Take 50 mg by mouth once daily. cholecalciferol (VITAMIN D3) 5,000 unit tab Take 5,000 Units by mouth once daily. creatine, bulk, 100 % powd 5 g. therapeutic multivitamin tablet Take 1 tablet by mouth once daily. Current Facility-Administered Medications on File Prior to Visit Medication perflutren lipid microspheres 1.3 mL in NaCl (PF) 0.9% 10 mL injection (DEFINITY) sodium chloride 0.9 % (flush) 10 mL (BD POSIFLUSH) Social History Social History Tobacco Use Smoking status: Former Packs/day: 0.50 Years: 10.00 Pack years: 5.00 Types: Cigarettes Quit date: 05/13/2014 Years since quittin.7 Smokeless tobacco: Former Types: Chew Vaping Use Vaping Use: Some days Substances: Nicotine, 5 mg Devices: Pre-filled or refillable cartridge Substance Use Topics Alcohol use: Not Currently Alcohol/week: 30.0 standard drinks Types: 12 Cans of Beer (12oz) per week Drug use: Not Currently Types: Marijuana Review of Symptoms REVIEW OF SYSTEMS See HPI EXAM: BP 128/74 Pulse 93 Resp 16 SpO2 98% General Appearance: Well appearing, alert, in no acute distress, well-hydrated, well nourished.. Skin: Skin color, texture, turgor normal, no suspicious rashes or lesions. Neurologic: Gait normal. Reflexes normal and symmetric. Sensation grossly intact.. PSYCH: Posture and motor behavior: normal posture and motor behavior Dress, grooming, personal hygiene: normal dress and grooming Facial expression: good eye contact Speech: normal speech Mood: anxious Coherency and relevance of thought: normal thought processes Memory: normal memory Health Maintenance List HEPATITIS B(1 of 3 - 3-dose series) due on 1970 COVID-19 VACCINE(1) Never done COLORECTAL CANCER SCREENING Never done SHINGRIX VACCINE(1 of 2) Never done INFLUENZA(Season Ended) due on 05/06/2023 ANNUAL PCP TEAM CHRONIC DISEASE VISIT due on 01/08/2024 BP CONTROLLED (<130/80) due on 01/08/2024 DIABETES SCREEN due on 02/17/2025 LIPID SCREEN due on 02/17/2027 DTAP,TDAP,TD(2 - Td or Tdap) due on 02/13/2032 DEPRESSION ASSESSMENT Completed HEPATITIS C SCREENING Discontinued HIV SCREENING Discontinued ASSESSMENT/PLAN: 1. Bipolar affective disorder, currently depressed, moderate (HCC) - ICD9: 296.52, ICD10: F31.32 (primary diagnosis) Worsening depression and new anxiety without manic episodes. Discussed need to be treated with mood stabilizer and SSRI/SNRI. Will refer to psychiatry to initiate treatment and discuss difficulty concentrating due to anxiety/depression vs ADHD. With history of alcohol and drug abuse, I would be hesitant to prescribe rx with abuse potential. Contracted for safety. Red flags for re-assessment reviewed with patient in detail. - CONSULT TO [facility] - TSH BLD - VITAMIN D 25 HYDROXY - COMP METABOLIC PANEL 2. KERI (generalized anxiety disorder) - ICD9: 300.02, ICD10: F41.1 See above - CONSULT TO [facility] - TSH BLD - VITAMIN D 25 HYDROXY - COMP METABOLIC PANEL 3. Difficulty concentrating - ICD9: 799.51, ICD10: R41.840 See above. 4. RLS (restless legs syndrome) - ICD9: 333.94, ICD10: G25.81 Check labs. Start requip nightly and will titrate up as needed. Call in 1 week with update. - IRON + TIBC - FERRITIN BLD - ROPINIROLE 0.25 MG TABLET Katerina Lewis MD documented in this encounter [facility] 02-15-2023 Miscellaneous Notes Patient returned call and given provider's message below. Patient agreeable to recommendations and will call insurance to find out what DME company to use and let pcp know. Message left for patient to call office back for update. Nunu Fuchs LPN Please call patient and let him know his home sleep study shows a diagnosis or at least mild obstructive sleep apnea. Recommends AutoPap device. If interested in trying I need name of DME company to send to. Will have him follow-up with sleep medicine- order placed, please assist in scheduling. Dinesh Nagel APRN.LYNNETTE documented in this encounter [facility] 02-09-2023 Note HNO ID: [id number] Author: Trevon Iqbal PA-C Service: ? Author Type: Physician Speech Pathologist Type: Progress Notes Filed: 02/16/2023 3:10 PM Note Text: HISTORY AND PHYSICAL Nazario Estefani Suazo II 1970 REFERRING PHYSICIAN: Self CHIEF COMPLAINT: Consult (colonoscopy) HPI: The patient is a 52 year old male referred for endoscopy. Nazario notes no colon complaints. Patient denies any change in bowel habits, weight changes, blood in stools, black tarry stools or abdominal pain. Denies family history of colon issues. The patient notes no upper GI complaints. Nazario has not undergone prior endoscopy. Patient reports history of alcohol use-in recovery, and also notes marijuana use. Denies chest pain, shortness of breath or recent hospitalizations. Denies problems with sedation in the past/ PAST MEDICAL HISTORY Diagnosis Date Atrial fibrillation (HCC) single episode of a fib while living in [place]. s/p cardioversion Bipolar disorder (HCC) Eczema [employer] History of alcohol abuse History of COVID-19 History of marijuana use History of tobacco use Hyperlipidemia Hypertension Primary osteoarthritis of left knee PTSD (post-traumatic stress disorder) RLS (restless legs syndrome) Syncope 03/2019 PAST SURGICAL HISTORY Procedure Laterality Date CARDIOVERSION 2017 a fib PAST SURGICAL HISTORY OF 01/2013 Left knee repair PAST SURGICAL HISTORY OF 1999 Right Shoulder PAST SURGICAL HISTORY OF 1995 Hernia repair Current Outpatient Medications Medication Sig akhhyeo-bbbf-qxkew-oreg-capryl 100 mg-150 mg- 50 mg-150 mg cap Take 500 mg by mouth every morning. whey protein conc-amino acid 24 gram-120 kcal/30 gram powd Take 30 g by mouth twice daily. Patient takes whey protein shakes 2 times daily aspirin 81 mg chewable tablet Take 81 mg by mouth. cyanocobalamin (VITAMIN B-12) 100 mcg tab Take 500 mcg by mouth once daily. Zinc 50 mg tab Take 50 mg by mouth once daily. cholecalciferol (VITAMIN D3) 5,000 unit tab Take 5,000 Units by mouth once daily. creatine, bulk, 100 % powd 5 g. therapeutic multivitamin tablet Take 1 tablet by mouth once daily. NUCYNTA ER 100 mg tab ER 12 hr Take 100 mg by mouth every 12 hours. albuterol HFA (PROAIR HFA) 90 mcg/actuation inhaler Inhale 2 Puffs as instructed every 6 hours as needed. Current Facility-Administered Medications Medication Dose Route Frequency perflutren lipid microspheres 1.3 mL in NaCl (PF) 0.9% 10 mL injection (DEFINITY) INTRAVENOUS DIRECTED PRN sodium chloride 0.9 % (flush) 10 mL (BD POSIFLUSH) 10 mL INTRAVENOUS DIRECTED PRN ALLERGIES: Seroquel [Quetiapine] and Tramadol PERSONAL HISTORY: Social History Tobacco Use Smoking status: Former Packs/day: 0.50 Years: 10.00 Pack years: 5.00 Types: Cigarettes Quit date: 05/13/2014 Years since quittin.7 Smokeless tobacco: Former Types: Chew Vaping Use Vaping Use: Some days Substances: Nicotine, 5 mg Devices: Pre-filled or refillable cartridge Substance Use Topics Alcohol use: Not Currently Alcohol/week: 30.0 standard drinks Types: 12 Cans of Beer (12oz) per week Drug use: Not Currently Types: Marijuana FAMILY HISTORY: FAMILY HISTORY Problem Relation Age of Onset No Known Problems Sister Alcohol/Drug Brother No Known Problems Maternal Grandmother No Known Problems Maternal Grandfather No Known Problems Paternal Grandmother No Known Problems Paternal Grandfather No Known Problems Son No Known Problems Son No Known Problems Son REVIEW OF SYMPTOMS: The review of systems data was entered by the nurse and reviewed by me Nursing Notes: Jewels Hamilton LPN 02/09/2023 1:21 PM Signed REVIEW OF SYSTEMS: General: The patient denies fatigue, denies weight loss, denies weight gain, denies feeling hot, and denies feelings of cold. Eyes: The patient denies glaucoma, denies eye injury/surgery, wears glasses or contacts. Ear/Nose/Throat: The patient NOTES allergies, denies hayfever, denies ear infections, and denies bloody noses. Cardiovascular: The patient denies chest pain, NOTES heart disease, NOTES high blood pressure,denies cardiac stent, denies prior heart attack, denies irregular heart beat, NOTES high cholesterol, denies poor circulation, denies heart failure, other cardiac issues, denies claudication, denies cold feet, denies peripheral arterial stent. Respiratory: The patient denies tuberculosis, denies pneumonia, denies frequent cough, denies pulmonary embolism, denies shortness of breath, and denies coughing up blood. Gastrointestinal: The patient denies difficulty swallowing, denies acid reflux, denies ulcers, denies vomiting, denies jaundice/hepatitis, denies gallbladder problems, denies black or tarry stools, denies hemorrhoids, denies bleeding from rectum, denies diverticulitis, denies constipation, denies diarrhea, denies loss of stool control, and NOTES hernias. Kidney/Bladder: The benita (more content not included)... [facility] 02-09-2023 Miscellaneous Notes 03/31/2023 colon lodi documented in this encounter [facility] 02-04-2023 Note HNO ID: [id number] Author: Jada Hercules Service: ? Author Type: ? Type: Progress Notes Filed: 02/04/2023 11:41 AM Note Text: Sleep Study Check-In Documentation Date: February 04, 2023 Name: Nazario Suazo II Comments: HST was returned in working order without all sleep questionnaires Patient was not reached. A voicemail was left with patient to call back to complete questionnaires. Jada Hercules [facility] 02-04-2023 History of Presen t illness Narrative Sleep Study Check-In Documentation Date: February 04, 2023 Name: Nazario Jara Lakeisha TREJO Comments: HST was returned in working order without all sleep questionnaires Patient was not reached. A voicemail was left with patient to call back to complete questionnaires. Jada Hercules Nomad: [id number] Date: 02/01/23 [employer] Mailout Tracking Number: [id number] [employer] Return Tracking Number: [id number] January 12, 2023 Standing PSG Orders signed in the last 90 days None Future PSG Orders signed in the last 90 days Ordered Auth. provider HOME SLEEP APNEA TEST (HSAT) [[id number]] 01/07/23 Dinesh Nagel APRN.BACK UP WORKER Assoc. diagnoses: Apnea spell [R06.81] Q: Indications: A: Obstructive sleep apnea Q: STOP-BANG conditions - Select All That Apply: A: GENDER = male A2: AGE > 50 A3: OBSERVED sleep apnea Q: Current use of supplemental oxygen during sleep period?: A: No All Prior Sleep Studies (past 365 days) Some values may be hidden. Unless noted otherwise, only the newest values recorded on each date are displayed. Sleep Studies HOME SLEEP APNEA TEST (HSAT) Future Expected: Expires: 01/07/24 BMI Readings from Last 2 Encounters: 01/07/23 : 32.26 kg/m 12/29/22 : 32.61 kg/m PAST MEDICAL HISTORY Diagnosis Date Atrial fibrillation (HCC) single episode of a fib while living in [place]. s/p cardioversion Bipolar disorder (HCC) Eczema [employer] History of alcohol abuse History of COVID-19 History of marijuana use History of tobacco use Hyperlipidemia Hypertension Primary osteoarthritis of left knee PTSD (post-traumatic stress disorder) RLS (restless legs syndrome) Syncope 03/2019 The medical record was reviewed to determine if the proposed sleep study conforms to the AASM Practice Parameters for the Indications for Polysomnography and Related Procedures, or if the sleep study is indicated for other reasons. Indications for study: HIMANSHU suspected with comorbid medical or sleep disorders: Significant, persistent cardiac arrhythmias Sleep study to be performed: Home Sleep Apnea Test (HSAT) Special instructions: None-follow laboratory protoc Laura Lee - Sleep Medicine Staff Note: I have read the above protocol, edited as needed, and agree to the plan. Lam Ralph III, PhD 2:08 PM, 01/12/2023 January 12, 2023 An order has been received for Home Sleep Apnea Test (HSAT) from Dr. Dinesh Nagel, kevin B. [facility] Staff. Visit prep complete. Comments :No The sleep study is scheduled for 02/03. Insurance: Payor: [facility] / Plan: [facility] MEDICAID / Product Type: Medicaid / Payer/Plan Subscr Sex Relation Sub. Ins. ID Effective Group Num 1. [facility]* NAZARIO SUAZO II 1970 Male Self [id number] 10/06/22 [facility] [address] Collette Flores documented in this encounter [facility] 02-01-2023 Note HNO ID: [id number] Author: Dyan KEMP Service: ? Author Type: ? Type: Progress Notes Filed: 02/04/2023 11:41 AM Note Text: Nomad: [id number] Date: 02/01/23 [employer] Mailout Tracking Number: [id number] [employer] Return Tracking Number: [id number] [facility] 01-12-2023 Note HNO ID: [id number] Author: Lam Ralph III, PhD Service: ? Author Type: Physician Type: Progress Notes Filed: 02/04/2023 11:41 AM Note Text: January 12, 2023 Standing PSG Orders signed in the last 90 days None Future PSG Orders signed in the last 90 days Ordered Auth. provider HOME SLEEP APNEA TEST (HSAT) [[id number]] 01/07/23 Dinesh Nagel APRN.BACK UP WORKER Assoc. diagnoses: Apnea spell [R06.81] Q: Indications: A: Obstructive sleep apnea Q: STOP-BANG conditions - Select All That Apply: A: GENDER = male A2: AGE > 50 A3: OBSERVED sleep apnea Q: Current use of supplemental oxygen during sleep period?: A: No All Prior Sleep Studies (past 365 days) Some values may be hidden. Unless noted otherwise, only the newest values recorded on each date are displayed. Sleep Studies HOME SLEEP APNEA TEST (HSAT) Future Expected: Expires: 01/07/24 BMI Readings from Last 2 Encounters: 01/07/23 : 32.26 kg/m? 12/29/22 : 32.61 kg/m? PAST MEDICAL HISTORY Diagnosis Date Atrial fibrillation (HCC) single episode of a fib while living in [place]. s/p cardioversion Bipolar disorder (HCC) Eczema [employer] History of alcohol abuse History of COVID-19 History of marijuana use History of tobacco use Hyperlipidemia Hypertension Primary osteoarthritis of left knee PTSD (post-traumatic stress disorder) RLS (restless legs syndrome) Syncope 03/2019 The medical record was reviewed to determine if the proposed sleep study conforms to the AASM Practice Parameters for the Indications for Polysomnography and Related Procedures, or if the sleep study is indicated for other reasons. Indications for study: HIMANSHU suspected with comorbid medical or sleep disorders: Significant, persistent cardiac arrhythmias Sleep study to be performed: Home Sleep Apnea Test (HSAT) Special instructions: None-follow laboratory protoc [facility] - Sleep Medicine Staff Note: I have read the above protocol, edited as needed, and agree to the plan. Lam Ralph III, PhD 2:08 PM, 01/12/2023 [facility] 01-12-2023 Note HNO ID: [id number] Author: Collette Flores Service: ? Author Type: ? Type: Progress Notes Filed: 02/04/2023 11:41 AM Note Text: January 12, 2023 An order has been received for Home Sleep Apnea Test (HSAT) from Jaimes a B. [facility] Staff. Visit prep complete. Comments :No The sleep study is scheduled for 02/03. Insurance: Payor: [facility] MEDICAID / Plan: [facility] MEDICAID / Product Type: Medicaid / Payer/Plan Subscr Sex Relation Sub. Ins. ID Effective Group Num 1. [facility]* NAZARIO SUAZO II 1970 Male Self [id number] [facility]22 [facility] [address] Collette Flores [facility] 01-10-2023 Note HNO ID: [id number] Author: Louis Ley Service: ? Author Type: ? Type: Progress Notes Filed: 01/10/2023 2:08 PM Note Text: TR OPEN ACCESS QUESTIONNAIRE 1. Are you currently having any new or unusual stomach/gastrointestinal issues at this time such as constipation, diarrhea, abdominal pain, rectal bleeding etc?No 2. Do you have any difficulty swallowing? YES 3. Do you have any implanted devices such as a defibrillator, pacemaker, cardiac stents or deep brain stimulator? No 4. Do you take any Blood thinners such as Coumadin, Plavix, Xarelto, Eliquis, Brilinta or any other blood thinner? YES: BABY ASPIRIN 5. Do you have any new or past cardiac (heart) or pulmonary (lung) issues? No 6. Do you currently use any oxygen? No 7. Have you been hospitalized in the past 6 weeks? No 8. Have you had difficulty with anesthesia previously re: Difficult intubation? No Other difficulty or allergic reaction to anesthesia other than post op N/V? No 9. Are you on dialysis? No 10. Do you have any bleeding disorders such as hemophilia or Factor 5? No 11. Are you an Insulin Dependent Diabetic? No [facility] 01-07-2023 Note HNO ID: [id number] Author: Dinesh Nagel APRN.CNP Service: ? Author Type: Nurse Practitioner Type: Progress Notes Filed: 01/07/2023 7:47 AM Note Text: 01/07/2023 Patient presents with: Sleep Apnea: noticing its getting more frequent wants colonoscopy SUBJECTIVE: This is a 52 year old that is here today for Above Complaints. notices he stops breathing in his sleep. Reports actually he woke up gasping before. Does not thinks he snores at night. Denies daytime fatigue. Does have a hx of paroxysmal atrial fib. Wants to get colonoscopy completed. PAST MEDICAL HISTORY Diagnosis Date Atrial fibrillation (HCC) single episode of a fib while living in [place]. s/p cardioversion Bipolar disorder (HCC) Eczema [employer] History of alcohol abuse History of COVID-19 History of marijuana use History of tobacco use Hyperlipidemia Hypertension Primary osteoarthritis of left knee PTSD (post-traumatic stress disorder) RLS (restless legs syndrome) Syncope 03/2019 ALLERGIES Seroquel [Quetiapine] and Tramadol MEDICATIONS Current Outpatient Medications Medication Sig rxoazgw-bwvf-cmivk-oreg-capryl 100 mg-150 mg- 50 mg-150 mg cap Take 500 mg by mouth every morning. whey protein conc-amino acid 24 gram-120 kcal/30 gram powd Take 30 g by mouth twice daily. Patient takes whey protein shakes 2 times daily aspirin 81 mg chewable tablet Take 81 mg by mouth. methocarbamol (ROBAXIN) 500 mg tablet Take by mouth. NUCYNTA ER 50 mg tab ER 12 hr Take 1 tablet by mouth twice daily. (Patient not taking: Reported on 12/29/2022) albuterol HFA (PROAIR HFA) 90 mcg/actuation inhaler Inhale 2 Puffs as instructed every 6 hours as needed. cyanocobalamin (VITAMIN B-12) 100 mcg tab Take 500 mcg by mouth once daily. Zinc 50 mg tab Take 50 mg by mouth once daily. cholecalciferol (VITAMIN D3) 5,000 unit tab Take 5,000 Units by mouth once daily. creatine, bulk, 100 % powd 5 g. therapeutic multivitamin tablet Take 1 tablet by mouth once daily. Current Facility-Administered Medications Medication Dose Route Frequency perflutren lipid microspheres 1.3 mL in NaCl (PF) 0.9% 10 mL injection (DEFINITY) INTRAVENOUS DIRECTED PRN sodium chloride 0.9 % (flush) 10 mL (BD POSIFLUSH) 10 mL INTRAVENOUS DIRECTED PRN Medications and allergies reviewed by this provider. SOCIAL HISTORY Social History Tobacco Use Smoking status: Former Packs/day: 0.50 Years: 10.00 Pack years: 5.00 Types: Cigarettes Quit date: 05/13/2014 Years since quittin.6 Smokeless tobacco: Former Types: Chew Vaping Use Vaping Use: Some days Substances: Nicotine, 5 mg Devices: Pre-filled or refillable cartridge Substance Use Topics Alcohol use: Not Currently Alcohol/week: 30.0 standard drinks Types: 12 Cans of Beer (12oz) per week Drug use: Not Currently Types: Marijuana REVIEW OF SYSTEMS All other reviewed and negative other than HPI. OBJECTIVE: BP 124/80 Pulse 81 Resp 18 Wt 109.4 kg (241 lb 3.2 oz) SpO2 95% BMI 32.26 kg/m? . Vital signs reviewed by this provider. APPEARANCE Well appearing, alert, in no acute distress, well-hydrated, well nourished. EYES conjunctiva and sclera normal. HEART RRR with normal S1 and S2, no murmurs, no gallops, no JVD appreciated LUNG clear to auscultation. No wheezes, rhonchi or rales HEPATITIS B(1 of 3 - 3-dose series) due on 1970 COVID-19 VACCINE(1) Never done BP CONTROLLED (<130/80) Never done COLORECTAL CANCER SCREENING Never done SHINGRIX VACCINE(1 of 2) Never done INFLUENZA(Season Ended) due on 05/06/2023 ANNUAL PCP TEAM CHRONIC DISEASE VISIT due on 12/30/2023 DIABETES SCREEN due on 02/17/2025 LIPID SCREEN due on 02/17/2027 DTAP,TDAP,TD(2 - Td or Tdap) due on 02/13/2032 DEPRESSION ASSESSMENT Completed HEPATITIS C SCREENING Discontinued HIV SCREENING Discontinued ASSESSMENT/PLAN: 1. Apnea spell - ICD9: 786.03, ICD10: R06.81 (primary diagnosis) - HOME SLEEP APNEA TEST (HSAT) 2. Special screening for malignant neoplasms, colon - ICD9: V76.51, ICD10: Z12.11 - COLONOSCOPY SCREENING Dinesh Nagel, LAURA.BACK UP WORKER Prescription instructions reviewed with patient as applicable. Patient advised if symptoms do not improve or if symptoms worsen sooner, to contact their primary care physician. Potential red flag symptoms discussed with the patient. Reviewed appropriate action plan to take if red flag symptoms occur. Patient agreeable to treatment plan. I spent a total of 25 minutes on the date of the service which included preparing to see the patient, pnvz-db-ebhg patient care, completing clinical documentation, obtaining and/or reviewing separately obtained history, performing a medically appropriate examination, counseling and educating the patient/family/caregiver, and ordering medications, tests, or procedures. [facility] 01-07-2023 Instructions Dinesh Nagel APRN.CNP - 01/07/2023 7:26 AM EDT Images from the original note were not included. Bowel Preparation Instructions for: Miralax-Gatorade Preparations IF YOU DO NOT FOLLOW THESE DIRECTIONS, YOUR COLONOSCOPY WILL BE CANCELLED. [place]ino Instructions: Your bowel must be empty so that your doctor can clearly view your colon. Follow all of the instructions in this handout EXACTLY as they are written. Do NOT eat any solid food the ENTIRE day before your colonoscopy. Buy your bowel preparation at least 5 days before your colonoscopy. Four (4) Dulcolax laxative tablets containing 5mg of bisacodyl each (NOT Dulcolax stool softener) One (1) 8.3oz. bottle Miralax (238 grams) or generic equivalent 2 x 32oz. Bottles of Gatorade (NOT RED) Diabetic Patients: Use G2 (Gatorade 2) TRANSPORTATION on the Day of Your Exam A responsible adult MUST be present with you at Check In prior to your colonoscopy and REMAIN in the endoscopy area until you are discharged. You are NOT ALLOWED to drive, take a taxi or bus, or leave the Endoscopy Center ALONE. If you do not have a responsible driver engineer (family member or friend) with you to take you home, your exam cannot be done with sedation and will be cancelled. Please bring a list of all of your current medications, including any Wdau-lyy-Wxkuzwh medications with you. Medications If you take insulin, diabetic medications or blood thinners such as Coumadin (warfarin), Plavix (clopidogrel), Ticlid (ticlopidine hydrochloride), Agrylin (anagrelide), Xarelto (Rivaroxaban), Pradaxa (Dabigatran), Eliquis (Apixaban), and Effient (Prasugrel). You MUST call the doctors who orders those medicines for instructions on altering the dosage before your colonoscopy. All other medications should be taken the day of the exam with a sip of water including ASPIRIN. Five (5) Days Before Your Colonoscopy Do NOT take medicines that stop diarrhea - such as Imodium, Kaopectate, or Pepto Bismol. Do NOT take fiber supplements - such as Metamucil, Citrucel, or Perdiem. Do NOT take products that contain iron - such as multi-vitamins (the label lists what is in the products). Three (3) Days Before Your Colonoscopy Do NOT eat high-fiber foods - such as popcorn, beans, seeds (flax, sunflower, quinoa), multigrain bread, nuts, salad/vegetables, or fresh and dried fruit. 1 Bowel Preparation Instructions for: Miralax-Gatorade Preparations One (1) Day Before Your Colonoscopy Only drink clear liquids the ENTIRE DAY before your colonoscopy. Do NOT eat any solid foods. Drink at least 8 ounces of clear liquids every hour after waking up. The clear liquids you can drink include: Clear Liquid (NO RED LIQUIDS) DO NOT DRINK Gatorade, Pedialyte or Powerade Clear broth or bouillon Coffee or tea (no milk or non-dairy creamer) Carbonated and non-carbonated soft drinks Cristian-Aid or other fruit flavored drinks Strained fruit juices (no pulp) Jell-O, popsicles, hard candy Water Alcohol Milk or non-dairy creamers Noodles or vegetables in soup Juice with pulp Liquid you cannot see through Do not use tobacco/vaping products Mix 1/2 of Miralax bottle (119 grams) in each 32 ounces of Gatorade bottle until dissolved. Keep cool in the refrigerator. DO NOT ADD ICE. The bowel preparation solution will be consumed in two parts. Part 1 5:00 PM - Evening before your colonoscopy Take 4 Dulcolax tablets. 6 PM - Evening before your colonoscopy Drink 32 oz. of the mixed solution. Drink an 8 oz. glass of bowel preparation every 15 minutes for a total of 4 glasses. Fifteen (15) minutes later, drink an 8 oz. glass of of clear liquids every 15 minutes for a total of 2 glasses. You may continue to drink clear liquids till midnight. Part 2 On the day of your colonoscopy you may drink clear liquids up to (three) 3 hours prior to procedure. 4 1/2 hours before your colonoscopy Take another 32 oz. bottle of mixed solution. Drink an 8 oz. glass of bowel prep every 15 minutes for a total of 4 glasses. Fifteen (15) minutes later, drink an 8 oz. glass of clear liquids every 15 minutes for a total of 2 glasses. You may continue to drink clear liquids up to (three) 3 hours before your exam. 2 08/2019 documented in this encounter [facility] 01-07-2023 History of Presen t illness Narrative 01/07/2023 Patient presents with: Sleep Apnea: noticing its getting more frequent wants colonoscopy SUBJECTIVE: This is a 52 year old that is here today for Above Complaints. notices he stops breathing in his sleep. Reports actually he woke up gasping before. Does not thinks he snores at night. Denies daytime fatigue. Does have a hx of paroxysmal atrial fib. Wants to get colonoscopy completed. PAST MEDICAL HISTORY Diagnosis Date Atrial fibrillation (HCC) single episode of a fib while living in [place]. s/p cardioversion Bipolar disorder (HCC) Eczema [employer] History of alcohol abuse History of COVID-19 History of marijuana use History of tobacco use Hyperlipidemia Hypertension Primary osteoarthritis of left knee PTSD (post-traumatic stress disorder) RLS (restless legs syndrome) Syncope 03/2019 ALLERGIES Seroquel [Quetiapine] and Tramadol MEDICATIONS Current Outpatient Medications Medication Sig evtbtki-rrwg-xjuxe-oreg-capryl 100 mg-150 mg- 50 mg-150 mg cap Take 500 mg by mouth every morning. whey protein conc-amino acid 24 gram-120 kcal/30 gram powd Take 30 g by mouth twice daily. Patient takes whey protein shakes 2 times daily aspirin 81 mg chewable tablet Take 81 mg by mouth. methocarbamol (ROBAXIN) 500 mg tablet Take by mouth. NUCYNTA ER 50 mg tab ER 12 hr Take 1 tablet by mouth twice daily. (Patient not taking: Reported on 12/29/2022) albuterol HFA (PROAIR HFA) 90 mcg/actuation inhaler Inhale 2 Puffs as instructed every 6 hours as needed. cyanocobalamin (VITAMIN B-12) 100 mcg tab Take 500 mcg by mouth once daily. Zinc 50 mg tab Take 50 mg by mouth once daily. cholecalciferol (VITAMIN D3) 5,000 unit tab Take 5,000 Units by mouth once daily. creatine, bulk, 100 % powd 5 g. therapeutic multivitamin tablet Take 1 tablet by mouth once daily. Current Facility-Administered Medications Medication Dose Route Frequency perflutren lipid microspheres 1.3 mL in NaCl (PF) 0.9% 10 mL injection (DEFINITY) INTRAVENOUS DIRECTED PRN sodium chloride 0.9 % (flush) 10 mL (BD POSIFLUSH) 10 mL INTRAVENOUS DIRECTED PRN Medications and allergies reviewed by this provider. SOCIAL HISTORY Social History Tobacco Use Smoking status: Former Packs/day: 0.50 Years: 10.00 Pack years: 5.00 Types: Cigarettes Quit date: 05/13/2014 Years since quittin.6 Smokeless tobacco: Former Types: Chew Vaping Use Vaping Use: Some days Substances: Nicotine, 5 mg Devices: Pre-filled or refillable cartridge Substance Use Topics Alcohol use: Not Currently Alcohol/week: 30.0 standard drinks Types: 12 Cans of Beer (12oz) per week Drug use: Not Currently Types: Marijuana REVIEW OF SYSTEMS All other reviewed and negative other than HPI. OBJECTIVE: BP 124/80 Pulse 81 Resp 18 Wt 109.4 kg (241 lb 3.2 oz) SpO2 95% BMI 32.26 kg/m . Vital signs reviewed by this provider. APPEARANCE Well appearing, alert, in no acute distress, well-hydrated, well nourished. EYES conjunctiva and sclera normal. HEART RRR with normal S1 and S2, no murmurs, no gallops, no JVD appreciated LUNG clear to auscultation. No wheezes, rhonchi or rales HEPATITIS B(1 of 3 - 3-dose series) due on 1971 COVID-19 VACCINE(1) Never done BP CONTROLLED (<130/80) Never done COLORECTAL CANCER SCREENING Never done SHINGRIX VACCINE(1 of 2) Never done INFLUENZA(Season Ended) due on 05/06/2023 ANNUAL PCP TEAM CHRONIC DISEASE VISIT due on 12/30/2023 DIABETES SCREEN due on 02/17/2025 LIPID SCREEN due on 02/17/2027 DTAP,TDAP,TD(2 - Td or Tdap) due on 02/13/2032 DEPRESSION ASSESSMENT Completed HEPATITIS C SCREENING Discontinued HIV SCREENING Discontinued ASSESSMENT/PLAN: 1. Apnea spell - ICD9: 786.03, ICD10: R06.81 (primary diagnosis) - HOME SLEEP APNEA TEST (HSAT) 2. Special screening for malignant neoplasms, colon - ICD9: V76.51, ICD10: Z12.11 - COLONOSCOPY SCREENING Dinesh Nagel APRN.CNP Prescription instructions reviewed with patient as applicable. Patient advised if symptoms do not improve or if symptoms worsen sooner, to contact their primary care physician. Potential red flag symptoms discussed with the patient. Reviewed appropriate action plan to take if red flag symptoms occur. Patient agreeable to treatment plan. I spent a total of 25 minutes on the date of the service which included preparing to see the patient, [id number] patient care, completing clinical documentation, obtaining and/or reviewing separately obtained history, performing a medically appropriate examination, counseling and educating the patient/family/caregiver, and ordering medications, tests, or procedures. documented in this encounter [facility] 12-29-2022 Note HNO ID: [id number] Author: Katerina Lewis MD Service: ? Author Type: Physician Type: Progress Notes Filed: 12/30/2022 8:59 AM Note Text: Chief Complaint Patient presents with: Abdominal Pain: Right side abdominal pain for 2 months, now with testicular pain in the left side starting 12/28, patient states he has history of hernia HPI Nazario Suazo II is a 52 year old male who presents here today for Above Complaints.. Patient complaining of pain in his right lower abdomen intermittently over the last 2 months and this morning had a brief dull pain in his left scrotum which has now resolved. Abdominal pain described as pulled muscle when he has to engage his lower abdomen such as doing incline sit ups or going from lying to sitting. Still gets pain when doing weighted sit ups. Denies testicular swelling, erythema, penile discharge/drainage, palpable lump, nausea, vomiting, diarrhea, constipation, hematochezia, melena, fever. Abdominal pain improving. Past medical history, appointments, medications, allergies reviewed. Previous Medical History PAST MEDICAL HISTORY Diagnosis Date Atrial fibrillation (HCC) single episode of a fib while living in [place]. s/p cardioversion Bipolar disorder (HCC) Eczema [employer] History of alcohol abuse History of COVID-19 History of marijuana use History of tobacco use Hyperlipidemia Hypertension Primary osteoarthritis of left knee PTSD (post-traumatic stress disorder) RLS (restless legs syndrome) Syncope 03/2019 Previous Surgical History PAST SURGICAL HISTORY Procedure Laterality Date CARDIOVERSION 2016 a fib PAST SURGICAL HISTORY OF 01/2013 Left knee repair PAST SURGICAL HISTORY OF 1999 Right Shoulder PAST SURGICAL HISTORY OF 1995 Hernia repair Family History FAMILY HISTORY Problem Relation Age of Onset No Known Problems Sister Alcohol/Drug Brother No Known Problems Maternal Grandmother No Known Problems Maternal Grandfather No Known Problems Paternal Grandmother No Known Problems Paternal Grandfather No Known Problems Son No Known Problems Son No Known Problems Son Patient Allergies ALLERGIES Allergen Reactions Seroquel [Quetiapin* Intolerance drowsiness Tramadol Hives, Other: See Comments Didn't feel well Current Medications Current Outpatient Medications on File Prior to Visit Medication Sig doyhbql-xkbj-dukst-oreg-capryl 100 mg-150 mg- 50 mg-150 mg cap Take 500 mg by mouth every morning. whey protein conc-amino acid 24 gram-120 kcal/30 gram powd Take 30 g by mouth twice daily. Patient takes whey protein shakes 2 times daily aspirin 81 mg chewable tablet Take 81 mg by mouth. cyanocobalamin (VITAMIN B-12) 100 mcg tab Take 500 mcg by mouth once daily. Zinc 50 mg tab Take 50 mg by mouth once daily. cholecalciferol (VITAMIN D3) 5,000 unit tab Take 5,000 Units by mouth once daily. creatine, bulk, 100 % powd 5 g. therapeutic multivitamin tablet Take 1 tablet by mouth once daily. methocarbamol (ROBAXIN) 500 mg tablet Take by mouth. NUCYNTA ER 50 mg tab ER 12 hr Take 1 tablet by mouth twice daily. (Patient not taking: Reported on 12/29/2022) albuterol HFA (PROAIR HFA) 90 mcg/actuation inhaler Inhale 2 Puffs as instructed every 6 hours as needed. Current Facility-Administered Medications on File Prior to Visit Medication perflutren lipid microspheres 1.3 mL in NaCl (PF) 0.9% 10 mL injection (DEFINITY) sodium chloride 0.9 % (flush) 10 mL (BD POSIFLUSH) Social History Social History Tobacco Use Smoking status: Former Packs/day: 0.50 Years: 10.00 Pack years: 5.00 Types: Cigarettes Quit date: 05/13/2014 Years since quittin.6 Smokeless tobacco: Former Types: Chew Vaping Use Vaping Use: Some days Substances: Nicotine, 5 mg Devices: Pre-filled or refillable cartridge Substance Use Topics Alcohol use: Not Currently Alcohol/week: 30.0 standard drinks Types: 12 Cans of Beer (12oz) per week Drug use: Not Currently Types: Marijuana Review of Symptoms REVIEW OF SYSTEMS See HPI EXAM: BP 138/86 Pulse 70 Resp 14 Wt 110.6 kg (243 lb 12.8 oz) SpO2 96% BMI 32.61 kg/m? General Appearance: Well appearing, alert, in no acute distress, well-hydrated, well nourished.. Skin: Skin color, texture, turgor normal, no suspicious rashes or lesions. Abdomen: Normal abdominal exam, Abdomen soft, non-tender. Bowel sounds normal. No masses, organomegaly. Genitalia: Penis normal. No urethral discharge. Scrotum normal to palpation. No hernia.. Health Maintenance List HEPATITIS B(1 of 3 - 3-dose series) due on 1971 COVID-19 VACCINE(1) Never done COLORECTAL CANCER SCREENING Never done SHINGRIX VACCINE(1 of 2) Never done DEPRESSION ASSESSMENT Never done INFLUENZA(Season Ended) due on 05/06/2023 ANNUAL PCP TEAM CHRONIC DISEASE VISIT due on 09/28/2023 BP CONTROLLED (<130/80) due on 10/20/2023 DIABETES SCREEN due on more content not included)... [facility] 12-29-2022 History of Presen t illness Narrative Chief Complaint Patient presents with: Abdominal Pain: Right side abdominal pain for 2 months, now with testicular pain in the left side starting 12/28, patient states he has history of hernia HPI Nazario Suazo II is a 52 year old male who presents here today for Above Complaints.. Patient complaining of pain in his right lower abdomen intermittently over the last 2 months and this morning had a brief dull pain in his left scrotum which has now resolved. Abdominal pain described as pulled muscle when he has to engage his lower abdomen such as doing incline sit ups or going from lying to sitting. Still gets pain when doing weighted sit ups. Denies testicular swelling, erythema, penile discharge/drainage, palpable lump, nausea, vomiting, diarrhea, constipation, hematochezia, melena, fever. Abdominal pain improving. Past medical history, appointments, medications, allergies reviewed. Previous Medical History PAST MEDICAL HISTORY Diagnosis Date Atrial fibrillation (HCC) single episode of a fib while living in [place]. s/p cardioversion Bipolar disorder (HCC) Eczema [employer] History of alcohol abuse History of COVID-19 History of marijuana use History of tobacco use Hyperlipidemia Hypertension Primary osteoarthritis of left knee PTSD (post-traumatic stress disorder) RLS (restless legs syndrome) Syncope 03/2019 Previous Surgical History PAST SURGICAL HISTORY Procedure Laterality Date CARDIOVERSION 2016 a fib PAST SURGICAL HISTORY OF 01/2013 Left knee repair PAST SURGICAL HISTORY OF 1999 Right Shoulder PAST SURGICAL HISTORY OF 1995 Hernia repair Family History FAMILY HISTORY Problem Relation Age of Onset No Known Problems Sister Alcohol/Drug Brother No Known Problems Maternal Grandmother No Known Problems Maternal Grandfather No Known Problems Paternal Grandmother No Known Problems Paternal Grandfather No Known Problems Son No Known Problems Son No Known Problems Son Patient Allergies ALLERGIES Allergen Reactions Seroquel [Quetiapin* Intolerance drowsiness Tramadol Hives, Other: See Comments Didn't feel well Current Medications Current Outpatient Medications on File Prior to Visit Medication Sig cbvtpnp-zrqo-elgvq-oreg-capryl 100 mg-150 mg- 50 mg-150 mg cap Take 500 mg by mouth every morning. whey protein conc-amino acid 24 gram-120 kcal/30 gram powd Take 30 g by mouth twice daily. Patient takes whey protein shakes 2 times daily aspirin 81 mg chewable tablet Take 81 mg by mouth. cyanocobalamin (VITAMIN B-12) 100 mcg tab Take 500 mcg by mouth once daily. Zinc 50 mg tab Take 50 mg by mouth once daily. cholecalciferol (VITAMIN D3) 5,000 unit tab Take 5,000 Units by mouth once daily. creatine, bulk, 100 % powd 5 g. therapeutic multivitamin tablet Take 1 tablet by mouth once daily. methocarbamol (ROBAXIN) 500 mg tablet Take by mouth. NUCYNTA ER 50 mg tab ER 12 hr Take 1 tablet by mouth twice daily. (Patient not taking: Reported on 12/29/2022) albuterol HFA (PROAIR HFA) 90 mcg/actuation inhaler Inhale 2 Puffs as instructed every 6 hours as needed. Current Facility-Administered Medications on File Prior to Visit Medication perflutren lipid microspheres 1.3 mL in NaCl (PF) 0.9% 10 mL injection (DEFINITY) sodium chloride 0.9 % (flush) 10 mL (BD POSIFLUSH) Social History Social History Tobacco Use Smoking status: Former Packs/day: 0.50 Years: 10.00 Pack years: 5.00 Types: Cigarettes Quit date: 05/13/2014 Years since quittin.6 Smokeless tobacco: Former Types: Chew Vaping Use Vaping Use: Some days Substances: Nicotine, 5 mg Devices: Pre-filled or refillable cartridge Substance Use Topics Alcohol use: Not Currently Alcohol/week: 30.0 standard drinks Types: 12 Cans of Beer (12oz) per week Drug use: Not Currently Types: Marijuana Review of Symptoms REVIEW OF SYSTEMS See HPI EXAM: BP 138/86 Pulse 70 Resp 14 Wt 110.6 kg (243 lb 12.8 oz) SpO2 96% BMI 32.61 kg/m General Appearance: Well appearing, alert, in no acute distress, well-hydrated, well nourished.. Skin: Skin color, texture, turgor normal, no suspicious rashes or lesions. Abdomen: Normal abdominal exam, Abdomen soft, non-tender. Bowel sounds normal. No masses, organomegaly. Genitalia: Penis normal. No urethral discharge. Scrotum normal to palpation. No hernia.. Health Maintenance List HEPATITIS B(1 of 3 - 3-dose series) due on 1971 COVID-19 VACCINE(1) Never done COLORECTAL CANCER SCREENING Never done SHINGRIX VACCINE(1 of 2) Never done DEPRESSION ASSESSMENT Never done INFLUENZA(Season Ended) due on 05/06/2023 ANNUAL PCP TEAM CHRONIC DISEASE VISIT due on 09/28/2023 BP CONTROLLED (<130/80) due on 10/20/2023 DIABETES SCREEN due on 02/17/2025 LIPID SCREEN due on 02/17/2027 DTAP,TDAP,TD(2 - Td or Tdap) due on 02/13/2032 HEPATITIS C SCREENING Discontinued HIV SCREENING Discontinued ASSESSMENT/PLAN: 1. RLQ abdominal pain - ICD9: 789.03, ICD10: R10.31 (primary diagnosis) Normal exam today. Suspect 2/2 muscle strain vs soreness from exercise which has apparently resolved. Red flags for re-assessment reviewed with patient in detail. 2. Scrotum pain - ICD9: 608.9, ICD10: N50.82 Normal exam today. Pain resolved. Call if symptoms return. Katerina Lewis MD documented in this encounter [facility] 12-23-2022 Miscellaneous Notes Images from the original note were not included. December 23, 2022 Patient Contact Number: [phone] (Home Phone) Patient last seen within the last year: Yes Date of last office visit: 10/20/2022 Echo on 12/22/2022 Reason For Call: Other Issue: Employer note needed Physician: Brian Meléndez MD Prepared a letter and faxed to : [facility] Attn: Ms. Benites Faxed and received confirmation. Therese Steel December 23, 2022 1:08 PM documented in this encounter [facility] 10-20-2022 Note HNO ID: [id number] Author: Brian Meléndez MD Service: ? Author Type: Physician Type: Progress Notes Filed: 10/20/2022 10:40 AM Note Text: [facility] Department of Cardiovascular Medicine SECTION OF CLINICAL CARDIOLOGY OUTPATIENT VISIT DATE October 20, 2022 OUTPATIENT VISIT TYPE NEW PRIMARY CARE PHYSICIAN: [place] [address] REFERRING PHYSICIAN: Katerina Santos [facility] [id number] CHIEF COMPLAINT: con internal HISTORY OF PRESENT ILLNESS: Mr. Suazo is a 52 year old male who presents today for cardiovascular medicine evaluation. Patient has a past medical history of focal hemorrhagic contusion of cerebrum, restless leg syndrome, hypertension, dyslipidemia, atrial fibrillation, PTSD and prior alcohol abuse. Patient presented to our clinic for 2 purposes. The first purposes to get a cardiac clearance for upcoming knee operation. 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 He denies any chest pain/discomfort during those activity. Furthermore, he spends quite a lot of time in the gym without any cardiac dysfunction. At this time his routine is well above 4 METS. The second issue the patient presented was for palpitation. Patient was diagnosed with atrial fibrillation after he started feeling palpitations. At that time patient was taking steroids and it was identified that it might be precipitating factor. Since then patient has stopped taking steroids however he continues to feel occasional palpitations at times. He did undergo 48-hour Holter monitor and there was no evidence of atrial fibrillation. Patient reports that he had episodes of the palpitation which is quite short-lived over the span of the last 6 weeks. Please note, patient is on aspirin. PAST MEDICAL HISTORY Diagnosis Date Atrial fibrillation (HCC) single episode of a fib while living in [place]. s/p cardioversion Bipolar disorder (HCC) Eczema [employer] History of alcohol abuse History of COVID-19 History of marijuana use History of tobacco use Hyperlipidemia Hypertension Primary osteoarthritis of left knee PTSD (post-traumatic stress disorder) RLS (restless legs syndrome) Syncope 03/2019 PAST SURGICAL HISTORY Procedure Laterality Date CARDIOVERSION 2016 a fib PAST SURGICAL HISTORY OF 01/2013 Left knee repair PAST SURGICAL HISTORY OF 1999 Right Shoulder PAST SURGICAL HISTORY OF 1995 Hernia repair SOCIAL HISTORY Social History Tobacco Use Smoking status: Former Packs/day: 0.50 Years: 10.00 Pack years: 5.00 Types: Cigarettes Quit date: 05/13/2014 Years since quittin.4 Smokeless tobacco: Former Types: Chew Vaping Use Vaping Use: Some days Substances: Nicotine, 5 mg Devices: Pre-filled or refillable cartridge Substance Use Topics Alcohol use: Not Currently Alcohol/week: 30.0 standard drinks Types: 12 Cans of Beer (12oz) per week Drug use: Not Currently Types: Marijuana FAMILY HISTORY Problem Relation Age of Onset No Known Problems Sister Alcohol/Drug Brother No Known Problems Maternal Grandmother No Known Problems Maternal Grandfather No Known Problems Paternal Grandmother No Known Problems Paternal Grandfather No Known Problems Son No Known Problems Son No Known Problems Son ALLERGIES: ALLERGIES Allergen Reactions Seroquel [Quetiapin* Intolerance drowsiness Tramadol Hives, Other: See Comments Didn't feel well MEDICATIONS: aspirin 81 mg chewable tabletTake 81 mg by mouth.Disp: Rfl: methocarbamol (ROBAXIN) 500 mg tabletTake by mouth.Disp: Rfl: NUCYNTA ER 50 mg tab ER 12 hrTake 1 tablet by mouth twice daily.Disp: Rfl: cyanocobalamin (VITAMIN B-12) 100 mcg tabTake 500 mcg by mouth once daily.Disp: Rfl: Zinc 50 mg tabTake 50 mg by mouth once daily.Disp: Rfl: cholecalciferol (VITAMIN D3) 5,000 unit tabTake 5,000 Units by mouth once daily.Disp: Rfl: creatine, bulk, 100 % powd5 g.Disp: Rfl: therapeutic multivitamin tabletTake 1 tablet by mouth once daily.Disp: Rfl: 0 celecoxib (CELEBREX) 200 mg capsuleTake 1 capsule by mouth once daily.Disp: 30 capsuleRfl: 0 (Patient not taking: Reported on 10/20/2022) albuterol HFA (PROAIR HFA) 90 mcg/actuation inhalerInhale 2 Puffs as instructed every 6 hours as needed.Disp: 1 EachRfl: 0 REVIEW OF SYSTEMS: GENERAL: Negative for: Weight loss or gain, Fever or Chills, Weakness and Sleep difficulties. HEENT: Negative for: Headache, Impaired Vision, Glasses, Hearing Impairment, Ringing in Ears, Nosebleeds, Poor dental care, Bleeding Gums, Dentures NECK: Negative for: Swelling, Pain, Stiffness RESPIRATORY: Negative for: Cough, Blood in Sputum, Shor (more content not included)... [facility] 10-20-2022 History of Presen t illness Narrative Images from the original note were not included. [facility] Department of Cardiovascular Medicine SECTION OF CLINICAL CARDIOLOGY OUTPATIENT VISIT DATE October 20, 2022 OUTPATIENT VISIT TYPE NEW PRIMARY CARE PHYSICIAN: [place] [address] REFERRING PHYSICIAN: Katerina Santos [facility] [id number] CHIEF COMPLAINT: con internal HISTORY OF PRESENT ILLNESS: Mr. Suazo is a 52 year old male who presents today for cardiovascular medicine evaluation. Patient has a past medical history of focal hemorrhagic contusion of cerebrum, restless leg syndrome, hypertension, dyslipidemia, atrial fibrillation, PTSD and prior alcohol abuse. Patient presented to our clinic for 2 purposes. The first purposes to get a cardiac clearance for upcoming knee operation. 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 He denies any chest pain/discomfort during those activity. Furthermore, he spends quite a lot of time in the gym without any cardiac dysfunction. At this time his routine is well above 4 METS. The second issue the patient presented was for palpitation. Patient was diagnosed with atrial fibrillation after he started feeling palpitations. At that time patient was taking steroids and it was identified that it might be precipitating factor. Since then patient has stopped taking steroids however he continues to feel occasional palpitations at times. He did undergo 48-hour Holter monitor and there was no evidence of atrial fibrillation. Patient reports that he had episodes of the palpitation which is quite short-lived over the span of the last 6 weeks. Please note, patient is on aspirin. PAST MEDICAL HISTORY Diagnosis Date Atrial fibrillation (HCC) single episode of a fib while living in [place]. s/p cardioversion Bipolar disorder (HCC) Eczema [employer] History of alcohol abuse History of COVID-19 History of marijuana use History of tobacco use Hyperlipidemia Hypertension Primary osteoarthritis of left knee PTSD (post-traumatic stress disorder) RLS (restless legs syndrome) Syncope 03/2019 PAST SURGICAL HISTORY Procedure Laterality Date CARDIOVERSION 2016 a fib PAST SURGICAL HISTORY OF 01/2013 Left knee repair PAST SURGICAL HISTORY OF 1999 Right Shoulder PAST SURGICAL HISTORY OF 1995 Hernia repair SOCIAL HISTORY Social History Tobacco Use Smoking status: Former Packs/day: 0.50 Years: 10.00 Pack years: 5.00 Types: Cigarettes Quit date: 05/13/2014 Years since quittin.4 Smokeless tobacco: Former Types: Chew Vaping Use Vaping Use: Some days Substances: Nicotine, 5 mg Devices: Pre-filled or refillable cartridge Substance Use Topics Alcohol use: Not Currently Alcohol/week: 30.0 standard drinks Types: 12 Cans of Beer (12oz) per week Drug use: Not Currently Types: Marijuana FAMILY HISTORY Problem Relation Age of Onset No Known Problems Sister Alcohol/Drug Brother No Known Problems Maternal Grandmother No Known Problems Maternal Grandfather No Known Problems Paternal Grandmother No Known Problems Paternal Grandfather No Known Problems Son No Known Problems Son No Known Problems Son ALLERGIES: ALLERGIES Allergen Reactions Seroquel [Quetiapin* Intolerance drowsiness Tramadol Hives, Other: See Comments Didn't feel well MEDICATIONS: aspirin 81 mg chewable tablet^Take 81 mg by mouth.^Disp: ^Rfl: methocarbamol (ROBAXIN) 500 mg tablet^Take by mouth.^Disp: ^Rfl: NUCYNTA ER 50 mg tab ER 12 hr^Take 1 tablet by mouth twice daily.^Disp: ^Rfl: cyanocobalamin (VITAMIN B-12) 100 mcg tab^Take 500 mcg by mouth once daily.^Disp: ^Rfl: Zinc 50 mg tab^Take 50 mg by mouth once daily.^Disp: ^Rfl: cholecalciferol (VITAMIN D3) 5,000 unit tab^Take 5,000 Units by mouth once daily.^Disp: ^Rfl: creatine, bulk, 100 % powd^5 g.^Disp: ^Rfl: therapeutic multivitamin tablet^Take 1 tablet by mouth once daily.^Disp: ^Rfl: 0 celecoxib (CELEBREX) 200 mg capsule^Take 1 capsule by mouth once daily.^Disp: 30 capsule^Rfl: 0 (Patient not taking: Reported on 10/20/2022) albuterol HFA (PROAIR HFA) 90 mcg/actuation inhaler^Inhale 2 Puffs as instructed every 6 hours as needed.^Disp: 1 Each^Rfl: 0 REVIEW OF SYSTEMS: GENERAL: Negative for: Weight loss or gain, Fever or Chills, Weakness and Sleep difficulties. HEENT: Negative for: Headache, Impaired Vision, Glasses, Hearing Impairment, Ringing in Ears, Nosebleeds, Poor dental care, Bleeding Gums, Dentures NECK: Negative for: Swelling, Pain, Stiffness RESPIRATORY: Negative for: Cough, Blood in Sputum, Shortness of breath, Wheezing, Apnea GASTROINTESTINAL: Negative for: Trouble swallowing, Heartburn, Change in bowel habits, Blood in stool, Dark black stools MUSCULOSKELETAL: Negative for: Muscle or joint pain, Stiffness , Joint swelling NEUROLOGIC/PSYCHIATRIC: Negative for: Weakness, Paralysis, Numbness, Tingling, Tremor, Nervousness, Depressed mood, Memory loss SKIN: Negative for: Rashes, Itching HEMATOLOGICAL/LYMPHATIC: Negative for: Easy bruising , Easy bleeding ENDOCRINE: Negative for: Heat or cold intolerance, Excessive sweating, Frequent urination, Frequent thirst PHYSICAL EXAMINATION: BP 104/68 (BP Site: Right Arm) Pulse 64 Wt 114.3 kg (252 lb) SpO2 97% BMI 33.71 kg/m General: Well appearing, in no acute distress. Skin: No clubbing, no cyanosis. Eyes: Extra ocular movements intact Oropharynx: Teeth in good repair. Neck: No jugular venous distention, no carotid bruits, carotids have a normal upstroke, no palpable thyromegaly. Lungs: Clear to auscultation bilaterally, no wheezing or rhonchi. Heart: Regular rhythm, PMI not displaced, S1, S2 normal, no S3, positive S4, no heaves, no rub and no murmur. Abdomen: Soft, nontender, bowel sounds normal, no palpable organomegaly, no bruits. Extremities: No peripheral edema . Grade 2/4 distal pulses bilaterally. Neuro: Oriented to person, place and time, alert, cooperative, gait coordinated. CARDIOVASCULAR MEDICINE TESTING: Last EKG Result Conclusion ECG COMPLETE Collected: 10/20/2022 7:45 AM (Final result) Impression: NORMAL SINUS RHYTHM CANNOT EXCLUDE ANTERIOR MYOCARDIAL INFARCTION , AGE UNDETERMINED ABNORMAL ECG Confirmed by JIM DEXTER [facility] ([id number]) on 10/20/2022 9:42:55 AM IMPRESSION: Mr. Suazo is a 52 year old male is presenting to our clinic for cardiovascular medicine evaluation. On review of his ECG it appears that it is normal. Furthermore, patient is able to do activities well over 4 METS and therefore patient is cleared from cardiac perspective. Bryan Index: 0.1% risk of myocardial infarction or cardiac arrest, intraoperatively or up to 30 days postop LOW RISK Cleared for the surgery Please respect to palpitations, it is quite possible that patient has bouts of atrial fibrillation. At this time the intensity as well as duration are quite low. Patient's resting heart rate was low at the time of intake. Therefore, there is no reason to start him on any AV shahzad blocking agent. Furthermore, his [id number] score is 1 for hypertension. At this time his annual risk of stroke/embolism is 1.7%. However, patient is maintained on aspirin which is decreasing his stroke risk to 1.1%. Certainly anticoagulation will be beneficial as the net benefit will be much higher however at this time patient is maintained on aspirin. During auscultation it became apparent that patient has an S4. Therefore we will embark on echocardiogram. Please note this will have no bearing on his impending knee surgery. At this time patient is understanding and agreeable to the plan. Patient has been advised that once he undergoes echocardiogram then he can arrange an appointment with us for follow-up. Thank you for allowing us to participate in care of this pleasant gentleman. PLAN AND RECOMMENDATIONS: Echocardiogram RTC in 3-4 weeks I personally interviewed, confirmed and edited the above information as obtained by others. CONTACT INFORMATION: Brian Meléndez M.D, PhD, FRCPC, FACC [employer] at [facility] Associate Curriculum Development Specialist Internal Medicine Residency Curriculum Development Specialisttransition rn Education Internal Medicine Residency Curriculum Development Specialist of Consult Service Curriculum Development Specialist for Elective Students/Residents at [facility] Alejandro Garcia Department of Cardiovascular Medicine Heart and Vascular [place] [facility] Desk [place] [address] Office Office Appointments: [phone] This medical note has been dictated using voice recognition system. Grammatical and/or syntax errors may be present and therefore the note should be interpreted accordingly. Should you have any questions and/or concerns, please do not hesitate to contact my office. documented in this encounter [facility] 09-28-2022 Note HNO ID: [id number] Author: Katerina Lewis MD Service: ? Author Type: Physician Type: Progress Notes Filed: 09/28/2022 6:17 PM Note Text: Chief Complaint Patient presents with: Pain: Left knee need some temporary pain relief since cant get into pain management until 10/06/22 HPI Nazario Suazo II is a 52 year old male who presents here today for Above Complaints. Patient here today for chronic left knee pain 2/2 severe arthrosis. Had appointment with Dr. Gutiérrez on 09/15 with xray showing the severe arthritis. 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 Given rx for tramadol which he tried, but caused hives. Told to follow up with our office for help with pain control until he can see pain management Dr. Meyer in 1 week. Pain located on the outside of his knee. Described as constant throbbing pain, currently 7/10, with radiation into his calf. Not treating with anything OTC right now. States that he tried some ibuprofen recently for this pain without relief. Has been on Mobic, Naproxen, and prednisone since April through Dr. Donald's office without much improvement in symptoms. Has PT scheduled for tomorrow. Has not had new fall or injury to his knee. Past medical history, appointments, medications, allergies reviewed. Previous Medical History PAST MEDICAL HISTORY Diagnosis Date Atrial fibrillation (HCC) single episode of a fib while living in [place]. s/p cardioversion Bipolar disorder (HCC) Eczema [employer] History of alcohol abuse History of COVID-19 History of marijuana use History of tobacco use Hyperlipidemia Hypertension Primary osteoarthritis of left knee PTSD (post-traumatic stress disorder) RLS (restless legs syndrome) Syncope 03/2019 Previous Surgical History PAST SURGICAL HISTORY Procedure Laterality Date CARDIOVERSION 2016 a fib PAST SURGICAL HISTORY OF 01/2013 Left knee repair PAST SURGICAL HISTORY OF 1999 Right Shoulder PAST SURGICAL HISTORY OF 1995 Hernia repair Family History FAMILY HISTORY Problem Relation Age of Onset No Known Problems Sister Alcohol/Drug Brother No Known Problems Maternal Grandmother No Known Problems Maternal Grandfather No Known Problems Paternal Grandmother No Known Problems Paternal Grandfather No Known Problems Son No Known Problems Son No Known Problems Son Patient Allergies ALLERGIES Allergen Reactions Seroquel [Quetiapin* Intolerance drowsiness Tramadol Hives, Other: See Comments Didn't feel well Current Medications Current Outpatient Medications on File Prior to Visit Medication Sig albuterol HFA (PROAIR HFA) 90 mcg/actuation inhaler Inhale 2 Puffs as instructed every 6 hours as needed. cyanocobalamin (VITAMIN B-12) 100 mcg tab Take 500 mcg by mouth once daily. Zinc 50 mg tab Take 50 mg by mouth once daily. cholecalciferol (VITAMIN D3) 5,000 unit tab Take 5,000 Units by mouth once daily. creatine, bulk, 100 % powd 5 g. therapeutic multivitamin tablet Take 1 tablet by mouth once daily. No current facility-administered medications on file prior to visit. Social History Social History Tobacco Use Smoking status: Former Packs/day: 0.50 Years: 10.00 Pack years: 5.00 Types: Cigarettes Quit date: 05/13/2014 Years since quittin.3 Smokeless tobacco: Former Types: Chew Vaping Use Vaping Use: Some days Substances: Nicotine, 5 mg Devices: Pre-filled or refillable cartridge Substance Use Topics Alcohol use: Not Currently Alcohol/week: 30.0 standard drinks Types: 12 Cans of Beer (12oz) per week Drug use: Not Currently Types: Marijuana Review of Symptoms REVIEW OF SYSTEMS See HPI EXAM: BP 132/76 Pulse 81 Resp 16 Wt 115.2 kg (254 lb) SpO2 98% BMI 33.98 kg/m? General Appearance: Well appearing, alert, in no acute distress, well-hydrated, well nourished.. Skin: Skin color, texture, turgor normal, no suspicious rashes or lesions. KNEE:Location: Left Redness: No. Warmth: No. Crepitus: Yes. Effusion: No. Joint line tenderness: No Lateral tenderness: No. Medial tenderness: No. Health Maintenance List HEPATITIS B(1 of 3 - 3-dose series) due on 1971 COVID-19 VACCINE(1) Never done COLORECTAL CANCER SCREENING Never done SHINGRIX VACCINE(1 of 2) Never done INFLUENZA(1) Never done DEPRESSION ASSESSMENT Never done ANNUAL PCP TEAM CHRONIC DISEASE VISIT due on 09/07/2023 BP CONTROLLED (<130/80) due on 09/07/2023 DIABETES SCREEN due on 02/17/2025 LIPID SCREEN due on 02/17/2027 DTAP,TDAP,TD(2 - Td or Tdap) due on 02/13/2032 HEPATITIS C SCREENING Discontinued HIV SCREENING Discontinued ASSESSMENT/PLAN: 1. Primary osteoarthritis of left knee - ICD9: 715.16, ICD10: M17.12 (primary diagnosis) Discussed role of NSAIDs, ice/heat, PT, home exercises, injections, and finally knee replacement for chronic (more content not included)... [facility] 09-28-2022 History of Presen t illness Narrative Chief Complaint Patient presents with: Pain: Left knee need some temporary pain relief since cant get into pain management until 10/06/22 HPI Nazario Suazo II is a 52 year old male who presents here today for Above Complaints. Patient here today for chronic left knee pain 2/2 severe arthrosis. Had appointment with Dr. Gutiérrez on 09/15 with xray showing the severe arthritis. 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 Given rx for tramadol which he tried, but caused hives. Told to follow up with our office for help with pain control until he can see pain management Dr. Meyer in 1 week. Pain located on the outside of his knee. Described as constant throbbing pain, currently 03/14, with radiation into his calf. Not treating with anything OTC right now. States that he tried some ibuprofen recently for this pain without relief. Has been on Mobic, Naproxen, and prednisone since April through Dr. Donald's office without much improvement in symptoms. Has PT scheduled for tomorrow. Has not had new fall or injury to his knee. Past medical history, appointments, medications, allergies reviewed. Previous Medical History PAST MEDICAL HISTORY Diagnosis Date Atrial fibrillation (HCC) single episode of a fib while living in [place]. s/p cardioversion Bipolar disorder (HCC) Eczema [employer] History of alcohol abuse History of COVID-19 History of marijuana use History of tobacco use Hyperlipidemia Hypertension Primary osteoarthritis of left knee PTSD (post-traumatic stress disorder) RLS (restless legs syndrome) Syncope 03/2019 Previous Surgical History PAST SURGICAL HISTORY Procedure Laterality Date CARDIOVERSION 2016 a fib PAST SURGICAL HISTORY OF 01/2013 Left knee repair PAST SURGICAL HISTORY OF 1999 Right Shoulder PAST SURGICAL HISTORY OF 1995 Hernia repair Family History FAMILY HISTORY Problem Relation Age of Onset No Known Problems Sister Alcohol/Drug Brother No Known Problems Maternal Grandmother No Known Problems Maternal Grandfather No Known Problems Paternal Grandmother No Known Problems Paternal Grandfather No Known Problems Son No Known Problems Son No Known Problems Son Patient Allergies ALLERGIES Allergen Reactions Seroquel [Quetiapin* Intolerance drowsiness Tramadol Hives, Other: See Comments Didn't feel well Current Medications Current Outpatient Medications on File Prior to Visit Medication Sig albuterol HFA (PROAIR HFA) 90 mcg/actuation inhaler Inhale 2 Puffs as instructed every 6 hours as needed. cyanocobalamin (VITAMIN B-12) 100 mcg tab Take 500 mcg by mouth once daily. Zinc 50 mg tab Take 50 mg by mouth once daily. cholecalciferol (VITAMIN D3) 5,000 unit tab Take 5,000 Units by mouth once daily. creatine, bulk, 100 % powd 5 g. therapeutic multivitamin tablet Take 1 tablet by mouth once daily. No current facility-administered medications on file prior to visit. Social History Social History Tobacco Use Smoking status: Former Packs/day: 0.50 Years: 10.00 Pack years: 5.00 Types: Cigarettes Quit date: 05/13/2014 Years since quittin.3 Smokeless tobacco: Former Types: Chew Vaping Use Vaping Use: Some days Substances: Nicotine, 5 mg Devices: Pre-filled or refillable cartridge Substance Use Topics Alcohol use: Not Currently Alcohol/week: 30.0 standard drinks Types: 12 Cans of Beer (12oz) per week Drug use: Not Currently Types: Marijuana Review of Symptoms REVIEW OF SYSTEMS See HPI EXAM: BP 132/76 Pulse 81 Resp 16 Wt 115.2 kg (254 lb) SpO2 98% BMI 33.98 kg/m General Appearance: Well appearing, alert, in no acute distress, well-hydrated, well nourished.. Skin: Skin color, texture, turgor normal, no suspicious rashes or lesions. KNEE:Location: Left Redness: No. Warmth: No. Crepitus: Yes. Effusion: No. Joint line tenderness: No Lateral tenderness: No. Medial tenderness: No. Health Maintenance List HEPATITIS B(1 of 3 - 3-dose series) due on 1971 COVID-19 VACCINE(1) Never done COLORECTAL CANCER SCREENING Never done SHINGRIX VACCINE(1 of 2) Never done INFLUENZA(1) Never done DEPRESSION ASSESSMENT Never done ANNUAL PCP TEAM CHRONIC DISEASE VISIT due on 09/07/2023 BP CONTROLLED (<130/80) due on 09/07/2023 DIABETES SCREEN due on 02/17/2025 LIPID SCREEN due on 02/17/2027 DTAP,TDAP,TD(2 - Td or Tdap) due on 02/13/2032 HEPATITIS C SCREENING Discontinued HIV SCREENING Discontinued ASSESSMENT/PLAN: 1. Primary osteoarthritis of left knee - ICD9: 715.16, ICD10: M17.12 (primary diagnosis) Discussed role of NSAIDs, ice/heat, PT, home exercises, injections, and finally knee replacement for chronic pain. Without acute injury, I would not recommend stronger narcotic at this time. Will try alternative high dose NSAID while he is waiting to get in with PT and pain management. Discussed if his pain is this severe and he needs knee replacement, I would have him call cardiology to work on cardiac clearance. 2. Chronic pain of left knee - ICD9: 719.46, 338.29, ICD10: M25.562, G89.29 See above. Katerina Lewis MD documented in this encounter [facility] 09-27-2022 Miscellaneous Notes Reviewed. Continue OTC medication and will see tomorrow. Patient has tried OTC, tylenol, tylenol es, ibuprofen, naproxen. All with no relief. Appointment scheduled for tomorrow 09/27/2022 per patient request. Tatiana Miller RN What is he taking OTC for pain now. I cannot give narcotic medications without and OV. Patient reports he is having left knee pain. Is planning a knee replacement and Dr. Clayton prescribed tramadol for the pain prior to surgery. Patient reports he developed hives and Dr. Clayton advised patient to stop the tramadol, which patient did. Dr. Clayton tells patient he will not prescribe anything stronger than tramadol, and referred him back to pcp, for pain medication. Patient reports he has pain management appt scheduled with Dr. Meyer on 10-06-22, but has not seen him yet. Reports he is seeing skin pass operator on Tue for surgery clearance. Patient reports he has tried everything OTC for the left knee pain. Please advise patient. VERO Perry. documented in this encounter [facility] 09-27-2022 Miscellaneous Notes Patient telephoned. Made aware of message below. Voices understanding. Nunu Fuchs LPN Please call patient and let him know his preliminary results of his zio patch showed one run lasting 5 beats of supraventricular tachycardia with max heart rate of 128. Did not correlate with any triggered events. No other concerning events. Will let him know if final results show something different. Dinesh Nagel APRN.LYNNETTE documented in this encounter [facility] 09-20-2022 Note HNO ID: [id number] Author: RT Laya(Levy) Service: Nuclear Medicine Author Type: Technologist Type: Progress Notes Filed: 09/20/2022 7:41 AM Note Text: RADIOLOGY SERVICE PROGRESS NOTE DATE OF SERVICE: September 20, 2022 TIME OF SERVICE: 07:30AM EVENT: EXAM/PROCEDURE NOT COMPLETED - Patient was not instructed to refrain from Caffeine. Patient had coffee two hours prior to arrival and is not a treadmill stress candidate. ADDITIONAL EVENT DETAILS: N/A SIGNATURE: RT Laya(R) PATIENT NAME: Nazario Suazo II DATE: September 20, 2022 TIME: 7:39 AM PAGER/CONTACT #: [facility] 09-20-2022 History of Presen t illness Narrative RADIOLOGY SERVICE PROGRESS NOTE DATE OF SERVICE: September 20, 2022 TIME OF SERVICE: 07:30AM EVENT: EXAM/PROCEDURE NOT COMPLETED - Patient was not instructed to refrain from Caffeine. Patient had coffee two hours prior to arrival and is not a treadmill stress candidate. ADDITIONAL EVENT DETAILS: N/A SIGNATURE: RT Laya(R) PATIENT NAME: Nazario Suazo II DATE: September 20, 2022 TIME: 7:39 AM PAGER/CONTACT #: documented in this encounter [facility] 09-09-2022 Miscellaneous Notes VM left for pt to call PCP office for message below, or may access result through account. Jami Yoder RN Please call patient and let him know his TSH level is in normal range. Dinesh Nagel APRN.LYNNETTE documented in this encounter [facility] 09-08-2022 Miscellaneous Notes Patient notified - OV scheduled for this evening. Pt requesting late appointment. Recommend OV with or Dinesh as available Patient calls to report that this morning he was working out at the gym and he heard a popping in his left knee and now he is having trouble bearing weight on that leg. Patient scheduled to see Dr. Davison on 09/15/2021 to schedule surgery for replacement. Patient contacted Dr. Davison to discuss pain management until then and was instructed to contact PCP. Patient has tried OTC tylenol and ibuprofen with no relief currently utilizing ice to the area. Not a new injury. Sounds like something with workout caused further injury/pain. Patient willing to come in for OV if provider advises. Please review and advise, Tatiana Miller RN documented in this encounter [facility] 09-07-2022 History of Presen t illness Narrative Chief Complaint Patient presents with: ER F/U: Afib- patient had ZIO monitor placed 2 weeks ago and reports fell off 1 week ago. Patient didn't contact [employer]. Patient reports he takes Cratom herbal supplement that's in caffeine family- reports he drinks espresso. HPI Nazario Suazo II is a 52 year old male who presents here today for Above Complaints.. Patient evaluated at [facility] ED on 09/07 for complaint of palpitations which awoke him from sleep. Upon arrival to the ED his HR was normal at 80 and EKG showed NSR. Underwent cardiac workup while HR monitored in the ED and workup was negative. Discharged home with recommendation to follow up with our office. Noted that radiology called possible early pneumonia in [place], but patient did not show any clinical symptoms of pneumonia, so did not need treatment. WBC 7.5 in the ED. Since discharge, patient has not had any recurrent palpations, chest pain, or SOB. Has been drinking a lot of caffeine and taking Cratom recently. Notes that a Zio patch was placed on 08/25 which he woke for about 4 days. Did not call company about next steps. Also ordered stress test which has been scheduled for 3 months out. TSH pending from this OV as well. Started taking 81 mg ASA today. Past medical history, appointments, medications, allergies reviewed. Previous Medical History PAST MEDICAL HISTORY Diagnosis Date Atrial fibrillation (HCC) single episode of a fib while living in [place]. s/p cardioversion Bipolar disorder (HCC) Eczema [employer] History of alcohol abuse History of COVID-19 History of marijuana use History of tobacco use Hyperlipidemia Hypertension Primary osteoarthritis of left knee PTSD (post-traumatic stress disorder) RLS (restless legs syndrome) Syncope 03/2019 Previous Surgical History PAST SURGICAL HISTORY Procedure Laterality Date CARDIOVERSION 2016 a fib PAST SURGICAL HISTORY OF 01/2013 Left knee repair PAST SURGICAL HISTORY OF 1999 Right Shoulder PAST SURGICAL HISTORY OF 1995 Hernia repair Family History FAMILY HISTORY Problem Relation Age of Onset No Known Problems Sister Alcohol/Drug Brother No Known Problems Maternal Grandmother No Known Problems Maternal Grandfather No Known Problems Paternal Grandmother No Known Problems Paternal Grandfather No Known Problems Son No Known Problems Son No Known Problems Son Patient Allergies ALLERGIES Allergen Reactions Seroquel [Quetiapin* Intolerance drowsiness Current Medications Current Outpatient Medications on File Prior to Visit Medication Sig albuterol HFA (PROAIR HFA) 90 mcg/actuation inhaler Inhale 2 Puffs as instructed every 6 hours as needed. cyanocobalamin (VITAMIN B-12) 100 mcg tab Take 500 mcg by mouth once daily. Zinc 50 mg tab Take 50 mg by mouth once daily. cholecalciferol (VITAMIN D3) 5,000 unit tab Take 5,000 Units by mouth once daily. creatine, bulk, 100 % powd 5 g. therapeutic multivitamin tablet Take 1 tablet by mouth once daily. benzonatate (TESSALON PERLES) 100 mg capsule Take 2 capsules by mouth three times daily as needed. (Patient not taking: Reported on 09/07/2022) peg 3350-Electrolytes (GOLYTELY) 236-22.74-6.74 -5.86 gram suspension Refer to printed prep instructions from your provider. (Patient not taking: Reported on 08/25/2021 ) No current facility-administered medications on file prior to visit. Social History Social History Tobacco Use Smoking status: Former Packs/day: 0.50 Years: 10.00 Pack years: 5.00 Types: Cigarettes Quit date: 05/13/2014 Years since quittin.3 Smokeless tobacco: Former Types: Chew Vaping Use Vaping Use: Some days Substances: Nicotine, 5 mg Devices: Pre-filled or refillable cartridge Substance Use Topics Alcohol use: Not Currently Alcohol/week: 30.0 standard drinks Types: 12 Cans of Beer (12oz) per week Drug use: Not Currently Types: Marijuana Review of Symptoms REVIEW OF SYSTEMS GENERAL: No weight loss, malaise or fevers RESPIRATORY: Negative for cough, hemoptysis, wheezing, COPD, dyspnea or shortness of breath CARDIOVASCULAR: Negative for chest pain, leg swelling, hypertension, CHF or palpitations GI: No nausea, vomiting, or diarrhea SKIN: Negative for lesions, rash, and itching EXAM: BP 154/80 Pulse 69 Resp 16 Wt 115.5 kg (254 lb 9.6 oz) SpO2 98% BMI 34.06 kg/m General Appearance: Well appearing, alert, in no acute distress, well-hydrated, well nourished.. Skin: Skin color, texture, turgor normal, no suspicious rashes or lesions. Lungs: Lungs clear to auscultation. No wheezing, rhonchi, rales.. Heart: RRR without murmur, gallop, or rubs. No ectopy. Abdomen: Normal abdominal exam, Abdomen soft, non-tender. Bowel sounds normal. No masses, organomegaly. Extremities: No deformities, edema, skin discoloration, clubbing or cyanosis. Good capillary refill. Health Maintenance List HEPATITIS B(1 of 3 - 3-dose series) due on 1971 COVID-19 VACCINE(1) Never done BP CONTROLLED (<130/80) Never done COLORECTAL CANCER SCREENING Never done SHINGRIX VACCINE(1 of 2) Never done INFLUENZA(1) Never done DEPRESSION ASSESSMENT Never done ANNUAL PCP TEAM CHRONIC DISEASE VISIT due on 08/25/2023 DIABETES SCREEN due on 02/17/2025 LIPID SCREEN due on 02/17/2027 DTAP,TDAP,TD(2 - Td or Tdap) due on 02/13/2032 HEPATITIS C SCREENING Discontinued HIV SCREENING Discontinued ASSESSMENT/PLAN: 1. Palpitations - ICD9: 785.1, ICD10: R00.2 Workup in the ED negative. Discussed this could be paroxysmal a fib, but will need results from his Zio patch to learn more. Continue ASA. Stop caffeine intake and Cratum supplement. Will try to move his stress test up to 1-2 weeks and refer to cardiology for further evaluation and treatment. Red flags for re-assessment reviewed with patient in detail. - CONSULT TO CARDIOLOGY Katerina Lewis MD documented in this encounter [facility] 08-25-2022 History of Presen t illness Narrative EVENT MONITOR DISPOSABLE PATCH INSTRUCTIONS Patient Name: Nazario Suazo II Clinic Number: [id number] Skin prepped and cleansed with alcohol Patch secured to prepped area Monitor Activated Serial #: [id number] Patient Instructed: Prescribed order timeframe Bathing guidelines Usage of event button and diary documentation Return of monitor at the end of prescribed order Call with problems [phone] or [phone]. [phone] Patient expresses a good understanding of instructions Nunu Fuchs LPN 08/25/2022 Patient presents with: ED Follow-up: 08/23/22 for heart palpitations SUBJECTIVE: This is a 52 year old that is here today for Above Complaints. HOSPITAL/ER FOLLOW UP: Reason for visit: chest pain and palpitations Which facility: [facility] Date of visit: 08/23/2022 Diagnosis: chest pain and palpitations Testing done: EKG, blood work and chest xray Treatment given: none Reports he was at work on 08/23/2022 and started having palpitations. He then started having chest pain which radiated to his neck and felt like his head was going to explode. Had some accompanying SOB. This prompted him to go to ER Since ER visit had an episode last night where his heart was beating hard. Was able to do some deep breathing and it stopped. Reports has had atrial fib in the past and had to have cardioversion, however he reports he was taking anabolic steroids at that time. Admits he does take a supplement in the caffeine family otherwise he denies illicit drug use or drinking caffeine. Reports he does lift weights and does not seem to have any palpitations or chest pain during this time. Reports he can not run on treadmill due to needing right knee replacement. Denies family hx of sudden cardiac , hx of sleep apnea, SOB, dyspnea or leg swelling. No current chest pain. ER records reviewed PAST MEDICAL HISTORY Diagnosis Date Atrial fibrillation (HCC) single episode of a fib while living in [place]. s/p cardioversion Bipolar disorder (HCC) Eczema [employer] History of alcohol abuse History of COVID-19 History of marijuana use History of tobacco use Hyperlipidemia Hypertension Primary osteoarthritis of left knee PTSD (post-traumatic stress disorder) RLS (restless legs syndrome) Syncope 03/2019 ALLERGIES Seroquel [Quetiapine] MEDICATIONS Current Outpatient Medications Medication Sig benzonatate (TESSALON PERLES) 100 mg capsule Take 2 capsules by mouth three times daily as needed. albuterol HFA (PROAIR HFA) 90 mcg/actuation inhaler Inhale 2 Puffs as instructed every 6 hours as needed. cyanocobalamin (VITAMIN B-12) 100 mcg tab Take 500 mcg by mouth once daily. Zinc 50 mg tab Take 50 mg by mouth once daily. cholecalciferol (VITAMIN D3) 5,000 unit tab Take 5,000 Units by mouth once daily. creatine, bulk, 100 % powd 5 g. peg 3350-Electrolytes (GOLYTELY) 236-22.74-6.74 -5.86 gram suspension Refer to printed prep instructions from your provider. (Patient not taking: Reported on 08/25/2021 ) therapeutic multivitamin tablet Take 1 tablet by mouth once daily. No current facility-administered medications for this visit. Medications and allergies reviewed by this provider. SOCIAL HISTORY Social History Tobacco Use Smoking status: Former Packs/day: 0.50 Years: 10.00 Pack years: 5.00 Types: Cigarettes Quit date: 05/13/2014 Years since quittin.2 Smokeless tobacco: Former Types: Chew Vaping Use Vaping Use: Some days Substances: Nicotine, 5 mg Devices: Pre-filled or refillable cartridge Substance Use Topics Alcohol use: Not Currently Alcohol/week: 30.0 standard drinks Types: 12 Cans of Beer (12oz) per week Drug use: Not Currently Types: Marijuana REVIEW OF SYSTEMS All other reviewed and negative other than HPI. OBJECTIVE: BP 122/80 Pulse 75 Resp 16 Wt 115.1 kg (253 lb 12.8 oz) SpO2 97% BMI 33.95 kg/m . Vital signs reviewed by this provider. APPEARANCE Well appearing, alert, in no acute distress, well-hydrated, well nourished. EYES PERRLA, conjunctiva and sclera normal. HEART RRR with normal S1 and S2, no murmurs, no gallops, no JVD appreciated LUNG clear to auscultation. No wheezes, rhonchi or rales EXTREMITIES Extremities normal, No deformities, No skin discoloration, and No edema SKIN Skin color, texture, turgor normal, no suspicious rashes or lesions to exposed skin HEPATITIS B(1 of 3 - 3-dose series) due on 1971 COVID-19 VACCINE(1) Never done COLORECTAL CANCER SCREENING Never done SHINGRIX VACCINE(1 of 2) Never done DEPRESSION ASSESSMENT Never done INFLUENZA(1) Never done ANNUAL PCP TEAM CHRONIC DISEASE VISIT due on 02/12/2023 BP CONTROLLED (<130/80) due on 08/03/2023 DIABETES SCREEN due on 02/17/2025 LIPID SCREEN due on 02/17/2027 DTAP,TDAP,TD(2 - Td or Tdap) due on 02/13/2032 HEPATITIS C SCREENING Discontinued HIV SCREENING Discontinued ASSESSMENT/PLAN: 1. Palpitations - ICD9: 785.1, ICD10: R00.2 (primary diagnosis) - no red flag symptoms or exam findings - red flag symptoms discussed, verbalizes understanding - OUTSIDE VENDOR CARDIAC OUTPATIENT EXTENDED RHYTHM RECORDING (WITHOUT TELEMETRY) - TSH BLD - follow-up pending results to ER with red flag symptoms 2. Chest pain, unspecified type - ICD9: 786.50, ICD10: R07.9 - no red flag symptoms or exam findings - red flag symptoms discussed, verbalizes understanding - patient is unable to run on treadmill due to needing knee replacement - NM CARDIAC PERF STRESS/PHARM - follow-up pending testing to ER with red flag symptoms Dinesh Nagel APRN.LYNNETTE Prescription instructions reviewed with patient as applicable. Patient advised if symptoms do not improve or if symptoms worsen sooner, to contact their primary care physician. Potential red flag symptoms discussed with the patient. Reviewed appropriate action plan to take if red flag symptoms occur. Patient agreeable to treatment plan. I spent a total of 30 minutes on the date of the service which included preparing to see the patient, [id number] patient care, completing clinical documentation, obtaining and/or reviewing separately obtained history, performing a medically appropriate examination, counseling and educating the patient/family/caregiver, and ordering medications, tests, or procedures. documented in this encounter [facility] 08-03-2022 History of Presen t illness Narrative This note was created using Pol[employer]. Subjective Nazario Suazo II is a 52 year old male. HPI Patient presents with cough, shortness of breath, congestion over the past 2 or 3 days. His dad was sick with a respiratory infection at [facility]. He denies a fever. He has had a headache. He has missed the last 2 days of work. No diarrhea. He is a former smoker having quit in 2013. He did have 1 bout of atrial fibrillation several years ago but is not on chronic medication for it and has not had it again. No leg pain or swelling. He did do a home COVID test today which was negative. Review of Systems Constitutional: Positive for chills and fatigue. Negative for fever. HENT: Positive for congestion, postnasal drip and sore throat. Negative for ear pain. Respiratory: Positive for cough and shortness of breath. Negative for chest tightness and wheezing. Cardiovascular: Negative. Gastrointestinal: Negative. Genitourinary: Negative. Musculoskeletal: Positive for myalgias. Neurological: Negative. Hematological: Negative. Psychiatric/Behavioral: Negative. All other systems reviewed and are negative. PAST MEDICAL HISTORY Diagnosis Date Atrial fibrillation (HCC) single episode of a fib while living in [place]. s/p cardioversion Bipolar disorder (HCC) Eczema [employer] History of alcohol abuse History of COVID-19 History of marijuana use History of tobacco use Hyperlipidemia Hypertension Primary osteoarthritis of left knee PTSD (post-traumatic stress disorder) RLS (restless legs syndrome) Syncope 03/2019 Current Outpatient Medications Medication Sig Dispense Refill cyanocobalamin (VITAMIN B-12) 100 mcg tab Take 500 mcg by mouth once daily. Zinc 50 mg tab Take 50 mg by mouth once daily. cholecalciferol (VITAMIN D3) 5,000 unit tab Take 5,000 Units by mouth once daily. creatine, bulk, 100 % powd 5 g. therapeutic multivitamin tablet Take 1 tablet by mouth once daily. 0 predniSONE (DELTASONE) 20 mg tablet Take 2 tablets by mouth once daily for 5 days. 10 tablet 0 benzonatate (TESSALON PERLES) 100 mg capsule Take 2 capsules by mouth three times daily as needed. 30 capsule 0 albuterol HFA (PROAIR HFA) 90 mcg/actuation inhaler Inhale 2 Puffs as instructed every 6 hours as needed. 1 Each 0 peg 3350-Electrolytes (GOLYTELY) 236-22.74-6.74 -5.86 gram suspension Refer to printed prep instructions from your provider. (Patient not taking: Reported on 08/25/2021 ) 4000 mL 0 No current facility-administered medications for this visit. PAST SURGICAL HISTORY Procedure Laterality Date CARDIOVERSION 2016 a fib PAST SURGICAL HISTORY OF 01/2013 Left knee repair PAST SURGICAL HISTORY OF 1999 Right Shoulder PAST SURGICAL HISTORY OF 1995 Hernia repair FAMILY HISTORY Problem Relation Age of Onset No Known Problems Sister Alcohol/Drug Brother No Known Problems Maternal Grandmother No Known Problems Maternal Grandfather No Known Problems Paternal Grandmother No Known Problems Paternal Grandfather No Known Problems Son No Known Problems Son No Known Problems Son Social History Tobacco Use Smoking status: Former Packs/day: 0.50 Years: 10.00 Pack years: 5.00 Types: Cigarettes Quit date: 05/13/2014 Years since quittin.2 Smokeless tobacco: Former Types: Chew Vaping Use Vaping Use: Some days Substances: Nicotine, 5 mg Devices: Pre-filled or refillable cartridge Substance Use Topics Alcohol use: Not Currently Alcohol/week: 30.0 standard drinks Types: 12 Cans of Beer (12oz) per week Drug use: Not Currently Types: Marijuana Objective BP 128/72 Pulse 64 Temp 36.7 C (98 F) Resp 16 Wt 111.6 kg (246 lb) SpO2 100% BMI 32.90 kg/m Physical Exam Vitals reviewed. Constitutional: Appearance: Normal appearance. HENT: Head: Normocephalic and atraumatic. Right Ear: Tympanic membrane, ear canal and external ear normal. Left Ear: Tympanic membrane, ear canal and external ear normal. Nose: Congestion present. Mouth/Throat: Mouth: Mucous membranes are moist. Pharynx: Oropharynx is clear. Cardiovascular: Rate and Rhythm: Normal rate and regular rhythm. Heart sounds: Normal heart sounds. Pulmonary: Effort: Pulmonary effort is normal. Breath sounds: Normal breath sounds. No wheezing, rhonchi or rales. Musculoskeletal: Cervical back: Neck supple. Skin: General: Skin is warm and dry. Neurological: Mental Status: He is alert. Assessment and Plan ASSESSMENT/PLAN: 1. SOB (shortness of breath) - ICD9: 786.05, ICD10: R06.02 (primary diagnosis) - XR CHEST 2V FRONTAL/LAT 2. Viral URI with cough - ICD9: 465.9, ICD10: J06.9 - Discussed viral etiology and rationale for treatment. - Symptomatic treatment with prn analgesia - Supportive care with fluids and rest -Chest x-ray clear on my read, pending radiology read. Likely viral illness. Will treat with prednisone, albuterol inhaler and Tessalon. Recommend follow-up with PCP if not improving. Patient declined COVID and flu testing. Twyla Benavidez PA-C documented in this encounter [facility] 06-29-2022 Miscellaneous Notes Reviewed. Message left for patient to return call to schedule ER follow up. documented in this encounter [facility] 03-25-2022 Miscellaneous Notes Patient is calling to cancel procedure. documented in this encounter [facility] 03-23-2022 Miscellaneous Notes Patient telephoned. States he is going to reschedule his colonoscopy for the end of April. Pre Op Clearance appointment scheduled for 04/20/[address] Lewis. Nunu Fuchs LPN Phoned patient to advise he needs to schedule an OV for Pre-Op clearance. Message left to return call to schedule. documented in this encounter [facility] 02-23-2022 Miscellaneous Notes Reviewed. Patient calls and reports that letter is no longer needed. Patient to reschedule colonoscopy. Tatiana Miller, RN Pt calls to report he has jury duty 02/25 which is prep day for the colonoscopy he is having 02/26/22. Pt was advised by to have a letter written by pcp stating pt will be doing prep on 02/25 for a procedure on 02/26/22. Fax letter to: [phone] Attn: Debi Enamorado Mitra Jackson LPN documented in this encounter [facility] 02-23-2022 Miscellaneous Notes Patient called and notified of provider response. Patient had already rescheduled surgery. Amna Krueger RN Patient calls and states that he is supposed to be getting colonoscopy done on Tuesday. Patient states that he accidentally took tylenol and ibuprofen yesterday 02/22/2022. Patient asking if it is still ok to proceed with colonoscopy? Please review and advise, Amna Krueger RN documented in this encounter [facility] 02-23-2022 Miscellaneous Notes Patient cancelled and rescheduled from 02/26 to 03/26 for colon with [facility] Please call patient to cancel and reschedule colonoscopy for 02/26. documented in this encounter [facility] 02-17-2022 Miscellaneous Notes Spoke with pt and information listed below given. Pt verbalizes understanding. /me Ordered as requested. Come in for labs in the next 1-2 weeks. Patient calling to request lab order for testosterone level. States he is requesting this due to his age and low energy levels. He said he discussed this with PCP. Samantha Peck RN documented in this encounter [facility] 02-12-2022 History of Presen t illness Narrative Chief Complaint Patient presents with: Physical: questions about diet and would would like labs checked HPI Nazario Suazo II is a 51 year old male who presents here today for annual physical. States that he has been working on weight loss by cutting his carbs dramatically and eating more lean protein and vegetables. Thinks he was getting close to 1,000 grams of carbs per day before, and is down to about 150 g now. Does intermittent fasting every night. Exercising on a daily basis with weight lifting 60-75 minutes per day, walking 20-30 minutes per day, and elliptical . Has lost 20 lbs in the last 8 weeks. Does not have goal weight in mind, just trying to get the fat around his waist gone. Has not been on Requip for RLS for the last 1-2 years. Symptoms have been mild recently, only once every couple weeks. Not needing refill at this time. Not following up with counseling or psychiatry for history of bipolar disorder. Admits to some anxiety mild anxiety symptoms, but is able to cope with it by writing gratitude lists, exercise, positive self talk, reading. Denies feeling down/depressed, manic episodes, SI/HI, panic symptoms. PHQ-2 / Depression screen He in the past two weeks denies having felt down, depressed, hopeless or with little interest or pleasure in doing things. Sober from alcohol and marijuana for 2 years now. States that he was drinking about 2-4 24 ounce beers per day. No recurrent eczema. Has arthritis in his left knee and has been following up with [facility] Dr. Thorne. Told he was bone on bone and injection 6 months ago did not help. Scheduled for colonoscopy on 02/26 for colon cancer screening. Requesting tetanus booster today. Refusing shingrix and COVID vaccine. Past medical history, appointments, medications, allergies reviewed. Previous Medical History PAST MEDICAL HISTORY Diagnosis Date Atrial fibrillation (HCC) single episode of a fib while living in [place]. s/p cardioversion Bipolar disorder (HCC) Eczema [employer] History of alcohol abuse History of marijuana use History of tobacco use Hyperlipidemia Hypertension Primary osteoarthritis of left knee PTSD (post-traumatic stress disorder) RLS (restless legs syndrome) Syncope 03/2019 Previous Surgical History PAST SURGICAL HISTORY Procedure Laterality Date CARDIOVERSION 2017 a fib PAST SURGICAL HISTORY OF 01/2013 Left knee repair PAST SURGICAL HISTORY OF 1999 Right Shoulder PAST SURGICAL HISTORY OF 1995 Hernia repair Family History No family history on file. Patient Allergies ALLERGIES Allergen Reactions Seroquel [Quetiapin* Intolerance drowsiness Current Medications Current Outpatient Medications on File Prior to Visit Medication Sig peg 3350-Electrolytes (GOLYTELY) 236-22.74-6.74 -5.86 gram suspension Refer to printed prep instructions from your provider. (Patient not taking: Reported on 08/25/2021 ) acetaminophen (TYLENOL 8 HOUR ORAL) Take by mouth. meloxicam (MOBIC) 15 mg tablet Take 1 tablet by mouth once daily. therapeutic multivitamin tablet Take 1 tablet by mouth once daily. No current facility-administered medications on file prior to visit. Social History Social History Tobacco Use Smoking status: Former Smoker Packs/day: 0.50 Years: 10.00 Pack years: 5.00 Types: Cigarettes Quit date: 05/13/2014 Years since quittin.7 Smokeless tobacco: Former User Types: Chew Vaping Use Vaping Use: Some days Substances: Nicotine, 5 mg Devices: Pre-filled or refillable cartridge Substance Use Topics Alcohol use: Not Currently Alcohol/week: 30.0 standard drinks Types: 12 Cans of Beer (12oz) per week Drug use: Not Currently Frequency: 7.0 times per week Types: Marijuana Review of Symptoms REVIEW OF SYSTEMS GENERAL: No weight loss, malaise or fevers HEENT: Negative for frequent or significant headaches, No changes in hearing or vision, no nose bleeds or other nasal problems NECK: Negative for lumps, goiter, pain and significant neck swelling RESPIRATORY: Negative for cough, hemoptysis, wheezing, COPD, dyspnea or shortness of breath CARDIOVASCULAR: Negative for chest pain, leg swelling, hypertension, CHF or palpitations GI: No nausea, vomiting, or diarrhea : No history of dysuria, frequency or incontinence MUSCULOSKELETAL: See HPI SKIN: Negative for lesions, rash, and itching EXAM: BP 128/72 Pulse 73 Resp 16 Ht 184.2 cm (6' 0.5 ) Wt 104.8 kg (231 lb) SpO2 97% BMI 30.90 kg/m General Appearance: Well appearing, alert, in no acute distress, well-hydrated, well nourished.. Skin: Skin color, texture, turgor normal, no suspicious rashes or lesions. Head: Normocephalic, no masses, lesions, tenderness or abnormalities. Eyes: Anicteric sclera. Pupils are equally round and reactive to light. Extraocular movements are intact. . Ears: External ears normal, canals clear. Neck: Supple, no adenopathy; thyroid symmetric, normal size, no bruits. Lungs: Lungs clear to auscultation. No wheezing, rhonchi, rales.. Heart: RRR without murmur, gallop, or rubs. No ectopy. Abdomen: Normal abdominal exam, Abdomen soft, non-tender. Bowel sounds normal. No masses, organomegaly. Extremities: No deformities, edema, skin discoloration, clubbing or cyanosis. Good capillary refill. . Health Maintenance List BP CONTROLLED (<130/80) Never done DTAP,TDAP,TD(1 - Tdap) Never done COLORECTAL CANCER SCREENING Never done SHINGRIX VACCINE(1 of 2) Never done DEPRESSION SCREENING due on 01/30/2022 COVID-19 VACCINE(1) due on 03/10/2022 INFLUENZA(Season Ended) due on 05/06/2022 ANNUAL PCP TEAM CHRONIC DISEASE VISIT due on 08/03/2022 DIABETES SCREEN due on 02/06/2024 LIPID SCREEN due on 03/19/2026 HEPATITIS C SCREENING Discontinued HIV SCREENING Discontinued Data reviewed Component Latest Ref Rng & Units 02/05/2021 03/19/2021 WBC 3.70 - 11.00 k/uL 7.76 RBC 4.20 - 6.00 m/uL 4.80 Hemoglobin 13.0 - 17.0 g/dL 13.9 Hematocrit 39.0 - 51.0 % 43.3 MCV 80.0 - 100.0 fL 90.2 MCH 26.0 - 34.0 pG 29.0 MCHC 30.5 - 36.0 g/dL 32.1 RDW-CV 11.5 - 15.0 % 12.5 Platelet Count 150 - 400 k/uL 256 MPV 9.0 - 12.7 fL 9.9 Neut% % 66.8 Abs Neut (ANC) 1.45 - 7.50 k/uL 5.16 Lymph% % 22.3 Abs Lymph 1.00 - 4.00 k/uL 1.73 Elk% % 9.4 Abs Elk <0.87 k/uL 0.73 Eosin% % 1.0 Abs Eosin <0.46 k/uL 0.08 Baso% % 0.5 Abs Baso <0.11 k/uL 0.04 Nucleated Reds 0 /100 WBC 0.0 Absolute nRBC <0.01 k/uL <0.01 Diff Type Auto Diff Protein, Total 6.3 - 8.0 g/dL 6.9 Albumin 3.9 - 4.9 g/dL 4.6 Calcium 8.5 - 10.2 mg/dL 9.5 Bilirubin, Total 0.2 - 1.3 mg/dL 0.6 Alkaline Phosphatase 38 - 113 U/L 59 AST 14 - 40 U/L 35 Glucose 74 - 99 mg/dL 74 BUN 9 - 24 mg/dL 21 Creatinine 0.73 - 1.22 mg/dL 1.23 (H) Sodium 136 - 144 mmol/L 139 Potassium 3.7 - 5.1 mmol/L 4.2 Chloride 97 - 105 mmol/L 104 CO2 22 - 30 mmol/L 24 Anion Gap 9 - 18 mmol/L 11 ALT 10 - 54 U/L 39 eGFR- >60 eGFR-All Other Races . >60 Cholesterol, Total <200 mg/dL 187 Triglyceride <150 mg/dL 93 HDL Cholesterol >39 mg/dL 43 LDL Cholesterol <100 mg/dL 125 (H) Non HDL Cholesterol <130 mg/dL 144 (H) Fasting Time hrs 12 VLDL Cholesterol <30 mg/dL 19 TC:HDL Ratio <5.10 4.35 LDL:HDL Ratio <2.54 2.91 (H) ASSESSMENT/PLAN: 1. Annual physical exam - ICD9: V70.0, ICD10: Z00.00 (primary diagnosis) - Counseled on healthy diet and regular exercise - Discussed need for and benefit of weight loss. BMI 30.90 kg/(m^2) - Follow up for annual exam in one year - CBC - COMP METABOLIC PANEL - LIPID PANEL BASIC 2. Essential hypertension - ICD9: 401.9, ICD10: I10 - good control - Continue current medication(s) - Encouraged dietary sodium restriction/DASH diet - Recommended regular aerobic exercise. - Reviewed risks of HTN and principles of treatment - Goal of BP <140/90 3. Hyperlipidemia, unspecified hyperlipidemia type - ICD9: 272.4, ICD10: E78.5 - good control - Continue current medication. - Encouraged following a low fat, low cholesterol diet. - Discussed the benefits of regular aerobic exercise and weight loss. 4. RLS (restless legs syndrome) - ICD9: 333.94, ICD10: G25.81 Doing well without medication. Will call if symptoms worsen. 5. Need for vaccination - ICD9: V05.9, ICD10: Z23 - TDAP VACCINE AGE 7+ IM Katerina Lewis MD documented in this encounter [facility] Diagnosis Fatigue, unspecified type- Primary [facility]* Diagnosis SOB (shortness of breath)- Primary Shortness of breath Viral URI with cough Acute upper respiratory infections of unspecified site [facility]* Diagnosis Palpitations- Primary Chest pain, unspecified type Paroxysmal atrial fibrillation (HCC) Atrial fibrillation [facility]* Diagnosis Palpitations- Primary Primary hypertension Unspecified essential hypertension Chronic atrial fibrillation (HCC) Atrial fibrillation RLS (restless legs syndrome) Restless legs syndrome (RLS) Bipolar affective disorder, current episode mixed, current episode severity unspecified (HCC) PTSD (post-traumatic stress disorder) Posttraumatic stress disorder History of alcohol abuse Nondependent alcohol abuse, in remission [facility] Diagnosis Palpitations- Primary [facility]* Diagnosis Chest pain, unspecified type [facility]* Diagnosis Primary osteoarthritis of left knee- Primary Primary localized osteoarthrosis, lower leg Chronic pain of left knee Pain in joint, lower leg [facility] Diagnosis Palpitations [facility]* Diagnosis RLQ abdominal pain- Primary Abdominal pain, right lower quadrant Scrotum pain Unspecified disorder of male genital organs [facility]* Diagnosis Apnea spell- Primary Apnea Special screening for malignant neoplasms, colon documented in this encounter [facility] note* Diagnosis Central sleep apnea- Primary Unspecified sleep apnea HIMANSHU (obstructive sleep apnea) Obstructive sleep apnea (adult) (pediatric) documented in this encounter [facility] note* Diagnosis Bipolar affective disorder, currently depressed, moderate (HCC)- Primary Bipolar I disorder, most recent episode (or current) depressed, moderate KERI (generalized anxiety disorder) Generalized anxiety disorder Difficulty concentrating Attention or concentration deficit RLS (restless legs syndrome) Restless legs syndrome (RLS) documented in this encounter [facility] note* Diagnosis Bipolar disorder, current episode mixed, moderate (HCC)- Primary Bipolar I disorder, most recent episode (or current) mixed, moderate PTSD (post-traumatic stress disorder) Posttraumatic stress disorder KERI (generalized anxiety disorder) Generalized anxiety disorder Weight loss Loss of weight documented in this encounter [facility] note* Diagnosis KERI (generalized anxiety disorder)- Primary Generalized anxiety disorder Panic disorder Panic disorder without agoraphobia Bipolar disorder, current episode mixed, moderate (HCC) Bipolar I disorder, most recent episode (or current) mixed, moderate PTSD (post-traumatic stress disorder) Posttraumatic stress disorder documented in this encounter [facility] note* Diagnosis Special screening for malignant neoplasms, colon- Primary documented in this encounter [facility] note* Diagnosis Generalized anxiety disorder- Primary documented in this encounter [facility] for referral (narrative)* Diagnostic Procedure Only (Routine) - Pending Review Specialty Diagnoses / Procedures Referred By Radha polanco Referred To Contact [facility] Diagnoses Chest pain, unspecified type Procedures NM CARDIAC PERF STRESS/PHARM MYOCARDIAL SPECT MULTIPLE STUDIES Dinesh Nagel APRN.CNP [address] [place] [address] [facility] Functional [facility] [address] [place] [address] Referral ID Status Reason Start Date Expiration Date Visits Requested Visits Authorized [id number] Pending Review Auto-Generat ed Referral 2 09/24/20[address] [facility] Outpatient Procedure (Routine) - Authorized Specialty Diagnoses / Procedures Referred By Radha polanco Referred To Contact [facility] Diagnoses Palpitations Procedures ECG COMPLETE ECG ROUTINE ECG W/LEAST 12 LDS W/I&R Brian Meléndez MD [address] [place] [address] [address] Referral ID Status Reason Start Date Expiration Date Visits Requested Visits Authorized [id number] Authorized Auto-Generat ed Referral 09/14/2022 09/14/2023 1 1 [facility] for referral (narrative)* Diagnostic Procedure Only (Routine) - Closed Specialty Diagnoses / Procedures Referred By Radha polanco Referred To Contact MOLECULAR & FUNCTIONAL IMAGING Diagnoses Chest pain, unspecified type Procedures NM CARDIAC PERF STRESS/PHARM MYOCARDIAL SPECT MULTIPLE STUDIES Dinesh Nagel APRN.CNP [address] [place] [address] Molecular & Functional Imaging [address] [place] [address] Referral ID Status Reason Start Date Expiration Date V isits Requested Visits Authorized [id number] Closed Auto-Generate d Referral 08/25/2022 09/24/2023 1 1 [facility] for referral (narrative)* Outpatient Procedure (Routine) - Pending Review Specialty Diagnoses / Procedures Referred By Radha polanco Referred To Contact [facility] Diagnoses Palpitations Procedures ECHO ECHO TTHRC R-T 2D W/WOM-MODE COMPL SPEC&COLR D Brian Meléndez MD [address] [place] [address] [place] [address] Referral ID Status Reason Start Date Expiration Date Visits Requested Visits Authorized [id number] Pending Review Auto-Generat ed Referral 10/20/2022 10/20/2023 1 1 [facility] for referral (narrative)* Diagnostic Procedure Only (Routine) - Pending Review Specialty Diagnoses / Procedures Referred By Contac t Referred To Contact [facility] Diagnoses Apnea spell Procedures HOME SLEEP APNEA TEST (HSAT) SLEEP STD AIRFLOW HRT RATE&O2 SAT EFFORT UNATT Dinesh Nagel APRN.BACK UP WORKER [address] [place] [address] [facility] [place] [address] [place] [id number] Referral ID Status Reason Start Date Expiration Date Visits Requested Visits Authorized [id number] Pending Review Auto-Generat ed Referral 01/07/2023 01/07/2024 1 1 * Outpatient Procedure (Routine) - Pending Review Specialty Diagnoses / Procedures Referred By Contac t Referred To Contact [facility] Diagnoses Special screening for malignant neoplasms, colon Procedures COLONOSCOPY SCREENING COLONOSCOPY FLX DX W/COLLJ SPEC WHEN PFRMD Dinesh Nagel APRN.BACK UP WORKER [address] [place] [address] [facility] [place] [address] [place] [id number] Referral ID Status Reason Start Date Expiration Date Visits Requested Visits Authorized [id number] Pending Review Auto-Generat ed Referral 01/07/2023 01/08/2024 1 1 [facility] for referral (narrative)* Outpatient Procedure (Routine) - Authorized Specialty Diagnoses / Procedures Referred By Contac t Referred To Contact [facility] Diagnoses Special screening for malignant neoplasms, colon Procedures COLONOSCOPY SCREENING COLONOSCOPY FLX DX W/COLLJ SPEC WHEN PFRMD Trevon Iqbal PA-C [address] [place] [address] [facility] [place] [facility] [place] [address] Referral ID Status Reason Start Date Expiration Date Visits Requested Visits Authorized [id number] Authorized Auto-Generat ed Referral 02/09/2023 02/10/2024 1 1 [facility] Summary Purpose Family History No Family History Records FoundNo Family History Records FoundNo Family History Records FoundNo Family History Records FoundNo Family History Records FoundNo Family History Records Found Advance Directives No Advanced Directives Records FoundDocuments on File Type Date Recorded 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 anation Advance Directive(s) 03/22/2019 12:40 AM Reason for Referral Specialty Diagnoses / Procedures Referred By Contac t Referred To Contact Cardiology Diagnoses Palpitations Procedures CONSULT TO CARDIOLOGY OFFICE/OUTPATIENT [facility] 60-74 MINUTES Katerina Lewis MD [address] [place] [address] Referral ID Status Reason Start Date Expiration Date Visits Requested Visits Authorized [id number] Authorized PCP Requested Referral 09/07/2022 09/07/2023 1 1 Specialty Diagnoses / Procedures Referred By Contac t Referred To Contact Diagnoses Central sleep apnea HIMANSHU (obstructive sleep apnea) Procedures CONSULT TO SLEEP MEDICINE - ADULT OFFICE/OUTPATIENT [facility] 60-74 MINUTES FaustologDinesh arevalo APRN.CNP [address] [place] [address] Referral ID Status Reason Start Date Expiration Date Visits Requested Visits Authorized [id number] Authorized PCP Requested Referral 02/15/2023 02/15/2024 1 1 Specialty Diagnoses / Procedures Referred By Contac t Referred To Contact Diagnoses RLS (restless legs syndrome) Katerina Lewis MD [address] [place] [address] Referral ID Status Reason Start Date Expiration Date Visits Re quested Visits Authorized [id number] Closed 1 1 Additional Source Comments (unrecognized sect ion and content) No Status Records FoundNo Status Records FoundNo Status Records FoundNo Status Records FoundNo Status Records FoundNo Status Records Found INFORMATION SOURCE (unrecogn ized section and content) DATE CREATED AUTHOR AUTHOR'S ORGANIZ ATION 03/28/2020 [facility] ([place]) DATE CREATED AUTHOR AUTHOR'S ORGANIZ ATION 02/07/2021 [facility] DATE CREATED AUTHOR AUTHOR'S ORGANIZ ATION 02/08/2021 [facility] DATE CREATED AUTHOR AUTHOR'S ORGANIZ ATION 07/23/2023 [facility] DATE CREATED AUTHOR AUTHOR'S ORGANIZ ATION 09/16/2023 [facility] Source Comments (unrecognize d section and content) In the event this informatio n is protected by the Federal Confidentiality of Alcohol and Drug Abuse Patient Records regulations: The Federal rules restrict any use of the information to criminally investigate or prosecute any alcohol or drug abuse patient.[facility] the event this information is protected by the Federal Confidentiality of Alcohol and Drug Abuse Patient Records regulations: The Federal rules restrict any use of the information to criminally investigate or prosecute any alcohol or drug abuse patient.[facility] Center[facility] the event this information is protected by the Federal Confidentiality of Alcohol and Drug Abuse Patient Records regulations: The Federal rules restrict any use of the information to criminally investigate or prosecute any alcohol or drug abuse patient.[facility] Center[facility] the event this information is protected by the Federal Confidentiality of Alcohol and Drug Abuse Patient Records regulations: The Federal rules restrict any use of the information to criminally investigate or prosecute any alcohol or drug abuse patient.[facility] Center[facility] the event this information is protected by the Federal Confidentiality of Alcohol and Drug Abuse Patient Records regulations: The Federal rules restrict any use of the information to criminally investigate or prosecute any alcohol or drug abuse patient.[facility] Center[facility] the event this information is protected by the Federal Confidentiality of Alcohol and Drug Abuse Patient Records regulations: The Federal rules restrict any use of the information to criminally investigate or prosecute any alcohol or drug abuse patient.[facility] CenterIn the event this information is protected by the Federal Confidentiality of Alcohol and Drug Abuse Patient Records regulations: The Federal rules restrict any use of the information to criminally investigate or prosecute any alcohol or drug abuse patient.[facility] CenterIn the event this information is protected by the Federal Confidentiality of Alcohol and Drug Abuse Patient Records regulations: The Federal rules restrict any use of the information to criminally investigate or prosecute any alcohol or drug abuse patient.[facility] CenterIn the event this information is protected by the Federal Confidentiality of Alcohol and Drug Abuse Patient Records regulations: The Federal rules restrict any use of the information to criminally investigate or prosecute any alcohol or drug abuse patient.[facility] CenterIn the event this information is protected by the Federal Confidentiality of Alcohol and Drug Abuse Patient Records regulations: The Federal rules restrict any use of the information to criminally investigate or prosecute any alcohol or drug abuse patient.[facility] CenterIn the event this information is protected by the Federal Confidentiality of Alcohol and Drug Abuse Patient Records regulations: The Federal rules restrict any use of the information to criminally investigate or prosecute any alcohol or drug abuse patient.[facility] CenterIn the event this information is protected by the Federal Confidentiality of Alcohol and Drug Abuse Patient Records regulations: The Federal rules restrict any use of the information to criminally investigate or prosecute any alcohol or drug abuse patient.[facility] CenterIn the event this information is protected by the Federal Confidentiality of Alcohol and Drug Abuse Patient Records regulations: The Federal rules restrict any use of the information to criminally investigate or prosecute any alcohol or drug abuse patient.[facility] CenterIn the event this information is protected by the Federal Confidentiality of Alcohol and Drug Abuse Patient Records regulations: The Federal rules restrict any use of the information to criminally investigate or prosecute any alcohol or drug abuse patient.[facility] CenterIn the event this information is protected by the Federal Confidentiality of Alcohol and Drug Abuse Patient Records regulations: The Federal rules restrict any use of the information to criminally investigate or prosecute any alcohol or drug abuse patient.[facility] CenterIn the event this information is protected by the Federal Confidentiality of Alcohol and Drug Abuse Patient Records regulations: The Federal rules restrict any use of the information to criminally investigate or prosecute any alcohol or drug abuse patient.[facility] CenterIn the event this information is protected by the Federal Confidentiality of Alcohol and Drug Abuse Patient Records regulations: The Federal rules restrict any use of the information to criminally investigate or prosecute any alcohol or drug abuse patient.[facility] CenterIn the event this information is protected by the Federal Confidentiality of Alcohol and Drug Abuse Patient Records regulations: The Federal rules restrict any use of the information to criminally investigate or prosecute any alcohol or drug abuse patient.[facility] CenterIn the event this information is protected by the Federal Confidentiality of Alcohol and Drug Abuse Patient Records regulations: The Federal rules restrict any use of the information to criminally investigate or prosecute any alcohol or drug abuse patient.[facility] CenterIn the event this information is protected by the Federal Confidentiality of Alcohol and Drug Abuse Patient Records regulations: The Federal rules restrict any use of the information to criminally investigate or prosecute any alcohol or drug abuse patient.[facility] CenterIn the event this information is protected by the Federal Confidentiality of Alcohol and Drug Abuse Patient Records regulations: The Federal rules restrict any use of the information to criminally investigate or prosecute any alcohol or drug abuse patient.[facility] CenterIn the event this information is protected by the Federal Confidentiality of Alcohol and Drug Abuse Patient Records regulations: The Federal rules restrict any use of the information to criminally investigate or prosecute any alcohol or drug abuse patient.[facility] CenterIn the event this information is protected by the Federal Confidentiality of Alcohol and Drug Abuse Patient Records regulations: The Federal rules restrict any use of the information to criminally investigate or prosecute any alcohol or drug abuse patient.[facility] CenterIn the event this information is protected by the Federal Confidentiality of Alcohol and Drug Abuse Patient Records regulations: The Federal rules restrict any use of the information to criminally investigate or prosecute any alcohol or drug abuse patient.[facility] CenterIn the event this information is protected by the Federal Confidentiality of Alcohol and Drug Abuse Patient Records regulations: The Federal rules restrict any use of the information to criminally investigate or prosecute any alcohol or drug abuse patient.[facility] CenterIn the event this information is protected by the Federal Confidentiality of Alcohol and Drug Abuse Patient Records regulations: The Federal rules restrict any use of the information to criminally investigate or prosecute any alcohol or drug abuse patient.[facility] CenterIn the event this information is protected by the Federal Confidentiality of Alcohol and Drug Abuse Patient Records regulations: The Federal rules restrict any use of the information to criminally investigate or prosecute any alcohol or drug abuse patient.[facility] CenterIn the event this information is protected by the Federal Confidentiality of Alcohol and Drug Abuse Patient Records regulations: The Federal rules restrict any use of the information to criminally investigate or prosecute any alcohol or drug abuse patient.[facility] CenterIn the event this information is protected by the Federal Confidentiality of Alcohol and Drug Abuse Patient Records regulations: The Federal rules restrict any use of the information to criminally investigate or prosecute any alcohol or drug abuse patient.[facility] CenterIn the event this information is protected by the Federal Confidentiality of Alcohol and Drug Abuse Patient Records regulations: The Federal rules restrict any use of the information to criminally investigate or prosecute any alcohol or drug abuse patient.[facility] CenterIn the event this information is protected by the Federal Confidentiality of Alcohol and Drug Abuse Patient Records regulations: The Federal rules restrict any use of the information to criminally investigate or prosecute any alcohol or drug abuse patient.[facility] CenterIn the event this information is protected by the Federal Confidentiality of Alcohol and Drug Abuse Patient Records regulations: The Federal rules restrict any use of the information to criminally investigate or prosecute any alcohol or drug abuse patient.[facility] CenterIn the event this information is protected by the Federal Confidentiality of Alcohol and Drug Abuse Patient Records regulations: The Federal rules restrict any use of the information to criminally investigate or prosecute any alcohol or drug abuse patient.[facility] CenterIn the event this information is protected by the Federal Confidentiality of Alcohol and Drug Abuse Patient Records regulations: The Federal rules restrict any use of the information to criminally investigate or prosecute any alcohol or drug abuse patient.[facility] CenterIn the event this information is protected by the Federal Confidentiality of Alcohol and Drug Abuse Patient Records regulations: The Federal rules restrict any use of the information to criminally investigate or prosecute any alcohol or drug abuse patient.[facility] Reason for Visit (unrecogniz ed section and content) Reason Comments Lab Orders Reason Comments letter excusing jury duty 02/25 Reason Comments Patient Question Reason Comments Appointment Rescheduled Reason Comments Appointment Reason Comments Appointment Cancelled Reason Comments Cough congestion, sore thr oat and sob x 2 days Reason Comments ED Follow-up 08/23/22 for heart p alpitations Reason Comments Patient Update Reason Comments Results Reason Comments ER F/U Afib- patient had ZI O monitor placed 2 weeks ago and reports fell off 1 week ago. Patient didn't contact [employer]. Patient reports he takes Cratom herbal supplement that's in caffeine family- reports he drinks espresso. Reason Comments Radiology NM Specialty Diagnoses / Procedures Referred By Radha polanco Referred To Contact MOLECULAR & FUNCTIONAL IMAGING Diagnoses Chest pain, unspecified type Procedures NM CARDIAC PERF STRESS/PHARM MYOCARDIAL SPECT MULTIPLE STUDIES FaustologarDinesh APRN.LYNNETTE [address] [place] [address] Molecular & Functional Imaging [address] [place] [address] Referral ID Status Reason Start Date Expiration Date V isits Requested Visits Authorized [id number] Closed Auto-Generate d Referral 08/25/2022 09/24/2023 1 1 Reason Comments Pain Left knee need some temporary pain relief since cant get into pain management until 10/06/22 Reason Comments con internal Specialty Diagnoses / Procedures Referred By Radha polanco Referred To Contact Cardiology Diagnoses Palpitations Procedures CONSULT TO CARDIOLOGY OFFICE/OUTPATIENT [facility] 60-74 MINUTES Katerina Lewis MD [address] [place] [address] Referral ID Status Reason Start Date Expiration Date V isits Requested Visits Authorized [id number] Closed PCP Requested Referral 09/07/2022 09/07/2023 1 1 Reason Comments Patient Update Needs employer prieto uriarte for being here for echo yesterday Reason Comments Abdominal Pain Right side abdominal pain for 2 months, now with testicular pain in the left side starting 12/28, patient states he has history of hernia Reason Comments Medication Question Reason Comments Sleep Apnea noticing its ge tting more frequent wants colonoscopy Reason Comments Results Reason Comments mental health concerns Was on ADHD meds at one time restless leg syndrome Keeping patient aw vickie at night Reason Comments consult Reason Comments Weight Problem concerned with rapid weight loss. Patient has been trying to lose weight. Anxiety Has upcoming appt wi psych. Reason Comments Appointment Schedule colonoscopy Reason Comments ER F/U Refill Request Reason Comments bh consult Reason Comments 03/31/2023 colon lodi Reason Comments Orders Reason Comments Anxiety Care Teams (unrecognized sec tion and content) Entry Level Manager Relationship Specialty Start Date End Date Katerina Lewis MD [address] [place], [place] [id number] PCP - General Family Practice 07/04/19 Entry Level Manager Relationship Specialty Start Date End Date Katerina Lewis MD [address] [place], [place] [id number] PCP - General Family Practice 07/04/19 Entry Level Manager Relationship Specialty Start Date End Date Katerina Lewis MD [address] [place] [address] PCP - General Family Practice 07/04/19 Entry Level Manager Relationship Specialty Start Date End Date Katerina Lewis MD [address] [place], [place] [id number] PCP - General Family Practice 07/04/19 Entry Level Manager Relationship Specialty Start Date End Date Katerina Lewis MD [address] [place], [place] [id number] PCP - General Family Medicine 07/04/19 Entry Level Manager Relationship Specialty Start Date End Date Katerina Lewis MD [address] [place] [address] PCP - General Family Medicine 07/04/19 Entry Level Manager Relationship Specialty Start Date End Date Katerina Lewis MD [address] [place] [address] PCP - General Family Medicine 07/04/19 Entry Level Manager Relationship Specialty Start Date End Date Katerina Lewis MD [address] [place] [address] PCP - General Family Medicine 07/04/19 Entry Level Manager Relationship Specialty Start Date End Date Katerina Lewis MD [address] [place] [address] PCP - General Family Medicine 07/04/19 Entry Level Manager Relationship Specialty Start Date End Date Katerina Lewis MD [address] [place] [address] PCP - General Family Medicine 07/04/19 Entry Level Manager Relationship Specialty Start Date End Date Katerina Lewis MD [address] [place] [address] PCP - General Family Medicine 07/04/19 Entry Level Manager Relationship Specialty Start Date End Date Katerina Lewis MD [address] [place] [address] PCP - General Family Medicine 07/04/19 Entry Level Manager Relationship Specialty Start Date End Date Katerina Lewis MD [address] [place] [address] PCP - General Family Medicine 07/04/19 Entry Level Manager Relationship Specialty Start Date End Date Katerina Lewis MD [address] [place] [address] PCP - General Family Medicine 07/04/19 Entry Level Manager Relationship Specialty Start Date End Date Katerina Lewis MD [address] [place] [address] PCP - General Family Medicine 07/04/19 Entry Level Manager Relationship Specialty Start Date End Date Katerina Lewis MD [address] [place] [address] PCP - General Family Medicine 07/04/19 Entry Level Manager Relationship Specialty Start Date End Date Katerina Lewis MD [address] [place] [address] PCP - General Family Medicine 07/04/19 Entry Level Manager Relationship Specialty Start Date End Date Katerina Lewis MD [address] [place] [address] PCP - General Family Medicine 07/04/19 Entry Level Manager Relationship Specialty Start Date End Date Katerina Lewis MD [address] [place] [address] PCP - General Family Medicine 07/04/19 Entry Level Manager Relationship Specialty Start Date End Date Katerina Lewis MD [address] [place] [address] PCP - General Family Medicine 07/04/19 Entry Level Manager Relationship Specialty Start Date End Date Katerina Lewis MD [address] [place] [address] PCP - General Family Medicine 07/04/19 Entry Level Manager Relationship Specialty Start Date End Date Katerina Lewis MD [address] [place] [address] PCP - General Family Medicine 07/04/19 Entry Level Manager Relationship Specialty Start Date End Date Katerina Lewis MD [address] [place] [address] PCP - General Family [facility] 07/04/19 Entry Level Manager Relationship Specialty Start Date End Date Katerina Lewis MD [address] [place] [address] PCP - [facility] 07/04/19 Entry Level Manager Relationship Specialty Start Date End Date Katerina Lewis MD [address] [place] [address] PCP - [facility] 07/04/19 Entry Level Manager Relationship Specialty Start Date End Date Katerina Lewis MD [address] [place] [address] PCP - [facility] 07/04/19 Entry Level Manager Relationship Specialty Start Date End Date Katerina Lewis MD [address] [place] [address] PCP - General [facility] 07/04/19 Entry Level Manager Relationship Specialty Start Date End Date Katerina Lewis MD [address] [place] [address] PCP - General Family Medicine 07/04/19 FOR RECORDS PERTAINING TO PATIENTS WHO ARE OR HAVE BEEN ENROLLED IN A CHEMICAL DEPENDENCY/SUBSTANCEABUSE PROGRAM, SOME INFORMATION MAY BE OMITTED. This clinical summary was aggregated from multiple sources. Caution should be exercised in using it in the provision of clinical care. This summary normalizes information from multiple sources, and as a consequence, information in this document may materially change the coding, format and clinical context of patient data. In addition, data may be omitted in some cases. CLINICAL DECISIONS SHOULD BE BASED ON THE PRIMARY CLINICAL RECORDS. [facility] [facility]. provides no warranty or guarantee of the accuracy or completeness of information in this document.
== END | disposition home or self-care (01) ==
LOC: CT 17:52
PROVIDERS: PCP Family Medicine; Referring Provider Orthopaedic Surgery; Visit Provider Orthopaedic Surgery
DX: M17.11 Unilateral primary osteoarthritis, right knee (principal)
CPT/HCPCS: 73700

== ENCOUNTER 2023-10-18 05:30 | Day surgery (SDC) | payer MEDICAID, SELFPAY ==
[2023-10-06 11:20] LABS: Absolute Lymphocyte Count 1.55 X10^3/uL (0.83-4.51); Absolute Neutrophil Count 6.4 X10^3/uL (2.0-7.7); Basophil# 0.04 X10^3/uL; Basophil% 0.5 % (0-1); Eosinophils% 1.1 % (0-5); Hematocrit 40.9 % (40-54); Hemoglobin 13.3 g/dL (13.0-16.5); Lymphocyte # 1.55 X10^3/ul (0.83-4.51); Lymphocyte % 17.8 % (19-41); Mean Corp Hgb Conc 32.5 g/dL (32-36); Mean Corpuscular Hgb 28.5 pg (27.0-32.0); Mean Corpuscular Volume 87.8 fL (80-94); Mean Platelet Vol. 9.2 fl (6.2-12.0); Monocyte# 0.62 X10^3/uL; Monocyte% 7.1 % (0-10); NRBC Flagged by Analyzer 0 % (0-5); Neutrophil # 6.35 X10^3/uL (2.7-7.7); Neutrophil % 72.9 % (47-70); Platelet Count 314 K/mm3 (150-450); RBC Distribution Width CV 11.9 % (11.6-14.6); RBC Distribution Width SD 38.2 fl (35.1-43.9); Red Blood Count 4.66 M/mm3 (4.6-6.2); White Blood Count 8.7 K/mm3 (4.4-11.0)
[2023-10-06 11:36] LABS: Magnesium 2.2 mg/dL (1.6-2.6)
[2023-10-06 11:38] LABS: Partial Thromboplast Time 30.4 Seconds (24.1-36.2); Prothrombin Time (Protime)PT. 13.3 SECONDS (11.7-14.9)
[2023-10-06 11:46] LABS: Anion Gap 3 (5-15); BUN 22 mg/dL (7-18); BUN/Creat Ratio 20.4 RATIO (10-20); Chloride 109 mmol/L (98-107); Creatinine, Serum 1.08 mg/dL (0.70-1.30); EST Glomerular Filtration Rate 76 mL/min (>60); Est Glom Filt Rate - Afr Amer 92 mL/min (>60); Glucose 93 mg/dL (74-106); Potassium 4.5 mmol/L (3.5-5.1); Sodium Level 142 mmol/L (136-145)
[2023-10-06 11:49] LABS: Hemoglobin A1c 5.3 % (3.8-5.6)
[2023-10-07 05:08] LABS: Fructosamine 230 umol/L (0-285)
[2023-10-18] VITALS (12 sets, daily range): BP systolic 104–137; BP diastolic 57–80; PULSE 63–78; RESP 12–18; TEMP 36.3–36.8; O2SAT 96–100; BMI 30.8
--- OUTSIDE RECORDS SUMMARY | 2023-10-18 05:38 | XMS RPT_ITS | CCD ---
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 Resources Behavioral Health Resources: Psychiatry med management [facility] encounter type: [employer] Message Attempts to Outreach: 1 attempt Patient Discharged?: No Patient reported that caregiver was able to meet their needs today?: N/A Phone call placed today that went to [employer]. Left my contact information and brief nature of call. IRVIN Mendez-S July 04, 2023 documented in this encounter [facility] 07-01-2023 Note HNO ID: [id number] Author: Katerina Lewis MD Service: ? Author Type: Physician Type: Progress Notes Filed: 07/03/2023 7:28 AM Note Text: Chief Complaint Patient presents with: ER F/U Refill Request HPI Nazario Suazo II is a 53 year old male who presents here today for Above Complaints.. Patient evaluated at [facility] ED on 06/09 with worsening symptoms for [...] episode of a fib while living in [place]. s/p cardioversion Bipolar disorder (HCC) Eczema [facility] [place] History of alcohol abuse History of COVID-19 [...] F41.1 (primary diag (more content not included)... [facility] 07-01-2023 History of Presen t illness Narrative Chief Complaint Patient presents with: ER F/U Refill Request HPI Nazario Suazo II is a 53 year old male who presents here today for Above Complaints.. Patient evaluated at [facility] ED on 06/09 with worsening symptoms for [...] episode of a fib while living in [place] s/p cardioversion Bipolar disorder (HCC) Eczema [facility] [place] History of alcohol abuse History of COVID-19 [...] Katerina Lewis MD documented in this encounter [facility] 06-21-2023 Miscellaneous Notes Patient's , Rosa was calling to re-schedule colonoscopy. would like a call back at [phone]. Jewels Hamilton LPN documented in this encounter [facility] 05-24-2023 Note HNO ID: [id number] Author: Katerina Lewis MD Service: ? Author [...] episode of a fib while living in [place] s/p cardioversion Bipolar disorder (HCC) Eczema [facility] [place] History of alcohol abuse History of COVID-19 [...] once daily. cholec (more content not included)... [facility] 05-24-2023 History of Presen t illness Narrative [...] worse over the last 4-5 weeks. 05/24/2023 193 Last Filed Value PHQ-9 Little interest or [...] episode of a fib while living in [place]. s/p cardioversion Bipolar disorder (HCC) Eczema [facility] [place] History of alcohol abuse History of COVID-19 [...] needed. (Patient not taking: Reported on 05/24/2023) bhpoafe-iqrj-gtwng-oreg-capryl 100 mg-150 mg- 50 mg-150 mg cap [...] which included preparing to see the patient, icba-nk-lpzt patient care, completing clinical documentation, obtaining and/or reviewing separately obtained history, performing a medically appropriate examination, counseling and educating the patient/family/caregiver, ordering medications, tests, or procedures, and communicating results to the patient/family/caregiver. Katerina Lewis MD documented in this encounter [facility] 03-09-2023 Miscellaneous Notes Patient notified of results. Nunu Fuchs LPN Message left for patient to return call for results or review results via [employer] message. ----- Message from Katerina Lewis MD sent at 03/04/2023 8:03 AM EDT ----- Normal labs. No change to regimen. documented in this encounter [facility] 03-04-2023 Note HNO ID: [id number] Author: IRVIN Mendez Service: ? Author Type: Therapist Type: Progress Notes Filed: 03/04/2023 8:22 AM Note Text: Behavioral Health Social Work Progress Note Patient identified for [facility] from: PCP Reason for referral: [facility] Behavioral Health Resources: Psychiatry med management [facility] encounter type: [employer] Message Attempts to Outreach: 3 attempts Referral made: Psychiatry - External, Psychiatry - Internal Psychiatry-Internal referral type: Medication Management Psychiatry-External referral type: Medication Management Reason for external referral: Wait times at [facility] too long, Patient choice Final Disposition: Resources given Patient Discharged?: Yes therapist sent patient [employer] follow up message offering assistance with linkage to behavioral health services. JEFF Mendez March 04, 2023 [facility] 02-25-2023 Miscellaneous Notes Behavioral Health Social Work Progress Note Patient identified for [facility] from: PCP Reason for referral: Resources Behavioral Health Resources: Psychiatry med management [facility] encounter type: Telephone Encounter Attempts to Outreach: 1 attempt Referral made: Psychiatry - External Psychiatry-External referral type: Medication Management Patient Discharged?: No Phone call placed today that went to [employer]. Left my contact information and brief nature of call. Initial outreach also completed via [employer] sending list of in network providers with insurance. JEFF Mendez February 25, 2023 documented in this encounter [facility] 02-24-2023 Note HNO ID: [id number] Author: Katerina Lewis MD Service: ? Author [...] Filed Value Troubl (more content not included)... [facility] 02-24-2023 History of Presen t illness Narrative [...] episode of a fib while living in [place]. s/p cardioversion Bipolar disorder (HCC) Eczema [facility] History of alcohol abuse History of COVID-19 [...] on File Prior to Visit Medication Sig kbpqpnf-ieni-flzwg-oreg-capryl 100 mg-150 mg- 50 mg-150 mg cap [...] Katerina Lewis MD documented in this encounter [facility] 02-15-2023 Miscellaneous Notes Patient returned [...] Dinesh Nagel APRN.LYNNETTE documented in this encounter [facility] 02-09-2023 Note HNO ID: [id number] Author: Trevon Iqbal PA-C Service: ? Author Type: Physician Service Officer Type: Progress Notes Filed: 02/16/2023 3:10 PM Note Text: HISTORY AND PHYSICAL Nazario Jara Lakeisha II 1970 REFERRING PHYSICIAN: Self CHIEF COMPLAINT: [...] episode of a fib while living in [place] s/p cardioversion Bipolar disorder (HCC) Eczema [facility] [place] History of alcohol abuse History of COVID-19 [...] Hernia repair Current Outpatient Medications Medication Sig dugidng-ftvt-sngwk-oreg-capryl 100 mg-150 mg- 50 mg-150 mg cap [...] entered by the nurse and reviewed by de Nursing Notes: Jewels Hamilton LPN 02/09/2023 1:21 [...] Kidney/Bladder: The benita (more content not included)... [facility] 02-09-2023 Miscellaneous Notes 03/31/2023 colon lodi documented in this encounter [facility] 02-04-2023 Note HNO ID: [id number] Author: Jada Hercules Service: ? Author Type: ? Type: Progress Notes Filed: 02/04/2023 11:41 AM Note Text: Sleep Study Check-In Documentation Date: February 04, 2023 Name: Nazario Suazo II Comments: HST was returned in working order without all sleep questionnaires Patient was not reached. A voicemail was left with patient to call back to complete questionnaires. Jada Hercules [facility] 02-04-2023 History of Presen t illness Narrative Sleep Study Check-In Documentation Date: February 04, 2023 Name: Nazario Suazo II Comments: HST was returned in working order without all sleep questionnaires Patient was not reached. A voicemail was left with patient to call back to complete questionnaires. Jada Hercules Nomad: [id number] Date: 02/01/23 [employer] Mailout Tracking Number: [id number] [employer] Return Tracking Number: [id number] January 12, 2023 Standing PSG Orders signed in the last 90 days None Future PSG Orders signed in the last 90 days Ordered Auth. provider HOME SLEEP APNEA TEST (HSAT) [[id number]] 01/07/23 Dinesh Nagel APRN.CERAMICS ARTIST Assoc. diagnoses: Apnea spell [R06.81] Q: Indications: [...] episode of a fib while living in [place] s/p cardioversion Bipolar disorder (HCC) Eczema [facility] [place] History of alcohol abuse History of COVID-19 [...] Sleep Apnea Test (HSAT) from Dr. Dinesh Nagel,, a B. [facility] Staff. Visit prep complete. Comments :No The sleep study is scheduled for 02/03. Insurance: Payor: [facility] MEDICAID / Plan: [facility] MEDICAID / Product Type: Medicaid / Payer/Plan Subscr Sex Relation Sub. Ins. ID Effective Group Num 1. [facility]* NAZARIO SUAZO II 1970 Male Self [id number] 10/06/22 [facility] [address] Collette Flores documented in this encounter [facility] 02-01-2023 Note HNO ID: [id number] Author: Dyan KEMP Service: ? Author Type: ? Type: Progress Notes Filed: 02/04/2023 11:41 AM Note Text: Nomad: [id number] Date: 02/01/23 [employer] Mailout Tracking Number: [id number] [employer] Return Tracking Number: [id number] [facility] 01-12-2023 Note HNO ID: [id number] Author: Lam Ralph III, PhD Service: ? Author Type: Physician Type: Progress Notes Filed: 02/04/2023 11:41 AM Note Text: January 12, 2023 Standing PSG Orders signed in the last 90 days None Future PSG Orders signed in the last 90 days Ordered Auth. provider HOME SLEEP APNEA TEST (HSAT) [[id number]] 01/07/23 Dinesh Nagel APRN.CERAMICS ARTIST Assoc. diagnoses: Apnea spell [R06.81] Q: Indications: [...] episode of a fib while living in [place] s/p cardioversion Bipolar disorder (HCC) Eczema [facility] [place] History of alcohol abuse History of COVID-19 [...] Lam Ralph III, PhD 2:08 PM, 01/12/2023 [facility] 01-12-2023 Note HNO ID: [id number] Author: Collette Flores Service: ? Author Type: ? Type: Progress Notes Filed: 02/04/2023 11:41 AM Note Text: January 12, 2023 An order has been received for Home Sleep Apnea Test (HSAT) from Dr. Dinesh Nagel,, kevin B. [facility] Staff. Visit prep complete. Comments :No The sleep study is scheduled for 02/03. Insurance: Payor: [facility] / Plan: [facility] / Product Type: Medicaid / Payer/Plan Subscr Sex Relation Sub. Ins. ID Effective Group Num 1. [facility]* NAZARIO SUAZO II 1970 Male Self [id number] 10/06/22 [facility] [address] Collette Flores [facility] 01-10-2023 Note HNO ID: [id number] Author: Louis Ley Service: ? Author Type: ? Type: Progress Notes Filed: 01/10/2023 2:08 PM Note Text: WSTR OPEN ACCESS QUESTIONNAIRE 1. Are you currently [...] Are you an Insulin Dependent Diabetic? No [facility] 01-07-2023 Note HNO ID: [id number] Author: Dinesh Nagel APRN.CERAMICS ARTIST Service: ? Author Type: Nurse Practitioner Type: [...] episode of a fib while living in [place] s/p cardioversion Bipolar disorder (HCC) Eczema [facility] [place] History of alcohol abuse History of COVID-19 History of marijuana use History of tobacco use Hyperlipidemia Hypertension Primary osteoarthritis of left knee PTSD (post-traumatic stress disorder) RLS (restless legs syndrome) Syncope 03/2019 ALLERGIES Seroquel [Quetiapine] and Tramadol MEDICATIONS Current Outpatient Medications Medication Sig hkmlcmk-jamq-bakkb-oreg-capryl 100 mg-150 mg- 50 mg-150 mg cap [...] ICD10: Z12.11 - COLONOSCOPY SCREENING Dinesh Nagel APRN.LYNNETTE Prescription instructions reviewed with [...] which included preparing to see the patient, gope-ly-xvgl patient care, completing clinical documentation, obtaining and/or reviewing separately obtained history, performing a medically appropriate examination, counseling and educating the patient/family/caregiver, and ordering medications, tests, or procedures. [facility] 01-07-2023 Instructions Dinesh Nagel APRN.LYNNETTE - 01/07/2023 7:26 AM EDT Images from [...] If you do not have a responsible package car driver (family member or friend) with you to take you home, your exam cannot be done with sedation and will be cancelled. Please bring a list of all of your current medications, including any Lnsv-cmi-Bnftwco medications with you. Medications If you take [...] exam. 2 08/2019 documented in this encounter [facility] 01-07-2023 History of Presen t [...] episode of a fib while living in [place] s/p cardioversion Bipolar disorder (HCC) Eczema [facility] [place] History of alcohol abuse History of COVID-19 History of marijuana use History of tobacco use Hyperlipidemia Hypertension Primary osteoarthritis of left knee PTSD (post-traumatic stress disorder) RLS (restless legs syndrome) Syncope 03/2019 ALLERGIES Seroquel [Quetiapine] and Tramadol MEDICATIONS Current Outpatient Medications Medication Sig qzhpnud-hqnj-rnfnn-oreg-capryl 100 mg-150 mg- 50 mg-150 mg cap [...] ICD10: Z12.11 - COLONOSCOPY SCREENING Dinesh Nagel APRN.LYNNETTE Prescription instructions reviewed with [...] which included preparing to see the patient, iegf-ni-enyf patient care, completing clinical documentation, obtaining and/or reviewing separately obtained history, performing a medically appropriate examination, counseling and educating the patient/family/caregiver, and ordering medications, tests, or procedures. documented in this encounter [facility] 12-29-2022 Note HNO ID: [id number] Author: Katerina Lewis MD Service: ? Author [...] episode of a fib while living in [place]. s/p cardioversion Bipolar disorder (HCC) Eczema [facility] [place] History of alcohol abuse History of COVID-19 [...] on File Prior to Visit Medication Sig vexohbn-rcrn-oljum-oreg-capryl 100 mg-150 mg- 50 mg-150 mg cap [...] SCREEN due on more content not included)... [facility] 12-29-2022 History of Presen t illness Narrative [...] episode of a fib while living in [place] s/p cardioversion Bipolar disorder (HCC) Eczema [facility] [place] History of alcohol abuse History of COVID-19 [...] on File Prior to Visit Medication Sig ytvmdpa-uiee-tzbgl-oreg-capryl 100 mg-150 mg- 50 mg-150 mg cap [...] Katerina Lewis MD documented in this encounter [facility] 12-23-2022 Miscellaneous Notes Images from the original note were not included. December 23, 2022 Patient Contact Number: [phone] (Home Phone) Patient last seen within the last year: Yes Date of last office visit: 10/20/2022 Echo on 12/22/2022 Reason For Call: Other Issue: Employer note needed Physician: Brian Meléndez MD Prepared a letter and faxed to : [facility] Attn: Ms. Benites Faxed and received confirmation. Therese Steel December 23, 2022 1:08 PM documented in this encounter [facility] 10-20-2022 Note HNO ID: [id number] Author: Brian Meléndez MD Service: ? 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 s/p cardioversion Bipolar disorder (HCC) Eczema [facility] [place] History of alcohol abuse History of COVID-19 [...] in Sputum, Shor (more content not included)... [facility] 10-20-2022 History of Presen t illness Narrative Images from the original note were not included. 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 s/p cardioversion Bipolar disorder (HCC) Eczema [facility] [place] History of alcohol abuse History of COVID-19 [...] AGE UNDETERMINED ABNORMAL ECG Confirmed by JIM DEXTER, BILL ([id number]) on 10/20/2022 9:42:55 AM IMPRESSION: Mr. Suazo [...] any AV shahzad blocking agent. Furthermore, his DDMBH7Thwt score is 1 for hypertension. At this [...] INFORMATION: Brian Meléndez M.D, PhD, FRCPC, FACC Notching Press Operator at [facility] Associate Produce Runner Internal Medicine Residency Produce Runnercisco engineer Education Internal Medicine Residency Produce Runner of Consult Service Produce Runner for Elective Students/Residents at [facility] Department of Cardiovascular Medicine [facility] [place] [facility] Desk [place] [address] Office Office Appointments: [phone] This medical note has been dictated using voice recognition system. Grammatical and/or syntax errors may be present and therefore the note should be interpreted accordingly. Should you have any questions and/or concerns, please do not hesitate to contact my office. documented in this encounter [facility] 09-28-2022 History of Presen t illness Narrative Chief Complaint Patient presents with: Pain: Left knee need some temporary pain relief since cant get into pain management until 10/06/22 [facility] Nazario Suazo II is a 52 year old male who presents here today for Above Complaints. Patient here today for chronic left knee pain 2/2 severe arthrosis. Had appointment with Dr. Gutiérrez on 09/15 with xray showing the severe arthritis. Discussed with him knee replacement option which patient is agreeable to, but will need clearance from his road tester first. Given rx for tramadol which he [...] episode of a fib while living in [place] s/p cardioversion Bipolar disorder (HCC) Eczema [facility] [place] History of alcohol abuse History of COVID-19 [...] Katerina Lewis MD documented in this encounter [facility] 09-27-2022 Miscellaneous Notes Reviewed. Continue [...] seen him yet. Reports he is seeing road tester on Tue for surgery clearance. Patient reports he has tried everything OTC for the left knee pain. Please advise patient. VERO Perry. documented in this encounter [facility] 09-27-2022 Miscellaneous Notes Patient telephoned. [...] final results show something different. Dinesh Nagel APRN.CNP documented in this encounter [facility] 09-20-2022 History of Presen t illness Narrative RADIOLOGY SERVICE PROGRESS NOTE DATE OF SERVICE: September 20, 2022 TIME OF SERVICE: 07:30AM EVENT: EXAM/PROCEDURE NOT COMPLETED - Patient was not instructed to refrain from Caffeine. Patient had coffee two hours prior to arrival and is not a treadmill stress candidate. ADDITIONAL EVENT DETAILS: N/A SIGNATURE: RT Laya(Levy) PATIENT NAME: Nazario Suazo II DATE: September 20, 2022 TIME: 7:39 AM PAGER/CONTACT #: documented in this encounter [facility] 09-09-2022 Miscellaneous Notes VM left for pt to call PCP office for message below, or may access result through account. Jami Yoder RN Please call patient and let him know his TSH level is in normal range. Dinesh Nagel APRN.CNP documented in this encounter [facility] 09-08-2022 Miscellaneous Notes Patient notified [...] Tatiana Miller RN documented in this encounter [facility] 09-07-2022 History of Presen t [...] today for Above Complaints.. Patient evaluated at [facility] ED on 09/07 for complaint of palpitations [...] episode of a fib while living [place] s/p cardioversion Bipolar disorder (HCC) Eczema [facility] [place] History of alcohol abuse History of COVID-19 [...] Katerina Lewis MD documented in this encounter [facility] 08-25-2022 History of Presen t illness Narrative EVENT MONITOR DISPOSABLE PATCH INSTRUCTIONS Patient Name: Nazario Jara [facility] Clinic Number: [id number] Skin prepped and cleansed with alcohol Patch secured to prepped area Monitor Activated Serial #: [id number] Patient Instructed: Prescribed order timeframe Bathing guidelines Usage of event button and diary documentation Return of monitor at the end of prescribed order Call with problems [phone] or [phone]. [phone] Patient expresses a good understanding of instructions Nunu Fuchs LPN 08/25/2022 Patient presents with: ED Follow-up: 08/23/22 for heart palpitations SUBJECTIVE: This is a 52 year old that is here today for Above Complaints. HOSPITAL/ER FOLLOW UP: Reason for visit: chest pain and palpitations Which facility: [facility] Date of visit: 08/23/2022 Diagnosis: chest pain [...] episode of a fib while living in [place] s/p cardioversion Bipolar disorder (HCC) Eczema [facility] [place] History of alcohol abuse History of COVID-19 [...] to ER with red flag symptoms Dinesh Podlogar, ETHYL BLENDER.CERAMICS ARTIST Prescription instructions reviewed with patient as applicable. [...] which included preparing to see the patient, tejz-jn-dwdc patient care, completing clinical documentation, obtaining and/or reviewing separately obtained history, performing a medically appropriate examination, counseling and educating the patient/family/caregiver, and ordering medications, tests, or procedures. documented in this encounter [facility] 08-03-2022 History of Presen t illness Narrative This note was created using [employer]. Subjective Nazario Suazo II is a 52 year old male. HPI Patient presents with cough, shortness of breath, congestion over the past 2 or 3 days. His dad was sick with a respiratory infection at [facility]. He denies a fever. He has had [...] episode of a fib while living in [place]. s/p cardioversion Bipolar disorder (HCC) Eczema [facility] History of alcohol abuse History of COVID-19 [...] Twyla Benavidez PA-C documented in this encounter [facility] 06-29-2022 Miscellaneous Notes Reviewed. Message left for patient to return call to schedule ER follow up. documented in this encounter [facility] 03-25-2022 Miscellaneous Notes Patient is calling to cancel procedure. documented in this encounter [facility] 03-23-2022 Miscellaneous Notes Patient telephoned. States he is going to reschedule his colonoscopy for the end of April. Pre Op Clearance appointment scheduled for 04/20/[address] Lewis. Nunu Fuchs LPN Phoned patient to advise he needs to schedule an OV for Pre-Op clearance. Message left to return call to schedule. documented in this encounter [facility] 02-23-2022 Miscellaneous Notes Reviewed. Patient calls and reports that letter is no longer needed. Patient to reschedule colonoscopy. Tatiana Miller RN Pt calls to report he has jury duty 02/25 which is prep day for the colonoscopy he is having 02/26/22. Pt was advised by to have a letter written by pcp stating pt will be doing prep on 02/25 for a procedure on 02/26/22. Fax letter to: [phone] Attn: Debi Jackson LPN documented in this encounter [facility] 02-23-2022 Miscellaneous Notes Patient called [...] Amna Krueger RN documented in this encounter [facility] 02-23-2022 Miscellaneous Notes Patient cancelled and rescheduled from 02/26 to 03/26 for colon with [facility] Please call patient to cancel and reschedule colonoscopy for 02/26. documented in this encounter [facility] 02-17-2022 Miscellaneous Notes Spoke with [...] Samantha Peck RN documented in this encounter [facility] 02-12-2022 History of Presen t [...] knee and has been following up with [facility] Dr. Thorne. Told he was bone on bone and injection 6 months ago did not help. Scheduled for colonoscopy on 02/26 for colon cancer screening. Requesting tetanus booster today. Refusing shingrix and COVID vaccine. Past medical history, appointments, medications, allergies reviewed. Previous Medical History PAST MEDICAL HISTORY Diagnosis Date Atrial fibrillation (HCC) single episode of a fib while living in [place]. s/p cardioversion Bipolar disorder (HCC) Eczema [facility] [place] History of alcohol abuse History of marijuana [...] Abs Lymph 1.00 - 4.00 k/uL 1.73 Bates% % 9.4 Abs Bates <0.87 k/uL 0.73 Eosin% % 1.0 Abs [...] Katerina Lewis MD documented in this encounter [facility] Diagnosis Fatigue, unspecified type- Primary documented in this encounter [facility] note* Diagnosis SOB (shortness of breath)- Primary Shortness of breath Viral URI with cough Acute upper respiratory infections of unspecified site documented in this encounter [facility] note* Diagnosis Palpitations- Primary Chest pain, unspecified type Paroxysmal atrial fibrillation (HCC) Atrial fibrillation documented in this encounter [facility] note* Diagnosis Palpitations- Primary Primary hypertension Unspecified essential hypertension Chronic atrial fibrillation (HCC) Atrial fibrillation RLS (restless legs syndrome) Restless legs syndrome (RLS) Bipolar affective disorder, current episode mixed, current episode severity unspecified (HCC) PTSD (post-traumatic stress disorder) Posttraumatic stress disorder History of alcohol abuse Nondependent alcohol abuse, in remission [facility] Diagnosis Palpitations- Primary documented in this encounter [facility] note* Diagnosis Chest pain, unspecified type [facility]* Diagnosis Primary osteoarthritis of left knee- Primary Primary localized osteoarthrosis, lower leg Chronic pain of left knee Pain in joint, lower leg documented in this encounter [facility] note* Diagnosis Palpitations documented in this encounter [facility] note* Diagnosis RLQ abdominal pain- Primary Abdominal pain, right lower quadrant Scrotum pain Unspecified disorder of male genital organs [facility]* Diagnosis Apnea spell- Primary Apnea Special screening for malignant neoplasms, colon documented in this encounter [facility] note* Diagnosis Central sleep apnea- Primary Unspecified sleep apnea HIMANSHU (obstructive sleep apnea) Obstructive sleep apnea (adult) (pediatric) documented in this encounter [facility] note* Diagnosis Bipolar affective disorder, currently depressed, moderate (HCC)- Primary Bipolar I disorder, most recent episode (or current) depressed, moderate KERI (generalized anxiety disorder) Generalized anxiety disorder Difficulty concentrating Attention or concentration deficit RLS (restless legs syndrome) Restless legs syndrome (RLS) documented in this encounter [facility] note* Diagnosis Bipolar disorder, current episode mixed, moderate (HCC)- Primary Bipolar I disorder, most recent episode (or current) mixed, moderate PTSD (post-traumatic stress disorder) Posttraumatic stress disorder KERI (generalized anxiety disorder) Generalized anxiety disorder Weight loss Loss of weight documented in this encounter [facility] note* Diagnosis KERI (generalized anxiety disorder)- Primary Generalized anxiety disorder Panic disorder Panic disorder without agoraphobia Bipolar disorder, current episode mixed, moderate (HCC) Bipolar I disorder, most recent episode (or current) mixed, moderate PTSD (post-traumatic stress disorder) Posttraumatic stress disorder documented in this encounter [facility] note* Diagnosis Special screening for malignant neoplasms, colon- Primary documented in this encounter [facility] note* Diagnosis Generalized anxiety disorder- Primary documented in this encounter [facility] for referral (narrative)* Diagnostic Procedure Only (Routine) - Pending Review Specialty Diagnoses / Procedures [facility] Referred To Contact MOLECULAR & FUNCTIONAL IMAGING Diagnoses Chest pain, unspecified type Procedures NM CARDIAC PERF STRESS/PHARM MYOCARDIAL SPECT MULTIPLE STUDIES Dinesh Nagel APRN.CNP [address] [place] [address] [facility] [address] [place] [address] Referral ID Status Reason Start Date Expiration Date Visits Requested Visits Authorized [id number] Pending Review Auto-Generat ed Referral 09/24/[address] [facility] for referral (narrative)* Outpatient Procedure (Routine) - Authorized Specialty Diagnoses / Procedures [facility] To [facility] Diagnoses Palpitations Procedures ECG COMPLETE ECG ROUTINE ECG W/LEAST 12 LDS W/I&R Brian Meléndez MD [address] [place] [address] [facility] [address] [address] Referral ID Status Reason Start Date Expiration Date Visits Requested Visits Authorized [id number] Authorized Auto-Generat ed Referral 09/14/2022 09/14/[address] [facility] for referral (narrative)* Diagnostic Procedure Only (Routine) - Closed Specialty Diagnoses / Procedures Referred By Contac t Referred To Contact MOLECULAR & FUNCTIONAL IMAGING Diagnoses Chest pain, unspecified type Procedures NM CARDIAC PERF STRESS/PHARM MYOCARDIAL SPECT MULTIPLE STUDIES Dinesh Nagel APRN.CNP [address] [place] [address] [facility] [address] [id number] Referral ID Status Reason Start Date Expiration Date V isits Requested Visits Authorized [id number] Closed Auto-Generate d Referral 08/25/2022 09/24/2023 [address] [facility] for referral (narrative)* Outpatient Procedure (Routine) - Pending Review Specialty Diagnoses / Procedures Referred By Radha polanco Referred To Contact [facility] [place] Diagnoses Palpitations Procedures ECHO ECHO TTHRC R-T 2D W/WOM-MODE COMPL SPEC&COLR D Brian Meléndez MD [address] [place], [place] [id number] [facility] [place] [address] Referral ID Status Reason Start Date Expiration Date Visits Requested Visits Authorized [id number] Pending Review Auto-Generat ed Referral 10/20/2022 10/20/2023 [address] [facility] for referral (narrative)* Diagnostic Procedure Only (Routine) - Pending Review Specialty Diagnoses / Procedures Referred By Radha polanco Referred To Contact [facility] Diagnoses Apnea spell Procedures HOME SLEEP APNEA TEST (HSAT) SLEEP STD AIRFLOW HRT RATE&O2 SAT EFFORT UNATT Dinesh Nagel APRN.CERAMICS ARTIST [address] [place] [address] [address] Referral ID Status Reason Start Date Expiration Date Visits Requested Visits Authorized [id number] Pending Review Auto-Generat ed Referral 01/07/2023 01/07/2024 1 1 * Outpatient Procedure (Routine) - Pending Review Specialty Diagnoses / Procedures Referred By Contac t Referred To Contact [facility] Diagnoses Special screening for malignant neoplasms, colon Procedures COLONOSCOPY SCREENING COLONOSCOPY FLX DX W/COLLJ SPEC WHEN PFRMD Dinesh Nagel APRN.CNP [address] [place] [address] [facility] [address] [address] Referral ID Status Reason Start Date Expiration Date Visits Requested Visits Authorized [id number] Pending Review Auto-Generat ed Referral 01/07/2023 01/08/2024 1 1 [facility] Outpatient Procedure (Routine) - Authorized Specialty Diagnoses / Procedures Referred By Contac t Referred To Contact [facility] Diagnoses Special screening for malignant neoplasms, colon Procedures COLONOSCOPY SCREENING COLONOSCOPY FLX DX W/COLLJ SPEC WHEN PFTrevon Trivedi PA-C [address] [place] [address] [address] Referral ID Status Reason Start Date Expiration Date Visits Requested Visits Authorized [id number] Authorized Auto-Generat ed Referral 02/09/2023 02/10/2024 1 1 [facility] Summary Purpose Family History No Family History Records FoundNo Family History Records FoundNo Family History Records FoundNo Family History Records FoundNo Family History Records FoundNo Family History Records Found Advance Directives No Advanced Directives Records FoundDocuments on File Type Date Recorded 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 Advance Directive(s) 03/22/2019 12:40 AM Reason for Referral Specialty Diagnoses / Procedures Referred By Contac t Referred To Contact Cardiology Diagnoses Palpitations Procedures CONSULT TO CARDIOLOGY OFFICE/OUTPATIENT [facility] MDM 60-74 MINUTES Katerina Lewis MD [address] [place] [address] Referral ID Status Reason Start Date Expiration Date Visits Requested Visits Authorized [id number] Authorized PCP Requested Referral 09/07/2022 09/07/2023 1 1 Specialty Diagnoses / Procedures Referred By Contac t Referred To Contact Diagnoses Central sleep apnea HIMANSHU (obstructive sleep apnea) Procedures CONSULT TO SLEEP MEDICINE - ADULT OFFICE/OUTPATIENT [facility] MDM 60-74 MINUTES FaustologDinesh arevalo APRN.CNP [address] [place] [address] Referral ID Status Reason Start Date Expiration Date Visits Requested Visits Authorized [id number] Authorized PCP Requested Referral 02/15/2023 02/15/2024 1 1 Specialty Diagnoses / Procedures Referred By Contac t Referred To Contact Diagnoses RLS (restless legs syndrome) Katerina Lewis MD [address] [place] [address] Referral ID Status Reason Start Date Expiration Date Visits Re quested Visits Authorized [id number] Closed 1 1 Additional Source Comments (unrecognized sect ion and content) No Status Records FoundNo Status Records FoundNo Status Records FoundNo Status Records FoundNo Status Records FoundNo Status Records Found INFORMATION SOURCE (unrecogn ized section and content) DATE CREATED AUTHOR AUTHOR'S ORGANIZ ATION 03/28/2020 [facility] ([place]) DATE CREATED AUTHOR AUTHOR'S ORGANIZ ATION 02/07/2021 [facility] DATE CREATED AUTHOR AUTHOR'S ORGANIZ ATION 02/08/2021 [facility] DATE CREATED AUTHOR AUTHOR'S ORGANIZ ATION 07/23/2023 [facility] DATE CREATED AUTHOR AUTHOR'S ORGANIZ ATION 10/07/2023 [facility] Source Comments (unrecognize d section and content) In the event this informatio n is protected by the Federal Confidentiality of Alcohol and Drug Abuse Patient Records regulations: The Federal rules restrict any use of the information to criminally investigate or prosecute any alcohol or drug abuse patient.[facility] the event this information is protected by the Federal Confidentiality of Alcohol and Drug Abuse Patient Records regulations: The Federal rules restrict any use of the information to criminally investigate or prosecute any alcohol or drug abuse patient.[facility] the event this information is protected by the Federal Confidentiality of Alcohol and Drug Abuse Patient Records regulations: The Federal rules restrict any use of the information to criminally investigate or prosecute any alcohol or drug abuse patient.[facility] the event this information is protected by the Federal Confidentiality of Alcohol and Drug Abuse Patient Records regulations: The Federal rules restrict any use of the information to criminally investigate or prosecute any alcohol or drug abuse patient.[facility] the event this information is protected by the Federal Confidentiality of Alcohol and Drug Abuse Patient Records regulations: The Federal rules restrict any use of the information to criminally investigate or prosecute any alcohol or drug abuse patient.[facility] the event this information is protected by the Federal Confidentiality of Alcohol and Drug Abuse Patient Records regulations: The Federal rules restrict any use of the information to criminally investigate or prosecute any alcohol or drug abuse patient.[facility] the event this information is protected by the Federal Confidentiality of Alcohol and Drug Abuse Patient Records regulations: The Federal rules restrict any use of the information to criminally investigate or prosecute any alcohol or drug abuse patient.[facility] the event this information is protected by the Federal Confidentiality of Alcohol and Drug Abuse Patient Records regulations: The Federal rules restrict any use of the information to criminally investigate or prosecute any alcohol or drug abuse patient.[facility] the event this information is protected by the Federal Confidentiality of Alcohol and Drug Abuse Patient Records regulations: The Federal rules restrict any use of the information to criminally investigate or prosecute any alcohol or drug abuse patient.[facility] the event this information is protected by the Federal Confidentiality of Alcohol and Drug Abuse Patient Records regulations: The Federal rules restrict any use of the information to criminally investigate or prosecute any alcohol or drug abuse patient.[facility] the event this information is protected by the Federal Confidentiality of Alcohol and Drug Abuse Patient Records regulations: The Federal rules restrict any use of the information to criminally investigate or prosecute any alcohol or drug abuse patient.[facility] the event this information is protected by the Federal Confidentiality of Alcohol and Drug Abuse Patient Records regulations: The Federal rules restrict any use of the information to criminally investigate or prosecute any alcohol or drug abuse patient.[facility] the event this information is protected by the Federal Confidentiality of Alcohol and Drug Abuse Patient Records regulations: The Federal rules restrict any use of the information to criminally investigate or prosecute any alcohol or drug abuse patient.[facility] the event this information is protected by the Federal Confidentiality of Alcohol and Drug Abuse Patient Records regulations: The Federal rules restrict any use of the information to criminally investigate or prosecute any alcohol or drug abuse patient.[facility] the event this information is protected by the Federal Confidentiality of Alcohol and Drug Abuse Patient Records regulations: The Federal rules restrict any use of the information to criminally investigate or prosecute any alcohol or drug abuse patient.[facility] the event this information is protected by the Federal Confidentiality of Alcohol and Drug Abuse Patient Records regulations: The Federal rules restrict any use of the information to criminally investigate or prosecute any alcohol or drug abuse patient.[facility] Center[facility] the event this information is protected by the Federal Confidentiality of Alcohol and Drug Abuse Patient Records regulations: The Federal rules restrict any use of the information to criminally investigate or prosecute any alcohol or drug abuse patient.[facility] Center[facility] the event this information is protected by the Federal Confidentiality of Alcohol and Drug Abuse Patient Records regulations: The Federal rules restrict any use of the information to criminally investigate or prosecute any alcohol or drug abuse patient.[facility] Center[facility] the event this information is protected by the Federal Confidentiality of Alcohol and Drug Abuse Patient Records regulations: The Federal rules restrict any use of the information to criminally investigate or prosecute any alcohol or drug abuse patient.[facility] Center[facility] the event this information is protected by the Federal Confidentiality of Alcohol and Drug Abuse Patient Records regulations: The Federal rules restrict any use of the information to criminally investigate or prosecute any alcohol or drug abuse patient.[facility] Center[facility] the event this information is protected by the Federal Confidentiality of Alcohol and Drug Abuse Patient Records regulations: The Federal rules restrict any use of the information to criminally investigate or prosecute any alcohol or drug abuse patient.[facility] Center[facility] the event this information is protected by the Federal Confidentiality of Alcohol and Drug Abuse Patient Records regulations: The Federal rules restrict any use of the information to criminally investigate or prosecute any alcohol or drug abuse patient.[facility] Center[facility] the event this information is protected by the Federal Confidentiality of Alcohol and Drug Abuse Patient Records regulations: The Federal rules restrict any use of the information to criminally investigate or prosecute any alcohol or drug abuse patient.[facility] Center[facility] the event this information is protected by the Federal Confidentiality of Alcohol and Drug Abuse Patient Records regulations: The Federal rules restrict any use of the information to criminally investigate or prosecute any alcohol or drug abuse patient.[facility] CenterIn the event this information is protected by the Federal Confidentiality of Alcohol and Drug Abuse Patient Records regulations: The Federal rules restrict any use of the information to criminally investigate or prosecute any alcohol or drug abuse patient.[facility] CenterIn the event this information is protected by the Federal Confidentiality of Alcohol and Drug Abuse Patient Records regulations: The Federal rules restrict any use of the information to criminally investigate or prosecute any alcohol or drug abuse patient.[facility] Center[facility] the event this information is protected by the Federal Confidentiality of Alcohol and Drug Abuse Patient Records regulations: The Federal rules restrict any use of the information to criminally investigate or prosecute any alcohol or drug abuse patient.[facility] Center[facility] the event this information is protected by the Federal Confidentiality of Alcohol and Drug Abuse Patient Records regulations: The Federal rules restrict any use of the information to criminally investigate or prosecute any alcohol or drug abuse patient.[facility] CenterIn the event this information is protected by the Federal Confidentiality of Alcohol and Drug Abuse Patient Records regulations: The Federal rules restrict any use of the information to criminally investigate or prosecute any alcohol or drug abuse patient.[facility] CenterIn the event this information is protected by the Federal Confidentiality of Alcohol and Drug Abuse Patient Records regulations: The Federal rules restrict any use of the information to criminally investigate or prosecute any alcohol or drug abuse patient.[facility] CenterIn the event this information is protected by the Federal Confidentiality of Alcohol and Drug Abuse Patient Records regulations: The Federal rules restrict any use of the information to criminally investigate or prosecute any alcohol or drug abuse patient.[facility] CenterIn the event this information is protected by the Federal Confidentiality of Alcohol and Drug Abuse Patient Records regulations: The Federal rules restrict any use of the information to criminally investigate or prosecute any alcohol or drug abuse patient.[facility] CenterIn the event this information is protected by the Federal Confidentiality of Alcohol and Drug Abuse Patient Records regulations: The Federal rules restrict any use of the information to criminally investigate or prosecute any alcohol or drug abuse patient.[facility] CenterIn the event this information is protected by the Federal Confidentiality of Alcohol and Drug Abuse Patient Records regulations: The Federal rules restrict any use of the information to criminally investigate or prosecute any alcohol or drug abuse patient.[facility] CenterIn the event this information is protected by the Federal Confidentiality of Alcohol and Drug Abuse Patient Records regulations: The Federal rules restrict any use of the information to criminally investigate or prosecute any alcohol or drug abuse patient.[facility] Reason for Visit (unrecogniz ed [...] NM Specialty Diagnoses / Procedures Referred By Contac t Referred To Contact MOLECULAR & FUNCTIONAL IMAGING Diagnoses Chest pain, unspecified type Procedures NM CARDIAC PERF STRESS/PHARM MYOCARDIAL SPECT MULTIPLE STUDIES [employer], LAURA Mckeon.CERAMICS ARTIST [address] [place] [address] Molecular & Functional Imaging [address] [place] [address] Referral ID Status Reason Start Date Expiration Date V isits Requested Visits Authorized [id number] Closed Auto-Generate d Referral 08/25/2022 09/24/2023 1 1 Reason Comments Pain Left knee need some temporary pain relief since cant get into pain management until 10/06/22 Reason Comments con internal Specialty Diagnoses / Procedures Referred By Contac t Referred To Contact Cardiology Diagnoses Palpitations Procedures CONSULT TO CARDIOLOGY OFFICE/OUTPATIENT [facility] 60-74 MINUTES Katerina Lewis MD [address] [place] [address] Referral ID Status Reason Start Date Expiration Date V isits Requested Visits Authorized [id number] Closed PCP Requested Referral 09/07/2022 09/07/2023 1 1 Reason Comments Patient Update 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 Patient has been trying to lose weight. Anxiety Has upcoming appt wi th psych. Reason Comments Appointment Schedule colonoscopy Reason Comments ER F/U Refill Request Reason Comments bh consult Reason Comments 03/31/2023 colon lodi Reason Comments Orders Reason Comments Anxiety Care Teams (unrecognized sec tion and content) Felt Hat Pouncing Operator Hand Relationship Specialty Start Date End Date Katerina Lewis MD [address] [facility] [address] PCP - General Family Practice 07/04/19 Felt Hat Pouncing Operator Hand Relationship Specialty Start Date End Date Katerina Lewis MD [address] [place] [address], [place] [address] PCP - General Family Practice 07/04/19 Felt Hat Pouncing Operator Hand Relationship Specialty Start Date End Date Katerina Lewis MD [address] [place] [address] [place] [address] PCP - General Family Practice 07/04/19 Felt Hat Pouncing Operator Hand Relationship Specialty Start Date End Date Katerina Lewis MD [address] [place] [address], [place] [address] PCP - General Family Practice 07/04/19 Felt Hat Pouncing Operator Hand Relationship Specialty Start Date End Date Katerina Lewis MD [address] [place] [address], [place] [address] PCP - General Family Medicine 07/04/19 Felt Hat Pouncing Operator Hand Relationship Specialty Start Date End Date Katerina Lewis MD [address] [place] [address], [place] [address] PCP - General Family Medicine 07/04/19 Felt Hat Pouncing Operator Hand Relationship Specialty Start Date End Date Katerina Lewis MD [address] [place] [address], [place] [address] PCP - General Family Medicine 07/04/19 Felt Hat Pouncing Operator Hand Relationship Specialty Start Date End Date Katerina Lewis MD [address] [place] [address] [place] [address] PCP - General Family Medicine 07/04/19 Felt Hat Pouncing Operator Hand Relationship Specialty Start Date End Date Katerina Lewis MD [address] [place] [address] PCP - General Family Medicine 07/04/19 Felt Hat Pouncing Operator Hand Relationship Specialty Start Date End Date Katerina Lewis MD [address] [place] [address] PCP - General Family Medicine 07/04/19 Felt Hat Pouncing Operator Hand Relationship Specialty Start Date End Date Katerina Lewis MD [address] [facility] [place] [address] PCP - General Family Medicine 07/04/19 Felt Hat Pouncing Operator Hand Relationship Specialty Start Date End Date Katerina Lewis MD [address] [facility] [place] [address] PCP - General Family Medicine 07/04/19 Felt Hat Pouncing Operator Hand Relationship Specialty Start Date End Date Katerina Lewis MD [address] [facility] [place] [address] PCP - General Family Medicine 07/04/19 Felt Hat Pouncing Operator Hand Relationship Specialty Start Date End Date Katerina Lewis MD [address] [facility] [place] [address] PCP - General Family Medicine 07/04/19 Felt Hat Pouncing Operator Hand Relationship Specialty Start Date End Date Katerina Lewis MD [address] [place] [address] PCP - General Family Medicine 07/04/19 Felt Hat Pouncing Operator Hand Relationship Specialty Start Date End Date Katerina Lewis MD [address] [facility] [place] [address] PCP - General Family Medicine 07/04/19 Felt Hat Pouncing Operator Hand Relationship Specialty Start Date End Date Katerina Lewis MD [address] [facility] [place] [address] PCP - General Family Medicine 07/04/19 Felt Hat Pouncing Operator Hand Relationship Specialty Start Date End Date Katerina Lewis MD [address] [place] [address] PCP - General Family Medicine 07/04/19 Felt Hat Pouncing Operator Hand Relationship Specialty Start Date End Date Katerina Lewis MD [address] [place] [address] PCP - General Family Medicine 07/04/19 Felt Hat Pouncing Operator Hand Relationship Specialty Start Date End Date Katerina Lewis MD [address] [place] [address] PCP - General Family Medicine 07/04/19 Felt Hat Pouncing Operator Hand Relationship Specialty Start Date End Date Katerina Lewis MD [address] [place] [address] PCP - General Family Medicine 07/04/19 Felt Hat Pouncing Operator Hand Relationship Specialty Start Date End Date Katerina Lewis MD [address] [place] [address] PCP - General Family Medicine 07/04/19 Felt Hat Pouncing Operator Hand Relationship Specialty Start Date End Date Katerina Lewis MD [address] [place] [address] PCP - General Family Medicine 07/04/19 Felt Hat Pouncing Operator Hand Relationship Specialty Start Date End Date Katerina Lewis MD [address] [place] [address] PCP - General Family Medicine 07/04/19 Felt Hat Pouncing Operator Hand Relationship Specialty Start Date End Date Katerina Lewis MD [address] [place] [address] PCP - General Family Medicine 07/04/19 Felt Hat Pouncing Operator Hand Relationship Specialty Start Date End Date Katerina Lewis MD [address] [place], [place] [address] PCP - General Family Medicine 07/04/19 Felt Hat Pouncing Operator Hand Relationship Specialty Start Date End Date Katerina Lewis MD [address] [place], [place] [address] PCP - General Family [facility] 07/04/19 Felt Hat Pouncing Operator Hand Relationship Specialty Start Date End Date Katerina Lewis MD [address] [place], [place] [id number] PCP - General Family Medicine 07/04/19 FOR [...] BE BASED ON THE PRIMARY CLINICAL RECORDS. [facility] [employer] [facility]. provides no warranty or guarantee of the accuracy or completeness of information in this document.
[2023-10-18] MEDS: Lactated Ringers 1,000 ML 125 ML IV ×2 (06:14→11:09)
[2023-10-18] MEDS: Magnesium 1 GM over 15 mins IV (06:15)
[2023-10-18] MEDS: Acetaminophen 500 MG Tablet 1000 MG PO ×2 (06:15→13:48)
[2023-10-18] MEDS: Celecoxib 200 MG Capsule 400 MG PO (06:16)
[2023-10-18] MEDS: Gabapentin 600 MG Tablet PO (06:16)
[2023-10-18] MEDS: Scopolamine 1mg/72hr Patch 1 PATCH TD (06:16)
[2023-10-18 06:40] LABS: Bedside Glucose 87 mg/dL (74-106)
--- NOTE | 2023-10-18 07:21 | PCM.HP.BLA ---
History and Physical Date of Admission: 10/18/23 [facility] [address] [place] [address] OFFICE VISIT Date of Service: 09/07/23 MR#: [id number] Acct: [id number] Name: NAZARIO PANDEY II Rep #: [id number] : 1970 Provider: Dr. Nils Gutiérrez DO Age/Sex: 53/M Location: [facility] Status: Signed Intake Vital Signs 06/09/2307:16 09/07/2408:06 Height 6 ft 1 in 6 ft 1 in Weight: 231 lb 11.293 oz 229 lb BMI 30.5 30.2 BP 159/9 H Respiration 14 Pulse 74 Temp 97.5 F L Temp Source Temporal Pulse Oximetry (%) 96 Intake Visit Reasons: RIGHT KNEE Accompanied by: Self Is patient in pain?: Yes Allergies No Known Allergies Allergy (Verified 09/07/23 09:07) Medications acetaminophen 500 mg tablet 1,000 mg (2 x 500 mg) PO Q6H PRN #100 tabs 01/11/23 [Rx Confirmed 09/07/23] ibuprofen 600 mg tablet 600 mg PO Q8H PRN 03/04/23 [History Confirmed 09/07/23] hydroxyzine pamoate 50 mg capsule (Vistaril) 50 mg PO TID PRN anxiety #21 caps 06/09/23 [Rx Confirmed 09/07/23] PFSH Medical History Arthritis Blackout Cardiology follow-up encounter Difficulty swallowing FH: total knee replacement History of atrial fibrillation History of cardioversion History of echocardiogram History of pain when walking Hypertension Injury of head and neck Marijuana use Meniscus degeneration Restless legs Substance abuse Vapes nicotine containing substance Wears glasses Surgical History History of hernia repair History of shoulder surgery Hx of left knee surgery Family History Other No family history of disorders Social History household members: spouse housing: house Smoking Status: Current every day smoker tobacco type: cigarettes and e-cigarettes what type of physical activity do you participate in: weight training frequency: daily do you feel safe at home: Yes HPI RIGHT KNEE Details: This documentation accurately reflects the service provided and the decisions made by me, Dr. iNls Gutiérrez, DO 09/07/23 0759. Part of today?s visit was documented by [ ], acting as scribe. NAZARIO PANDEY is a 53 year old M here today for f/u on right knee pain. He states that his right knee pain is getting worse and he would like to discuss getting his right knee replaced. He does occasionally take Ibuprofen and Tylenol but lately it hasn't been helping much. It is really affecting his quality of life she is walking around and standing and limiting his exercises. He states the left knee does not have any pain after the replacement but is stiff. To recall he had significant pain control issues postoperatively on his left total knee which I believe resulted in the stiffness that he still has he did have preoperative stiffness of that left knee and we did recommend a manipulation under anesthesia but he declined at the time. He was however at the time on a OTC supplement called kratom which is actually an opioid receptor agonist. He has not been on this since this time he is not on any other pain medication. He complains of pain over his anterior and medial knee. He has increased pain with any activities. Patient denies any injections. He hasnt been doing any lower extremity exercises due to his pain. Ortho Exam General General: Yes no acute distress Neurologic: Yes alert and Yes oriented x3 Psychologic: Yes reasonable and appropriate Right Knee Skin/Wound: Yes CDI, No erythema, No ecchymosis and No swelling Knee ROM: Yes ROM-Extension -20 to 0 (-20) and Yes ROM-Flexion 0-140 (122) Examination: Yes Med jt line tenderness Stability: NML: Anterior Drawer, NML: David, NML: Valgus 0, NML: Valgus 30, NML: Varus 0 and NML: Varus 30 (fixed) Patella Translation: 1 KNEE: good ankle range of motion. no hip pain Left Knee Knee ROM: Yes ROM-Flexion 0-140 (93) Patella Translation: 1 Head: Normocephalic Atraumatic Chest: symmetrical rise, non-labored breathing, no audible wheeze Abdomen: no guarding, non-rigid Supplemental Info 04/15/2023 x-ray right knee: There is advanced medial compartment arthrosis on the notch view with joint space collapse moderate patellofemoral arthrosis and there is spurring noted in the lateral compartment Coding Level of Care Code Off vis,est,level 4 Diagnoses Primary osteoarthritis of right knee M17.11 Osteoarthritis type: primary Assessment and Plan Assessment and Plan (1) Osteoarthritis of right knee: Status: Acute Qualifiers: Osteoarthritis type: primary Qualified Code(s): M17.11 - Unilateral primary osteoarthritis, right knee Plan Patient will need to stop NSAID 7 days prior to surgery. Patient wanted to proceed with a right knee arthroplasty. He needs a CT scan for the makoplasty. Spoke with the patient about the risks of stiffness. He will need to do formal physical therapy to prevent stiffness. Risks, benefits and alternatives of surgery reviewed including but not limited to bleeding, infection, nerve, artery and/or tissue damage, fracture, VTE, mechanical feel of the knee, continued pain, stiffness and expected post-operative course. Spoke with the patient about better pain control after this surgery due to no longer taking the kratom. He will be a same day surgery. Tentative surgery date October 18 2023 Follow up for 2 week post op or sooner if pain, swelling, numbness or associated symptoms, or concerns develop. All questions answered. Patient in agreement of plan. 09/07/23 1029 <Electronically signed by Nils Gutiérrez DO> Date Nils Gutiérrez DO Cosigner Signature: Date (if applicable) CC: ~ I have examined the patient and the H&P has been reviewed. There are no clinical changes since date of exam.
[2023-10-18] MEDS: Cefazolin 2 GM in 0.9% Normal Saline (100mL Bag) 100 ML IV ×2 (07:27→12:35)
--- NOTE | 2023-10-18 07:30 | KNEE_PTH ---
PATHOLOGY RESULTS PATIENT: NAZARIO PANDEY II LOC: [facility] U#:[id number] AGE/SX: 53/M ROOM: RE10/18/[address]: Dr. Nils Gutiérrez DO : 1970 BED: DIS: 10/18/2023 SPEC #: [id number] RECD: 10/18/23 10:49 STATUS: JONELLE REQ #: [id number] JOHN: 10/18/23 07:[address]: Nils Gutiérrez DEPT: SURGICAL PATHOLOGY RECD BY: Roxanne Rangel ENTERED: 10/18/23 11:20 SP TYPE: TOTAL KNEE OTHR DR: Dr. David Lewis MD Tissues: Knee, NOS Procedures: Decalcification bone/plaque Surgery Specimen Level IV HEADER OPERATION: ERAS, right total knee replacement robotic arm assisted PRE-OP DIAGNOSIS: Osteoarthritis of right knee TISSUE SUBMITTED: Right knee bone and soft tissue MICROSCOPIC DIAGNOSIS Bone and soft tissue, right knee, total knee replacement/resection: Pieces of bone with degenerative osteoarthritic changes. Fibroadipose tissue, fibroconnective tissue and reactive synovial tissue. MECHE:amna 10/24/2023 MICROSCOPIC DESCRIPTION Slides are reviewed. GROSS DESCRIPTION Received is one container designated bone and soft tissue right knee. The specimen consists of multiple fragments of mauricio-yellow bone measuring in aggregate 11.0 x 10.0 x 4.0 cm. Also in the specimen container are multiple pieces of fibrocartilaginous tissue measuring in aggregate 7.0 x 4.0 x 2.0 cm. A number of bony fragments contain articular surfaces consistent with tibial plateau and femoral condyle and displaying prominent osteophyte formation, eburnation and bone erosion. Sports Leadership Instructor sections are submitted in two cassettes as follows: 1 - soft tissue, 2 - bone after decalcification. / MECHE:amna 10/18/2023 TC:5 [facility]: [id number], [id number]
[2023-10-18] MEDS: TXA 1000mg in NS100 100ml (IVPB at Incision) 660 MG IV (07:40)
[2023-10-18] MEDS: dexAMETHasone 10 MG/ML Vial IV (07:40)
[2023-10-18] MEDS: TXA 1000mg in NS100 100ml (IVPB at Closure) 660 MG IV (08:14)
[2023-10-18] MEDS: dexAMETHasone 4 MG/ML Vial (09:20)
[2023-10-18] MEDS: 0.9% Normal Saline (Pres. free 10 ML Vial (09:20)
[2023-10-18] MEDS: Bupivacaine 0.5% PF 10 ML VIAL (09:20)
[2023-10-18] MEDS: Epinephrine (1 mg/ml) 1 MG/ML VIAL (09:20)
--- NOTE | 2023-10-18 10:17 | PCM.OP.BLANK ---
Operative Report Date of Procedure: 10/18/23 Preoperative diagnosis: Right knee DJD Postoperative diagnosis: Same Procedure: Right total knee arthroplasty CT guided Robotic Assisted Implant: [place] triathlon press fit, femoral component size 7, tibial baseplate size 8, asymmetric patella size 40, polyethylene X3 size 9 CS Anesthesia: [spinal with general, with adductor canal block postop Tourniquet time: 12 minutes at 300 mmHg Complications: None Condition: Stable to PACU Estimated blood loss: 175 cc Indication for procedure: This is a 53-year-old male with long standing degenerative joint disease of the knee who has failed conservative treatment and wished to proceed with elective total knee arthroplasty. Risk benefits and alternatives were reviewed including; risk of bleeding, infection, nerve artery and tissue damage, continued pain, postoperative stiffness, venous thromboembolism, need for postoperative rehabilitation, mechanical feel to the knee, and expected postoperative course. The pre- operative CT and templating was performed with component sizing. Procedure: The patient was met in the preoperative holding area. The operative extremity was identified by both patient and physician and was marked. Patient was met by anesthesia. An adductor canal block was placed by anesthesia postoperatively the patient was brought back to the operating room on a wheeled cart and transferred to the operating table in the supine position. Anesthesia was started. A well-padded tourniquet was placed on the operative extremity. The patient was prepped and draped in the usual sterile fashion. A timeout was called to ensure the proper patient procedure and extremity were being contemplated. An esmarch was used to exsanguinate the extremity. The tourniquet was inflated. A 10 blade scalpel was used to make a midline incision down through the skin and subcutaneous tissue. Skin retractors placed. Bovie and Aquamantis were used to perform meticulous hemostasis. full-thickness flaps were elevated medial and lateral along the joint capsule. A deep blade scalpel was used to perform a medial parapatellar arthrotomy. The knee was brought to full extension. A bovie was used to release the soft tissues off the most proximal aspect of the medial tibial plateau, a three-quarter inch curved osteotome was also used in this process. The infrapatellar fat pad was excised. The suprapatellar fat pad was excised partially anteriorolateraly and portion the anterioromedial pad was elevated from the femur. At this point our intra-articular femoral array was placed at a 45 degree angle proximal and posterior to the medial epicondyle. femoral checkpoint was placed at this time. Our tibial array was placed greater than 1 hands breath below the incision at a 20 degree angle stab incisions were made with a 15 blade scalpel and pins were placed and attached to the tibial array , tibial checkpoint was placed in the proximal tibial metaphysis. Tourniquet was let down. At this point registration duke were taken throughout the knee . Once the knee was registered we then tensioned the medial and lateral ligaments in extension and 90 degrees of flexion. We then used these numbers to adjust our components within parameters to balance the knee in both flexion and extension once this was done on our monitor we then proceeded with using the robotic arm to make our tibial plateau cut, anterior and posterior chamfer and distal femur cuts. we removed the cut fragments with the use of a bovie and Td, we did use a lamina dry mill operator to insure we visualized and removed all posterior osteophytes and at this time also used the Aquamantis on the posterior joint capsule. we then trialed and achieved the desired plan with a well-balanced knee. we used the green probe to kenyon the corresponding tibial rotation based on our CT template. Lug holes were drilled in the femur the tibia preparation was completed with the appropriate sized base plate pinned based on previous rotation kenyon. An appropriate sized fin punch was used on the tibia and 4 corner drill was used for the press fit component and the patella was prepared by first using a caliper to ensure sufficient bone stock and a patellar reamer to remove the desired amount of bone. lug holes drilled for an asymmetric poly. We then brought the knee through range of motion with excellent patellar tracking. We thoroughly irrigated the knee. Trial components were removed a posterior capsular injection was preformed with our standard cocktail. In addition the aqua Mantis was also used to aid in hemostasis. Betadine rinse was allowed to sit and washed out completely. Components were press-fit into place. Aricept rinse was then used followed by several more liters of irrigation after it was allowed to sit. The joint capsule was closed with #1 Ethibond [id number]'s in the upper part of the arthrotomy and #1 Vicryl in the lower part of the arthrotomy. , Followed by 2-0 Vicryl in the subcutaneous tissues with shen in the skin. Arrays and checkpoints were removed prior to closure all counts were correct stab incisions were closed with a staple standard dressing in the form of Mepilex AG for the main incision and a small Mepilex over the pin holes. Thigh-high ISABEL hose applied over top of dressing. Patient tolerated the procedure well and was directed to PACU in stable condition . There were no intraoperative complications.
--- NOTE | 2023-10-18 10:18 | DCINST_ITS ---
Discharge Instructions Diet Discharge Diet: No restrictions Activity Weight Bearing Status: Weight bearing as tolerated Keep extremity elevated above heart level: Operative Extremity Dressing / Incision Call your doctor if you observe: Shortness of breath and Chest pain Additional Dressing/Incision Instructions:: Ice and elevate lower extremities 2 weeks while not ambulating. Ambulation is encouraged. Weight bearing as tolerated. Use assistive devise for stability. Encourage FULL knee extension and flexion 1 time EVERY time you get up and down and MULTIPLE times per day. No showering until 72 hours after surgery. Begin showering postop day #3. Remove the dressing prior to shower and gently wash with warm water and antibacterial soap then pat dry and place abdominal pad (or plain gauze) and ISABEL hose over top. This is to be done daily. Do not submerge for 3 weeks. If not showering daily after the initial 72 hours then you must clean incision and change dressing daily. Do not allow animals near the incision area. Keep clean. Follow anti-coagulation recommendations as prescribed. Do not take any NSAIDs while on blood thinner. Do not take any additional narcotic pain medication other than what was prescribed on your surgery day without discussing with physician. Narcotic medication can be addictive. Do not drink alcohol while taking narcotics. Supplement narcotic prescription with acetaminophen 1000 mg 4 times a day. Start physical therapy. If you are not currently scheduled for physical therapy or you are unsure of appointment time please call office [facility] to arrange. Call Dr. Gutiérrez with any concerns. Follow Up Care Please Follow Up With: Nils Gutiérrez DO Test Results: Test results from this visit will be discussed in further detail at your follow- up appointment, if applicable. Discharge Plan Admission Primary Reason for Your Visit: Right total knee arthroplasty Attending Provider: Nils Gutiérrez Primary Care Provider: David Lewis Discharge Orders/Prescriptions Prescriptions: New acetaminophen [acetaminophen] 500 mg tablet 1,000 mg PO Q6H PRN Qty: 100 0RF cephalexin [cephalexin] 500 mg capsule 1,000 mg PO Q8 Qty: 4 0RF Rx Instructions: take 2 tabs at 9:00 pm and 2 tabs after 5 am when you wake up Eliquis 2.5 mg tablet 2.5 mg PO BID Qty: 28 0RF Rx Instructions: Begin morning after surgery oxycodone 5 mg tablet 5 - 10 mg PO Q4H PRN (Reason: pain) 7 Days Qty: 60 0RF gabapentin 100 mg capsule 100 mg PO TID PRN (Reason: nerve pain) Qty: 21 0RF Continued hydroxyzine pamoate [Vistaril] 50 mg capsule 50 mg PO TID PRN (Reason: anxiety) Qty: 21 0RF Held ibuprofen 600 mg tablet 600 mg PO Q8H PRN (Reason: pain) Hold Instructions: Resume on 11/02/23. May resume day after completion of blood thinner No Action acetaminophen [acetaminophen] 500 mg tablet 1,000 mg PO Q6H PRN Qty: 100 0RF Referrals / Follow Up: David Lewis MD [Primary Care Provider] - Disposition Disposition (needs filled in before D/C Order can be placed): Home, Self Care
--- NOTE | 2023-10-18 10:30 | RAD_ITS ---
STUDY: X-RAY - RIGHT KNEE REASON FOR EXAM: Male, 53 years old. Postop in PACU -- in PACU TECHNIQUE: 2 view(s) of the knee. COMPARISON: None. FINDINGS: Normal visualized distal femur. Normal visualized proximal tibia and fibula. Normal proximal tibiofibular articulation. The patient is status post total knee replacement. There is good alignment. Postoperative soft tissue changes. RAD/Knee 1 or 2 Views IMPRESSION: Status post total knee replacement. There is good alignment. Postoperative soft tissue changes. Electronically Signed: Juan Willis MD at 10:53 EST ,
[2023-10-18] MEDS: oxyCODONE 5 MG Tablet PO ×2 (12:11→12:37)
--- NOTE | 2023-10-18 14:31 | SUR.PHASEII ---
PT PAINFUL AFTER PT, DILAUDID ORDERED PER DR PRICE. GIVEN ACCORDING TO MED SHEET. PT STATES PAIN IS AT A TOLERABLE LEVEL NOW.
== END 2023-10-18 15:13 | disposition home or self-care (01) ==
LOC: SDC 05:31 → AC 05:31
PROVIDERS: Anesthesiology; PCP Family Medicine; Referring Provider Orthopaedic Surgery; Visit Provider Orthopaedic Surgery
PROC: 0SRC0JZ Replacement of Right Knee Joint with Synthetic Substitute, Open Approach (ICD-10-PCS; CPT 27447; principal; 2023-10-18 07:00)
DX: M17.11 Unilateral primary osteoarthritis, right knee (principal); I10 Essential (primary) hypertension; F17.210 Nicotine dependence, cigarettes, uncomplicated; Z96.659 Presence of unspecified artificial knee joint
CPT/HCPCS: 27447; S2900; 01402; 36415; 73560; 80048; 82962; 82985; 83036; 83735; 85025; 85610; 85730; 86850; 86900; 86901; 87081; 88305; 88311; 93005; 97162; C1776; J7120; J2405; J3475; J3490

== ENCOUNTER 2023-10-21 11:04 | Emergency (ER) | payer MEDICAID, SELFPAY ==
[2023-10-21 11:05] VITALS: BP 155/97; PULSE 82; RESP 16; TEMP 36.6; O2SAT 98; BMI 30.9
--- NOTE | 2023-10-21 11:07 | EX.ED.DYSGE1 ---
HPI History of Present Illness Chief Complaint: Headache PFSH PFSH Medical History (Updated 10/21/23 @ 12:[address] Norm Ochoa, DO) Arthritis [facility] Cardiology follow-up encounter Difficulty swallowing FH: total knee replacement Former smoker History of atrial fibrillation History of cardioversion History of echocardiogram History of pain when walking Hypertension Injury of head and neck Marijuana use Meniscus degeneration Restless legs Substance abuse Vapes nicotine containing substance Wears glasses Home Medications ibuprofen 600 mg tablet 600 mg PO Q8H PRN pain 03/04/23 [History Last Taken Unknown] acetaminophen 500 mg tablet 1,000 mg (2 x 500 mg) PO Q6H PRN #100 tabs 10/18/23 [Rx Last Taken Unknown] apixaban 2.5 mg tablet (Eliquis) 2.5 mg PO BID #28 tabs 10/18/23 [Rx Last Taken Unknown] cephalexin 500 mg capsule 1,000 mg (2 x 500 mg) PO Q8 #4 caps 10/18/23 [Rx Last Taken Unknown] gabapentin 100 mg capsule 100 mg PO TID PRN nerve pain #21 caps 10/18/23 [Rx Last Taken Unknown] oxycodone 5 mg tablet 5 - 10 mg (1 - 2 x 5 mg) PO Q4H PRN pain 7 days #60 tabs 10/18/23 [Rx Last Taken Unknown] bupropion HCl 75 mg tablet 75 mg PO BID 10/21/23 [History Last Taken Unknown] hydrocodone-acetaminophen 5-325mg 5mg-325mg 1 tab PO Q8H PRN pain 10/21/23 [History Last Taken Unknown] hydroxyzine HCl 10 mg tablet 10 mg PO Q8H 10/21/23 [History Last Taken Unknown] metoclopramide HCl 5 mg tablet (Reglan) 5 mg PO Q8H PRN PRN headache 7 days #21 tabs 10/21/23 [Rx Last Taken Unknown] Allergy/AdvReac Type Severity Reaction Status Date / Time No Known Allergies Allergy Verified 10/21/23 11:07 Family History Other No family history of disorders Surgical History History of hernia repair History of shoulder surgery Hx of left knee surgery Social History household members: spouse housing: house Smoking Status: Current every day smoker tobacco type: cigarettes and e-cigarettes what type of physical activity do you participate in: weight training frequency: daily do you feel safe at home: Yes EXAM Physical Exam Const Vital Signs: 10/21/23 11:05 10/21/23 12:37 Temperature 98 F 97.8 F Temperature Source Temporal Pulse Rate 82 82 Respiratory Rate 16 16 Blood Pressure 155/97 H 134/77 H Blood Pressure Mean 116 96 Pulse Ox 98 98 Oxygen Delivery Method Room Air [facility] [place] Narrative Medical decision making narrative: HISTORY OF PRESENT ILLNESS: 53year old male presents with headache. Notes 2 days of headache located the base of skull. Denies any recent trauma or falls. Denies any fever neck stiffness or sick contacts. Denies any loss at home with similar symptoms. Denies any loss of vision, focal weakness, loss of coordination or sensation. Patient denies sudden onset or thunderclap headache, denies maximal intensity within 1 minute, vomiting, neck pain or stiffness, changes in vision, fever, history malignancy, syncope, seizures. REVIEW OF SYSTEMS: All other systems reviewed and are negative except as noted in the history of present illness. At least 10 review of systems reviewed and are negative except as noted in history of present illness. PHYSICAL EXAM: Nursing triage notes reviewed, Vital signs reviewed Constitutional: please see [facility] HENT: MMM Eyes: Pupils equal round and reactive to light, Extraocular muscles intact Neck: No stridor, no JVD, full neck ROM, no carotid bruits. Lungs: Clear to auscultation, No wheezing or rales. No increased work of breathing, no conversational dyspnea, no accessory muscle use, no nasal flaring. No respiratory distress noted Heart: Regular rate and rhythm, No murmurs, No rubs and No gallops, 2+ distal pulses (radial, femoral, posterior tibial) in all extremities Abdomen: Soft, there is no tenderness, rigidity, rebound or guarding, no obvious peritoneal signs, no palpable pulsatile abdominal masses, no auscultated abdominal bruit : No CVAT Extremities: No edema Neuro: Alert and oriented x3, neuro exam at baseline, cranial nerves II through XII are intact. No pain with extraocular muscle movement. There is negative test of skew. Normal speech. 5 of 5 strength in upper and lower extremities in flexion extension. Intact sensation to light touch in upper and lower extremity dermatomes. No truncal or extremity ataxia. No dysdiadochokinesia. Normal gait. 2+ reflexes. No meningeal signs (negative Kernig and Brudzinski). Negative Babinski. NIH of 0 Skin: No rash or lesions noted MEDICAL DECISION MAKING: Chief Complaint: Headache External records reviewed: Shows no radiographic evidence of acute abnormality CT scan of the brain from 2019 Factors affecting care: Atrial fibrillation, hypertension, Social determinants of health: Smoking History obtained from others: none Consults: none ALL IMAGES (IF OBTAINED) HAVE BEEN PERSONALLY REVIEWED AND INTERPRETED BY MYSELF. CT scan of the head shows no evidence of intracranial abnormality such as ICH or mass. MDM Narrative: The patient was initially hemodynamically stable, afebrile. Exam without focal neurologic deficit. NIH of 0. Given reported history of ICH and history of taking Eliquis after knee surgery I did obtain a CT scan rule out ICH. I considered the following differential diagnosis: Subarachnoid hemorrhage, epidural hematoma, ICH, meningitis, carotid artery dissection, primary headache (primary headache, migraine, tension headache, cluster headache) CT scan was negative. I gave the patient IV Reglan, oral Tylenol, IV fluids and Benadryl The patient looks great and is in no significant objective discomfort currently. The patient's headache is non-specific. Exam is unremarkable. The patient is in no distress and the patient?s neurological exam is non-focal, neck is supple and without meningismus. The headache is not consistent with meningitis or infection, nor is it consistent with intracranial bleed (SAH etc.), carotid dissection, nor mass by history, examination, or imaging. Medication and outpatient follow-up was instructed. The patient was instructed to return as needed or if symptoms changed or worsened, fever developed or inability to tolerate fluids. The patient agreed with plan. The patient and/or family, caregivers express understanding. The patient and/or family, caregivers agrees with the plan. Total critical care time today provided was at least 0 minutes. This excludes separately billable procedures. Critical care time (if documented) is secondary to the patient having high probability of clinically significant/life threatening deterioration in the patient's condition which required my urgent intervention. Shared decision making: I will have a discussion with the patient and or visitors regarding risk/benefits of further testing or admission. They will be made aware of of the risk/benefits inherent in this decision they will be given the opportunity to voice understanding. Radiography Diagnostic Testing: Clinical Impression(s) from Imaging Studies Brain CT 10/21/23 11:25 IMPRESSION: Small air-fluid level in the left sphenoid sinus. Electronically Signed: Juan Willis MD at 12:13 EST , Discharge Plan Triage Chief Complaint: Headache ED Provider: Norm Ochoa Dx/Rx/DC Orders Clinical Impression: Headache Instructions: ED Headache Unspecified Prescriptions: New metoclopramide HCl [Reglan] 5 mg tablet 5 mg PO Q8H PRN PRN (Reason: headache) 7 Days Qty: 21 0RF No Action ibuprofen 600 mg tablet 600 mg PO Q8H PRN (Reason: pain) Hold Instructions: Resume on 11/02/23. May resume day after completion of blood thinner acetaminophen [acetaminophen] 500 mg tablet 1,000 mg PO Q6H PRN Qty: 100 0RF cephalexin [cephalexin] 500 mg capsule 1,000 mg PO Q8 Qty: 4 0RF Rx Instructions: take 2 tabs at 9:00 pm and 2 tabs after 5 am when you wake up Eliquis 2.5 mg tablet 2.5 mg PO BID Qty: 28 0RF Rx Instructions: Begin morning after surgery oxycodone 5 mg tablet 5 - 10 mg PO Q4H PRN (Reason: pain) 7 Days Qty: 60 0RF gabapentin 100 mg capsule 100 mg PO TID PRN (Reason: nerve pain) Qty: 21 0RF bupropion HCl 75 mg tablet 75 mg PO BID hydrocodone-acetaminophen 5-325 mg tablet 1 tab PO Q8H PRN (Reason: pain) hydroxyzine HCl 10 mg tablet 10 mg PO Q8H Primary Care Provider: Carol Burnette Referrals: Carol Burnette MD [Primary Care Provider] - Gómez Jovel MD [Non-Staff] - Activity Restrictions/Additional Instructions: Thank you for trusting us with your care today! Please take Tylenol (2 pills, 650 mg), ibuprofen (2 pills, 400 mg) every 6 hours as needed for pain and fever control. Please take Reglan as needed for further headache control Please return to the emergency department if your symptoms change or worsen. Specifically develop loss of vision, loss of movement, loss sensation or coordination. Please follow with your primary care physician for further outpatient evaluation and management. Disposition Disposition: Home, Self Care Discharge Date/Time: 10/21/23 12:39
--- NOTE | 2023-10-21 11:25 | CT_ITS ---
STUDY: CT BRAIN WITHOUT CONTRAST REASON FOR EXAM: Male, 53 years old. MENA, hx of ICH RADIATION DOSAGE (If Supplied By Facility): CTDIvol = ( 44.99 ) mGy, DLP = ( 863.60 ) mGycm TECHNIQUE: Transaxial CT imaging of the brain was performed without administration of intravenous contrast material. Individualized dose optimization techniques were used for this CT. COMPARISON: Comparison is made with prior study dated March 26, 2019. FINDINGS: Normal soft tissue structures. Normal calvarium. Normal size ventricles and extra-axial spaces for the patient''s age. Normal white matter tracts of the cerebral hemispheres. Normal basal ganglia and thalami. Normal brainstem. Normal cerebellum. There is no intracranial hemorrhage. There are no findings of an acute ischemic infarction. Atherosclerotic plaque formation of the cavernous portions of the internal carotid arteries bilaterally. There is a small air fluid level in the left sphenoid sinus. CT/Brain/Head without Contrast IMPRESSION: Small air-fluid level in the left sphenoid sinus. Electronically Signed: Juan Willis MD at 12:13 EST ,
[2023-10-21] MEDS: Acetaminophen 325 MG Tablet 650 MG PO (11:39)
[2023-10-21] MEDS: 0.9% Normal Saline (1000mL) 1,000 ML 999 ML IV (11:39)
[2023-10-21] MEDS: Metoclopramide 10 MG/2 ML Vial IV (11:39)
[2023-10-21] MEDS: DiphenhydrAMINE 50 MG/ML Syringe 25 MG IV (11:39)
--- OUTSIDE RECORDS SUMMARY | 2023-10-21 12:24 | XMS RPT_ITS | CCD ---
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 questionnaires Patient was not reached. A voicemail was left with patient to call back to complete questionnaires. Jada Hercules Nomad: [id number] Date: 02/01/23 [employer]ex Mailout Tracking Number: [id number] [employer] Return Tracking Number: [id number] January 12, 2023 Standing PSG Orders signed in the last 90 days None Future PSG Orders signed in the last 90 days Ordered Auth. provider HOME SLEEP APNEA TEST (HSAT) [[id number]] 01/07/23 Dinesh Nagel APRN.SET UP MECHANIC [employer]SEM[employer] MACH[employer] Assoc. diagnoses: Apnea spell [R06.81] Q: Indications: [...] episode of a fib [place] s/p cardioversion Bipolar disorder (HCC) Eczema Trillium [place] History of alcohol abuse History of COVID-19 [...] (HSAT) from Dr. Dinesh Nagel,, a [facility] Staff. Visit prep complete. Comments :No The sleep study is scheduled for 02/03. Insurance: Payor: [facility] MEDICAID / Plan: [facility] MEDICAID / Product Type: Medicaid / Payer/Plan Subscr Sex Relation Sub. Ins. ID Effective Group Num 1. [facility]* NAZARIO SUAZO II 1970 Male Self [id number] 10/06/22 [facility] [address] Collette Flores documented in this encounter [facility] 02-01-2023 Note HNO ID: [id number] Author: Dyan KEMP Service: ? Author Type: ? Type: Progress Notes Filed: 02/04/2023 11:41 AM Note Text: Nomad: [id number] Date: 02/01/23 [employer] Mailout Tracking Number: [id number] [employer] Return Tracking Number: [id number] [facility] 01-12-2023 Note HNO ID: [id number] Author: Lam Ralph III, PhD Service: ? Author Type: Physician Type: Progress Notes Filed: 02/04/2023 11:41 AM Note Text: January 12, 2023 Standing PSG Orders signed in the last 90 days None Future PSG Orders signed in the last 90 days Ordered Auth. 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 diagnoses: Apnea spell [R06.81] Q: Indications: [...] episode of a fib [place] living [place] s/p cardioversion Bipolar disorder (HCC) Eczema Triium [place] History of alcohol abuse History of COVID-19 [...] Lam Ralph III, PhD 2:08 PM, 01/12/2023 [facility] 01-12-2023 Note HNO ID: [id number] Author: Collette Flores Service: ? Author Type: ? Type: Progress Notes Filed: 02/04/2023 11:41 AM Note Text: January 12, 2023 An order has been received for Home Sleep Apnea Test (HSAT) from Dr. Dinesh Nagel,, kevin [facility] Staff. Visit prep complete. Comments :No The sleep study is scheduled for 02/03. Insurance: Payor: [facility] / Plan: [facility] / Product Type: Medicaid / Payer/Plan Subscr Sex Relation Sub. Ins. ID Effective Group Num 1. [facility]* NAZARIO SUAZO II 1970 Male Self [id number] 10/06/22 [facility] [address] Collette Flores [facility] 01-10-2023 Note HNO ID: [id number] Author: Louis Ley Service: ? Author Type: [...] Are you an Insulin Dependent Diabetic? No [facility] 01-07-2023 Note HNO ID: [id number] Author: Dinesh Nagel APRN.SET UP MECHANIC CROWN ASSEMBLY MACHINE Service: ? Author Type: Nurse Practitioner Type: [...] episode of a fib [place] s/p cardioversion Bipolar disorder (HCC) Eczema Tr[place]ium [place] History of alcohol abuse History of COVID-19 History of marijuana use History of tobacco use Hyperlipidemia Hypertension Primary osteoarthritis of left knee PTSD (post-traumatic stress disorder) RLS (restless legs syndrome) Syncope 03/2019 ALLERGIES Seroquel [Quetiapine] and Tramadol MEDICATIONS Current Outpatient Medications Medication Sig rxycexd-bobw-qchel-oreg-capryl 100 mg-150 mg- 50 mg-150 mg cap [...] which included preparing to see the patient, agow-rv-tyfl patient care, completing clinical documentation, obtaining and/or reviewing separately obtained history, performing a medically appropriate examination, counseling and educating the patient/family/caregiver, and ordering medications, tests, or procedures. [facility] 01-07-2023 Instructions Dinesh Nagel APRN.LYNNETTE - 01/07/2023 [...] If you do not have a responsible [employer] driver (family member or friend) with you to take you home, your exam cannot be done with sedation and will be cancelled. Please bring a list of all of your current medications, including any Nypi-wtv-Uomjzuf medications with you. Medications If you take [...] exam. 2 08/2019 documented in this encounter [facility] 01-07-2023 History of Presen t illness Narrative [...] episode of a fib [place] living [place] s/p cardioversion Bipolar disorder (HCC) Eczema Tr[place]ium [place] History of alcohol abuse History of COVID-19 History of marijuana use History of tobacco use Hyperlipidemia Hypertension Primary osteoarthritis of left knee PTSD (post-traumatic stress disorder) RLS (restless legs syndrome) Syncope 03/2019 ALLERGIES Seroquel [Quetiapine] and Tramadol MEDICATIONS Current Outpatient Medications Medication Sig dnjbjem-mwnd-npbmn-oreg-capryl 100 mg-150 mg- 50 mg-150 mg cap [...] which included preparing to see the patient, kzhl-re-hbye patient care, completing clinical documentation, obtaining and/or reviewing separately obtained history, performing a medically appropriate examination, counseling and educating the patient/family/caregiver, and ordering medications, tests, or procedures. documented in this encounter [facility] 12-29-2022 Note HNO ID: [id number] Author: Katerina Lewis MD Service: ? Author [...] episode of a fib [place] living [place] s/p cardioversion Bipolar disorder (HCC) Eczema Tr[place] History of alcohol abuse History of COVID-19 [...] on File Prior to Visit Medication Sig rtybuok-ybbo-ieqts-oreg-capryl 100 mg-150 mg- 50 mg-150 mg cap [...] SCREEN due on more content not included)... [facility] 12-29-2022 History of Presen t illness Narrative [...] episode of a fib [place] living [place] s/p cardioversion Bipolar disorder (HCC) Eczema Tr[place]ium [place] History of alcohol abuse History of COVID-19 [...] on File Prior to Visit Medication Sig puwjvbm-oqdo-trhlq-oreg-capryl 100 mg-150 mg- 50 mg-150 mg cap [...] Katerina Lewis MD documented in this encounter [facility] 12-23-2022 Miscellaneous Notes Images from the original note were not included. December 23, 2022 Patient Contact Number: [phone] (Home Phone) Patient last seen within the last year: Yes Date of last office visit: 10/20/2022 Echo on 12/22/2022 Reason For Call: Other Issue: Employer note needed Physician: Brian Meléndez MD Prepared a letter and faxed to : [facility] Attn: Ms. Benites Faxed and received confirmation. Therese Steel December 23, 2022 1:08 PM documented in this encounter [facility] 10-20-2022 Note HNO ID: [id number] Author: Brian Meléndez MD Service: ? 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 He is able to bench press quite [...] episode of a fib [place] living [place] s/p cardioversion Bipolar disorder (HCC) Eczema Trillium [place] History of alcohol abuse History of COVID-19 [...] in Sputum, Shor (more content not included)... [facility] 10-20-2022 History of Presen t illness Narrative Images from the original note were not included. 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 s/p cardioversion Bipolar disorder (HCC) Eczema Trillium [place] History of alcohol abuse History of COVID-19 [...] ABNORMAL ECG Confirmed by JIM DEXTER, BILL ([id number]) on 10/20/2022 9:42:55 AM IMPRESSION: Mr. Suazo [...] any AV shahzad blocking agent. Furthermore, his OOLKQ7Tdxp score is 1 for hypertension. At this [...] INFORMATION: Brian Meléndez M.D, PhD, FRCPC, FACC Senior Contracts Administrator at [facility] Associate Machine I Cutter Internal Medicine Residency Machine I Cuttertelevision host Education Internal Medicine Residency Machine I Cutter of Consult Service Machine I Cutter for Elective Students/Residents at [facility] Ale[facility] Department of Cardiovascular Medicine [facility] [place] [facility] Desk [place] [address] Office Office Appointments: [phone] This medical note has been dictated using voice recognition system. Grammatical and/or syntax errors may be present and therefore the note should be interpreted accordingly. Should you have any questions and/or concerns, please do not hesitate to contact my office. documented in this encounter [facility] 09-28-2022 History of Presen t illness Narrative Chief Complaint Patient presents with: Pain: Left knee need some temporary pain relief since cant get into pain management until 10/06/22 [facility] Nazario Suazo II is a 52 year old male who presents here today for Above Complaints. Patient here today for chronic left knee pain 2/2 severe arthrosis. Had appointment with Dr. Gutiérrez on 09/15 with xray showing the severe arthritis. Discussed with him knee replacement option which patient is agreeable to, but will need clearance from his cell biologist first. Given rx for tramadol which he [...] episode of a fib [place] s/p cardioversion Bipolar disorder (HCC) Eczema Trillium [place] History of alcohol abuse History of COVID-19 [...] Katerina Lewis MD documented in this encounter [facility] 09-27-2022 Miscellaneous Notes Reviewed. Continue OTC medication [...] seen him yet. Reports he is seeing cell biologist on Tue for surgery clearance. Patient reports he has tried everything OTC for the left knee pain. Please advise patient. VERO Perry. documented in this encounter [facility] 09-27-2022 Miscellaneous Notes Patient telephoned. Made aware [...] Dinesh Nagel APRN.CNP documented in this encounter [facility] 09-20-2022 History of Presen t illness [...] AM PAGER/CONTACT #: documented in this encounter [facility] 09-09-2022 Miscellaneous Notes VM left for pt to call PCP office for message below, or may access result through account. Jami Yoder RN Please call patient and let him know his TSH level is in normal range. Dinesh Nagel APRN.CNP documented in this encounter [facility] 09-08-2022 Miscellaneous Notes Patient notified - OV [...] Tatiana Miller RN documented in this encounter [facility] 09-07-2022 History of Presen t illness Narrative [...] today for Above Complaints.. Patient evaluated at [facility] ED on 09/07 for complaint of palpitations [...] episode of a fib [place] s/p cardioversion Bipolar disorder (HCC) Eczema Trillium [place] History of alcohol abuse History of COVID-19 [...] Katerina Lewis MD documented in this encounter [facility] 08-25-2022 History of Presen t illness Narrative EVENT MONITOR DISPOSABLE PATCH INSTRUCTIONS Patient Name: Nazario Jara [facility] Clinic Number: [id number] Skin prepped and cleansed with alcohol Patch secured to prepped area Monitor Activated Serial #: [id number] Patient Instructed: Prescribed order timeframe Bathing guidelines Usage of event button and diary documentation Return of monitor at the end of prescribed order Call with problems [phone] or [phone]. [phone] Patient expresses a good understanding of instructions Nunu Fuchs LPN 08/25/2022 Patient presents with: ED Follow-up: 08/23/22 for heart palpitations SUBJECTIVE: This is a 52 year old that is here today for Above Complaints. HOSPITAL/ER FOLLOW UP: Reason for visit: chest pain and palpitations Which facility: [facility] Date of visit: 08/23/2022 Diagnosis: chest pain [...] episode of a fib [place] living [place] s/p cardioversion Bipolar disorder (HCC) Eczema Trillium [place] History of alcohol abuse History of COVID-19 [...] ER with red flag symptoms Dinesh Podlogar, FMD TEACHER.SET UP MECHANIC CROWN ASSEMBLY MACHINE Prescription instructions reviewed with patient as applicable. [...] which included preparing to see the patient, spjf-na-cljo patient care, completing clinical documentation, obtaining and/or reviewing separately obtained history, performing a medically appropriate examination, counseling and educating the patient/family/caregiver, and ordering medications, tests, or procedures. documented in this encounter [facility] 08-03-2022 History of Presen t illness Narrative This note was created using [employer]. Subjective Nazario Suazo II is a 52 year old male. HPI Patient presents with cough, shortness of breath, congestion over the past 2 or 3 days. His dad was sick with a respiratory infection at [facility]. He denies a fever. He has [...] episode of a fib [place] living [place] s/p cardioversion Bipolar disorder (HCC) Eczema Trillium [place] History of alcohol abuse History of COVID-19 [...] Twyla Benavidez PA-C documented in this encounter [facility] 06-29-2022 Miscellaneous Notes Reviewed. Message left for patient to return call to schedule ER follow up. documented in this encounter [facility] 03-25-2022 Miscellaneous Notes Patient is calling to cancel procedure. documented in this encounter [facility] 03-23-2022 Miscellaneous Notes Patient telephoned. States he is going to reschedule his colonoscopy for the end of April. Pre Op Clearance appointment scheduled for 04/20/[address] Lewis. Nunu Fuchs LPN Phoned patient to advise he needs to schedule an OV for Pre-Op clearance. Message left to return call to schedule. documented in this encounter [facility] 02-23-2022 Miscellaneous Notes Reviewed. Patient calls and [...] a procedure on 02/26/22. Fax letter to: [phone] Attn: Debi Jackson LPN documented in this encounter [facility] 02-23-2022 Miscellaneous Notes Patient called and notified [...] Amna Krueger RN documented in this encounter [facility] 02-23-2022 Miscellaneous Notes Patient cancelled and rescheduled from 02/26 to 03/26 for colon with [facility] in the [facility] Please call patient to cancel and reschedule colonoscopy for 02/26. documented in this encounter [facility] 02-17-2022 Miscellaneous Notes Spoke with pt and information listed below given. Pt verbalizes understanding. /me Ordered as requested. Come in for labs in the next 1-2 weeks. Patient calling to request lab order for testosterone level. States he is requesting this due to his age and low energy levels. He said he discussed this with PCP. Samantha Peck RN documented in this encounter [facility] 02-12-2022 History of Presen t illness Narrative [...] knee and has been following up with [facility] Dr. Thorne. Told he was bone on bone and injection 6 months ago did not help. Scheduled for colonoscopy on 02/26 for colon cancer screening. Requesting tetanus booster today. Refusing shingrix and COVID vaccine. Past medical history, appointments, medications, allergies reviewed. Previous Medical History PAST MEDICAL HISTORY Diagnosis Date Atrial fibrillation (HCC) single episode of a fib while living [place] s/p cardioversion Bipolar disorder (HCC) Eczema Trillium [place] History of alcohol abuse History of marijuana [...] Abs Lymph 1.00 - 4.00 k/uL 1.73 [place]% % 9.4 Abs [place] <0.87 k/uL 0.73 [place]% % 1.0 Abs [...] Katerina Lewis MD documented in this encounter [facility] Diagnosis Fatigue, unspecified type- Primary documented in this encounter [facility] note* Diagnosis SOB (shortness of breath)- Primary Shortness of breath Viral URI with cough Acute upper respiratory infections of unspecified site documented in this encounter [facility] note* Diagnosis Palpitations- Primary Chest pain, unspecified type Paroxysmal atrial fibrillation (HCC) Atrial fibrillation documented in this encounter [facility] note* Diagnosis Palpitations- Primary Primary hypertension Unspecified essential hypertension Chronic atrial fibrillation (HCC) Atrial fibrillation RLS (restless legs syndrome) Restless legs syndrome (RLS) Bipolar affective disorder, current episode mixed, current episode severity unspecified (HCC) PTSD (post-traumatic stress disorder) Posttraumatic stress disorder History of alcohol abuse Nondependent alcohol abuse, in remission [facility] Diagnosis Palpitations- Primary documented in this encounter [facility] note* Diagnosis Chest pain, unspecified type [facility]* Diagnosis Primary osteoarthritis of left knee- Primary Primary localized osteoarthrosis, lower leg Chronic pain of left knee Pain in joint, lower leg documented in this encounter [facility] note* Diagnosis Palpitations documented in this encounter [facility] note* Diagnosis RLQ abdominal pain- Primary Abdominal pain, right lower quadrant Scrotum pain Unspecified disorder of male genital organs [facility]* Diagnosis Apnea spell- Primary Apnea Special screening for malignant neoplasms, colon documented in this encounter [facility] note* Diagnosis Central sleep apnea- Primary Unspecified sleep apnea HIMANSHU (obstructive sleep apnea) Obstructive sleep apnea (adult) (pediatric) documented in this encounter [facility] note* Diagnosis Bipolar affective disorder, currently depressed, moderate (HCC)- Primary Bipolar I disorder, most recent episode (or current) depressed, moderate KERI (generalized anxiety disorder) Generalized anxiety disorder Difficulty concentrating Attention or concentration deficit RLS (restless legs syndrome) Restless legs syndrome (RLS) documented in this encounter [facility] note* Diagnosis Bipolar disorder, current episode mixed, moderate (HCC)- Primary Bipolar I disorder, most recent episode (or current) mixed, moderate PTSD (post-traumatic stress disorder) Posttraumatic stress disorder KERI (generalized anxiety disorder) Generalized anxiety disorder Weight loss Loss of weight documented in this encounter [facility] note* Diagnosis KERI (generalized anxiety disorder)- Primary Generalized anxiety disorder Panic disorder Panic disorder without agoraphobia Bipolar disorder, current episode mixed, moderate (HCC) Bipolar I disorder, most recent episode (or current) mixed, moderate PTSD (post-traumatic stress disorder) Posttraumatic stress disorder documented in this encounter [facility] note* Diagnosis Special screening for malignant neoplasms, colon- Primary documented in this encounter [facility] note* Diagnosis Generalized anxiety disorder- Primary documented in this encounter [facility] for referral (narrative)* Diagnostic Procedure Only (Routine) - Pending Review Specialty Diagnoses / Procedures [facility] Referred To Contact MOLECULAR & FUNCTIONAL IMAGING Diagnoses Chest pain, unspecified type Procedures NM CARDIAC PERF STRESS/PHARM MYOCARDIAL SPECT MULTIPLE STUDIES Dinesh Nagel APRN.CNP [address] [place] [address] Molecular & Functional Imaging [address] [place] [address] Referral ID Status Reason Start Date Expiration Date Visits Requested Visits Authorized [id number] Pending Review Auto-Generat ed Referral 09/24/2023 1 1 [facility] for [facility] (narrative)* Outpatient Procedure (Routine) - Authorized Specialty Diagnoses / Procedures [facility] Ref[facility] To [facility] Diagnoses Palpitations Procedures ECG COMPLETE ECG ROUTINE ECG W/LEAST 12 LDS W/I&R Brian Meléndez MD [address] [place] [address] [facility] [address] [address] Referral ID Status Reason Start Date Expiration Date Visits Requested Visits Authorized [id number] Authorized Auto-Generat ed Referral 09/14/2022 09/14/2023 1 1 [facility] for referral (narrative)* Diagnostic Procedure Only (Routine) - Closed Specialty Diagnoses / Procedures Referred By Contac t Referred To Contact MOLECULAR & FUNCTIONAL IMAGING Diagnoses Chest pain, unspecified type Procedures NM CARDIAC PERF STRESS/PHARM MYOCARDIAL SPECT MULTIPLE STUDIES Dinesh Nagel APRN.CNP [address] [place] [address] Molecular & Functional Imaging [address] [id number] Referral ID Status Reason Start Date Expiration Date V isits Requested Visits Authorized [id number] Closed Auto-Generate d Referral 08/25/2022 09/24/2023 1 1 [facility] for referral (narrative)* Outpatient Procedure (Routine) - Pending Review Specialty Diagnoses / Procedures Referred By Radha polanco Referred To Contact [facility] [place] Diagnoses Palpitations Procedures ECHO ECHO TTHRC R-T 2D W/WOM-MODE COMPL SPEC&COLR D Brian Meléndez MD [address] [place], [place] [id number] [facility] [place] [address] Referral ID Status Reason Start Date Expiration Date Visits Requested Visits Authorized [id number] Pending Review Auto-Generat ed Referral 10/20/2022 10/20/2023 1 1 [facility] for referral (narrative)* Diagnostic Procedure Only (Routine) - Pending Review Specialty Diagnoses / Procedures Referred By Radha polanco Referred To Contact [facility] Diagnoses Apnea spell Procedures HOME SLEEP APNEA TEST (HSAT) SLEEP STD AIRFLOW HRT RATE&O2 SAT EFFORT UNATT Dinesh Nagel APRN.SET UP MECH[employer]IC [employer]SEM[employer] MACHINE [address] [place] [address] [address] Referral ID Status Reason Start Date Expiration Date Visits Requested Visits Authorized [id number] Pending Review Auto-Generat ed Referral 01/07/2023 01/07/2024 1 1 * Outpatient Procedure (Routine) - Pending Review Specialty Diagnoses / Procedures Referred By Contac t Referred To Contact [facility] Diagnoses Special screening for malignant neoplasms, colon Procedures COLONOSCOPY SCREENING COLONOSCOPY FLX DX W/COLLJ SPEC WHEN PFRMD Dinesh Nagel APRN.CNP [address] [place] [address] [facility] [address] [address] Referral ID Status Reason Start Date Expiration Date Visits Requested Visits Authorized [id number] Pending Review Auto-Generat ed Referral 01/07/2023 01/08/2024 1 1 [facility] Procedure (Routine) - Authorized Specialty Diagnoses / Procedures Referred By Contac t Referred To Contact [facility] Diagnoses Special screening for malignant neoplasms, colon Procedures COLONOSCOPY SCREENING COLONOSCOPY FLX DX W/COLLJ SPEC WHEN PFTrevon Trivedi PA-C [address] [place] [address] [address] Referral ID Status Reason Start Date Expiration Date Visits Requested Visits Authorized [id number] Authorized Auto-Generat ed Referral 02/09/2023 02/10/2024 1 1 [facility] Summary Purpose Family History No Family History Records FoundNo Family History Records FoundNo Family History Records FoundNo Family History Records FoundNo Family History Records FoundNo Family History Records Found Advance Directives No Advanced Directives Records FoundDocuments on File Type Date Recorded Patient Silver Steward Expl anation Advance Directive(s) 03/22/2019 12:40 AM Reason for Referral Specialty Diagnoses / Procedures Referred By Contac t Referred To Contact Cardiology Diagnoses Palpitations Procedures CONSULT TO CARDIOLOGY OFFICE/OUTPATIENT [facility] MDM 60-74 MINUTES Katerina Lewis MD [address] [place] [address] Referral ID Status Reason Start Date Expiration Date Visits Requested Visits Authorized [id number] Authorized PCP Requested Referral 09/07/2022 09/07/2023 1 1 Specialty Diagnoses / Procedures Referred By Contac t Referred To Contact Diagnoses Central sleep apnea HIMANSHU (obstructive sleep apnea) Procedures CONSULT TO SLEEP MEDICINE - ADULT OFFICE/OUTPATIENT [facility] MDM 60-74 MINUTES FaustologDinesh arevalo APRN.CNP [address] [place] [address] Referral ID Status Reason Start Date Expiration Date Visits Requested Visits Authorized [id number] Authorized PCP Requested Referral 02/15/2023 02/15/2024 1 1 Specialty Diagnoses / Procedures Referred By Contac t Referred To Contact Diagnoses RLS (restless legs syndrome) Katerina Lewis MD [address] [place] [address] Referral ID Status Reason Start Date Expiration Date Visits Re quested Visits Authorized [id number] Closed 1 1 Additional Source Comments (unrecognized sect ion and content) No Status Records FoundNo Status Records FoundNo Status Records FoundNo Status Records FoundNo Status Records FoundNo Status Records Found INFORMATION SOURCE (unrecogn ized section and content) DATE CREATED AUTHOR AUTHOR'S ORGANIZ ATION 03/28/2020 [facility] ([place]) DATE CREATED AUTHOR AUTHOR'S ORGANIZ ATION 02/07/2021 [facility] DATE CREATED AUTHOR AUTHOR'S ORGANIZ ATION 02/08/2021 [facility] DATE CREATED AUTHOR AUTHOR'S ORGANIZ ATION 07/23/2023 [facility] DATE CREATED AUTHOR AUTHOR'S ORGANIZ ATION 10/07/2023 [facility] Source Comments (unrecognize d section and content) In the event this informatio n is protected by the Federal Confidentiality of Alcohol and Drug Abuse Patient Records regulations: The Federal rules restrict any use of the information to criminally investigate or prosecute any alcohol or drug abuse patient.[facility] the event this information is protected by the Federal Confidentiality of Alcohol and Drug Abuse Patient Records regulations: The Federal rules restrict any use of the information to criminally investigate or prosecute any alcohol or drug abuse patient.[facility] the event this information is protected by the Federal Confidentiality of Alcohol and Drug Abuse Patient Records regulations: The Federal rules restrict any use of the information to criminally investigate or prosecute any alcohol or drug abuse patient.[facility] the event this information is protected by the Federal Confidentiality of Alcohol and Drug Abuse Patient Records regulations: The Federal rules restrict any use of the information to criminally investigate or prosecute any alcohol or drug abuse patient.[facility] the event this information is protected by the Federal Confidentiality of Alcohol and Drug Abuse Patient Records regulations: The Federal rules restrict any use of the information to criminally investigate or prosecute any alcohol or drug abuse patient.[facility] the event this information is protected by the Federal Confidentiality of Alcohol and Drug Abuse Patient Records regulations: The Federal rules restrict any use of the information to criminally investigate or prosecute any alcohol or drug abuse patient.[facility] the event this information is protected by the Federal Confidentiality of Alcohol and Drug Abuse Patient Records regulations: The Federal rules restrict any use of the information to criminally investigate or prosecute any alcohol or drug abuse patient.[facility] the event this information is protected by the Federal Confidentiality of Alcohol and Drug Abuse Patient Records regulations: The Federal rules restrict any use of the information to criminally investigate or prosecute any alcohol or drug abuse patient.[facility] the event this information is protected by the Federal Confidentiality of Alcohol and Drug Abuse Patient Records regulations: The Federal rules restrict any use of the information to criminally investigate or prosecute any alcohol or drug abuse patient.[facility] the event this information is protected by the Federal Confidentiality of Alcohol and Drug Abuse Patient Records regulations: The Federal rules restrict any use of the information to criminally investigate or prosecute any alcohol or drug abuse patient.[facility] the event this information is protected by the Federal Confidentiality of Alcohol and Drug Abuse Patient Records regulations: The Federal rules restrict any use of the information to criminally investigate or prosecute any alcohol or drug abuse patient.[facility] the event this information is protected by the Federal Confidentiality of Alcohol and Drug Abuse Patient Records regulations: The Federal rules restrict any use of the information to criminally investigate or prosecute any alcohol or drug abuse patient.[facility] the event this information is protected by the Federal Confidentiality of Alcohol and Drug Abuse Patient Records regulations: The Federal rules restrict any use of the information to criminally investigate or prosecute any alcohol or drug abuse patient.[facility] Hospital[facility] the event this information is protected by the Federal Confidentiality of Alcohol and Drug Abuse Patient Records regulations: The Federal rules restrict any use of the information to criminally investigate or prosecute any alcohol or drug abuse patient.[facility] Hospital[facility] the event this information is protected by the Federal Confidentiality of Alcohol and Drug Abuse Patient Records regulations: The Federal rules restrict any use of the information to criminally investigate or prosecute any alcohol or drug abuse patient.[facility] Hospital[facility] the event this information is protected by the Federal Confidentiality of Alcohol and Drug Abuse Patient Records regulations: The Federal rules restrict any use of the information to criminally investigate or prosecute any alcohol or drug abuse patient.[facility] Hospital[facility] the event this information is protected by the Federal Confidentiality of Alcohol and Drug Abuse Patient Records regulations: The Federal rules restrict any use of the information to criminally investigate or prosecute any alcohol or drug abuse patient.[facility] Hospital[facility] the event this information is protected by the Federal Confidentiality of Alcohol and Drug Abuse Patient Records regulations: The Federal rules restrict any use of the information to criminally investigate or prosecute any alcohol or drug abuse patient.[facility] Hospital[facility] the event this information is protected by the Federal Confidentiality of Alcohol and Drug Abuse Patient Records regulations: The Federal rules restrict any use of the information to criminally investigate or prosecute any alcohol or drug abuse patient.[facility] Hospital[facility] the event this information is protected by the Federal Confidentiality of Alcohol and Drug Abuse Patient Records regulations: The Federal rules restrict any use of the information to criminally investigate or prosecute any alcohol or drug abuse patient.[facility] Hospital[facility] the event this information is protected by the Federal Confidentiality of Alcohol and Drug Abuse Patient Records regulations: The Federal rules restrict any use of the information to criminally investigate or prosecute any alcohol or drug abuse patient.[facility] Hospital[facility] the event this information is protected by the Federal Confidentiality of Alcohol and Drug Abuse Patient Records regulations: The Federal rules restrict any use of the information to criminally investigate or prosecute any alcohol or drug abuse patient.[facility] Hospital[facility] the event this information is protected by the Federal Confidentiality of Alcohol and Drug Abuse Patient Records regulations: The Federal rules restrict any use of the information to criminally investigate or prosecute any alcohol or drug abuse patient.[facility] HospitalIn the event this information is protected by the Federal Confidentiality of Alcohol and Drug Abuse Patient Records regulations: The Federal rules restrict any use of the information to criminally investigate or prosecute any alcohol or drug abuse patient.[facility] HospitalIn the event this information is protected by the Federal Confidentiality of Alcohol and Drug Abuse Patient Records regulations: The Federal rules restrict any use of the information to criminally investigate or prosecute any alcohol or drug abuse patient.[facility] HospitalIn the event this information is protected by the Federal Confidentiality of Alcohol and Drug Abuse Patient Records regulations: The Federal rules restrict any use of the information to criminally investigate or prosecute any alcohol or drug abuse patient.[facility] HospitalIn the event this information is protected by the Federal Confidentiality of Alcohol and Drug Abuse Patient Records regulations: The Federal rules restrict any use of the information to criminally investigate or prosecute any alcohol or drug abuse patient.[facility] HospitalIn the event this information is protected by the Federal Confidentiality of Alcohol and Drug Abuse Patient Records regulations: The Federal rules restrict any use of the information to criminally investigate or prosecute any alcohol or drug abuse patient.[facility] HospitalIn the event this information is protected by the Federal Confidentiality of Alcohol and Drug Abuse Patient Records regulations: The Federal rules restrict any use of the information to criminally investigate or prosecute any alcohol or drug abuse patient.[facility] HospitalIn the event this information is protected by the Federal Confidentiality of Alcohol and Drug Abuse Patient Records regulations: The Federal rules restrict any use of the information to criminally investigate or prosecute any alcohol or drug abuse patient.[facility] HospitalIn the event this information is protected by the Federal Confidentiality of Alcohol and Drug Abuse Patient Records regulations: The Federal rules restrict any use of the information to criminally investigate or prosecute any alcohol or drug abuse patient.[facility] HospitalIn the event this information is protected by the Federal Confidentiality of Alcohol and Drug Abuse Patient Records regulations: The Federal rules restrict any use of the information to criminally investigate or prosecute any alcohol or drug abuse patient.[facility] HospitalIn the event this information is protected by the Federal Confidentiality of Alcohol and Drug Abuse Patient Records regulations: The Federal rules restrict any use of the information to criminally investigate or prosecute any alcohol or drug abuse patient.[facility] HospitalIn the event this information is protected by the Federal Confidentiality of Alcohol and Drug Abuse Patient Records regulations: The Federal rules restrict any use of the information to criminally investigate or prosecute any alcohol or drug abuse patient.[facility] HospitalIn the event this information is protected by the Federal Confidentiality of Alcohol and Drug Abuse Patient Records regulations: The Federal rules restrict any use of the information to criminally investigate or prosecute any alcohol or drug abuse patient.[facility] Reason for Visit (unrecogniz ed section and [...] STRESS/PHARM MYOCARDIAL SPECT MULTIPLE STUDIES [employer], 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 [address] [place] [address] Molecular & Functional Imaging [address] [place] [address] Referral ID Status Reason Start Date Expiration Date V isits Requested Visits Authorized [id number] Closed Auto-Generate d Referral 08/25/2022 09/24/2023 1 1 Reason Comments Pain Left knee need some temporary pain relief since cant get into pain management until 10/06/22 Reason Comments con internal Specialty Diagnoses / Procedures Referred By Contac t Referred To Contact Cardiology Diagnoses Palpitations Procedures CONSULT TO CARDIOLOGY OFFICE/OUTPATIENT [facility] 60-74 MINUTES Katerina Lewis MD [address] [place] [address] Referral ID Status Reason Start Date Expiration Date V isits Requested Visits Authorized [id number] Closed PCP Requested Referral 09/07/2022 09/07/2023 1 [...] Care Teams (unrecognized sec tion and content) Rn Complex Care Relationship Specialty Start Date End Date Katerina Lewis MD [address] [place] [address] PCP - General Family Practice 07/04/19 Rn Complex Care Relationship Specialty Start Date End Date Katerina Lewis MD [address] [place] [address], [place] [address] PCP - General Family Practice 07/04/19 Rn Complex Care Relationship Specialty Start Date End Date Katerina Lewis MD [address] [place] [address] [place] [address] PCP - General Family Practice 07/04/19 Rn Complex Care Relationship Specialty Start Date End Date Katerina Lewis MD [address] [place] [address], [place] [address] PCP - General Family Practice 07/04/19 Rn Complex Care Relationship Specialty Start Date End Date Katerina Lewis MD [address] [place] [address], [place] [address] PCP - General Family Medicine 07/04/19 Rn Complex Care Relationship Specialty Start Date End Date Katerina Lewis MD [address] [place] [address], [place] [address] PCP - General Family Medicine 07/04/19 Rn Complex Care Relationship Specialty Start Date End Date Katerina Lewis MD [address] [place] [address], [place] [address] PCP - General Family Medicine 07/04/19 Rn Complex Care Relationship Specialty Start Date End Date Katerina Lewis MD [address] [place] [address] [place] [address] PCP - General Family Medicine 07/04/19 Rn Complex Care Relationship Specialty Start Date End Date Katerina Lewis MD [address] [place] [address] PCP - General Family Medicine 07/04/19 Rn Complex Care Relationship Specialty Start Date End Date Katerina Lewis MD [address] [place] [address] PCP - General Family Medicine 07/04/19 Rn Complex Care Relationship Specialty Start Date End Date Katerina Lewis MD [address] [place] [address] PCP - General Family Medicine 07/04/19 Rn Complex Care Relationship Specialty Start Date End Date Katerina Lewis MD [address] [place] [address] PCP - General Family Medicine 07/04/19 Rn Complex Care Relationship Specialty Start Date End Date Katerina Lewis MD [address] [place] [address] PCP - General Family Medicine 07/04/19 Rn Complex Care Relationship Specialty Start Date End Date Katerina Lewis MD [address] [place] [address] PCP - General Family Medicine 07/04/19 Rn Complex Care Relationship Specialty Start Date End Date Katerina Lewis MD [address] [place] [address] PCP - General Family Medicine 07/04/19 Rn Complex Care Relationship Specialty Start Date End Date Katerina Lewis MD [address] [place] [address] PCP - General Family Medicine 07/04/19 Rn Complex Care Relationship Specialty Start Date End Date Katerina Lewis MD [address] [place] [address] PCP - General Family Medicine 07/04/19 Rn Complex Care Relationship Specialty Start Date End Date Katerina Lewis MD [address] [place] [address] PCP - General Family Medicine 07/04/19 Rn Complex Care Relationship Specialty Start Date End Date Katerina Lewis MD [address] [place] [address] PCP - General Family Medicine 07/04/19 Rn Complex Care Relationship Specialty Start Date End Date Katerina Lewis MD [address] [place] [address] PCP - General Family Medicine 07/04/19 Rn Complex Care Relationship Specialty Start Date End Date Katerina Lewis MD [address] [place] [address] PCP - General Family Medicine 07/04/19 Rn Complex Care Relationship Specialty Start Date End Date Katerina Lewis MD [address] [place] [address] PCP - General Family Medicine 07/04/19 Rn Complex Care Relationship Specialty Start Date End Date Katerina Lewis MD [address] [place] [address] PCP - General Family Medicine 07/04/19 Rn Complex Care Relationship Specialty Start Date End Date Katerina Lewis MD [address] [place] [address] PCP - General Family Medicine 07/04/19 Rn Complex Care Relationship Specialty Start Date End Date Katerina Lewis MD [address] [place] [address] PCP - General Family Medicine 07/04/19 Rn Complex Care Relationship Specialty Start Date End Date Katerina Lewis MD [address] [place], [place] [address] PCP - General Family Medicine 07/04/19 Rn Complex Care Relationship Specialty Start Date End Date Katerina Lewis MD [address] [place], [place] [address] PCP - General Family [facility] 07/04/19 Rn Complex Care Relationship Specialty Start Date End Date Katerina Lewis MD [address] [place], [place] [id number] PCP - General Family Medicine 07/04/19 FOR [...] BE BASED ON THE PRIMARY CLINICAL RECORDS. [facility]. provides no warranty or guarantee of the accuracy or completeness of information in this document.
[2023-10-21 12:37] VITALS: BP 134/77; PULSE 82; RESP 16; TEMP 36.6; O2SAT 98
== END 2023-10-21 12:39 | disposition home or self-care (01) ==
PROVIDERS: Emergency Provider Emergency Medicine; PCP Family Medicine; Visit Provider Emergency Medicine
DX: R51.9 Headache, unspecified (principal); F17.200 Nicotine dependence, unspecified, uncomplicated; I10 Essential (primary) hypertension
CPT/HCPCS: 70450; 96361; 96374; 96375; 99282; J7030; A4216

== ENCOUNTER → 2023-11-16 | Outpatient (CLI) | payer MEDICAID, SELFPAY | END | disposition home or self-care (01) | LOC: MFPLAB 09:22 | PROVIDERS: PCP Family Medicine; Visit Provider Family Medicine | DX: E29.8 Other testicular dysfunction (principal) | CPT/HCPCS: 36415; 84403 ==

== ENCOUNTER → 2023-12-02 | Outpatient (CLI) | payer MEDICAID, SELFPAY ==
[2023-12-02 09:59] LABS: Absolute Lymphocyte Count 1.68 X10^3/uL (0.83-4.51); Basophil# 0.06 X10^3/uL; Basophil% 0.6 % (0-1); Eosinophil# 0.08 X10^3/uL; Eosinophils% 0.7 % (0-5); Hematocrit 41.4 % (40-54); Hemoglobin 14.1 g/dL (13.0-16.5); Lymphocyte # 1.68 X10^3/ul (0.83-4.51); Lymphocyte % 15.6 % (19-41); Mean Corp Hgb Conc 34.1 g/dL (32-36); Mean Corpuscular Hgb 29.3 pg (27.0-32.0); Mean Corpuscular Volume 86.1 fL (80-94); Mean Platelet Vol. 9.3 fl (6.2-12.0); Monocyte# 0.95 X10^3/uL; Monocyte% 8.8 % (0-10); NRBC Flagged by Analyzer 0 % (0-5); Neutrophil # 7.95 X10^3/uL (2.7-7.7); Neutrophil % 73.8 % (47-70); Platelet Count 267 K/mm3 (150-450); RBC Distribution Width CV 12.8 % (11.6-14.6); RBC Distribution Width SD 40.2 fl (35.1-43.9); Red Blood Count 4.81 M/mm3 (4.6-6.2); White Blood Count 10.8 K/mm3 (4.4-11.0)
[2023-12-02 10:15] LABS: Vitamin D,25 Hydroxy 72.7 ng/mL
[2023-12-02 10:39] LABS: ALB/GLOB Ratio 1.5 RATIO (0.9-2.4); AST(SGOT) 18 U/L (15-37); Alanine Aminotransfer ALT/SGPT 35 U/L (16-61); Albumin, Serum 4.1 g/dL (3.2-5.0); Alkaline Phosphatase 71 U/L (45-117); Anion Gap 5 (5-15); BUN 20 mg/dL (7-18); BUN/Creat Ratio 17.9 RATIO (10-20); Calcium,Total 8.9 mg/dL (8.5-10.1); Chloride 107 mmol/L (98-107); Cholesterol 178 mg/dL (200); Creatinine, Serum 1.12 mg/dL (0.70-1.30); EST Glomerular Filtration Rate 73 mL/min (>60); Est Glom Filt Rate - Afr Amer 88 mL/min (>60); Globulin 2.8 g/dL (2.2-4.2); Glucose 85 mg/dL (74-106); High Density Lipoprotein 56 mg/dL; Potassium 4.4 mmol/L (3.5-5.1); Protein, Total 6.9 g/dL (6.4-8.2); Sodium Level 139 mmol/L (136-145); Thyroid Stim Hormone (TSH) 1.05 uIU/mL (0.358-3.74); Triglycerides 96 mg/dL; Very Low Density Lipoprotein 19 mg/dL (5-40)
== END | disposition home or self-care (01) ==
PROVIDERS: PCP Family Medicine; Referring Provider Family Medicine; Visit Provider Family Medicine
DX: Z00.00 Encounter for general adult medical examination without abnormal findings (principal); Z13.220 Encounter for screening for lipoid disorders; Z13.1 Encounter for screening for diabetes mellitus; R53.83 Other fatigue
CPT/HCPCS: 36415; 80053; 80061; 82306; 84443; 84630; 85025; 97110

== ENCOUNTER → 2023-12-05 | Outpatient (CLI) | payer MEDICAID, SELFPAY ==
[2023-12-10 03:07] LABS: Arsenic 7245 4 ug/L (0-9); Lead, Blood < 1.0 ug/dL (0.0-3.4); Mercury, Blood 85324 3.3 ug/L (0.0-14.9)
== END | disposition home or self-care (01) ==
LOC: MFPLAB 09:33
PROVIDERS: PCP Family Medicine; Visit Provider Family Medicine
DX: R53.83 Other fatigue (principal)
CPT/HCPCS: 36415; 82175; 83655; 83825

== ENCOUNTER 2023-12-13 06:05 | Day surgery (SDC) | payer MEDICAID, SELFPAY ==
[2023-12-13] VITALS (9 sets, daily range): BP systolic 129–145; BP diastolic 82–95; PULSE 54–79; RESP 16; TEMP 36.4–36.7; O2SAT 95–97; BMI 30.5
--- NOTE | 2023-12-13 07:03 | HP.PCM_ITS ---
History and Physical Date of Admission: 12/13/23 [facility] [address] [place] [address] OFFICE VISIT Date of Service: 11/30/23 MR#: [id number] Acct: [id number] Name: DOUG PANDEY II Rep #: [id number] : 1970 Provider: Dr. Nils Gutiérrez DO Age/Sex: 53/M Location: [facility] [place] Status: Signed Intake Vital Signs 09/07/2408:06 10/21/2410:05 Height 6 ft 1 in 6 ft 1 in Intake Visit Reasons: right knee Chief Complaint: left knee TKA Accompanied by: Self Is patient in pain?: Yes Pain scale (1-10): 6 Allergies No Known Allergies Allergy (Verified 11/30/23 08:45) Medications ibuprofen 600 mg tablet 600 mg PO Q8H PRN pain 03/04/23 [History Confirmed 11/30/23] acetaminophen 500 mg tablet 1,000 mg (2 x 500 mg) PO Q6H PRN #100 tabs 10/18/23 [Rx Confirmed 11/30/23] bupropion HCl 75 mg tablet 75 mg PO BID 10/21/23 [History Confirmed 11/30/23] baclofen 10 mg tablet 10 mg PO BID 11/30/23 [History Confirmed 11/30/23] PFSH Medical History Arthritis Sharplesout Cardiology follow-up encounter Difficulty swallowing FH: total knee replacement Former smoker History of atrial fibrillation History of cardioversion History of echocardiogram History of pain when walking Hypertension Injury of head and neck Marijuana use Meniscus degeneration Restless legs Substance abuse Vapes nicotine containing substance Wears glasses Surgical History History of hernia repair History of shoulder surgery Hx of left knee surgery Family History Other No family history of disorders Social History household members: spouse housing: house Smoking Status: Current every day smoker tobacco type: cigarettes and e- cigarettes what type of physical activity do you participate in: weight training frequency: daily do you feel safe at home: Yes HPI right knee Details: This documentation accurately reflects the service provided and the decisions made by me, Dr. Nils Gutiérrez, DO 11/30/23 0839. Part of today?s visit was documented by Shonda FLOR, acting as scribe. DOUG PANDEY is a 53 year old M here today for 6 week post op. Right TKA on 10/18/23. Patient states his knee has been pretty decent. Patient is still having pain with his knee. Patient states it is still pretty stiff but he has more movement in the right then he does in his left. Patient is still doing Physical therapy twice a week. Patient states he started this past week he did exercise on his own at home and then he started doing light stationary bike at the gym. Patient states the swelling has gone down to he states he does have some spots that are still swollen. Patient is using ice and heat for his knee. Ortho Exam General General: Yes no acute distress Neurologic: Yes alert and Yes oriented x3 Psychologic: Yes reasonable and appropriate Right Knee Knee ROM: No ROM-Extension -20 to 0 (6) and Yes ROM-Flexion 0-140 (102) KNEE: Small joint effusion Head: Normocephalic Atraumatic Chest: symmetrical rise, non-labored breathing, no audible wheeze Abdomen: no guarding, non-rigid Supplemental Info 11/30/2023 x-ray right knee: Status post press-fit total knee arthroplasty with good interfaces and position 04/15/2023 x-ray right knee: There is advanced medial compartment arthrosis on the notch view with joint space collapse moderate patellofemoral arthrosis and there is spurring noted in the lateral compartment Coding Level of Care Code Global Post Op Diagnoses Fibrosis of right knee joint M24.661 Laterality: right Assessment and Plan Assessment and Plan (1) Arthrofibrosis of knee joint: Status: Acute Qualifiers: Laterality: right Qualified Code(s): M24.661 - Ankylosis, right knee Orders: Orders Knee 3 Views Today Z96.659 - Presence of unspecified artificial knee joint Plan Doug is about 6-week status post right total knee arthroplasty. He is only about 102 degrees or so of knee flexion and is lacking a few degrees of knee extension. At this point would recommend manipulation under anesthesia with intra-articular steroid injection. Risks benefits reviewed including risk of bleeding fracture tendon rupture increased pain increased postoperative swelling and failure to achieve desired range of motion. He does wish to proceed, he is not sure if he can do this this week due to his schedule he will contact us later today to schedule potentially for 12/02/2023. he does need to resume physical therapy immediatly. Follow up 4 weeks post op. sooner if pain, swelling, numbness or associated symptoms, or concerns develop. All questions answered. Patient in agreement of plan. I have examined the patient and the H&P has been reviewed. There are no clinical changes since date of exam. Date Nils Meneses Signature: Date (if applicable) CC: ~
[2023-12-13] MEDS: Bupivacaine Mpf 0.5% 30 ML VIAL (07:31)
[2023-12-13] MEDS: MethylPREDNISolone Acetate 40 MG/ML Vial (07:31)
--- NOTE | 2023-12-13 07:44 | PCM.OP.BLANK ---
Operative Report Date of Procedure: 12/13/23 Preoperative diagnosis: Arthrofibrosis right knee Postoperative diagnosis: Same Procedure: Manipulation under anesthesia aspiration 35 cc blood-tinged synovial fluid with intra-articular steroid injection Anesthesia: General EBL: None Complications: None Condition: Able to PACU Indication for procedure: This is a 53-year-old male who underwent total knee arthroplasty approximately 6 weeks ago who is failed to gain her range of motion wish to undergo an elective manipulation under anesthesia to increase range of motion. risk benefits and alternatives were reviewed including risk of bleeding infection nerve, artery, bone, tissue damage, blood clot need for further surgery and continued pain. Procedure: Patient was met in the preoperative holding area once again the operative extremity was identified by both patient and physician and was marked. Patient was brought back to the operating room anesthesia was started. A timeout was called into the proper patient procedure and extremity were being contemplated. The pre-operative range of motion was lacking 6 degrees extension and achieving 102 degrees flexion. After patient was adequately anesthetized extension manipulation was performed followed by patellar mobilization followed by gradual flexion scar tissue was palpated being released with no concerning signs for tendon rupture or fracture. Postoperative range of motion was much improved with near full extension and 130 degrees of flexion. Following the manipulation using sterile technique from the superior lateral position 18-gauge needle was used to aspirate 35 cc of blood-tinged synovial fluid an intra-articular injection with 40 mg of depomedrol and 8 cc 0.25%marcaine with was injected. bandaid applied with Nicholas wrap over top
--- NOTE | 2023-12-13 07:46 | DCINST_ITS ---
Discharge Instructions Diet Discharge Diet: No restrictions Activity Weight Bearing Status: Full weight bearing Additional Activity Instructions:: Dressing / Incision Call your doctor if you observe: Shortness of breath and Chest pain Additional Dressing/Incision Instructions:: Encourage full knee flexion and extension regularly. Start physical therapy immediately. May shower and return to activities as normal. Keep pain controlled with medications as discussed with Dr. Gutiérrez in order to keep full range of motion. Ice and elevate next 72 hours, keep some form of compression such as Nicholas wrap on for next 7 days may remove to shower. Follow-up with Dr. Gutiérrez and call with any questions or concerns. Follow Up Care Please Follow Up With: Nils Gutiérrez DO When: For weeks Test Results: Test results from this visit will be discussed in further detail at your follow- up appointment, if applicable. Discharge Plan Admission Primary Reason for Your Visit: Manipulation under anesthesia right knee Attending Provider: Nils Gutiérrez Primary Care Provider: Carol Burnette Discharge Orders/Prescriptions Prescriptions: New oxycodone 5 mg tablet 5 - 10 mg PO Q4H PRN (Reason: pain) 4 Days Qty: 30 0RF Continued ibuprofen 600 mg tablet 600 mg PO Q8H PRN (Reason: pain) Hold Instructions: Resume on 11/02/23. May resume day after completion of blood thinner baclofen 10 mg tablet 10 mg PO BID acetaminophen 500 mg tablet 1,000 mg PO Q6H PRN Qty: 100 0RF bupropion HCl 75 mg tablet 75 mg PO BID Referrals / Follow Up: Carol Burnette MD [Primary Care Provider] - Disposition Disposition (needs filled in before D/C Order can be placed): Home, Self Care
[2023-12-13] MEDS: Oxycodone/Apap 5/325 Tablet PO (08:17)
== END 2023-12-13 08:41 | disposition home or self-care (01) ==
LOC: SDC 06:05 → AC 06:06
PROVIDERS: PCP Family Medicine; Referring Provider Orthopaedic Surgery; Visit Provider Orthopaedic Surgery
PROC: (CPT 27570; principal; 2023-12-13 07:25)
DX: M24.661 Ankylosis, right knee (principal); I10 Essential (primary) hypertension; F17.200 Nicotine dependence, unspecified, uncomplicated; Z87.19 Personal history of other diseases of the digestive system; Z96.651 Presence of right artificial knee joint
CPT/HCPCS: 27570; 20610; 01380; J7120

== ENCOUNTER 2023-12-20 08:00 | Outpatient (RCR) | payer MEDICAID, SELFPAY ==
--- NOTE | 2023-10-24 13:28 | HP.PTEVAL ---
Patient's Visit Information Visit Information Visit Information: NAZARIO PANDEY II is a 53 year old M referred to Physical Therapy by Dr. Nils Gutiérrez DO with a diagnosis of Right TKR 10/18/23. Date of Evaluation: 10/24/23 Physical Therapist: Rowena Hobson DPT Visit Plan Frequency: 2-3x /Week Duration: 4 Weeks Plan: Right TKR 10/18/23 Focus on LE ROM, strength/stabilization, functional mobility HEP Given IE: ROM, quad set, SLR Subjective Subjective: Right TKR 10/18/[address] Lee - went home same day. Two story home but he does not have to use the stairs- with two stairs to enter- no big issues getting in/out. Left TKR January [address] Lee- the recovery was not great- this one is going better. He was having MENA from the anesthesia- today is the first today they are tolerable. The knee in the last 48 hours worst: 10/10 - its more at a 7/10 most of the time- eases getting up and moving around- polar pack. He can get pain free and he has been able to get some sleep. He is sleeping in his bed- on his back. Describes the pain as a achy pain- deep. Pain is all around the knee- pain is radiating down to the toes- no pain radiating up into the hip. Doing some exercises for his knee as much as he can- he can bend to 90 degrees. 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 He is most comfortable in long sitting or laying flat. PMHx: none Meds: oxycodone, Eliquis and Tylenol. He is doing 5-6 hours in between oxy. Objective Objective: Posture: forward head, rounded shoulders- can correct but does not maintain Gait: antalgic- decreased stance on right LE- poor heel/toe pattern- step to pattern with FWW SLS: weight shift only Sitting: long sitting is the only comfortable positions- does not sit in 90/90 position Observation: no s/s of infection- still has ISABEL hose and dressing covering incision Girth: Patella: 46.5 cm ROM: 5 degrees from extension to 75 degrees of flexion in in log sitting Strength: core: fair, Hip: SLR unable without max A from PT, Flexion: 5.0, Ankle: 5/5 Flex: HS: severe, Gastroc: severe Balance/Special Test Scores WOMAC Total Score: 78 WOMAC Percentatge: 18.7500 Goals Goal 1:: Patient will report participation in home exercise program activities a minimum of 5 days per week, as adjunct to skilled physical therapy intervention in preparation for independent home management upon discharge. Goal Time Frame: 4-6 Weeks Goal 2:: Patient will demo 0-115 degrees ROM in the right knee Goal Time Frame: 4-6 Weeks Goal 3:: Patient will ambulate >150 feet normalized gait pattern without AD Goal Time Frame: 4-6 Weeks Goal 4:: Patient will asc/desc 8 stairs recip with no HR Goal Time Frame: 4-6 Weeks Goal 5:: Patient will be 80% improvement Goal Time Frame: 4-6 Weeks Rehabilitation Potential Physical Therapy Diagnosis: Patient presents with decreased LE ROM, LE and core strength/stabilization, flex, muscular endurance leading to abnormal gait and increased pain with ADL's s/p Right TKR 10/18/23 Rehabilitation Potential: Good Anticipated Interventions Patient/Client Instruction: Educate patient on: Benefits of Fitness Program Therapeutic Exercise to Include: Strength training, Endurance training, Balance training, Coordination, Agility training, Body mechanics, Postural training, Flexibilty training, Gait and locomotor training, Neuromotor development, Passive ROM, Active ROM, Dynamic Lumbar Stabilization and Scapular Strength/Stabilization For the Purpose of:: To improve muscle performance and motor function TENS: Yes Cryotherapy (ice pack, ice massage): Yes Thermo therapy (hot pack): Yes Ultrasound (thermal/non thermal): No Text: Thank you for the opportunity to evaluate your patient. For Medicare and Medicare HMO plans, please review the plan of care and approve it. It will need to be FAXED BACK to us at [phone] for Medicare purposes. For Medicare only, by signing this I certify the plan of care. Please let me know if there are questions or concerns regarding this plan of care. Physician Signature: Date:
--- NOTE | 2023-12-06 12:01 | HP.PTREVAL ---
Re-Evaluation Intro: Dr. Nils Gutiérrez, DO, It has been my pleasure to treat NAZARIO WUS II over the last 10 visits for Right TKR 10/18/23. Please see the progress note below for an update on the physical therapy plan of care! Subjective Subjective: Pt. reports overall still having higher levels of pain, but has improved. He is scheduled to have a SELMA. Pt. reports having some issues that his knee is giving out on him. He is still having issues going down stairs as well. C/O increased stiffness, but has day to day changes. Objective Objective/Function: ROM: R knee: 0-5-109deg. Pain at end ranges. MMT: R knee: ext 21.8#, flexion 18.9#. L knee: ext 57.9#, flexion 23.1#. GAIT: pt. has okay gait pattern, but does lack TKE during stance phase. Adequate knee flexion during swing phase. STAIRS: Ascending is pretty good without use of HR, but does have increased pain. Pt. feels weaker on his R leg. Descending: increased pain bilaterally, R worse than L and decreased control noted bilaterally. Kingsley is still pretty stiff and has marked quad weakness. Plan Plan Plan: He is having an SELMA on 12/13/23. Pt. to schedule 3-4 times per week for 2 weeks after then drop down to 2x per week for 4 weeks. Focus on ROM and quad strengthening, but make sure to achieve close to 0-0-120deg prior to focusing on strengthening. Balance/Gait/Functional tests Balance/Special Test Scores Tug Test: 20-30sec.=variable mobility WOMAC Total Score: 78 WOMAC Percentage: 18.7500 Goals Goals Goal 1:: Patient will report participation in home exercise program activities a minimum of 5 days per week, as adjunct to skilled physical therapy intervention in preparation for independent home management upon discharge. Goal Time Frame: 4-6 Weeks Goal Progress: Progressing Goal 2:: Patient will demo 0-115 degrees ROM in the right knee Goal Time Frame: 4-6 Weeks Goal Progress: Progressing Goal 3:: Patient will ambulate >150 feet normalized gait pattern without AD Goal Time Frame: 4-6 Weeks Goal Progress: Progressing Goal 4:: Patient will asc/desc 8 stairs recip with no HR Goal Time Frame: 4-6 Weeks Goal Progress: Progressing Goal 5:: Patient will be 80% improvement Goal Time Frame: 4-6 Weeks Goal Progress: Progressing Anticipated Interventions Anticipated Interventions Patient/Client Instruction: Educate patient on: Benefits of Fitness Program Therapeutic Exercise to Include: Strength training, Endurance training, Balance training, Coordination, Agility training, Body mechanics, Postural training, Flexibilty training, Gait and locomotor training, Neuromotor development, Passive ROM, Active ROM, Dynamic Lumbar Stabilization and Scapular Strength/Stabilization For the Purpose of:: To improve muscle performance and motor function TENS: Yes Cryotherapy (ice pack, ice massage): Yes Thermo therapy (hot pack): Yes Ultrasound (thermal/non thermal): No Re-Evaluation Ending Re-evaluation ending: Please do not hesitate to contact me at [phone] by phone or if you have questions or concerns regarding this new plan of care! Sincerely, Ja Pascal DPT
--- NOTE | 2024-01-24 11:13 | HP.PT.NRP ---
Patient Information Patient Information: NAZARIO PANDEY II was seen in my office for initial evaluation on 10/24/23. The following Plan of Care was established for this patient: POC Established Initial Frequency: 2-3x /Week Initial Duration: 4 Weeks Anticipated Interventions Patient/Client Instruction: Educate patient on: Benefits of Fitness Program Therapeutic Exercise to Include: Strength training, Endurance training, Balance training, Coordination, Agility training, Body mechanics, Postural training, Flexibilty training, Gait and locomotor training, Neuromotor development, Passive ROM, Active ROM, Dynamic Lumbar Stabilization and Scapular Strength/Stabilization For the Purpose of:: To improve muscle performance and motor function TENS: Yes Cryotherapy (ice pack, ice massage): Yes Thermo therapy (hot pack): Yes Ultrasound (thermal/non thermal): No Last Seen Last Seen: This patient was last seen in our office . Pertinent comments regarding their Physical therapy will appear below: Patient reported he was ready to be d/c from PT and continue on his own. Appropriate to be d/c from PT. At this point I will be discontinuing this patient from physical therapy. I would be happy to see this patient again in the future if found appropriate by the physician. Thank you! Rowena Hobson, CHIPT Balance/Gait/Functional tests Balance/Special Test Scores Tug Test: 20-30sec.=variable mobility WOMAC Total Score: 78 WOMAC Percentage: 18.7500
== END 2023-12-20 19:00 | disposition home or self-care (01) ==
LOC: PT 08:00
PROVIDERS: PCP Family Medicine; Referring Provider Orthopaedic Surgery; Visit Provider Orthopaedic Surgery
DX: M17.11 Unilateral primary osteoarthritis, right knee (principal); Z96.651 Presence of right artificial knee joint
CPT/HCPCS: 97110; 97140; 97162; 97530

== ENCOUNTER 2024-02-07 08:00 | Outpatient (RCR) | payer MEDICAID, SELFPAY ==
--- NOTE | 2024-01-11 10:13 | HP.PTEVAL_ITS ---
Patient's Visit Information Visit Information Visit Information: NAZARIO PANDEY II is a 53 year old M referred to Physical Therapy by Dr. Nils Gutiérrez DO with a diagnosis of OA R shoulder GH joint. Date of Evaluation: 01/11/24 Physical Therapist: RANDY Robles Visit Plan Frequency: 2x /Week Duration: 3 Months Plan: Goes by Kingsley Pt is very tight all planes of his shoulder and lats 2X/ week for 8-10 weeks for R shoulder end range stretching/AAROM/AROM, scapular strength, Lat stretching, postural exercises, RC strength with HEP HEP: supine wand flex and ER with towel, standing wand IR and abduction with wand Subjective Subjective: José Miguel Wynn. Pt saw Dr Gutiérrez and he said her needs a new R shoulder. He wants to try PT first because he just had 2 TKR and wants to avoid PT. He has not done an injection. His shoulder will really bother it for 2-3 days and then it will be good for a few weeks and then it will come back. When his shoulder is really bad he can not shave his head etc. His pain is getting closer together. In 1997 he had a shoulder surgery and shaved the bone off and lasted 20 years. He is R handed. 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 He is not sleeping well due to shoulder pain and can not sleep on the R shoulder. He has to sleep on his back. Pain R shoulder pain: Pain Intensity (Out of 10): 0 Pain Intensity Range: 10 Comment: with movement Objective Objective: R shoulder dominant R 126 and L 115 R shoulder AROM: R shoulder flex 110 and L shoulder flexion 115 degrees R shoulder ABD 85 and L 92 R shoulder ER 19 and L 20 R shoulder IR L2 and L PSIS UE MMT R shoulder flex 8.7 and L 9 R shoulder ABD 7.5 and L 5.7 R shoulder ER 15.6 and L 12 PROM: painful and tight at all end ranges Balance/Special Test Scores Quick DASH Score: 45.4525 Goals Goal 1:: I HEP Goal Time Frame: 8-12 Weeks Goal 2:: Increase R shoulder AROM (at the time of the eval: R shoulder AROM: R shoulder flex 110 and L shoulder flexion 115 degrees R shoulder ABD 85 and L 92 R shoulder ER 19 and L 20 R shoulder IR L2 and L PSIS) Goal Time Frame: 8-12 Weeks Goal 3:: Increase R shoulder MMT (at the time of the eval: R shoulder flex 8.7 and L 9 R shoulder ABD 7.5 and L 5.7 R shoulder ER 15.6 and L 12) Goal Time Frame: 8-12 Weeks Goal 4:: Decrease the frequency of R shoulder flare ups Goal Time Frame: 8-12 Weeks Rehabilitation Potential Rehabilitation Potential: Good Anticipated Interventions Patient/Client Instruction: Educate patient on: Condition and Plan of Care For the Purpose of:: To decrease pain, To increase ROM, To improve nutrient delivery to tissue, To improve muscle performance and motor function, To improve ability to perform ADL's, To increase tolerance to activity/condition/position, To improve performance and independence with ADL's, To improve ability of physical actions for home/community/work/leisure, To improve health of tissue, To decrease soft tissue restriction and To increase flexibility/ROM Therapeutic Exercise to Include: Strength training, Postural training, Flexibilty training, Neuromotor development, Passive ROM, Active ROM and Scapular Strength/Stabilization For the Purpose of:: To decrease pain, To increase ROM, To improve nutrient delivery to tissue, To increase oxygenation perfusion, To improve muscle performance and motor function, To improve ability to perform ADL's, To increase tolerance to activity/condition/position, To improve health of tissue, To decrease soft tissue restriction and To increase flexibility/ROM Manual Therapy Techniques to Include: Mobilization and Passive ROM For the Purpose of:: To decrease pain, To decrease swelling/inflammation, To in crease ROM, To improve nutrient delivery to tissue, To improve muscle performance and motor function, To increase tolerance to activity/condition/position, To improve performance and independence with ADL's, To improve gait and locomotor functions, To decrease soft tissue restriction and To increase flexibility/ROM Cryotherapy (ice pack, ice massage): Yes Thermo therapy (hot pack): Yes Text: Thank you for the opportunity to evaluate your patient. For Medicare and Medicare HMO plans, please review the plan of care and approve it. It will need to be FAXED BACK to us at [phone] for Medicare purposes. For Medicare only, by signing this I certify the plan of care. Please let me know if there are questions or concerns regarding this plan of care. Physician Signature: Date:
--- NOTE | 2024-06-05 07:53 | HP.PT.NRP ---
Patient Information Patient Information: NAZARIO PANDEY II was seen in my office for initial evaluation on 01/11/24. The following Plan of Care was established for this patient: POC Established Initial Frequency: 2x /Week Initial Duration: 3 Months Anticipated Interventions Patient/Client Instruction: Educate patient on: Condition and Plan of Care For the Purpose of:: To decrease pain, To increase ROM, To improve nutrient delivery to tissue, To improve muscle performance and motor function, To improve ability to perform ADL's, To increase tolerance to activity/condition/position, To improve performance and independence with ADL's, To improve ability of physical actions for home/community/work/leisure, To improve health of tissue, To decrease soft tissue restriction and To increase flexibility/ROM Therapeutic Exercise to Include: Strength training, Postural training, Flexibilty training, Neuromotor development, Passive ROM, Active ROM and Scapular Strength/Stabilization For the Purpose of:: To decrease pain, To increase ROM, To improve nutrient delivery to tissue, To increase oxygenation perfusion, To improve muscle performance and motor function, To improve ability to perform ADL's, To increase tolerance to activity/condition/position, To improve health of tissue, To decrease soft tissue restriction and To increase flexibility/ROM Manual Therapy Techniques to Include: Mobilization and Passive ROM For the Purpose of:: To decrease pain, To decrease swelling/inflammation, To increase ROM, To improve nutrient delivery to tissue, To improve muscle performance and motor function, To increase tolerance to activity/condition/position, To improve performance and independence with ADL's, To improve gait and locomotor functions, To decrease soft tissue restriction and To increase flexibility/ROM Cryotherapy (ice pack, ice massage): Yes Thermo therapy (hot pack): Yes Last Seen Last Seen: This patient was last seen in our office 02/07/24. Pertinent comments regarding their Physical therapy will appear below: DC PT At this point I will be discontinuing this patient from physical therapy. I would be happy to see this patient again in the future if found appropriate by the physician. Thank you! Keri Parr, RANDY Balance/Gait/Functional tests Balance/Special Test Scores Quick DASH Score: 45.2471
== END 2024-02-07 19:00 | disposition home or self-care (01) ==
LOC: PT 08:00
PROVIDERS: PCP Family Medicine; Referring Provider Orthopaedic Surgery; Visit Provider Orthopaedic Surgery
DX: M19.011 Primary osteoarthritis, right shoulder (principal)
CPT/HCPCS: 97110; 97161

== ENCOUNTER → 2024-07-13 | Outpatient (CLI) | payer MEDICAID, SELFPAY ==
[2024-07-13 17:48] LABS: Absolute Lymphocyte Count 1.43 X10^3/uL (0.83-4.51); Absolute Neutrophil Count 3.1 X10^3/uL (2.0-7.7); Basophil# 0.03 X10^3/uL; Basophil% 0.6 % (0-1); Eosinophil# 0.06 X10^3/uL; Eosinophils% 1.2 % (0-5); Hematocrit 43.6 % (40-54); Hemoglobin 14.6 g/dL (13.0-16.5); Lymphocyte # 1.43 X10^3/ul (0.83-4.51); Lymphocyte % 28.1 % (19-41); Mean Corp Hgb Conc 33.5 g/dL (32-36); Mean Corpuscular Hgb 29.6 pg (27.0-32.0); Mean Corpuscular Volume 88.3 fL (80-94); Mean Platelet Vol. 9.9 fl (6.2-12.0); Monocyte# 0.47 X10^3/uL; Monocyte% 9.2 % (0-10); NRBC Flagged by Analyzer 0 % (0-5); Neutrophil # 3.09 X10^3/uL (2.7-7.7); Neutrophil % 60.7 % (47-70); Platelet Count 240 K/mm3 (150-450); RBC Distribution Width CV 12.3 % (11.6-14.6); RBC Distribution Width SD 39.9 fl (35.1-43.9); Red Blood Count 4.94 M/mm3 (4.6-6.2); White Blood Count 5.1 K/mm3 (4.4-11.0)
[2024-07-13 18:02] LABS: Vitamin D,25 Hydroxy 58.6 ng/mL
[2024-07-13 18:21] LABS: ALB/GLOB Ratio 1.9 RATIO (0.9-2.4); AST(SGOT) 22 U/L (15-37); Alanine Aminotransfer ALT/SGPT 38 U/L (16-61); Albumin, Serum 4.5 g/dL (3.2-5.0); Alkaline Phosphatase 70 U/L (45-117); Anion Gap 6 (5-15); BUN 23 mg/dL (7-18); BUN/Creat Ratio 23.3 RATIO (10-20); Calcium,Total 9.2 mg/dL (8.5-10.1); Chloride 105 mmol/L (98-107); Cholesterol 170 mg/dL (200); Creatinine, Serum 0.99 mg/dL (0.70-1.30); EST Glomerular Filtration Rate 84 mL/min (>60); Est Glom Filt Rate - Afr Amer 102 mL/min (>60); Globulin 2.4 g/dL (2.2-4.2); Glucose 89 mg/dL (74-106); High Density Lipoprotein 62 mg/dL; Potassium 4.1 mmol/L (3.5-5.1); Protein, Total 6.9 g/dL (6.4-8.2); Sodium Level 139 mmol/L (136-145); Triglycerides 70 mg/dL; Very Low Density Lipoprotein 14 mg/dL (5-40)
[2024-07-18 22:07] LABS: Arsenic 7245 2 ug/L (0-9); Lead, Blood < 1.0 ug/dL (0.0-3.4); Mercury, Blood 85324 2.2 ug/L (0.0-14.9); Zinc, Plasma or Serum 91 ug/dL (44-115)
== END | disposition home or self-care (01) ==
LOC: MFPLAB 12:10
PROVIDERS: PCP Family Medicine; Visit Provider Family Medicine
DX: E29.8 Other testicular dysfunction (principal); R53.83 Other fatigue; Z13.220 Encounter for screening for lipoid disorders; E66.3 Overweight
CPT/HCPCS: 36415; 80053; 80061; 82175; 82306; 83655; 83825; 84403; 84443; 84630; 85025

== ENCOUNTER → 2024-08-13 | Outpatient (CLI) | payer OTHER, SELFPAY ==
--- NOTE | 2024-08-13 12:39 | CT_ITS ---
STUDY: CT ABDOMEN AND PELVIS WITH CONTRAST REASON FOR EXAM: Male, 54 years old. Right lower quadrant pain. RADIATION DOSAGE (If Supplied By Facility): CTDIvol = ( 14.50 ) mGy, DLP = ( 1282.48 ) mGycm TECHNIQUE: Transaxial images were obtained from the dome of the diaphragm to the symphysis pubis with oral contrast. Oral and amp; IV Gastrografin and amp; 100mL Isovue-370 was administered. Sagittal and coronal images were reconstructed. Individualized dose optimization techniques were used for this CT. COMPARISON: None. FINDINGS: Calcified granuloma in the right lower lobe. Coronary artery calcification. There is a 1.4 cm x 1.1 cm well-defined hypodensity in the dome of the right lobe of the liver. This is not a typical cyst. There is also evidence of a 7 mm hypodensity in the peripheral lateral aspect of the right lobe of the liver as well as small hypodensities in the mid and posterior aspect of the right lobe. Correlation with ultrasound is recommended to assess for possible cysts. The gallbladder is contracted. Normal spleen. Normal pancreas. Normal bilateral adrenal glands. Normal right kidney. Normal left kidney. Normal visualized stomach. Normal small intestine. Normal colon. The appendix is visualized and appears normal. There is scattered atherosclerotic calcification of the abdominal aorta, without a demonstrated aneurysm. Normal inferior vena cava. Normal retroperitoneum. Normal urinary bladder. Prostatic calcifications. Small bilateral benign-appearing inguinal lymph nodes. There is evidence of prior left inguinal hernia repair. Normal osseous structures. CT/Abdomen/Pelvis WITH Contrast IMPRESSION: Scattered hypodensities in the liver suggestive of small cysts although correlation with ultrasound is recommended for further evaluation. Contracted gallbladder. Prostatic calcifications. Electronically Signed: Juan Willis MD at 15:01 EST ,
== END | disposition home or self-care (01) ==
PROVIDERS: PCP Family Medicine; Referring Provider Family Medicine; Visit Provider Family Medicine
DX: R10.9 Unspecified abdominal pain (principal)
CPT/HCPCS: 74177; Q9967

== ENCOUNTER → 2024-08-13 | Outpatient (CLI) | payer OTHER, SELFPAY ==
[2024-08-13 15:20] LABS: Absolute Lymphocyte Count 1.11 X10^3/uL (0.83-4.51); Absolute Neutrophil Count 7.3 X10^3/uL (2.0-7.7); Basophil# 0.04 X10^3/uL; Basophil% 0.4 % (0-1); Eosinophil# 0.01 X10^3/uL; Eosinophils% 0.1 % (0-5); Hematocrit 40.7 % (40-54); Hemoglobin 13.6 g/dL (13.0-16.5); Lymphocyte # 1.11 X10^3/ul (0.83-4.51); Lymphocyte % 12.3 % (19-41); Mean Corp Hgb Conc 33.4 g/dL (32-36); Mean Corpuscular Hgb 29.7 pg (27.0-32.0); Mean Corpuscular Volume 88.9 fL (80-94); Mean Platelet Vol. 9.7 fl (6.2-12.0); Monocyte% 5.6 % (0-10); NRBC Flagged by Analyzer 0 % (0-5); Neutrophil # 7.28 X10^3/uL (2.7-7.7); Neutrophil % 80.9 % (47-70); Platelet Count 252 K/mm3 (150-450); RBC Distribution Width CV 13.2 % (11.6-14.6); Red Blood Count 4.58 M/mm3 (4.6-6.2)
[2024-08-13 15:47] LABS: ALB/GLOB Ratio 1.4 RATIO (0.9-2.4); AST(SGOT) 20 U/L (15-37); Alanine Aminotransfer ALT/SGPT 34 U/L (16-61); Albumin, Serum 3.8 g/dL (3.2-5.0); Alkaline Phosphatase 61 U/L (45-117); Anion Gap 3 (5-15); BUN 16 mg/dL (7-18); BUN/Creat Ratio 19.1 RATIO (10-20); Calcium,Total 9.1 mg/dL (8.5-10.1); Chloride 109 mmol/L (98-107); Creatinine, Serum 0.84 mg/dL (0.70-1.30); EST Glomerular Filtration Rate 102 mL/min (>60); Est Glom Filt Rate - Afr Amer 123 mL/min (>60); Globulin 2.7 g/dL (2.2-4.2); Glucose 115 mg/dL (74-106); Lipase 50 U/L (13-75); Potassium 4.1 mmol/L (3.5-5.1); Protein, Total 6.5 g/dL (6.4-8.2); Sodium Level 139 mmol/L (136-145)
== END | disposition home or self-care (01) ==
PROVIDERS: PCP Family Medicine; Referring Provider Family Medicine; Visit Provider Family Medicine
DX: R10.9 Unspecified abdominal pain (principal)
CPT/HCPCS: 36415; 80053; 83690; 85025

== ENCOUNTER → 2024-08-17 | Outpatient (CLI) | payer OTHER, SELFPAY ==
--- NOTE | 2024-08-17 07:25 | US_ITS ---
STUDY: ABDOMINAL ULTRASOUND - RIGHT UPPER QUADRANT REASON FOR VISIT: Male, 54 years old Abnormal radiological findings--STAT TECHNIQUE: Ultrasound evaluation of the right upper quadrant was performed with real-time and static francisco-scale imaging. TECHNICAL QUALITY: Adequate. COMPARISON: Comparison is made with prior CT scan of the pelvis dated August 13, 2024. FINDINGS: Liver: The liver measures 17.1 cm. There is normal echogenicity of the liver. The bile ducts are within normal limits. There is hepatic color flow. The direction of portal flow is hepatopetal. There is a 1.6 cm x 1.5 cm x 1.6 cm echogenic nodule corresponding to the hypodensity seen in the right lobe of the liver suggestive of an hemangioma. No other abnormality is seen. Gallbladder: Normal distended gallbladder. The gallbladder wall measures 2.0 mm. There is a negative sonographic Harper''s sign. There is no pericholecystic fluid. There are no gallstones. Common Bile Duct (C.B.D.): The common bile duct measures 2.0 mm. Pancreas: Normal size of the head, body and tail of the pancreas. There is normal echogenicity of the pancreas. There is no demonstrated pancreatic mass or cyst. Right Kidney: Normal size of the right kidney. The right kidney measures 13.7 cm x 6 cm x 4.9 cm. Normal renal cortex. The right cortex measures 1.9 cm. There is a 7 mm x 8 mm x 8 mm right renal cyst. There is no right hydronephrosis. US/Abdomen Limited IMPRESSION: The dominant nodule in the right lobe of liver corresponds to a hemangioma. Electronically Signed: Juan Willis MD at 10:31 EST ,
== END | disposition home or self-care (01) ==
PROVIDERS: PCP Family Medicine; Referring Provider Family Medicine; Visit Provider Family Medicine
DX: R93.89 Abnormal findings on diagnostic imaging of other specified body structures (principal)
CPT/HCPCS: 76705

== ENCOUNTER → 2024-08-23 | Outpatient (CLI) | payer OTHER, SELFPAY ==
[2024-08-25 09:07] LABS: GGTP 28 IU/L (0-65); HEPATITIS B SURFACE AG Negative (Negative); Hep C Antibodies Non Reactive (Non Reactive); Hepatitis A IgM Antibody Negative (Negative); Hepatitis B Core AB IgM Negative (Negative)
== END | disposition home or self-care (01) ==
LOC: MFPLAB 12:15
PROVIDERS: PCP Family Medicine; Referring Provider Family Medicine; Visit Provider Family Medicine
DX: D18.00 Hemangioma unspecified site (principal)
CPT/HCPCS: 36415; 80074; 82977

== ENCOUNTER 2025-02-20 15:12 | Outpatient (CLI) | payer OTHER, SELFPAY ==
[2025-02-20 19:05] LABS: Vitamin B12 1598 pg/mL (180-914)
== END 2025-02-20 23:59 | disposition home or self-care (01) ==
LOC: MFPLAB 15:12
PROVIDERS: PCP Family Medicine; Visit Provider Family Medicine
DX: R79.89 Other specified abnormal findings of blood chemistry (principal); E29.8 Other testicular dysfunction
CPT/HCPCS: 36415; 82607; 84403

== ENCOUNTER 2025-05-02 09:27 | Emergency (ER) | payer OTHER, SELFPAY ==
[2025-05-02] VITALS (12 sets, daily range): BP systolic 132–170; BP diastolic 75–108; PULSE 52–60; RESP 8–18; TEMP 36.6; O2SAT 95–99; BMI 32.6
--- NOTE | 2025-05-02 10:14 | EKG12_ITS ---
Test Reason : CP Blood Pressure : */* mmHG Vent. Rate : 57 BPM Atrial Rate : 57 BPM P-R Int : 156 ms QRS Dur : 98 ms QT Int : 402 ms P-R-T Axes : 18 17 -11 degrees QTcB Int : 391 ms Sinus bradycardia Otherwise normal ECG Confirmed by LORELEI CATHERINE ([id number]), social media editor RAJIV TUCKER ([id number]) on 05/07/2025 6:31:45 AM Referred By: RAFAEL Confirmed By: LORELEI CATHERINE
--- NOTE | 2025-05-02 10:16 | EDS_ITS ---
HPI History of Present Illness Chief Complaint: Chest Pain Informant: patient Narrative Narrative: Patient is a 55-year-old male with history of Suboxone use (currently trying to taper and on the lowest dose) and remote history of tobacco abuse presenting with chest pain. States been going on for the past week. States he gets a sharp pinching sensation in the left chest area over his heart. Not sometimes his breathing feels restricted with it. It is intermittent but last for hours at a time. Denies any significant alleviating factors but notes it is better when he is lifting or busy and worse in the evening or when he is sitting around. First noticed it this morning around 3:30 AM (his normal wake up time) and states it has been relatively constant since. Denies any radiation. Denies any change with positioning. Denies any swelling of his legs, lightheadedness or history of DVT/PE. Has been having some intermittent hot and cold feelings and notes that over the past week he is also been having increased bowel movements. He states he had 4 bowel movements yesterday before 6 AM. She saw his primary care doctor for this yesterday and has a stool sample ordered. Denies any black or blood in his stool. Denies any history of GERD or acid reflux. Denies any recent medication changes. States he is trying to wean his Suboxone and get off of it (he is currently on the lowest dose). Denies any new supplements. Does report that he had a lot of stress and is not sure if his symptoms are stress related. States that he has been having some financial issues as his recently lost her job and she has been having some health issues. His mother had 2 strokes is now in a group home and he has been feeling overwhelmed at work. His sister is a doctor and recommended he come to the ER to get checked out for this. No other complaints or concerns at this time. Denies any personal history of heart disease but states he did have an episode of atrial fibrillation requiring cardioversion about 6 years ago. His thinks that he has sleep apnea but has never been evaluated for it. Denies any significant family history of heart disease. Prior Similar Symptoms: No Recent Illness/Hospitalization: No CVD Risk Factors: Positive for Smoking PE Risk Factors: Negative for Recent Travel/Surgery, Recent Immobilization, Prio r DVT or PE, Cancer or OCP + Smoking + >/=35 PFSH PFSH Medical History Depression Former smoker Wears glasses Substance abuse Marijuana use Arthritis Restless legs Injury of head and neck Blackout Difficulty swallowing Hypertension History of echocardiogram Cardiology follow-up encounter History of cardioversion History of atrial fibrillation FH: total knee replacement Meniscus degeneration Home Medications ?Medication ?Instructions ?Recorded ?Last Taken ?Type ibuprofen 600 mg tablet 600 mg PO Q8H PRN pain 03/04 Unknown History acetaminophen 500 mg tablet 1,000 mg (2 x 500 mg) PO Q 6H PRN 10/18/23 Unknown Rx #100 tabs Allergy/AdvReac Type Severity Reaction Status Date / Time tramadol Allergy HIVES Verified 05/02/25 09:28 Family History Other No family history of disorders Surgical History History of total right knee replacement Hx of left knee surgery History of shoulder surgery History of hernia repair Social History household members: spouse housing: house Smoking Status: Former smoker what type of physical activity do you participate in: weight training frequency: daily do you feel safe at home: Yes ROS ROS ED Constitutional Constitutional ED: Reports chills and sweats; Denies fever(s) ENT ENT ED: Denies ear pain, rhinorrhea or sore throat Cardiovascular Cardiovascular: Reports chest pain; Denies orthopnea, palpitations or racing heartbeat Respiratory/Chest Respiratory/Chest: Reports dyspnea; Denies cough, orthopnea or sputum Gastrointestinal Gastrointestinal: Reports diarrhea; Denies abdominal pain, nausea or vomiting Musculoskeletal Musculoskeletal: Denies arthralgias or myalgias Integumentary Denies rash Neurologic Neurologic: Denies headache(s), paresthesias or weakness Psychiatric Psychiatric: Reports anxiety EXAM Physical Exam Const Vital Signs: 05/02/25 09:27 05/02/25 09:54 05/02/25 10:00 Temperature 98 F Temperature Source Temporal Pulse Rate 60 59 L 56 L Respiratory Rate 14 8 L 11 L Respiratory Effort Blood Pressure 170/94 H 147/108 H Blood Pressure Mean 119 122 Pulse Ox 98 97 99 Oxygen Delivery Method Room Air 05/02/25 10:15 05/02/25 10:20 05/02/25 10:21 Temperature Temperature Source Pulse Rate 57 L Respiratory Rate 8 L Respiratory Effort Normal Non-Labored Blood Pressure 143/88 H Blood Pressure Mean 105 Pulse Ox 95 96 Oxygen Delivery Method Room Air 05/02/25 10:30 05/02/25 10:45 05/02/25 11:08 Temperature Temperature Source Pulse Rate 55 L 52 L 57 L Respiratory Rate 9 L 10 L 13 Respiratory Effort Blood Pressure 138/93 H 132/101 H Blood Pressure Mean 105 111 Pulse Ox 97 96 Oxygen Delivery Method 05/02/25 11:15 05/02/25 11:16 05/02/25 11:30 Temperature Temperature Source Pulse Rate 54 L 55 L 53 L Respiratory Rate 11 L 18 15 Respiratory Effort Blood Pressure 150/75 H 149/86 H Blood Pressure Mean 95 102 Pulse Ox 98 98 Oxygen Delivery Method 05/02/25 12:20 Temperature 97.8 F Temperature Source Pulse Rate 53 L Respiratory Rate 15 Respiratory Effort Blood Pressure 149/86 H Blood Pressure Mean 107 Pulse Ox 98 Oxygen Delivery Method Positive well nourished and well developed General Appearance ED: well developed and NAD HEENT Reports moist mucous membranes normocephalic and atraumatic Eyes PERRL Neck supple and no JVD Chest Wall inspection of chest normal and palpation of chest normal Resp normal respiratory effort and clear to auscultation bilaterally Auscultation: Negative for wheezes or diminished lung sounds Cardio regular rate, regular rhythm and no murmurs Cardio Narrative: 2+ radial and and PT pulses present. No pedal edema present. GI normal to inspection, nondistended, normoactive bowel sounds, soft to palpation and non-tender Extremity normal to inspection General Extremety ED: Negative for edema General Extremity: Negative for edema Neuro oriented x3 Sensorium / Orientation: awake and alert Motor Exam: Negative for general weakness Skin no rashes or lesions noted and no wounds Heart Score History: Slightly/Non-Suspicious ECG: Normal Age: >45 - <65 years Risk Factors: 1 or 2 Risk Factors Troponin: </= Normal Limit Score: 2 MDM MDM MDM Narrative Medical decision making narrative: Patient is evaluated for intermittent chest pain for the past week. Also has some vague GI symptoms including lack of appetite and increased bowel movements denies diarrhea. Differential includes not limited to ACS, pulmonary emboli, pleural effusion, chest wall pain, referred GI pain, dehydration, thyroid dysfunction , electrolyte derangement, somatic complaints or possibly slight withdrawal symptoms from weaning his Suboxone. Patient is over 50 but low risk per Wells criteria and will obtain a D-dimer. Will hold off on cardiopulmonary imaging until D-dimer results. Patient given aspirin emergency room. Blood pressure initially hypertensive but downtrending without any intervention. EKG does not show any acute ischemic changes. CBC, CMP, TSH and lipase large unremarkable. High since he troponin normal at 8. Given that he has had constant symptoms since 330 this morning and this is going on for a week I do not think he requires further troponin trending. His D-dimer is minimally elevated at 0.57 for age adjustment so CTA of the chest is obtained to rule out PE. Patient does have some anterior compression deformity of T5 and T6 with chronic features. He is informed of this. No acute PE or other acute abnormality is noted. Patient continues to have some mild discomfort on the emergency room. Is offered GI cocktail as he has also been having acute GI symptoms (mainly diarrhea) with this but he declines. Patient does have a minimal elevation of his bilirubin but he has normal AST ALT and alkaline phosphatase and he has no tenderness in his right upper quadrant. I do not think he requires a dedicated gallbladder ultrasound and have a lower suspicion for an acute obstructive feature. Patient be discharged home. Counseled on return precautions. Discussed follow- up with his primary care doctor for further workup especially if this consist including possible stress test and echocardiogram. Counseled that this time I think he is safe for outpatient follow-up. Patient and agreeable this plan of care. Patient discharged home in stable condition Lab Data Attestation: I reviewed the patient's lab results. Labs: Laboratory Results - last 24 hr 05/02/25 09:45 WBC 6.4 RBC 5.19 Hgb 15.4 Hct 43.9 MCV 84.6 MCH 29.7 MCHC 35.1 RDW Std Deviation 36.0 RDW Coeff of Christiane 11.9 Plt Count 230 MPV 9.8 Immature Gran % (Auto) 0.200 Neut % (Auto) 68.7 Lymph % (Auto) 22.1 [place] % (Auto) 7.3 Eos % (Auto) 1.1 Baso % (Auto) 0.6 Absolute Neuts (auto) 4.4 Absolute Lymphs (auto) 1.42 Nucleated RBC % 0 D-Dimer Quant (PE/DVT) 0.57 H* Sodium 140 Potassium 3.9 Chloride 102 Carbon Dioxide 25.1 Anion Gap 12 BUN 15 Creatinine 1.03 Estim Creat Clear Calc 110.68 Est GFR (MDRD) Non-Af 86 BUN/Creatinine Ratio 14.9 Glucose 87 Calcium 9.7 Magnesium 2.2 Total Bilirubin 1.53 H Direct Bilirubin 0.46 H AST 37 ALT 38 Alkaline Phosphatase 69 Troponin T High Sens 8 Total Protein 7.3 Albumin 4.9 Globulin 2.4 Lipase 38 TSH 1.890 Radiography Diagnostic Testing: Clinical Impression(s) from Imaging Studies Chest CTA 05/02/25 11:00 IMPRESSION: There is 25% anterior compression deformity at T5 and T6, with chronic features. The ascending aorta measures 4.0 cm in AP diameter. There is no visible pulmonary embolus. [facility] R[facility] Strip Rhythm Strip: Sinus Rhythm Rate: 60 Ectopy: None EKG Initial EKG: Attestation: I personally reviewed and interpreted this EKG as follows: Interpretation: Sinus Bradycardia Comments: Sinus bradycardia at a rate of 57 bpm Normal axis Normal intervals Normal ST segments Nonspecific morphology change of the T waves in lead II but suspect this is artifact Discharge Plan Triage Chief Complaint: Chest Pain ED Provider: Laquita Armstrong Dx/Rx/DC Orders Clinical Impression: Chest pain of uncertain etiology Instructions: ED Chest Pain, Uncertain Cause Prescriptions: No Action ibuprofen 600 mg tablet 600 mg PO Q8H PRN (Reason: pain) acetaminophen 500 mg tablet 1,000 mg PO Q6H PRN Qty: 100 0RF Stand Alone Forms: Work / School Excuse Primary Care Provider: Carol Burntete Referrals: Carol Burnette MD [Primary Care Provider] - Activity Restrictions/Additional Instructions: Your workup today was largely normal. You do have a chronic slight compression fractures of your T5 and T6 vertebrae. That was incidentally seen on your CT. If you have a progression or worsening your symptoms please do not hesitate to return to the emergency room. Otherwise I do recommend follow-up outpatient with your primary care doctor for further evaluation and outpatient testing Print Language: Divehi Disposition Disposition: Home, Self Care Discharge Date/Time: 05/02/25 12:37
[2025-05-02 10:26] LABS: Hematocrit 43.9 % (40-54); Hemoglobin 15.4 g/dL (13.0-16.5); Immature Granulocytes Count 0.010 X10^3/uL (0.0-0.0); Mean Corp Hgb Conc 35.1 g/dL (32-36); Mean Corpuscular Volume 84.6 fL (80-94); Mean Platelet Vol. 9.8 fl (6.2-12.0); NRBC Flagged by Analyzer 0 % (0-5); Platelet Count 230 K/mm3 (150-450); RBC Distribution Width CV 11.9 % (11.6-14.6); RBC Distribution Width SD 36.0 fl (35.1-43.9); Red Blood Count 5.19 M/mm3 (4.6-6.2); White Blood Count 6.4 K/mm3 (4.4-11.0)
[2025-05-02 10:46] LABS: D-Dimer Quantitative (DVT/PE) 0.57 FEU/ug/m (0.27-0.49)
[2025-05-02 10:52] LABS: Troponin T High Sensitivity 8 ng/L (<=22)
[2025-05-02 11:00] LABS: AST(SGOT) 37 U/L (<=37); Alanine Aminotransfer ALT/SGPT 38 U/L (<=46); Albumin, Serum 4.9 g/dL (3.5-5.0); Alkaline Phosphatase 69 U/L (40-129); Anion Gap 12 (5-15); BUN 15 mg/dL (4-19); BUN/Creat Ratio 14.9 RATIO (10-20); Bilirubin, Direct 0.46 mg/dL (0.00-0.30); Calcium,Total 9.7 mg/dL (7.6-11.0); Carbon Dioxide 25.1 mmol/L (21.0-32.0); Chloride 102 mmol/L (98-108); Estimated Creatinine Clearance 110.68 ml/min (50-250); Globulin 2.4 g/dL (2.2-4.2); Glucose 87 mg/dL (70-99); Lipase 38 U/L (13-75); Magnesium 2.2 mg/dL (1.5-2.2); Potassium 3.9 mmol/L (3.3-5.1)
--- NOTE | 2025-05-02 11:00 | CT_ITS ---
PROCEDURE: CTA CHEST W/WO CONTRAST 05/02/2025 REASON FOR EXAM: CEHST PAIN, ELEVATED DIMER TECHNIQUE: CTA CHEST W/WO CONTRAST Multiplanar Sagittal and Coronal images were obtained. CONTRAST: 100 cc Isovue 370 One or more dose reduction techniques were used (e.g., Automated exposure control, adjustment of the mA and/or kV according to patient size, use of iterative reconstruction technique). RADIATION DOSE SUMMARY: DLP: 572 mGycm COMPARISON: None FINDINGS: Hardware: None Lymph nodes: There is no pathologic adenopathy by size criteria. Heart: Atherosclerotic calcifications are noted. RV/LV Diameter Ratio: 0.8 Thoracic Aorta: The ascending aorta measures 4.0 cm in AP diameter. Pulmonary Vessels: Main pulmonary artery Hounsfield units = 305. There is no visible pulmonary embolus. Lungs and Airways: Clear Pleura: There is no pneumothorax or effusion Upper Abdomen: Unremarkable Bones: There is no acute bony abnormality. There is 25% anterior compression deformity at T5 and T6, with chronic features. CT/CTA Chest W/WO Contrast IMPRESSION: There is 25% anterior compression deformity at T5 and T6, with chronic features . The ascending aorta measures 4.0 cm in AP diameter. There is no visible pulmonary embolus. Reading Location: [facility]
== END 2025-05-02 12:37 | disposition home or self-care (01) ==
PROVIDERS: Emergency Provider Emergency Medicine; PCP Family Medicine; Visit Provider Emergency Medicine
DX: R07.9 Chest pain, unspecified (principal); I10 Essential (primary) hypertension; Z87.891 Personal history of nicotine dependence
CPT/HCPCS: 71275; 80048; 80076; 83690; 83735; 84443; 84484; 85025; 85379; 93005; 99284; Q9967

== ENCOUNTER 2025-07-22 17:19 | Emergency (ER) | payer OTHER, SELFPAY ==
[2025-07-22 17:20] VITALS: BP 137/99; PULSE 101; RESP 16; TEMP 36.6; O2SAT 99; BMI 38.7
--- NOTE | 2025-07-22 17:31 | RAD_ITS ---
PROCEDURE: RIGHT KNEE 4 OR MORE VIEWS 07/22/2025 REASON FOR EXAM: INJURY TECHNIQUE: Procedure Code: RADKN Modality: DX Procedure: KNEE 4 OR MORE VIEWS Laterality: Right COMPARISON: 03/02/2024 FINDINGS: No evidence of acute fracture or dislocation. Postoperative changes of total knee arthroplasty. No evidence of hardware complication. Nonspecific mild joint effusion and prepatellar soft tissue swelling. RAD/Knee 4 or More Views IMPRESSION: 1. No acute fracture or dislocation appreciated. 2. Total right knee arthroplasty with intact hardware. 3. Nonspecific small joint effusion and mild prepatellar soft tissue swelling. Reading Location: [id number]
--- NOTE | 2025-07-22 17:34 | EDS_ITS ---
HPI History of Present Illness Chief Complaint: Lower Extremity Injury Informant: patient and spouse/S.O. Narrative Narrative: 55-year-old male presenting to the emergency room with right knee injury. Patient states he has bilateral knee replacements. Today he was doing incline press with 295 pounds and he got stuck and went to throw the weight and the bar hit his right distal anterior thigh causing abrasion. He was able to bear weight but it is painful. States he is concerned about his knee replacement. Denies any other injury. He denies distal symptoms. PFSH PFSH Medical History Depression Former smoker Wears glasses Substance abuse Marijuana use Arthritis Restless legs Injury of head and neck Blackout Difficulty swallowing Hypertension History of echocardiogram Cardiology follow-up encounter History of cardioversion History of atrial fibrillation FH: total knee replacement Meniscus degeneration Home Medications ?Medication ?Instructions ?Recorded ?Last Taken ?Type ibuprofen 600 mg tablet 600 mg PO Q8H PRN pain 03/04 Unknown History acetaminophen 500 mg tablet 1,000 mg (2 x 500 mg) PO Q 6H PRN 10/18/23 Unknown Rx #100 tabs buprenorphine 0.7 mg-naloxone 0.18 1 tab sublingual BI D 07/22/25 Unknown History mg sublingual tablet (Zubsolv) ketorolac 10 mg tablet 10 mg PO Q8H PRN pain #15 ta bs 07/22/25 Unknown Rx Allergy/AdvReac Type Severity Reaction Status Date / Time tramadol Allergy HIVES Verified 07/22/25 17:21 Family History Other No family history of disorders Surgical History History of total right knee replacement Hx of left knee surgery History of shoulder surgery History of hernia repair Social History household members: spouse housing: house Smoking Status: Former smoker what type of physical activity do you participate in: weight training frequency: daily do you feel safe at home: Yes ROS ROS ED Constitutional Constitutional ED: Denies chills, fever(s) or weight loss Eyes Eyes: Denies change in vision or diplopia ENT ENT ED: Denies ear pain, rhinorrhea or sore throat Cardiovascular Cardiovascular: Denies chest pain, orthopnea, palpitations or racing heartbeat Respiratory/Chest Respiratory/Chest: Denies cough, dyspnea or orthopnea Gastrointestinal Gastrointestinal: Denies abdominal pain, diarrhea, nausea or vomiting Genitourinary Genitourinary ED: Denies dysuria, hematuria or urinary frequency Musculoskeletal Musculoskeletal: Reports other Details: See history of present illness ; Denies arthralgias or myalgias Integumentary Reports Abrasions; Denies abscess or rash Neurologic Neurologic: Denies headache(s) or weakness Psychiatric Psychiatric: Denies anxiety, depression, suicidal ideation or suicidal thoughts Endocrine Endocrinology: Denies polydipsia, polyphagia or polyuria Allergic/Immunologic Allergic/Immunologic ED: Denies mouth swelling, tongue swelling or urticaria EXAM Physical Exam Const Vital Signs: 07/22/25 17:20 07/22/25 18:03 Temperature 98 F 97.9 F Temperature Source Oral Pulse Rate 101 H 101 H Respiratory Rate 16 16 Blood Pressure 137/99 H 138/90 H Blood Pressure Mean 111 106 Pulse Ox 99 100 Oxygen Delivery Method Room Air Positive well nourished and well developed General Appearance ED: well developed and NAD HEENT Reports normocephalic, head/scalp atraumatic and moist mucous membranes Eyes PERRL and EOMs intact bilaterally Neck no lymphadenopathy, supple and no JVD Resp normal respiratory effort and clear to auscultation bilaterally Cardio regular rate, regular rhythm and no murmurs GI normal to inspection, nondistended, normoactive bowel sounds and non-tender Palpation: soft Back/Spine no CVA tenderness and normal ROM Extremity Extremity Narrative: Distal anterior right thigh demonstrates hematoma and abrasion. Knee joint itself does not demonstrate an effusion. Distally is +2 dorsalis pedis and posterior tibial pulses. Normal sensation. Normal skin color. Excellent capillary refill. He has painful range of motion. General Extremety ED: Negative for edema General Extremity: Negative for edema Neuro oriented x3 and CN's II-XII intact bilaterally Sensorium / Orientation: alert Motor Exam: strength 5/5 throughout Psych mental status grossly normal Mood & Affect: Negative for depressed or tearful Skin no rashes or lesions noted and no wounds MDM MDM MDM Narrative Medical decision making narrative: Differential diagnosis includes but not limited to hematoma traumatic bursitis fracture compartment syndrome My independent interpretation of the plain films of the right knee is no acute fracture. Please see radiologist read. Ice applied Nicholas wrap will be applied. Patient does not wish any pain medication other than a powerful anti-inflamma tory. I can prescribe ketorolac. Patient to follow-up as needed. I specifically discussed compartment syndrome as well as vascular spasm and other complications with him. He understands return instructions return if worsening or concerns History & Record Review Discussion w/independent historian: Patient and Significant other Radiography Diagnostic Testing: Clinical Impression(s) from Imaging Studies Knee X-Ray 07/22/25 17:31 IMPRESSION: 1. No acute fracture or dislocation appreciated. 2. Total right knee arthroplasty with intact hardware. 3. Nonspecific small joint effusion and mild prepatellar soft tissue swelling. Reading Location: [facility] Discharge Plan Triage Chief Complaint: Lower Extremity Injury ED Provider: Ortega Garza Dx/Rx/DC Orders Clinical Impression: Hematoma of right thigh, Abrasion of thigh, right Instructions: ED Hematoma Prescriptions: New ketorolac 10 mg tablet 10 mg PO Q8H PRN (Reason: pain) Qty: 15 0RF Rx Instructions: maximum total duration of 5 days from all oral, intranasal, or parenteral formulations No Action ibuprofen 600 mg tablet 600 mg PO Q8H PRN (Reason: pain) acetaminophen 500 mg tablet 1,000 mg PO Q6H PRN Qty: 100 0RF Zubsolv 0.7-0.18 mg tablet, sublingual 1 tab sublingual BID Primary Care Provider: Care Physician,No Primary Referrals: Carol Burnette MD [Med Staff - [facility]] - As Needed Print Language: Tuvaluan Disposition Disposition: Home, Self Care
[2025-07-22 18:03] VITALS: BP 138/90; PULSE 101; RESP 16; TEMP 36.6; O2SAT 100
== END 2025-07-22 18:08 | disposition home or self-care (01) ==
PROVIDERS: Emergency Provider Emergency Medicine; Visit Provider Emergency Medicine
DX: S70.311A Abrasion, right thigh, initial encounter (principal); I10 Essential (primary) hypertension; Z87.891 Personal history of nicotine dependence; S70.11XA Contusion of right thigh, initial encounter; W22.8XXA Striking against or struck by other objects, initial encounter; Y93.B3 Activity, free weights; Z96.653 Presence of artificial knee joint, bilateral
CPT/HCPCS: 73564; 99282